=== PATIENT | female | born 1955 | race Caucasian/White ===

== ENCOUNTER 2025-06-22 15:24 | Inpatient (IN) | payer MEDICARE, SELFPAY ==
[2025-06-22] VITALS (75 sets, daily range): BP systolic 60–175; BP diastolic 22–70; PULSE 0–70; RESP 9–24; TEMP 36.1–37; O2SAT 84–100; BMI 29.2
--- NOTE | 2025-06-22 15:41 | EKG_ITS ---
[facility] Test Date: 2025-06-22 Pat Name: RY RICHARDSON Department: Room: - Gender: Female Automatic Print Developer: RICKY : 1955 Requested By: ED Temporary Provider Order Number: [id number] Reading MD: ED Temporary Provider Measurements Intervals [place] Rate: 41 P: NM: QRS: -3 QRSD: 99 T: 120 QT: 452 QTc: 376 Interpretive Statements SUPRAVENTRICULAR BRADYCARDIA ST DEVIATION AND MODERATE T-WAVE ABNORMALITY, CONSIDER ANTEROLATERAL ISCHEMIA No previous ECG available for comparison /[id number]/[email or web address]/[id number]
--- NOTE | 2025-06-22 15:47 | EDNOTE_ITS ---
ED Arrhythmia Palp. RME/HPI General Chief Complaint: Arrhythmia/Palpitations Stated Complaint: BRADYCARDIA Time Seen by Provider: 06/22/25 15:53 Arrival date/time: 06/22/25 15:24 RME / HPI RME / HPI narrative: 69 year old female presents to the ED BIBA from home for evaluation of symptomatic bradycardia today. Per medics, the patient on scene reported feeling dizzy while in the shower and laid herself on the bathroom floor. Medics state on scene the patient was pale, GCS of 14, bradycardic rate 30-40s, blood pressure 102/52, saturating low 90s on room air and placed on 6L nasal cannula with improvement to 95%. State en route patients heart rate dropped to low 20s and given a total of 1mg Atropine with minimal change. In the ED, patient reports she does have an appointment scheduled with allergy and immunology chief for the first time in 1 week. Denies any blood in stool. Per medics, on scene reported patients current medications include Amiodarone, Sertraline, Levothyroxine. Patient denies use of blood thinners. Related Data Home Medications ?Medication ?Instructions ?Recorded ?Confirmed levothyroxine 100 mcg tablet 100 mcg PO DAILY 06/22/25 06/22/25 sertraline 50 mg tablet 50 mg PO Q24H 06/22/2506/22 Previous Rx's ?Medication ?Instructions ?Recorded ferrous sulfate 300 mg (60 mg 150 mg (2.5 mL) PO Q OTH ER DAY 06/30/25 iron)/5 mL oral liquid #500 mL furosemide 20 mg tablet (Lasix) 20 mg PO QDAY PRN Shor tness or 06/30/25 breath or Rapid weight gain #30 tabs midodrine 5 mg tablet 5 mg PO Q4H 30 days #180 tab s 06/30/25 pantoprazole 40 mg tablet,delayed 40 mg PO BID 30 days #60 tabs 06/30/25 release vitamin B complex-vitamin C-folic 1 tab PO QDAY 30 day s #30 tabs 06/30/25 acid 0.8 mg tablet (Nephro-Ange) Allergies Allergy/AdvReac Type Severity Reaction Status Date / Time No Known Allergies Allergy Verified 06/27/25 15:03 Review of Systems Review of Systems Systems Reviewed: All systems reviewed, normal except as documented Past Medical History Past Medical History CARDIAC: Positive Cardiac Disorders (does not remeber what problem) and Hypotension Surgical History SURGICAL: Negative Abdominal Surgery, Nephrectomy, Joint Replacement, Brain Shunt or Lumpectomy Social History SMOKING STATUS: Smoker, status unknown ED Exam Narrative Physical exam: GENERAL APPEARANCE: alert and oriented x 4 though slow to respond, well- developed, well-nourished, pale, skin is cool to touch HEENT: Normocephalic, atraumatic; pupils equal, round, reactive to light; EOMI; mucous membranes pink, moist; oropharynx clear NECK: Supple LUNGS: CTABL; no wheezes, no rales, no rhonchi HEART: Bradycardic rate low 20s; normal S1, S2; no murmurs ABDOMEN: non distended; normal BS; soft, no tenderness, no guarding, no rebound; no masses, no organomegaly, no hernia BACK: no CVA tenderness EXTREMITIES: atraumatic; no edema NEUROLOGIC: awake; alert and oriented x4 though slow to respond PSYCHIATRIC: appropriate mood and affect SKIN: cool, dry, pale; no rashes Course Course Course Narrative: Patient externally paced at 130mA, rate 70s. BS 218. 1528p: HR mid 20s, patient given 1mg Atropine. 1545p: I spoke with allergy and immunology chief Dr. Travis, states he will be making calls to the crown and bridge dental lab technician for pacemaker placement. 1710p: Blood pressure 106/43, rate 70. Patient states she does not recall why she is on the Amiodarone and was started on the medication years ago. 1716p: I spoke with jigman Dr. Marie. Discussed patients PMHx, HPI, ED course, exam findings, labs, and radiology results. She accepts the patient for admission to ICU. Quality Measures none Orders Category Date Time Status EKG (ED ONLY) *Do not use* NOW Care 06/22/25 15:41 Active EKG (ED Only) Stat Exams 06/22/25 15:41 Ordered BNP [B-Type Natriuretic Peptide] Stat Lab 06/22/25 15:41 Ordered CBC Stat Lab 06/22/25 15:40 Ordered CMP [Comprehensive Metabolic Panel] Stat Lab 06/22/25 15:40 Ordered Magnesium Stat Lab 06/22/25 15:40 Ordered Troponin I Stat Lab 06/22/25 15:40 Ordered Arrhythmia/Palpitations MDM Narrative MDM Narrative:: I, Esther Diana, am scribing for and in the presence of Dr. Farooq. Patient data External records reviewed:: EMS form Clinical information provided by:: patient, EMS and spouse Social determinants that could affect healthcare access:: none Patient has the following chronic illnesses:: See HPI How is presenting disease/condition affected by chronic disease/condition?: exacerbated by Evaluation data The following diagnostics were reviewed and interpreted by me:: lab results Lab and/or radiology exams considered but not ordered:: None Interpretation Summary: junctional rhythm, rate 41, occasional PVC, ST depression lead II, TWI lead II Medications / Prescriptions Medications or Prescriptions considered but not ordered:: None Medication administrations:: See above Consultations Consultation(s) initiated? (list below): Yes Consultation #1 (Physician, Specialty, Details): See course Diagnosis Most likely diagnosis given after review of the tests above:: Junctional bradycardia Symptomatic bradycardia Symptomatic anemia Admission Indicated Admission indicated?: indicated Admission Request Was there a request for admission?: Yes Admission Attestation Admission request attestation: Discussed case with [] from Hospitalist service regarding admission. Discussed patients ED course, exam findings, labs, and radiology results. The Hospitalist [agrees,declines] to accept the patient for admission. Disposition Plan Disposition Plan: Admit Critical Care Time Critical Care Time Critical Care Time: Yes Total Critical Care Time (min.): 50 Attestation: The high probability of sudden, clinically significant deterioration in the patient's condition required the highest level of my preparedness to intervene urgently. The services I provided to this patient were to treat and/or prevent clinically significant deterioration. Services included the following: chart data review, reviewing nursing notes and/or old charts, documentation time, real estate consultant collaboration regarding findings and treatment options, medication orders and management, direct patient care, vital sign assessments and ordering, interpreting and reviewing diagnostic studies and lab tests. Aggregate critical care time includes only time during which I was engaged in work directly related to the patient's care, as described above, whether at bedside or elsewhere in the Emergency Department. It did not include time spent performing other reported procedures or the services of residents, students, nurses or physician assistants. Discharge Plan Plan Patient Disposition: Admit Acute Care w/in Hospital Discharge Disposition comment: ICU- Dr. Marie Patient condition on transfer: Stable Problem List Clinical Impression: Junctional bradycardia, Symptomatic bradycardia, Symptomatic anemia
--- NOTE | 2025-06-22 15:47 | PC.NURSE ---
PT TALYA FROM HOME, WAS TAKING A SHOWER WHEN SHE BEGAN FEELING DIZZY, GOT OUT OF SHOWER AND LAID HERSELF ON THE GROUND, CALLED AMBULANCE, WHEN EMS ARRIVED PTS HR WAS IN THE 20S, THEY ADMINISTERED 1 ATROPINE. HERE PT ABLE TO ANSWER QUESTIONS, CURRENTLY BE PACED.
[2025-06-22 16:39] LABS: Alanine Aminotransferase 40 U/L (10-49); Albumin, Serum 3.6 gm/dL (3.4-4.8); Albumin/Globulin Ratio 1.8 (1.2-2.2); Alkaline Phosphatase 49 U/L (46-116); Anion Gap 15 (7-16); Aspartate Amino Transferase 57 U/L (0-34); BUN/Creatinine Ratio 11 Ratio (12-20); Bilirubin,Total 3.5 mg/dL (0.3-1.2); Blood Urea Nitrogen 22 mg/dL (9-23); C-Reactive Protein < 0.5 mg/dL (0.0-0.9); Calcium 8.6 mg/dL (8.3-10.6); Calcium (Corrected) 8.9 mg/dL (8.5-10.1); Carbon Dioxide 17.4 mMol/L (20.0-31.0); Chloride 102 mMol/L (98-107); Creatinine (Component) 2.0 mg/dL (0.6-1.3); Free T4 (Free Thyroxine) 1.64 ng/dL (0.89-1.76); Globulin 2.0 gm/dL (2.3-3.5); Glucose 224 mg/dL (74-106); Magnesium 2.3 mg/dL (1.6-2.6); Osmolality,Calculated 278 (275-295); Potassium 5.1 mMol/L (3.4-5.1); Sodium 134 mMol/L (136-145); Thyroid Stimulating Hormone 3.32 uIU/mL (0.55-4.78); Total Protein 5.6 gm/dL (5.7-8.2); Troponin I 0.022 ng/mL (0.0-0.045); eGFR 27 See Note
--- NOTE | 2025-06-22 16:53 | PC.NURSE ---
cardiiologist at bedside SHERRI Travis
--- NOTE | 2025-06-22 17:07 | PC.NURSE ---
md attempted to turn down the pacer and patient started to doze off
[2025-06-22] MEDS: DOPamine/D5w 400 MG IVPB 400 MG/250 ML BAG 16.361 MG IV ×2 (17:45→20:31)
[2025-06-22 17:46] LABS: Basophils # (Auto) 0.0 Thou/mm3 (0.0-0.2); Basophils % (Auto) 0 % (0-2.5); Eosinophils # (Auto) 0.0 Thou/mm3 (0.0-0.5); Eosinophils % (Auto) 0 % (0-10); Immature Granulocytes Auto 0.12 Thou/mm3 (0.00-0.00); Lymphocytes # (Auto) 2.0 Thou/mm3 (1.0-4.8); Lymphocytes % (Auto) 25 % (10-50); Mean Corpuscular HGB Conc 34.6 g/dl (31.0-37.0); Mean Corpuscular Hemoglobin 47.0 pg (25.0-35.0); Mean Corpuscular Volume 136 fL (80-100); Monocytes # (Auto) 0.4 Thou/mm3 (0.0-0.8); Monocytes % (Auto) 6 % (0-12); Neutrophils # (Auto) 5.3 Thou/mm3 (1.8-7.7); Neutrophils % (Auto) 68 % (37-80); Nucleated Red Blood Cell # 0.13 Thou/mm3 (0.00-0.00); Nucleated Red Blood Cell % 2 /100 WBC (0); RDW Standard Deviation 91.5 fL (36.4-46.3); Red Blood Count 1.00 Miln/mm3 (4.00-5.20); White Blood Count 7.8 Thou/mm3 (3.6-11.0)
[2025-06-22 17:54] LABS: Hematocrit 13.6 % (36.0-46.0); Hemoglobin 4.7 g/dL (12.0-16.0); Platelet Count 66 Thou/mm3 (140-440)
[2025-06-22 17:59] LABS: Sed Rate (ESR) < 1 mm/hr (0-30)
[2025-06-22 18:16] LABS: B-Type Natriuretic Peptide 476 pg/mL (0-100)
[2025-06-22 18:20] LABS: Slide Review Platelets confirmed
[2025-06-22 18:21] LABS: Path Review Blood Smear Sent to Pathologist
--- NOTE | 2025-06-22 18:56 | PC.NURSE ---
wast at bedside at 1745 and wants PRBS to be pushed due to patients hgb 4.7 at this time, phone call recieved from lab that hgb was 4.7, hct 13.6 , and platelets 66 md was notified at this time, and ordered it to be pushed fast, patient was able to tolerated 1srt unit, and 2nd unit was initated, patient heart rate had dropped to 36 due to md changing the setting on the pacer, patient was also started on a dopamine drip ,patient was then taken to icu for further treatment at this time,
--- NOTE | 2025-06-22 19:17 | PD.RESCONSUL ---
HPI Data of Consult Requesting Physician: Dr. Farooq Admitting Provider: Coral Marie MD Attending Provider: Coral Marie MD Primary Care Provider: Monica Hitchcock MD Consult Narrative History of present illness: Patient is a 69-year-old female with past medical history of arrhythmia, hypothyroidism, GERD, depression who presents on 06/22 for syncope. Patient's was present at bedside. Patient reports that she was trying to take a shower when she suddenly felt lightheaded, was caught by and placed on the ground. Denies any head or bodily trauma. Denies loss of consciousness. reports that he took her blood pressure, found systolics to be 90s and heart rate in 20s. Called 911. Per , she had been more progressively pale for the past 2 weeks. Patient endorses she had darker stools but attributed to the fact that she was started on Bactrim and Z-Girish about 2 weeks ago for upper respiratory symptoms, prescribed by PCP. Denies any diarrhea, fever, chills. Denies any chest pain, shortness of breath, and palpitations. Patient reports that she previously saw jewelry repairer Dr. Meyer however has not seen him for more than a year at least. Was prescribed amiodarone, digoxin, nadolol for arrhythmia . Patient is not on anticoagulation. Patient was supposed to see Dr. Perdomo for initial visit next week, as her also follows with him regularly. Upon arrival to the ED, heart rate was in 30s. Was given atropine x 1 in transit. Was being paced transcutaneously. Upon arrival, patient was very pale, Hgb 4.7, in process of receiving 1 unit of blood and dopamine drip 10 mcg/kg/min. Patient did not tolerate discontinuation, HR 36 off pacer. First unit of blood bolused, another unit of blood was transfused. Patient was transferred to ICU for possible temporary pacemaker placement. Past Medical History: As above Family History: Extensive family history of diabetes. Denied any family cardiac history. Surgical History: Denies any surgeries Social History: Denies history of smoking, denies current alcohol use, denies recreational drug use Current Medications: Amiodarone 200 mg daily, nadolol 40 mg daily, digoxin to 50 mg daily except for Sundays, levothyroxine 100 mcg daily, sertraline 50 mg daily, Bactrim started on 06/16/2025 (Source: Medication bottles brought by family) Allergies: No known drug allergies cc:: cc: Coral Marie MD Exam Vital Signs Temp Pulse Resp BP Pulse Ox O2 Del Method O2 Flow Rate 97.6 F 36 L 18 131/59 H 95 Nasal Cannula 5 06/22/25 18:15 06/22/25 18:28 06/22/25 18:28 06/22/25 18:28 06/22/25 18:28 06/22/25 17:14 06/22/25 18:28 Narrative Exam Physical Exam General: Awake and in mild distress on transcutaneous pacing. Conversational. Very pale. HEENT: Normocephalic, atraumatic, mucous membranes dry. Heart: Bradycardic. Regular rate and rhythm, normal S1 and S2, no murmurs appreciated. Lungs: Diffuse crackles. Abdomen: Soft, nondistended, nontender, positive bowel sounds. No guarding or rebound tenderness. Neurologic: Alert and oriented x3, no gross neurological deficit, and patient able to move all 4 extremities. Extremities: No edema. Skin: No rash or ecchymoses. Results Labs 06/22/25 20:34 06/22/25 20:34 Labs: Short CBC 06/22/25 Range/Units 17:21 WBC 7.8 (3.6-11.0) Thou/mm3 Hgb 4.7 L* (12.0-16.0) g/dL Hct 13.6 L* (36.0-46.0) % Plt Count 66 L (140-440) Thou/mm3 BMP 06/22/25 15:40 Sodium 134 L Potassium 5.1 Chloride 102 Carbon Dioxide 17.4 L BUN 22 Creatinine 2.0 H Glucose 224 H Calcium 8.6 Cardiac Enzymes 06/22/25 Range/Units 15:40 Troponin I 0.022 (0.0-0.045) ng/mL Liver Function 06/22/25 Range/Units 15:40 Total Bilirubin 3.5 H (0.3-1.2) mg/dL AST 57 H (0-34) U/L ALT 40 (10-49) U/L Alkaline Phosphatase 49 (46-116) U/L Albumin 3.6 (3.4-4.8) gm/dL Quality Measures Quality Measures none Advance care planning discussed with:: patient Medications Home Medications and Allergies Home Medications ?Medication ?Instructions ?Recorded ?Confirmed ?Type amiodarone 200 mg tablet 200 mg PO Q24H 06/22/25 06/22/25 History digoxin 250 mcg (0.25 mg) tablet 250 mcg PO .COMPLEX 06/22/25 06/22/25 History levothyroxine 100 mcg tablet 100 mcg PO DAILY 06/22/25 06/22/25 History nadolol 40 mg tablet 40 mg PO DAILY 06/22/25 06/22/25 History sertraline 50 mg tablet 50 mg PO Q24H 06/22/25 06/22/25 History sulfamethoxazole 400 1 tab PO Q12H 06/22/25 06/22/25 History mg-trimethoprim 80 mg tablet Allergies Allergy/AdvReac Type Severity Reaction Status Date / Time No Known Allergies Allergy Verified 06/22/25 15:39 Visit Medications Acetaminophen (Acetaminophen 325 Mg Tablet) 650 mg PO Q6H PRN PRN Reason: Fever >101.5 Stop: 07/22/25 17:54 Acetaminophen (Acetaminophen 325 Mg Tablet) 650 mg PO Q6H PRN PRN Reason: PAIN SCALE 1-3 (mild Stop: 07/22/25 17:54 Dextrose (Dextrose 50%-Water Inj 50 Ml Syringe) 25 ml IV Q15MIN PRN PRN Reason: BG 50-70 responsive npo pt Stop: 07/22/25 17:59 Dextrose (Dextrose 50%-Water Inj 50 Ml Syringe) 50 ml IV Q15MIN PRN PRN Reason: BG <50 OR BG <70 & pt unresponsive Stop: 07/22/25 17:59 Glucagon (Glucagon Inj 1 Mg Vial) 1 mg IM Q15MIN PRN PRN Reason: BG <70, and no IV access Dopamine HCl/Dextrose (Intropin In D5w Ivpb) 400 mg in 250 mls @ 16.361 mls/hr IV .[id number] JOANN; Protocol Stop: 07/22/25 17:17 Last Titration: 06/22/25 17:54 Dose: 10 mcg/kg/min, 32.723 mls/hr Insulin Human Lispro (Insulin Lispro (Admelog) 1 Unit/0.01 Ml Unit) 0 unit SC Q6HR JOANN; Protocol Stop: 07/22/25 17:59 Ondansetron HCl (Ondansetron Inj 2 Mg/Ml Inj 2 Ml) 4 mg IVP Q6H PRN; Protocol PRN Reason: NAUSEA OR VOMITING Stop: 07/22/25 17:54 Pantoprazole Sodium (Pantoprazole Inj 40 Mg Vial) 40 mg IVP BID JOANN Stop: 07/22/25 20:59 Sennosides (Senna Tablet) 1 tab PO QDAY PRN; Protocol PRN Reason: constipation Stop: 07/22/25 17:54 Assessment & Plan Plan Patient is a 69-year-old female with past medical history of arrhythmia, hypothyroidism, GERD, depression who presents to the [facility] ED on 06/22/25 for pre-syncope, found to be in bradycardia HR low 30s requiring transcutaneous pacing, admitted to ICU for the severe bradycardia with need for ventricular junctional rhythm requiring transcutaneous pacing and possible temporary pacemaker placement. #Severe anemia #Thrombocytopenia #? GI bleed Presented with paleness, has been progressive for the past 2 weeks. Reports also starting 2 weeks ago, patient has had decreased appetite and dark stools. Around this time she was also started on Bactrim and Z-Girish for upper respiratory virus by PCP. Patient thought that dark stools was a side effect of the medications. Never had a colonoscopy. On admission, WBC 7.8, hemoglobin 4.7, platelet 66. BNP ? S/p 2 units of hemoglobin ? Repeat CBC post transfusion ? Patient perfusing well now and mentation normal. Able to move all extremities, no focal deficits, able to answer questions appropriately. #Bradycardia #Supraventricular junctional rhythm with narrow QRS with occasional PVC`s # ? Atrial fibrillation / tachyarrhythmia Was found to have heart rate of 20s at home after presyncopal episode. Upon arrival heart rate improved to 30s, status post atropine x 1. Patient is not on anticoagulation. Previously seeing Dr. Meyer. Was told that she has an arrhythmia however is not on anticoagulation. Takes amiodarone 200 mg daily, nadolol 40 mg daily, digoxin 250 mg daily except for Sunday. Last took all of these medications this morning prior to arrival, likely reason why patient's heart rate did not increase despite anemia. Patient was transcutaneously paced at HR 60 upon arrival to ED, was later discontinued after HR stabilized to upper 30s after receiving dopamine and blood. SBP in 130s. Patient was conversational. EKG showed supraventricular junctional rhythm with narrow QRS with occasional PVCs. Heart rate 41. Bedside echo was performed showed normal LV and RV function. no pericardial effusion clear. ?Hold amiodarone, atenolol, digoxin ?Check digoxin level ?BP stable btwn 130-160 mmHg. Patient HR stable in 30s. Patient is hemodynamically stable for now and will hold off on trancutaneous and transvenous pacing. May restart transcutaneous pacing as needed if pt becomes hemodynamically unstable and will insert temporary transvenous pacemaker. ?Correct anemia and keep Hgb btwn 9-10. Transfuse as needed. ?Give IV Lasix 20 x1 if pt appears overloaded between transfusions ?Keep potassium between 4-5, keep magnesium greater than 2 at all times. ? Continue telemetry - ? Order official TTE for further evaluation #CAN versus acute on chronic kidney disease Reports decreased appetite for the past 2 weeks. Creatinine 2.0, previously 1.3 in 2020. Possibly secondary to decreased oral intake for the past 3 weeks. ?IV Lasix okay as needed for now as patient is receiving aggressive volume resuscitation ?CTM creatinine ?Avoid overdiuresis or other nephrotoxic agents #Hypothyroidism #Depression ?Resume home meds once stable Thank you for your consultation, please do not hesitate to reach out if you have any question or concern Patient plan of care was discussed with the attending physician, Dr. Perdomo . Surekha Horn, PGY-1 Attending Provider Attestation/Addendum I have personally seen and examined the patient separately on the above date of service and discussed the plan of care with the resident. I reviewed the resident Dr. Surekha Horn consultation progress note and agree with the resident findings and plan in the note above and have also edited the documentation to reflect my findings and plan. A 69-year-old female with a past medical history of atrial arrhythmia on amiodarone, digoxin as well as nadolol, hypothyroidism, GERD, depression presented to the emergency department after a presyncope. Patient apparently was taking a shower and felt lightheaded and caught her and laid her down on the ground. Patient apparently did not lose any consciousness. Patient checked vitals at home and heart rate was in the 20s along with blood pressure in the 90s and EMS was called. Patient apparently has not been doing well for the past 2 weeks and has been progressively.. Patient also had some dark stools over the past few weeks. Has been on antibiotics with Bactrim and Z-Girish for upper respiratory tract symptoms. Patient just to follow-up with Dr. Meek for atrial arrhythmia but was not on anticoagulation and was not following with him recently. is my patient for the past couple of years to be seen by me next week. In the emergency department initial heart rate was in the 20s and the patient was given atropine x 2 without any significant response. Cardiology was consulted for further evaluation. Patient was started on transcutaneous pacing. Initial hemoglobin was down to 4.7 and stat blood transfusion was ordered for 2 units. Patient was also started on dopamine drip at 10 mcg/kg/min and admitted to the ICU. Rest of the labs showed platelets of 66, WBC of 7.8, sodium of 135, potassium of 5.1, BUN of 22 creatinine of 2.0 glucose of 224. Calcium was 8.6. Troponin was negative at 0.02. LFT shows AST of 57 and total bili was 3.5. 1. Severe bradycardia requiring transcutaneous pacing initially with unclear etiology for now 2. Severe anemia with a hemoglobin of 4.7 with an Etiology 3. Acute kidney injury versus acute on chronic kidney disease with a creatinine of 2.0 4. Mild hyperkalemia 5. History of atrial arrhythmia amiodarone, digoxin as well as 6. Severe thrombocytopenia with a platelets of 66 7. Abnormal LFTs with elevated T. bili at 3.5 or hyperbilirubinemia 8. Hypothyroidism 9. Depression 10. Significant right hip pain Patient presented with presyncopal episode with an heart rate in the 20s as well as and severe hypotension of 90 mmHg. As noted above patient was initially placed on transcutaneous pacing as she did have altered mental status secondary to poor perfusion was completely pale on initial examination. Was unresponsive to atropine x2 in the emergency department. Initial hemoglobin was 4.0 and repeat showed around the same at 4.5. Stat PRBC transfusion was ordered and patient was recommended to transfuse 2 units. Dopamine drip was started and was increased to 10 mcg/kg/min. Patient then was hemodynamically stable after the first transfusion and systolic blood pressure was greater than 150 to 170 mmHg. Decreased dopamine drip to 5 mcg/kg/min. Second unit of transfusion was started. An EKG was performed at that point of time showed junctional rhythm with a narrow QRS complexes and occasional PVCs with a heart rate of 41 bpm. Telemetry showed patient's heart rate was stable in the 30s. Hemodynamically stable and patient mentation was normal and answered all the questions appropriately, no focal neurological deficits on examination. Performed bedside echo which showed normal LV function and RV function and there was no clear pericardial effusion. There was no evidence of any severe aortic stenosis. Transcutaneous pacing was stopped as well as the patient was admitted to the ICU and she continued to be hemodynamically stable. Will plan for a temporary transvenous pacer if patient is hemodynamically unstable and can restart transcutaneous pacing if needed until the placement of the temporary transvenous pacemaker. Recommend to hold the amiodarone digoxin as well as nadolol for now. No digoxin level was checked since admission and will recommend to check digoxin level immediately. Recommend to keep potassium between 4 and 5 and deviation greater than 2 at all times. Continue close monitoring in the ICU. Complete echocardiogram was ordered for further evaluation of the LV function RV function and ruling out any valvular disease or any regional wall motion abnormalities. Recommend to continue to transfer the patient for a total of 3 units of PRBC to keep the hemoglobin between 9 and 10. Check CBC and CMP again after the second transfusion. Lasix 20 mg IV in between transfusions. Unclear reason for the anemia at the present point of time but she did have dark stools recently. Complete workup of anemia as per the primary team. Please send the initial labs for anemia from the first blood sample as patient did receive blood transfusions and the later samples would alter the results. Patient also has significant thrombocytopenia at 66 and could be from the blood loss but will need to rule out other causes. Primary to workup for the same. Also patient has hyperbilirubinemia at 3.5 without any clear etiology and will need to rule out hemolysis as well as any liver disease but the liver enzymes are only mildly elevated. Acute versus acute on chronic kidney disease-creatinine is 2.0 with a BUN is only 22. Previous creatinine was 1.3 in 202. Could be secondary to poor oral intake as well as hypovolemia secondary to the significant anemia. Further workup of CAN as per the primary team. Mild hyperkalemia noted at 5.1. Recommend to repeat CMP and continue hyperkalemia treatment if potassium level continues to rise. There is a high probability of sudden, clinically significant or life threatening deterioration in the patient condition which required the highest level of physician preparedness to intervene urgently. I have personally spent 65 minutes of critical care time, exclusive of time spent on any procedures, in evaluation and management of this critically ill patient. Management of rest of the medical conditions as per primary team and other consultants. Thank you for the consult and allowing me to participate in the care of the patient. Cardiology will continue to follow. Juan Perdomo M.D. Interventional Cardiology
--- NOTE | 2025-06-22 19:19 | ESHP_ITS ---
<Statement entered by Richard Connor MD - 06/22/25 20:49> This patient is a 69-year-old female with past medical history of atrial fibrillation on amiodarone, digoxin, hypothyroidism, anxiety and depression presented with chief complaint of feeling dizzy during shower and passed a loose bowel movement unintentionally during this time. She laid in the bathroom and EMS was called. Patient was found pale with GCS of 14 bradycardic in the 20s and blood pressure 102/52. She was placed on nasal cannula and was brought to the ED. She received 1 mg of atropine with minimal improvement in the heart rate. She was seen Dr Meyer as outpatient and was planning to transition to another physical therapist technician, . Patient also reported to have a black stool last week and was taking TMP-SMX since April. In the ED, patient's heart rate was 30s was placed on pacer pads with low blood pressure initially at 4 L nasal cannula. Labs showed critical hemoglobin of 4.7, thrombocytopenia platelet count 66, sodium 134. Bicarb 17.4. Creatinine 2.0. T. bili 3.5. EKG showed junctional rhythm with PVCs. Patient was started on 2 units PRBC and dopamine drip at the rate of 10 mcg/kg/min. Cardiac pacemaker was continued. Cardiology was consulted and initial plan was to place a transvenous pacemaker however since patient was able to maintain heart rate without symptoms cardiology plan to assess the patient tomorrow and keep hold off on her medications which she took this morning including amiodarone, nadolol although med rec is pending. Blood pressure has been stable. Will continue with dopamine at 5 mcg/min and will decrease the dose if heart rate is above 45 bpm. Follow-up with CBC and CMP post 2 units PRBC transfusion. Follow-up with lactic acid. Will likely consider GI consult if patient's hemoglobin continues to drop. Acute blood loss anemia could be related due to GI bleed? Or Eliquis [per patient, she is not on this medication]. EKG every 6 hourly. Will continue dopamine drip and transfuse blood at the following CBC results. Bedside echo showed good pumping function of heart/LV. Cardiology will follow the case closely. Med rec pending. All labs and orders were reviewed. I discussed and supervised with the public relations intern physician who took care of this patient. I personally saw and examined the patient. I agree with most of the assessment and plan. Disclaimer: Despite multiple revisions, due to the dictation software being used, the document bellow may not be free of grammatical errors including phonetic/typographic errors. However, this does not deter from our commitment to providing health care in the patient's best interest in mind. Plan of care discussed with attending Physician Dr. Frank Connor MD PGY-3 Documentation for date of: 06/22/25 HPI History of Present Illness History of present illness: Patient is a 69-year-old female with past medical history of atrial fibrillation, hypothyroidism, anxiety, depression presenting to the ED from ambulance after initially feeling dizzy and weak in the shower earlier today, passed a brown/loose bowel movement unintentionally during this time. Patient states she then laid down on the bathroom floor and called EMS. Per EMS she was pale onsite with a GCS of 14, bradycardic to the 20s blood pressure 102/52 which was taken at home. Was given 6 L nasal cannula when EMS picked her up. During transfer to ED, patient was also given 1 mg atropine with minimal improvement in heart rate. Patient states she never lost consciousness and never hit her head today. Per family, she has been pale and has been falling/tripping without loss of consciousness multiple times in the last 2 weeks without head trauma. Per Motion Study Analyst Dr. Perdomo, says he sees her and was planning to see the patient in the clinic relatively soon. Per family, states that patient was taking a TMP-SMX since May 16 and has been having dark loose stools in the last week. Past Medical History: Above Family History: Father had stroke Surgical History: None Social History: Denies history of smoking, denies current alcohol use, denies recreational drug use Current Medications: Nadolol, Amiodarone, Sertraline, Levothyroxine, Digoxin, Tylenol Allergies: No known drug allergies ED Course: In the ED her vitals were initially temperature of 98.6, 27 bpm regular heart rate, 18 respiratory blood pressure of 60/22, 98% oxygen 4 L nasal cannula. Labs were significant for hemoglobin of 4.7 hematocrit 13.6, MCV 136, RDW's deviation 91.5, platelet count 66, sodium 134, carbon dioxide 17.4, creatinine 2.0, GFR 27, glucose 224, T. bili 3.5, AST 57, BNP 476 Imaging included EKG which showed junctional rhythm with PVC In the ED patient was given 1 unit of PRBCs and was started on a second. Patient was also given dopamine drip starting at a rate of 10 mcg per kg per minute. Patient was also started on cardiac pacing in the ED. Patient was admitted for symptomatic junctional bradycardia Review of Systems Review of systems otherwise negative except what is mentioned above. Exam Vital Signs Temp Pulse Resp BP Pulse Ox O2 Del Method O2 Flow Rate 97.6 F 36 L 18 131/59 H 95 Nasal Cannula 5 06/22/25 18:15 06/22/25 18:28 06/22/25 18:28 06/22/25 18:28 06/22/25 18:28 06/22/25 17:14 06/22/25 18:28 Narrative Exam General: No acute distress; A&Ox3, lethargic, pale Skin: Warm, dry, intact, no obvious rash. HENT: NCAT, EOMI, not icteric. External ears normal. No rhinorrhea. Dry mucous membranes Cardiovascular: Bradycardic, regular rhythm, no murmur, +S1/S2. Respiratory: Bilateral Crackles GI: Soft, nontender, non-distended. No guarding or rebound tenderness. : No suprapubic tenderness, no flank tenderness Extremities: no edema, no cyanosis, no clubbing. Extremity pulses present Neuro: No focal deficits observed. Lightly conversant, moving all extremities. No overt cerebellar signs/incoordination. Psychiatric: Cooperative, appropriate affect. Results: Labs 06/22/25 17:21 06/22/25 15:40 Labs: Short CBC 06/22/25 Range/Units 17:21 WBC 7.8 (3.6-11.0) Thou/mm3 Hgb 4.7 L* (12.0-16.0) g/dL Hct 13.6 L* (36.0-46.0) % Plt Count 66 L (140-440) Thou/mm3 BMP 06/22/25 15:40 Sodium 134 L Potassium 5.1 Chloride 102 Carbon Dioxide 17.4 L BUN 22 Creatinine 2.0 H Glucose 224 H Calcium 8.6 Cardiac Enzymes 06/22/25 Range/Units 15:40 Troponin I 0.022 (0.0-0.045) ng/mL Liver Function 06/22/25 Range/Units 15:40 Total Bilirubin 3.5 H (0.3-1.2) mg/dL AST 57 H (0-34) U/L ALT 40 (10-49) U/L Alkaline Phosphatase 49 (46-116) U/L Albumin 3.6 (3.4-4.8) gm/dL Quality Measures Quality Measures VTE prophylaxis (SCDs) Advance care planning discussed with:: patient Medications Home Medications and Allergies Home Medications ?Medication ?Instructions ?Recorded ?Confirmed ?Type amiodarone 200 mg tablet 200 mg PO Q24H 06/22/2503/11 History digoxin 250 mcg (0.25 mg) tablet 250 mcg PO .COMPLEX 1 06/22/25 History levothyroxine 100 mcg tablet 100 mcg PO DAILY 06/22/25 06/22/25 History nadolol 40 mg tablet 40 mg PO DAILY 06/22/2503/11 History sertraline 50 mg tablet 50 mg PO Q24H 06/22/2506/22 History sulfamethoxazole 400 1 tab PO Q12H 06/22/2506/22 History mg-trimethoprim 80 mg tablet Allergies Allergy/AdvReac Type Severity Reaction Status Date / Time No Known Allergies Allergy Verified 06/22/25 15:39 Visit Medications Acetaminophen (Acetaminophen 325 Mg Tablet) 650 mg PO Q6H PRN PRN Reason: Fever >101.5 Stop: 07/22/25 17:54 Acetaminophen (Acetaminophen 325 Mg Tablet) 650 mg PO Q6H PRN PRN Reason: PAIN SCALE 1-3 (mild Stop: 07/22/25 17:54 Dextrose (Dextrose 50%-Water Inj 50 Ml Syringe) 25 ml IV Q15MIN PRN PRN Reason: BG 50-70 responsive npo pt Stop: 07/22/25 17:59 Dextrose (Dextrose 50%-Water Inj 50 Ml Syringe) 50 ml IV Q15MIN PRN PRN Reason: BG <50 OR BG <70 & pt unresponsive Stop: 07/22/25 17:59 Glucagon (Glucagon Inj 1 Mg Vial) 1 mg IM Q15MIN PRN PRN Reason: BG <70, and no IV access Dopamine HCl/Dextrose (Intropin In D5w Ivpb) 400 mg in 250 mls @ 16.361 mls/hr IV .[id number] [facility]; Protocol Stop: 07/22/25 17:17 Last Titration: 06/22/25 17:54 Dose: 10 mcg/kg/min, 32.723 mls/hr Insulin Human Lispro (Insulin Lispro (Admelog) 1 Unit/0.01 Ml Unit) 0 unit SC Q6HR [facility]; Protocol Stop: 07/22/25 17:59 Ondansetron HCl (Ondansetron Inj 2 Mg/Ml Inj 2 Ml) 4 mg IVP Q6H PRN; Protocol PRN Reason: NAUSEA OR VOMITING Stop: 07/22/25 17:54 Pantoprazole Sodium (Pantoprazole Inj 40 Mg Vial) 40 mg IVP BID JOANN Stop: 07/22/25 20:59 Sennosides (Senna Tablet) 1 tab PO QDAY PRN; Protocol PRN Reason: constipation Stop: 07/22/25 17:54 Assessment & Plan Plan Patient is a 69-year-old female with past medical history of atrial fibrillation, hypothyroidism, anxiety, depression presenting to the ED from ambulance after initially feeling dizzy, weak; found to have severe anemia. Patient was admitted for symptomatic junctional bradycardia. Neurology No acute problem Cardiovascular #Junctional Bradycardia Likely due to multiple medications including nadolol, amiodarone and digoxin Patient was being cardiac paced initially, no longer being paced. Dx: -EKG showed junctional bradycardia with PVC -Ordered Digoxin levels -Will consider formal echo tomorrow Rx: -Given Dopamine Drip initially 10 mcg/kg/min -> 5 mcg/kg/min RRx EKG every 6 hourly Decrease the rate of dopamine if heart rate above 40-45 bpm #BNP elevation Likely due to acute anemia with increased stress on myocardium Dx: -CXR ordered Rx: - Given 2 units pRBC's with 1 unit ready - Consider lasix 20 mg if needed RRX: -follow up CXR Respiratory # Acute hypoxic respiratory failure Likely due to hypovolemia due to suspected bleed with low hgb Patient was hypoxic to upper 80s on room air Saturating 96 on 4 L Oxy mask currently Rx: -Given Ipratropium/Levalbuterol x1 -Given supplemental O2 nasal cannula RRx: -Will continue to monitor O2, respiratory status GI and F/E/N #Stress Ulcer Prophylaxis Suspicion of GI bleed present Rx: -Started Protonix 40 mg IV BID - Will likely consider consulting GI to search for GI bleed #Elevated T. bili Dx: -T. bili 3.5. Patient denied any right upper quadrant tenderness. Rx - Follow-up with CT abdomen pelvis without con Renal #CAN Likely pre-renal due to hypovolemia Diagnostic Test: -Cr 2.0 with baseline appearing ~1.2/1.3 Treatment Plan: -Given 2 units pRBC's -Strict I/O's Treatment Review: -Follow up renal labs #hyponatremia Suspecting due to increased ADH release in attempt to fix hypovolemia Dx: -Na 134 -CMP ordered RRx: -Will continue to monitor electrolyes Heme #Acute blood loss anemia DDx: -Suspecting bleed, unsure of source. Per patient, has had dark stools the last week while taking TMP-SMX Dx: -Hgb 4.7 Rx: -Given 2 units pRBC with 1 unit ready -Plan to consult GI to investigate possible GI bleed as source. - Consider lasix 20 mg if needed (due to multiple units pRBC's given) RRx: -Will follow cbc, monitor for signs/symptoms of bleeding #Thrombocytopenia Suspecting due to platelet usage for suspected bleed Dx: -PLT 66 on admission -CBC ordered RRx: -Follow up CBC Endo #Hypothyroidism Patient takes home levothyroxine 100 mcg q day Dx: -TSH, Free T4 within normal limits Tx: -Will restart levothyroxine #Hyperglycemia Patient does not take any home diabetes medications, suspecting due to acute stress response Dx: -Glucose 224 on CMP on admission -Ordered A1c Tx: -Started Lispro sliding scale q6hr -Hypoglycemic protocol in place -glucose checks q6hr ID No acute problems DVT prophylaxis: SCD's GI prophylaxis: Protonix 40 mg IV BID Diet: NPO [place]o: no Lines: Peripherals Drips: Dopamine @ 5 mcg/kg/min Vent: no CODE STATUS: FULL CODE Reason of hospitalization: Symptomatic Junctional Bradycardia Patient plan of care was discussed with the attending physician, Dr. Marie & senior resident Dr. Geeta Stubbs MD PGY-1
--- NOTE | 2025-06-22 19:53 | XR_ITS ---
Examination: AP chest single view Technique: Sitting portable AP chest single view Date and time: June [id number] hrs. Indications: Bradycardia today. Findings: Mild prominence cardiac contour Prominent opacity in the lung szymanski with vascular congestion Moderate osteopenia Impression: Extensive diffuse bilateral pneumonia Consider associated heart failure, clinical correlation advised
[2025-06-22] MEDS: LEVALBUTEROL RT 0.63 MG/3 ML NEBU INH (20:36)
[2025-06-22] MEDS: IPRATROPIUM RT 0.5 MG/ 2.5 ML NEBU INH (20:37)
[2025-06-22] MEDS: LIDOCAINE 5% 1 PATCH TOP (20:48)
[2025-06-22] MEDS: ACETAMINOPHEN 325 MG TABLET 1000 MG PO (20:54)
[2025-06-22 21:08] LABS: Lactate (Lactic Acid) 2.8 mMol/L (0.4-2.0)
[2025-06-22 21:11] LABS: Basophils # (Auto) 0.0 Thou/mm3 (0.0-0.2); Basophils % (Auto) 0 % (0-2.5); Eosinophils # (Auto) 0.0 Thou/mm3 (0.0-0.5); Eosinophils % (Auto) 0 % (0-10); Hematocrit 22.2 % (36.0-46.0); Immature Granulocytes Auto 0.15 Thou/mm3 (0.00-0.00); Lymphocytes # (Auto) 1.6 Thou/mm3 (1.0-4.8); Lymphocytes % (Auto) 19 % (10-50); Mean Corpuscular HGB Conc 35.1 g/dl (31.0-37.0); Mean Corpuscular Hemoglobin 40.2 pg (25.0-35.0); Mean Corpuscular Volume 114 fL (80-100); Monocytes # (Auto) 0.5 Thou/mm3 (0.0-0.8); Monocytes % (Auto) 6 % (0-12); Neutrophils # (Auto) 6.3 Thou/mm3 (1.8-7.7); Neutrophils % (Auto) 73 % (37-80); Nucleated Red Blood Cell # 0.09 Thou/mm3 (0.00-0.00); Nucleated Red Blood Cell % 1 /100 WBC (0); Platelet Count 74 Thou/mm3 (140-440); Red Blood Count 1.94 Miln/mm3 (4.00-5.20); White Blood Count 8.5 Thou/mm3 (3.6-11.0)
[2025-06-22 21:16] LABS: Hemoglobin 7.8 g/dL (12.0-16.0)
[2025-06-22 21:33] LABS: Alanine Aminotransferase 45 U/L (10-49); Albumin, Serum 3.9 gm/dL (3.4-4.8); Albumin/Globulin Ratio 1.8 (1.2-2.2); Alkaline Phosphatase 53 U/L (46-116); Anion Gap 11 (7-16); Aspartate Amino Transferase 67 U/L (0-34); BUN/Creatinine Ratio 13 Ratio (12-20); Blood Urea Nitrogen 25 mg/dL (9-23); Calcium 8.7 mg/dL (8.3-10.6); Calcium (Corrected) 8.8 mg/dL (8.5-10.1); Carbon Dioxide 21.7 mMol/L (20.0-31.0); Chloride 102 mMol/L (98-107); Creatinine (Component) 2.0 mg/dL (0.6-1.3); Estimated Creatinine Clearance 31.1 mL/min (>60); Globulin 2.2 gm/dL (2.3-3.5); Glucose 182 mg/dL (74-106); Magnesium 2.1 mg/dL (1.6-2.6); Osmolality,Calculated 279 (275-295); Potassium 5.1 mMol/L (3.4-5.1); Sodium 135 mMol/L (136-145); Total Protein 6.1 gm/dL (5.7-8.2); eGFR 27 See Note
[2025-06-22 21:36] LABS: Bilirubin,Total 4.1 mg/dL (0.3-1.2)
[2025-06-22 21:38] LABS: Digoxin > 5.0 ng/mL (0.8-2.0)
[2025-06-22] MEDS: FOLIC ACID INJ 1 MG/0.2 ML IVP (21:46)
[2025-06-22 22:12] LABS: Immature Reticulocyte Fraction 20.9 % (3.0-15.9); Reticulocyte % (Auto) 2.9 % (0.5-1.5); Reticulocyte Absolute Auto 57.7 Biln/L (25.0-75.0); Reticulocyte Hgb Content 43.0 pg (28.0-35.0)
[2025-06-22 22:27] LABS: Ferritin 322 ng/mL (7.3-270.7); Iron 238 mcg/dL (50-170); Percent Iron Saturation 87 % (20-55); Total Iron Binding Capacity 273 mcg/dL (250-425); Unsaturated Iron Binding 35 (225-295)
--- NOTE | 2025-06-22 22:31 | EVENTNT_ITS ---
Documentation for date of: 06/22/25 Event Note Event Note: 22:30 Patient complaining of significant pain in her back and B/L hips, chronic issues. Unresponsive to Lidocaine patch + Tylenol 1g Ordered Diclofenac topical for pain relief. Will continue to avoid oral NSAIDs, patient will likely need GI work up given significant anemia Hb 4 --> improved to 7.3 after 2U PRBC Patient is currently receiving the third unit of PRBC. Cardiology requested diuresis. CXR remarkable for diffuse pulmonary congestion. Will give IV Lasix 20mg x1 as SBP >170 at this time. - Jamaal Macario M.D. PGY3 Disclaimer: Minor errors in wrapper and preserver may be present as this note was dic tated using voice recognition software.
[2025-06-22 22:34] LABS: Slide Review Platelets confirmed
[2025-06-22] MEDS: FUROSEMIDE INJ 10 MG/ML VIAL 2 ML 20 MG IVP (22:47)
[2025-06-23] VITALS (162 sets, daily range): BP systolic 88–167; BP diastolic 41–125; PULSE 0–71; RESP 9–27; TEMP 35.8–36.2; O2SAT 74–100; BMI 29.2
[2025-06-23 00:05] LABS: Reflex Lactate? Y
[2025-06-23 00:52] LABS: Lactate (Lactic Acid) 2.0 mMol/L (0.4-2.0)
[2025-06-23] MEDS: DOPamine/D5w 400 MG IVPB 400 MG/250 ML BAG 32.723 MG IV ×3 (01:07→17:49)
[2025-06-23 01:14] LABS: Albumin, Serum 3.8 gm/dL (3.4-4.8); Anion Gap 14 (7-16); BUN/Creatinine Ratio 15 Ratio (12-20); Blood Urea Nitrogen 32 mg/dL (9-23); Calcium 8.5 mg/dL (8.3-10.6); Calcium (Corrected) 8.7 mg/dL (8.5-10.1); Carbon Dioxide 18.3 mMol/L (20.0-31.0); Chloride 103 mMol/L (98-107); Creatinine (Component) 2.2 mg/dL (0.6-1.3); Estimated Creatinine Clearance 28.3 mL/min (>60); Glucose 160 mg/dL (74-106); Osmolality,Calculated 280 (275-295); Phosphorous 5.0 mg/dL (2.4-5.1); Potassium 5.5 mMol/L (3.4-5.1); Sodium 135 mMol/L (136-145); eGFR 24 See Note
[2025-06-23 01:17] LABS: Basophils # (Auto) 0.0 Thou/mm3 (0.0-0.2); Basophils % (Auto) 0 % (0-2.5); Eosinophils # (Auto) 0.0 Thou/mm3 (0.0-0.5); Eosinophils % (Auto) 0 % (0-10); Hematocrit 25.0 % (36.0-46.0); Immature Granulocytes Auto 0.09 Thou/mm3 (0.00-0.00); Lymphocytes # (Auto) 1.9 Thou/mm3 (1.0-4.8); Lymphocytes % (Auto) 20 % (10-50); Mean Corpuscular HGB Conc 35.2 g/dl (31.0-37.0); Mean Corpuscular Hemoglobin 37.0 pg (25.0-35.0); Mean Corpuscular Volume 105 fL (80-100); Monocytes # (Auto) 0.7 Thou/mm3 (0.0-0.8); Monocytes % (Auto) 7 % (0-12); Neutrophils # (Auto) 6.5 Thou/mm3 (1.8-7.7); Neutrophils % (Auto) 71 % (37-80); Nucleated Red Blood Cell # 0.06 Thou/mm3 (0.00-0.00); Nucleated Red Blood Cell % 1 /100 WBC (0); Platelet Count 76 Thou/mm3 (140-440); Red Blood Count 2.38 Miln/mm3 (4.00-5.20); White Blood Count 9.1 Thou/mm3 (3.6-11.0)
[2025-06-23 01:22] LABS: Hemoglobin 8.8 g/dL (12.0-16.0)
[2025-06-23] MEDS: ACETAMINOPHEN IVPB 1,000 MG/100 ML VIAL 250 MG IV (01:35)
[2025-06-23] MEDS: SOD POLYSTYRENE SULFON SUSP 15 GM/60 ML BTL 30 GM PO (01:35)
[2025-06-23] MEDS: DEXTROSE 50%-WATER INJ 50 ML SYRINGE 25 ML IVP (01:45)
[2025-06-23] MEDS: INSULIN HUM REGULAR 1 UNIT/0.01 ML (PER UNIT) 5 UNIT IV (01:51)
[2025-06-23 02:09] LABS: Slide Review Platelets confirmed
[2025-06-23] MEDS: ALBUTEROL/IPRATROPIUM (Duoneb) RT SOL 3 ML NEBU INH (03:16)
--- NOTE | 2025-06-23 03:22 | PC.NURSE ---
Addendum entered by Chaya Leon RN 06/23/25 03:25: MD Macario made aware. Original Note: Received call back from poison control. Per Mike, recommendations are to give 3 vials of digibind, due to antidote, digoxin lab levels will be fasle. If available, check free digoxin. If not available, check digoxin 12 hours post antidote. Supportive care.
[2025-06-23 03:29] LABS: Base Excess -6 (-3-3); HCO3 20 mEq/L (20-26); Inspired Oxygen, FIO2 15 %; O2 Saturation 94 % (91-98); PCO2 40 mmHg (32.0-48.0); PO2 69 mmHg (83-108); pH, Arterial 7.31 (7.35-7.45)
[2025-06-23 03:30] LABS: Inspired O2, VO2 Liters 15 L/min; Puncture Site Right Radial
[2025-06-23 03:31] LABS: Allen Test Performed/OK
[2025-06-23 05:21] LABS: Basophils # (Auto) 0.0 Thou/mm3 (0.0-0.2); Basophils % (Auto) 0 % (0-2.5); Eosinophils # (Auto) 0.0 Thou/mm3 (0.0-0.5); Eosinophils % (Auto) 0 % (0-10); Hematocrit 26.2 % (36.0-46.0); Hemoglobin 9.2 g/dL (12.0-16.0); Immature Granulocytes Auto 0.12 Thou/mm3 (0.00-0.00); Lymphocytes # (Auto) 2.0 Thou/mm3 (1.0-4.8); Lymphocytes % (Auto) 21 % (10-50); Mean Corpuscular HGB Conc 35.1 g/dl (31.0-37.0); Mean Corpuscular Hemoglobin 37.1 pg (25.0-35.0); Mean Corpuscular Volume 106 fL (80-100); Monocytes # (Auto) 0.8 Thou/mm3 (0.0-0.8); Monocytes % (Auto) 8 % (0-12); Neutrophils # (Auto) 6.7 Thou/mm3 (1.8-7.7); Neutrophils % (Auto) 70 % (37-80); Nucleated Red Blood Cell # 0.11 Thou/mm3 (0.00-0.00); Nucleated Red Blood Cell % 1 /100 WBC (0); Platelet Count 70 Thou/mm3 (140-440); Red Blood Count 2.48 Miln/mm3 (4.00-5.20); White Blood Count 9.6 Thou/mm3 (3.6-11.0)
[2025-06-23 05:39] LABS: INR 1.3 (0.9-1.3); Partial Thromboplastin Time 23.1 Seconds (22.0-36.0); Prothrombin Time 13.3 Seconds (9.0-12.2)
[2025-06-23 06:16] LABS: Alanine Aminotransferase 45 U/L (10-49); Albumin, Serum 4.0 gm/dL (3.4-4.8); Albumin/Globulin Ratio 1.8 (1.2-2.2); Alkaline Phosphatase 52 U/L (46-116); Anion Gap 13 (7-16); Aspartate Amino Transferase 67 U/L (0-34); BUN/Creatinine Ratio 11 Ratio (12-20); Bilirubin,Total 3.7 mg/dL (0.3-1.2); Blood Urea Nitrogen 26 mg/dL (9-23); Calcium 8.7 mg/dL (8.3-10.6); Calcium (Corrected) 8.7 mg/dL (8.5-10.1); Carbon Dioxide 20.1 mMol/L (20.0-31.0); Chloride 101 mMol/L (98-107); Creatinine (Component) 2.4 mg/dL (0.6-1.3); Estimated Creatinine Clearance 25.9 mL/min (>60); Globulin 2.2 gm/dL (2.3-3.5); Glucose 145 mg/dL (74-106); Magnesium 2.2 mg/dL (1.6-2.6); Osmolality,Calculated 275 (275-295); Phosphorous 5.5 mg/dL (2.4-5.1); Potassium 4.8 mMol/L (3.4-5.1); Procalcitonin 0.67 ng/ml (0.0-0.49); Sodium 134 mMol/L (136-145); Thyroid Stimulating Hormone 0.81 uIU/mL (0.55-4.78); Total Protein 6.2 gm/dL (5.7-8.2); eGFR 21 See Note
[2025-06-23 06:19] LABS: Glucose Estimated Average 103 mg/dL (80-131); Hemoglobin A1C 5.2 % Hgb (4.8-6.0)
[2025-06-23 06:24] LABS: Hepatitis A Antibody IgM Non Reactive (Non React); Hepatitis B Core Antibody IgM Non Reactive (Non React); Hepatitis B Surface Antigen Non Reactive (Non React); Hepatitis C Antibody Non Reactive (Non React)
--- NOTE | 2025-06-23 07:01 | PD.RESEVENT ---
Documentation for date of: 06/23/25 Event Note Event Note: Digitoxin level >5 Chronic dig toxicity, worsened over time. Spoke to Poison Control overnight, who recommended Digifine TID WIll pass on to Day Team for further eval and management. Overnight, patient's HR dropped to 19-24 bpm around 1am, with 4-[address] Perdomo was informed and Dopamine gtt increased 5mcg -> 10mcg. HR improved to 28-34bpm. Follow up CMP showed Cr 2.2 (post Lasix 20mg) and K 5.5 ! Patient was given 5U insulin regular IV x1 + Dextrose 20mL + Kayexalate 30mL K in the am at 4.8 Recommend continuing close monitoring of K levels while in Dig toxicity Cardio advises to keep K < 4.8 at all times to prevent pauses and owrsening bradycradia. - Jamaal Macario M.D. PGY3 Disclaimer: Minor errors in hospital chief financial officer may be present as this note was dictated using voice recognition software.
--- NOTE | 2025-06-23 07:41 | EKG_ITS ---
[facility] Test Date: 2025-06-23 Pat Name: SOLIS RICHARDSON [facility] Owner/Operator: AR GRAYSONB: 1955 Requested By: Coral Correia Order Number: [id number] Reading MD: Coral Correia Measurements Intervals Ewen Rate: 33 P: UT: QRS: 2 QRSD: 102 T: -74 QT: 526 QTc: 390 Interpretive Statements SUPRAVENTRICULAR BRADYCARDIA LOW QRS VOLTAGE IN PRECORDIAL LEADS POSSIBLE ANTERIOR MYOCARDIAL INFARCTION , PROBABLY OLD MODERATE T-WAVE ABNORMALITY, CONSIDER INFERIOR ISCHEMIA Compared to ECG 06/22/2025 18:38:38 Low QRS voltage now present Myocardial infarct finding now present T-wave abnormality still present Possible ischemia still present /store/S0/[id number]/ecg/[id number].pdf
[2025-06-23] MEDS: FOLIC ACID INJ 1 MG/0.2 ML IVP (08:29)
[2025-06-23] MEDS: VIT B12/Vit C/FA (Nephrovite) TABLET 1 TAB PO (08:30)
--- NOTE | 2025-06-23 09:00 | ECHO_ITS ---
Transthoracic Echo Report Ht (in): 68 Wt (lb): 192 Exam Location: Echo Lab Status: Inpatient Top Trimmer: Lisa Diaz Indications: Procedure Performed: BP: 149 / 49 HR: 38 Rhythm: Other Technical Quality: Poor MEASUREMENTS (Male / Female) Normal Values 2D ECHO LV Diastolic Diameter PLAX 5.3 cm 4.2 - 5.9 / 3.9 - 5.3 cm LV Systolic Diameter PLAX 3.9 cm IVS Diastolic Thickness 0.9 cm 0.6 - 1.0 / 0.6 - 0.9 cm LVPW Diastolic Thickness 0.9 cm 0.6 - 1.0 / 0.6 - 0.9 cm LV Relative Wall Thickness 0.3 LVOT Diameter 1.9 cm Aortic Root Diameter 2.6 cm LA Systolic Diameter LX 3.6 cm 3.0 - 4.0 / 2.7 - 3.8 cm LV Ejection Fraction MOD BP 61.2 % >= 55 % LV Cardiac Index MOD BP 1508.1 cm?/min?m? LV Ejection Fraction MOD 4C 71.6 % LV Cardiac Index MOD 4C 1778.4 cm?/min?m? LV Ejection Fraction 4C AL 72.2 % LV Cardiac Index 4C AL 1865.5 cm?/min?m? LV Ejection Fraction MOD 2C 48.5 % LV Cardiac Index MOD 2C 1169.7 cm?/min?m? LV Ejection Fraction 2C AL 48.0 % LV Cardiac Index 2C AL 1155.5 cm?/min?m? LA Volume Index 40.9 cm?/m? 16 - 28 cm?/m? M-MODE Aortic Root Diameter MM 2.0 cm LA Systolic Diameter MM 4.8 cm LA Ao Ratio MM 2.4 AV Cusp Separation MM 1.7 cm DOPPLER AV Peak Velocity 196.0 cm/s AV Peak Gradient 15.4 mmHg AV Mean Gradient 7.0 mmHg AV Velocity Time Integral 43.6 cm LVOT Peak Velocity 112.0 cm/s LVOT Peak Gradient 5.0 mmHg LVOT Velocity Time Integral 27.2 cm LVOT Cardiac Index 1418.3 cm?/min?m? AV Area Cont Eq vti 1.8 cm? AV Area Cont Eq pk 1.6 cm? MV Area PHT 3.5 cm? MR Peak Velocity 571.5 cm/s MR Peak Gradient 130.6 mmHg Mitral E Point Velocity 84.4 cm/s Mitral A Point Velocity 54.8 cm/s Mitral E to A Ratio 1.5 LV E' Lateral Velocity 11.9 cm/s Mitral E to LV E' Lateral Ratio 7.1 LV E' Septal Velocity 6.5 cm/s Mitral E to LV E' Septal Ratio 12.9 TR Peak Velocity 348.5 cm/s TR Peak Gradient 48.6 mmHg PV Peak Velocity 92.3 cm/s PV Peak Gradient 3.4 mmHg FINDINGS Left Ventricle Normal left ventricular size, wall thickness, systolic function with no obvious regional wall motion abnormalities.The ejection fraction is visually estimated at 55-60 %. Unable to evaluate diastolic function. Right Ventricle Moderatley dilated RV with normal systolic function. The estimated right ventricular systolic pressure, 85 mmHg. RAP 15. Left Atrium Severely increased left atrial volume 40.9 mL/m?. Right Atrium The right atrium is normal by two-dimensional imaging, color flow and Doppler imaging with no structural abnormalities, no thrombus formation present. Atrial Septum The interatrial septum appears normal with no evidence of a shunt. Aorta The aorta is normal by two-dimensional, color flow and Doppler interrogation. Mitral Valve The mitral valve is normal by two-dimensional, color flow and Doppler interrogation. Moderate mitral regurgitation. Aortic Valve Bicuspid aortic valve. Mild aortic valve regurgitation. Tricuspid Valve The tricuspid valve is normal by two-dimensional, color flow and Doppler interrogation. Moderate tricuspid valve regurgitation. Pulmonic Valve The pulmonic valve is not well visualized. There is no significant pulmonic valve regurgitation. Vessels Less than 50% respiratory change in dimension of the inferior vena cava abnormal. Pericardium The pericardium is normal by two-dimensional imaging. There is no significant pericardial effusion. Pleural effusion noted. CONCLUSIONS Indication: Junctional bradycardia Normal LV size and wall thickness. Normal LV function with an EF of 55 to 60%. Indeterminate diastolic function. Moderately dilated RV. Normal RV function. Severely elevated RVSP at 85 mmHg with RAP of 15 mmHg. Flat septum in both systole and diastole with D-shaped LV indicating both pressure and volume overload. Moderate TR. Mild to moderate MR possible bicuspid aortic valve. Mild AR. IVC dilated and less than 50% collapse with inspiration. Left-sided pleural effusion noted. No pericardial effusion. Juan Napierumanigor (Electronically Signed) Final Date: 24 June 2025 08:55
[2025-06-23] MEDS: SODIUM CHLORIDE IV (09:11)
[2025-06-23] MEDS: STERILE WATER IV (09:11)
[2025-06-23] MEDS: DIGOXIN IMMUNE FAB IV (09:11)
--- NOTE | 2025-06-23 09:22 | PD.RESPRO ---
Documentation for date of: 06/23/25 Subjective Subjective Interval history: Patient was seen and evaluated at bedside. Overnight, digoxin level >5, was given digiFab this morning by ICU team per poison control recommendations. Was also given insulin, dextrose and kayexalate overnight for potassium of 5.6. Continues to be on 10 mcg dopamine IV, HR continue to be around 35-37, but drop to upper 20s when asleep. Continues to be in supraventricular bradycardia but continues to be stable off pacer pads, no transvenous pacemaker required at this point. BP elevated with systolic in 150-160s, secondary to dopamine drip. Hemoglobin was stable at 9.2. HR continued to improve, will wean dopamine drip as tolerated. Bilirubin improved. Exam Vital Signs Temp Pulse Resp BP Pulse Ox O2 Del Method O2 Flow Rate 97.0 F 35 L 15 149/61 H 96 Nasal Cannula 10 06/23/25 06:00 06/23/25 07:35 06/23/25 07:35 06/23/25 07:32 06/23/25 07:35 06/22/25 17:14 06/23/25 03:34 Narrative Exam Physical Exam General: Awake and in mild distress on transcutaneous pacing. Conversational. Very pale. HEENT: Normocephalic, atraumatic, mucous membranes dry. Heart: Bradycardic. Regular rate and rhythm, normal S1 and S2, no murmurs appreciated. Lungs: Diffuse crackles. Abdomen: Soft, nondistended, nontender, positive bowel sounds. No guarding or rebound tenderness. Neurologic: Alert and oriented x3, no gross neurological deficit, and patient able to move all 4 extremities. Extremities: No edema. Skin: No rash or ecchymoses. Objective Labs 06/24/25 03:00 06/24/25 03:00 Labs: Laboratory Results - last 24 hr 06/22/25 06/22/25 06/22/25 15:40 17:21 20:34 WBC 7.8 8.5 RBC 1.00 L* 1.94 L* Hgb 4.7 L* 7.8 L D Hct 13.6 L* 22.2 L MCV 136 H 114 H MCH 47.0 H 40.2 H MCHC 34.6 35.1 RDW Std Deviation 91.5 H Not Performed. Plt Count 66 L 74 L Neut % (Auto) 68 73 Lymph % (Auto) [address] [place] % (Auto) 6 6 Eos % (Auto) 0 0 Baso % (Auto) 0 0 Neut # (Auto) 5.3 6.3 Lymph # (Auto) 2.[address] [place] # (Auto) 0.4 0.5 Eos # (Auto) 0.0 0.0 Baso # (Auto) 0.0 0.0 Immature Gran # (Auto) 0.12 H 0.15 H Absolute Nucleated RBC 0.13 H 0.09 H Immature Gran % 2 H 2 H Nucleated RBC % 2 H 1 H Smear Path Review Sent to Pathologist TNP ESR < 1 Retic Count (auto) 2.9 H Absolute Retic 57.7 Immature Retic Fraction 20.9 H Retic Hgb Content CHr 43.0 H PT INR APTT Puncture Site ABG pH ABG pCO2 ABG pO2 ABG HCO3 ABG O2 Saturation ABG Base Excess Oxygen Liter Flow FiO2 Sodium 134 L 135 L Potassium 5.1 5.1 Chloride 102 102 Carbon Dioxide 17.4 L 21.7 Anion Gap 15 11 BUN 22 25 H Creatinine 2.0 H 2.0 H Estim Creat Clear Calc Not Performed. 31.1 L eGFR 27 L 27 L BUN/Creatinine Ratio 11 L 13 Glucose [address] Glu mg/dL Hemoglobin A1c Calculated Osmolality 278 279 Lactic Acid 2.8 H Calcium 8.6 8.7 Corrected Calcium 8.9 8.8 Phosphorus Magnesium 2.3 2.1 Iron 238 H TIBC 273 Iron Saturation 87 H Unsat Iron Binding 35 L Ferritin 322 H Total Bilirubin 3.5 H 4.1 H D AST 57 H 67 H ALT 40 45 Alkaline Phosphatase 49 53 Troponin I 0.022 C-Reactive Prot, Quant < 0.5 B-Natriuretic Peptide 476 H* Total Protein 5.6 L 6.1 Albumin 3.6 3.9 Globulin 2.0 L 2.2 L Albumin/Globulin Ratio 1.8 1.8 Procalcitonin TSH 3.32 Free T4 1.64 Digoxin > 5.0 H* Hepatitis A IgM Ab Hep Bs Antigen Hep B Core IgM Ab Hepatitis C Antibody Misc Test Result Platelets confirmed Platelets confirmed Blood Type O Positive Antibody Screen NEGATIVE Crossmatch See Detail Blood Bank Wristband ID Yes 06/23/25 06/23/25 06/23/25 00:35 01:05 03:22 WBC 9.1 RBC 2.38 L Hgb 8.8 L Hct 25.0 L MCV 105 H MCH 37.0 H MCHC 35.2 RDW Std Deviation Not Performed. Plt Count 76 L Neut % (Auto) 71 Lymph % (Auto) 20 [place] % (Auto) 7 Eos % (Auto) 0 Baso % (Auto) 0 Neut # (Auto) 6.5 Lymph # (Auto) 1.9 [place] # (Auto) 0.7 Eos # (Auto) 0.0 Baso # (Auto) 0.0 Immature Gran # (Auto) 0.09 H Absolute Nucleated RBC 0.06 H Immature Gran % 1 H Nucleated RBC % 1 H Smear Path Review ESR Retic Count (auto) Absolute Retic Immature Retic Fraction Retic Hgb Content CHr PT INR APTT Puncture Site Right Radial ABG pH 7.31 L ABG pCO2 40 ABG pO2 69 L ABG HCO3 20 ABG O2 Saturation 94 ABG Base Excess -6 L Oxygen Liter Flow 15 FiO2 15 Sodium 135 L Potassium 5.5 H Chloride 103 Carbon Dioxide 18.3 L Anion Gap 14 BUN 32 H Creatinine 2.2 H Estim Creat Clear Calc 28.3 L eGFR 24 L BUN/Creatinine Ratio 15 Glucose [address] Glu mg/dL Hemoglobin A1c Calculated Osmolality 280 Lactic Acid 2.0 Calcium 8.5 Corrected Calcium 8.7 Phosphorus 5.0 Magnesium Iron TIBC Iron Saturation Unsat Iron Binding Ferritin Total Bilirubin AST ALT Alkaline Phosphatase Troponin I C-Reactive Prot, Quant B-Natriuretic Peptide Total Protein Albumin 3.8 Globulin Albumin/Globulin Ratio Procalcitonin TSH Free T4 Digoxin Hepatitis A IgM Ab Hep Bs Antigen Hep B Core IgM Ab Hepatitis C Antibody Misc Test Result Platelets confirmed Blood Type Antibody Screen Crossmatch Blood Bank Wristband ID 06/23/25 04:21 WBC 9.6 RBC 2.48 L Hgb 9.2 L Hct 26.2 L MCV 106 H MCH 37.1 H MCHC 35.1 RDW Std Deviation Not Performed. Plt Count 70 L Neut % (Auto) 70 Lymph % (Auto) 21 [place] % (Auto) 8 Eos % (Auto) 0 Baso % (Auto) 0 Neut # (Auto) 6.7 Lymph # (Auto) 2.0 [place] # (Auto) 0.8 Eos # (Auto) 0.0 Baso # (Auto) 0.0 Immature Gran # (Auto) 0.12 H Absolute Nucleated RBC 0.11 H Immature Gran % 1 H Nucleated RBC % 1 H Smear Path Review ESR Retic Count (auto) Absolute Retic Immature Retic Fraction Retic Hgb Content CHr PT 13.3 H INR 1.3 APTT 23.1 Puncture Site ABG pH ABG pCO2 ABG pO2 ABG HCO3 ABG O2 Saturation ABG Base Excess Oxygen Liter Flow FiO2 Sodium 134 L Potassium 4.8 D Chloride 101 Carbon Dioxide 20.1 Anion Gap 13 BUN 26 H Creatinine 2.4 H Estim Creat Clear Calc 25.9 L eGFR 21 L BUN/Creatinine Ratio 11 L Glucose [address] Glu mg/dL 103 Hemoglobin A1c 5.2 Calculated Osmolality 275 Lactic Acid Calcium 8.7 Corrected Calcium 8.7 Phosphorus 5.5 H Magnesium 2.2 Iron TIBC Iron Saturation Unsat Iron Binding Ferritin Total Bilirubin 3.7 H AST 67 H ALT 45 Alkaline Phosphatase 52 Troponin I C-Reactive Prot, Quant B-Natriuretic Peptide Total Protein 6.2 Albumin 4.0 Globulin 2.2 L Albumin/Globulin Ratio 1.8 Procalcitonin 0.67 H TSH 0.81 D Free T4 Digoxin Hepatitis A IgM Ab Non Reactive Hep Bs Antigen Non Reactive Hep B Core IgM Ab Non Reactive Hepatitis C Antibody Non Reactive Misc Test Result Blood Type Antibody Screen Crossmatch Blood Bank Wristband ID ABG Interpretation ABG results: 06/23/25 03:22 ABG pH 7.31 L ABG pCO2 40 ABG pO2 69 L ABG HCO3 20 ABG O2 Saturation 94 ABG Base Excess -6 L Quality Measures Quality Measures VTE prophylaxis (SCDs) Advance care planning discussed with:: patient Assessment & Plan Assessment Current Active Medications: Generic Name Dose Route Start Last Admin Trade Name Freq PRN Reason Stop Dose Admin Dextrose 25 ml 06/22/25 18:00 Dextrose 50%-Water Inj 50 Ml Syringe IV 07/22/25 17:59 Q15MIN PRN BG 50-70 responsive npo pt Dextrose 50 ml 06/22/25 18:00 Dextrose 50%-Water Inj 50 Ml Syringe IV 07/22/25 17:59 Q15MIN PRN BG <50 OR BG <70 & pt unresponsive Diclofenac Sodium 2 gm 06/23/25 09:00 Diclofenac 1% Top Gel 100 Gm Tube TOP 07/23/25 08:59 BID JOANN Folic Acid 1 mg 06/22/25 21:35 06/23/25 08:29 Folic Acid Inj 1 Mg/0.2 Ml IVP 07/22/25 21:34 1 mg QDAY JOANN Administration Glucagon 1 mg 06/22/25 18:00 Glucagon Inj 1 Mg Vial IM Q15MIN PRN BG <70, and no IV access Dopamine HCl/Dextrose 400 mg in 250 mls @ 16.361 mls/hr 06/23/25 01:07 06/23/25 05:00 Intropin In D5w Ivpb IV 07/22/25 17:17 10 mcg/kg/min .[id number] JOANN 32.723 mls/hr Protocol Titration 5 MCG/KG/MIN Acetaminophen 1,000 mg in 100 mls @ 250 mls/hr 06/23/25 01:15 06/23/25 08:04 Ofirmev Inj IV 06/26/25 01:14 Not Given Q6H JOANN Insulin Human Lispro 0 unit 06/22/25 18:00 06/23/25 06:06 Insulin Lispro (Admelog) 1 Unit/0.01 Ml Unit SC 07/22/25 17:59 Not Given Q6HR JOANN Protocol Ondansetron HCl 4 mg 06/22/25 17:55 Ondansetron Inj 2 Mg/Ml Inj 2 Ml IVP 07/22/25 17:54 Q6H PRN NAUSEA OR VOMITING Protocol Pantoprazole Sodium 40 mg 06/22/25 21:00 06/23/25 08:29 Pantoprazole Inj 40 Mg Vial IVP 07/22/25 20:59 40 mg BID JOANN Administration Sennosides 1 tab 06/22/25 17:55 Senna Tablet PO 07/22/25 17:54 QDAY PRN constipation Protocol Vitamin B Complex/Vit C/Folic Acid 1 tab 06/23/25 09:00 06/23/25 08:30 Vit B12/Vit C/Fa (Nephrovite) Tablet PO 07/23/25 08:59 1 tab QDAY JOANN Administration Plan Patient is a 69-year-old female with past medical history of arrhythmia, hypothyroidism, GERD, depression who presents to the [facility] [place] ED on 06/22/25 for pre-syncope, found to be in bradycardia HR low 30s requiring transcutaneous pacing, admitted to ICU for the severe bradycardia with need for ventricular junctional rhythm requiring transcutaneous pacing and possible temporary pacemaker placement. #Severe anemia #Thrombocytopenia #? GI bleed Presented with paleness, has been progressive for the past 2 weeks. Reports also starting 2 weeks ago, patient has had decreased appetite and dark stools. Around this time she was also started on Bactrim and Z-Girish for upper respiratory virus by PCP. Patient thought that dark stools was a side effect of the medications. Never had a colonoscopy. On admission, WBC 7.8, hemoglobin 4.7. Platelet 66, possibly secondary to severe blood loss but will need to rule out other causes. BNP. 06/23/25: Hgb improved to 8.8 s/p second unit, 9.2 after 3rd bag. ? S/p 3 units of hemoglobin. - Keep the hemoglobin between 9 and 10. ? Patient perfusing well now and mentation normal. Able to move all extremities, no focal deficits, able to answer questions appropriately. - Complete workup of anemia. Please send the initial labs for anemia from the first blood sample as patient did receive blood transfusions and the later samples would alter the results. #Bradycardia #Supraventricular junctional rhythm with narrow QRS with occasional PVC`s # ? Atrial fibrillation / tachyarrhythmia Was found to have heart rate of 20s at home after presyncopal episode. Upon arrival heart rate improved to 30s, status post atropine x 1. Patient is not on anticoagulation. Previously seeing Dr. Meyer. Was told that she has an arrhythmia however is not on anticoagulation. Takes amiodarone 200 mg daily, nadolol 40 mg daily, digoxin 250 mg daily except for Sunday. Last took all of these medications this morning prior to arrival, likely reason why patient's heart rate did not increase despite anemia. Patient was transcutaneously paced at HR 60 upon arrival to ED, was later discontinued after HR stabilized to upper 30s after receiving dopamine and blood. SBP in 130s. Patient was conversational. EKG showed supraventricular junctional rhythm with narrow QRS with occasional PVCs. Heart rate 41. Bedside echo was performed showed normal LV and RV function. no pericardial effusion clear. ?Hold amiodarone, atenolol, digoxin - Currently at dopamine drip 10 mcg/kg/min, decrease as tolerated - S/p digifab 3 vials per poison control. Instructed to give another dose of digiFab again after 30 minutes from check. If QRS >120, recommend lidocaine 7.5 mg/kg ?Keep Hgb btwn 9-10. Transfuse as needed. ?Acceptable to give IV Lasix 40 x1 if pt appears overloaded. ?Recommend to keep potassium between 4 and 5 and deviation greater than 2 at all times. - Keep magnesium greater than 2 at all times. ? Continue telemetry ? Pending official read of TTE #CAN versus acute on chronic kidney disease Reports decreased appetite for the past 2 weeks. Creatinine 2.0, previously 1.3 in 2020. Possibly secondary to decreased oral intake for the past 3 weeks. ?IV Lasix okay as needed for now as patient may become overloaded ?CTM creatinine ?Avoid overdiuresis or other nephrotoxic agents #Hypothyroidism #Depression ?Resume home meds once stable Thank you for your consultation, please do not hesitate to reach out if you have any question or concern Patient plan of care was discussed with the attending physician, Dr. Perdomo . Surekha Horn, PGY-1 Attending Provider Attestation/Addendum I have personally seen and examined the patient separately on the above date of service and discussed the plan of care with the resident. I reviewed the resident Dr. Surekha Horn consultation progress note and agree with the resident findings and plan in the note above and have also edited the documentation to reflect my findings and plan. Patient doing much better today and heart rate is around 40s and 50s and telemetry, EKG showing sinus bradycardia. Patient is awake alert oriented x 3 but appears to be still slightly lethargic. Still continues to be on dopamine drip. 6-10 mcg/kg/min. Blood pressure is stable and mentation is intact. Overnight the digoxin level came up to 5.0 or greater. Poison control was called and patient was given DigiFab 1 dose this morning. Echocardiogram still not completed patient chest x-ray showed mild vascular congestion and did receive Lasix 20 mg IV x 1 yesterday. Creatinine is 2.3 this morning from yesterday's creatinine of 2.0. Overall presentation looks like patient appears to be in fluid overloaded which could be secondary to the severe bradycardia on presentation which would decrease the overall cardiac output causing heart failure or fluid overload. Will recheck the BNP at the present point of time and will try to uptitrate and give additional Lasix as the patient is only 400 mL of urine output today. Recommend to start diet now as the patient is doing much better. Will ensure that echocardiogram is completed today. Recommend GI consult for further evaluation of the anemia, elevated LFTs as well as elevated bilirubin. Juan Perdomo M.D. Interventional Cardiology
[2025-06-23 09:53] LABS: Bilirubin,Direct 1.5 mg/dL (0.0-0.3)
[2025-06-23 10:05] LABS: Folate 23.10 ng/mL (>5.38); Vitamin B12 92 pg/mL (211-911)
--- NOTE | 2025-06-23 10:40 | PD.RESEVENT ---
Documentation for date of: 06/23/25 Event Note Event Note: After a comprehensive review of the patient's clinical condition, it has been determined that the primary management for this patient will transition to the cardiology team. The patient has been under ICU care since being transferred from ED the previous night. Following consultations and discussion with the multidisciplinary team, cardiology is now the primary service managing the patient's care, as their condition necessitates specialized cardiovascular expertise. The decision was made to ensure optimal management and to guide further therapeutic interventions. Patient plan of care was discussed with the attending physician, Dr. Marie & senior resident Dr. Geeta Stubbs MD PGY-1 Attending note: This is a 69yo F who presented to the ER yesterday for symptomatic bradycardia. Initially per ER she was externally paced briefly however there was difficulty with capture and she was started on a dopamine gtt. Cardiology and the ICU were consulted for further management. I saw and examined the pt at 730am today and labs were noted. Pt was found to have dig toxicity and poison control was called for assistance with dose of digibind. Pharmacy was contacted for dosing as well. I d/w resident team this management. I was then contacted by cardiology and they would like to assume care as primary at this time. She has a junctional rhythm and has been on amio, dig and a BB at home. pt care transferred to the cardiology service per their request and ICU has signed off. Please dont hesitate to call with any questions or concerns.
[2025-06-23] MEDS: SERTRALINE HCL 25 MG TABLET 50 MG PO (11:54)
[2025-06-23] MEDS: INSULIN LISPRO (AdmeLOG) 1 UNIT/0.01 ML UNIT SC ×2 (11:54→17:49)
--- NOTE | 2025-06-23 12:13 | PC.NURSE ---
as of 12 pm pt has yet to urinate she is NPO but okay with Ice chips for dry mouth, bladder scanned pt only 171 in bladder. is aware
--- NOTE | 2025-06-23 15:53 | PC.SS ---
SALESPERSON JEWELRY conducted bedside contact with the patient to conduct initial assessment and to discuss discharge planning.? At bedside with patient was spouse, Bruce Cooper .? Information obtained from patient?s spouse.? Patient resides at home with spouse.? Patient does not utilize any form of DME to assist with ambulation.? Patient does not utilize home oxygen.? Patient currently on 8L of oxygen.? Patient describes the ability to complete ADL?s independently.? Patient?s medical surrogate decision maker is spouse, Bruce Cooper.? Patient?s PCP is Dr. Hitchcock.? Patient does not participate with dialysis.? Patient?s sheet ironworker is Dr. Perdomo.? Patient utilizes [facility] for medication services.? Plan is for the patient to return home at the time of discharge.? Family will provide transportation on behalf of the patient.? If oxygen required at the time of discharge, no preferred vendor identified.? No further discharge needs identified by the patient.? No further intervention required at this time, socially responsible investment adviser will be available to address any further concerns.? Next of Kin: Bruce Cooper D/C Plan: Home
[2025-06-23] MEDS: DICLOFENAC 1% TOP GEL 100 GM TUBE TOP (20:21)
[2025-06-23 21:25] LABS: Albumin, Serum 4.0 gm/dL (3.4-4.8); Anion Gap 13 (7-16); BUN/Creatinine Ratio 8 Ratio (12-20); Blood Urea Nitrogen 20 mg/dL (9-23); Calcium 8.9 mg/dL (8.3-10.6); Calcium (Corrected) 8.9 mg/dL (8.5-10.1); Carbon Dioxide 18.2 mMol/L (20.0-31.0); Chloride 100 mMol/L (98-107); Creatinine (Component) 2.5 mg/dL (0.6-1.3); Digoxin 1.9 ng/mL (0.8-2.0); Estimated Creatinine Clearance 24.9 mL/min (>60); Glucose 137 mg/dL (74-106); Osmolality,Calculated 267 (275-295); Phosphorous 7.0 mg/dL (2.4-5.1); Potassium 5.0 mMol/L (3.4-5.1); Sodium 131 mMol/L (136-145); eGFR 20 See Note
[2025-06-23] MEDS: SODIUM CHLORIDE 0.9% 500 ML 500 ML 999 ML IV (21:52)
--- NOTE | 2025-06-23 23:38 | PC.NURSE ---
Addendum entered by Lena Dorsey RN 06/24/25 00:00: PER DR. Bren FAN, DOPAMINE CAN GO TO A MAX OF 7.5 MC/KG/MIN IF REQUIRED. Original Note: DR. FRANCE MADE AWARE OF BP OF 91/42, MAP OF 58. HR 43. CLARIFIED IF SHE WOULD LIKE ME TO SPEAK WITH DR. Bren FAN, STATES THAT SHE WOULD LIKE TO CALL HIM IN REGARDS TO THE BP. DR. Bren FAN NOTIFIED OF ABOVE BP, MAP, HR. OK TO INCREASE DOPAMINE DRIP TO 6 MCG/KG/MIN . BUT DOES NOT WANT TO BE CALLED IN THE MIDDLE OF THE NIGHT. WILL DELAY CARE TO DR. FRANCE UNTIL AM
--- NOTE | 2025-06-23 23:40 | XR_ITS ---
EXAMINATION: AP chest single view TECHNIQUE: AP portable semiupright chest single view Date and time: June 23, 2025, 11:51 p.m., comparison June 22, 2025 INDICATIONS: Difficulty breathing this week, extensive pneumonia on film yesterday FINDINGS: Again noted extensive bilateral lung opacity Associated mild enlargement cardiac contour with prominent vascular congestion Mild enlargement cardiac contour Moderate osteopenia IMPRESSION: Again noted bilateral pneumonia, extensive with mild heart failure Mild to moderate bilateral pleural effusions
[2025-06-24] VITALS (102 sets, daily range): BP systolic 73–159; BP diastolic 34–69; PULSE 43–56; RESP 13–27; TEMP 36.6–37.2; O2SAT 86–100
--- NOTE | 2025-06-24 | XR_ITS ---
Examination: CT chest with intravenous contrast CT abdomen with intravenous contrast 2-D coronal and sagittal reconstructions Time of exam: June 24, 2025, 1607 hours INDICATIONS: Shortness of breath this week, pulmonary edema on chest imaging, elevated total bilirubin laboratory examination this week CTDI: vol (mGy) : 11 DLP: (mGycm): 599 Technique: Multiple axial images of the chest, abdomen with intravenous contrast, 3.0 mm slice thickness. Images obtained without intravenous contrast 2-D sagittal and coronal reconstructions. Low dose protocols were performed. One or more of the following dose reduction techniques were used; automated exposure control, adjustment of the mA and/or KV according to patient size, use of iterative reconstruction technique. Findings: No thoracic aortic aneurysm dilatation Pulmonary artery segments do not demonstrate significant enlargement Moderate enlargement cardiac contour, prominent vascular congestion with diffuse pulmonary edema throughout the lungs and mild to moderate bilateral pleural effusions Consider superimposed pneumonia at the lung bases Cirrhosis, liver is lobular in contour, mild ascites No gallstones No splenic or pancreatic lesion No adrenal mass Posterior 7.5 cm right renal cyst Anasarca No bowel obstruction Abdominal aorta is intact Normal appendix No diverticulitis Significant osteopenia IMPRESSION: Moderate CHF Superimposed pneumonia at the lung bases. Mild to moderate bilateral pleural effusions. Cirrhosis Mild ascites 7.5 cm right renal cyst. Normal appendix. No bowel obstruction
[2025-06-24 01:14] LABS: B-Type Natriuretic Peptide 1165 pg/mL (0-100)
[2025-06-24 01:29] LABS: Collection Type, Urine Clean Catch
[2025-06-24 01:43] LABS: Amphetamine/Methamp Scrn,U Negative (Negative); Barbiturate Screen,Urine Negative (Negative); Benzodiazepines Screen,Urine Negative (Negative); Benzoylecgonine Screen, Ur Negative (Negative); Fentanyl Screen,Urine Negative (Negative); Opiate Screen,Urine Negative (Negative); THC Screen,Urine Negative (Negative)
[2025-06-24 01:48] LABS: Bilirubin,Urine Negative (Negative); Blood,Urine 1+ (Negative); Clarity,Urine Turbid (Clear/Hazy); Color,Urine Yellow (Lt Yel-Yel); Glucose, Urine Negative (Negative); Hyaline Casts,Urine 1 /hpf (0-1); Ketones,Urine Negative (Negative); Leukocyte Esterase,Urine Negative (Negative); Nitrite,Urine Negative (Negative); PH,Urine 5.5 (5.0-7.0); Protein,Urine 2+ (Neg - Trace); RBC,Urine 1 /hpf (0-3); Specific Gravity,Urine 1.016 (1.001-1.035); Squamous Epithelial Cell,Urine 1 /hpf (0-5); Urobilinogen,Urine Negative mg/dL (0.0-1.0); WBC,Urine 1 /hpf (0-5)
[2025-06-24] MEDS: FUROSEMIDE INJ 10 MG/ML 4ML VIAL 40 MG IVP ×2 (02:02→22:09)
[2025-06-24 03:35] LABS: Basophils # (Auto) 0.0 Thou/mm3 (0.0-0.2); Basophils % (Auto) 0 % (0-2.5); Eosinophils # (Auto) 0.0 Thou/mm3 (0.0-0.5); Eosinophils % (Auto) 0 % (0-10); Hematocrit 28.3 % (36.0-46.0); Hemoglobin 9.9 g/dL (12.0-16.0); Immature Granulocytes Auto 0.06 Thou/mm3 (0.00-0.00); Lymphocytes # (Auto) 1.7 Thou/mm3 (1.0-4.8); Lymphocytes % (Auto) 19 % (10-50); Mean Corpuscular HGB Conc 35.0 g/dl (31.0-37.0); Mean Corpuscular Hemoglobin 36.8 pg (25.0-35.0); Mean Corpuscular Volume 105 fL (80-100); Monocytes # (Auto) 0.8 Thou/mm3 (0.0-0.8); Monocytes % (Auto) 9 % (0-12); Neutrophils # (Auto) 6.6 Thou/mm3 (1.8-7.7); Neutrophils % (Auto) 72 % (37-80); Nucleated Red Blood Cell # 0.03 Thou/mm3 (0.00-0.00); Nucleated Red Blood Cell % 0 /100 WBC (0); Red Blood Count 2.69 Miln/mm3 (4.00-5.20); White Blood Count 9.3 Thou/mm3 (3.6-11.0)
[2025-06-24 03:48] LABS: Platelet Count 30 Thou/mm3 (140-440)
[2025-06-24 03:51] LABS: Alanine Aminotransferase 46 U/L (10-49); Albumin, Serum 3.9 gm/dL (3.4-4.8); Albumin/Globulin Ratio 1.7 (1.2-2.2); Alkaline Phosphatase 53 U/L (46-116); Anion Gap 14 (7-16); Aspartate Amino Transferase 58 U/L (0-34); BUN/Creatinine Ratio 11 Ratio (12-20); Bilirubin,Total 3.7 mg/dL (0.3-1.2); Blood Urea Nitrogen 26 mg/dL (9-23); Calcium 9.0 mg/dL (8.3-10.6); Calcium (Corrected) 9.1 mg/dL (8.5-10.1); Carbon Dioxide 20.6 mMol/L (20.0-31.0); Chloride 100 mMol/L (98-107); Creatinine (Component) 2.4 mg/dL (0.6-1.3); Estimated Creatinine Clearance 25.9 mL/min (>60); Free T4 (Free Thyroxine) 1.57 ng/dL (0.89-1.76); Globulin 2.3 gm/dL (2.3-3.5); Glucose 131 mg/dL (74-106); Magnesium 2.4 mg/dL (1.6-2.6); Osmolality,Calculated 276 (275-295); Phosphorous 6.9 mg/dL (2.4-5.1); Potassium 4.4 mMol/L (3.4-5.1); Sodium 135 mMol/L (136-145); Total Protein 6.2 gm/dL (5.7-8.2); eGFR 21 See Note
[2025-06-24 03:58] LABS: B-Type Natriuretic Peptide 1285 pg/mL (0-100)
[2025-06-24 05:18] LABS: Slide Review Platelets confirmed
[2025-06-24] MEDS: DOPamine/D5w 400 MG IVPB 400 MG/250 ML BAG 19.634 MG IV ×2 (05:51→07:00)
[2025-06-24] MEDS: SEVELAMER CARBONATE 800 MG TABLET 400 MG PO (05:52)
--- NOTE | 2025-06-24 06:46 | EKG_ITS ---
[facility] Test Date: 2025-06-24 Pat Name: SOLIS RICHARDSON Department: Room: [facility] [[email or web address] Gender: Female [employer]: MERT : [id number] Requested By: Jamaal Macario Order Number: [id number] Reading MD: Jamaal Macario Measurements Intervals [place] Rate: 48 P: 20 CA: 219 QRS: -23 QRSD: 130 T: 26 QT: 493 QTc: 444 Interpretive Statements SINUS BRADYCARDIA WITH FIRST DEGREE AV BLOCK LEFT VENTRICULAR HYPERTROPHY AND ST-T CHANGE Compared to ECG 06/23/2025 08:00:04 First degree AV block now present Left ventricular hypertrophy now present ST (T wave) deviation now present Myocardial infarct finding no longer present T-wave abnormality no longer present Possible ischemia no longer present /store/S0/[id number].pdf
--- NOTE | 2025-06-24 08:16 | PC.NURSE ---
attempted to call Dr Bren Travis x2, unable to reach MD, Dr barrios Cardio resident called, Per dr barrios, keep dopamine gtt at current rate until Dr Travis aware, called to clarify dopamine gtt and notify MD of pt current HR and BP
[2025-06-24] MEDS: DICLOFENAC 1% TOP GEL 100 GM TUBE TOP ×2 (08:38→20:18)
[2025-06-24] MEDS: VIT B12/Vit C/FA (Nephrovite) TABLET 1 TAB PO (08:39)
--- NOTE | 2025-06-24 10:22 | ESPR_ITS ---
Documentation for date of: 06/24/25 Subjective Subjective Interval history: Patient seen and assessed at bedside. Appears to be doing much better, decreased pallor. Heart rate increased to 47 to 50s. Blood pressure on the softer side, 108/45 this morning. Keep MAP above 65. Currently on dopamine 6 mcg/kg/min, decrease as tolerated. Patient appears to be in sinus rhythm, no arrhythmia noted on telemetry. Output of 1.6 L status post Lasix. Hemoglobin improved to 9.9. Potassium 4.4, magnesium 2.4. Exam Vital Signs Temp Pulse Resp BP Pulse Ox O2 Del Method O2 Flow Rate 98.5 F 45 L 15 119/44 L 100 Nasal Cannula 2 06/24/25 08:00 06/24/25 08:00 06/24/25 08:00 06/24/25 08:00 06/24/25 08:00 06/24/25 08:00 06/24/25 08:00 Narrative Exam Physical Exam General: Awake and in mild distress on transcutaneous pacing. Conversational. Very pale. HEENT: Normocephalic, atraumatic, mucous membranes dry. Heart: Bradycardic. Regular rate and rhythm, normal S1 and S2, no murmurs appreciated. Lungs: Diffuse crackles. Abdomen: Soft, nondistended, nontender, positive bowel sounds. No guarding or rebound tenderness. Neurologic: Alert and oriented x3, no gross neurological deficit, and patient able to move all 4 extremities. Extremities: No edema. Skin: No rash or ecchymoses. Objective Labs 06/25/25 06:25 06/26/25 00:28 Labs: Laboratory Results - last 24 hr 06/23/25 06/23/25 06/23/25 00:24 04:21 20:39 WBC RBC Hgb Hct MCV MCH MCHC RDW Std Deviation Plt Count Neut % (Auto) Lymph % (Auto) [place] % (Auto) Eos % (Auto) Baso % (Auto) Neut # (Auto) Lymph # (Auto) [place] # (Auto) Eos # (Auto) Baso # (Auto) Immature Gran # (Auto) Absolute Nucleated RBC Immature Gran % Nucleated RBC % Sodium 131 L Potassium 5.0 Chloride 100 Carbon Dioxide 18.2 L Anion Gap 13 BUN 20 Creatinine 2.5 H Estim Creat Clear Calc 24.9 L eGFR 20 L BUN/Creatinine Ratio 8 L Glucose 137 H Calculated Osmolality 267 L Calcium 8.9 Corrected Calcium 8.9 Phosphorus 7.0 H Magnesium Total Bilirubin AST ALT Alkaline Phosphatase B-Natriuretic Peptide 1165 H* Total Protein Albumin 4.0 Globulin Albumin/Globulin Ratio Free T4 Ur Collection Type Urine Color Urine Clarity Urine pH Ur Specific [place] Urine Protein Urine Glucose (UA) Urine Ketones Urine Blood Urine Nitrite Urine Bilirubin Urine Urobilinogen (Auto) Ur Leukocyte Esterase Urine RBC Urine WBC Ur Squamous Epith Cells Urine Bacteria Hyaline Casts Digoxin 1.9 D Urine Opiates Screen Urine Fentanyl Screen Ur Barbiturates Screen U Amphetamin/Meth Scrn U Benzodiazepines Scrn U Cocaine Metab Screen U Marijuana (THC) Screen Misc Test Result See comment 06/24/25 06/24/25 01:04 03:00 WBC 9.3 RBC 2.69 L Hgb 9.9 L Hct 28.3 L MCV 105 H MCH 36.8 H MCHC 35.0 RDW Std Deviation Not Performed. Plt Count 30 L D Neut % (Auto) 72 Lymph % (Auto) 19 [place] % (Auto) 9 Eos % (Auto) 0 Baso % (Auto) 0 Neut # (Auto) 6.6 Lymph # (Auto) 1.7 [place] # (Auto) 0.8 Eos # (Auto) 0.0 Baso # (Auto) 0.0 Immature Gran # (Auto) 0.06 H Absolute Nucleated RBC 0.03 H Immature Gran % 1 H Nucleated RBC % 0 Sodium 135 L Potassium 4.4 D Chloride 100 Carbon Dioxide 20.6 Anion Gap 14 BUN 26 H Creatinine 2.4 H Estim Creat Clear Calc 25.9 L eGFR 21 L BUN/Creatinine Ratio 11 L Glucose 131 H Calculated Osmolality 276 Calcium 9.0 Corrected Calcium 9.1 Phosphorus 6.9 H Magnesium 2.4 Total Bilirubin 3.7 H AST 58 H ALT 46 Alkaline Phosphatase 53 B-Natriuretic Peptide 1285 H* Total Protein 6.2 Albumin 3.9 Globulin 2.3 Albumin/Globulin Ratio 1.7 Free T4 1.57 Ur Collection Type Clean Catch Urine Color Yellow Urine Clarity Turbid A Urine pH 5.5 Ur Specific [place] 1.016 Urine Protein 2+ A Urine Glucose (UA) Negative Urine Ketones Negative Urine Blood 1+ A Urine Nitrite Negative Urine Bilirubin Negative Urine Urobilinogen (Auto) Negative Ur Leukocyte Esterase Negative Urine RBC 1 Urine WBC 1 Ur Squamous Epith Cells 1 Urine Bacteria None Hyaline Casts 1 Digoxin Urine Opiates Screen Negative Urine Fentanyl Screen Negative Ur Barbiturates Screen Negative U Amphetamin/Meth Scrn Negative U Benzodiazepines Scrn Negative U Cocaine Metab Screen Negative U Marijuana (THC) Screen Negative Misc Test Result Platelets confirmed ABG Interpretation ABG results: 06/23/25 03:22 ABG pH 7.31 L ABG pCO2 40 ABG pO2 69 L ABG HCO3 20 ABG O2 Saturation 94 ABG Base Excess -6 L Quality Measures Quality Measures VTE prophylaxis (SCDs) Advance care planning discussed with:: patient Assessment & Plan Assessment Current Active Medications: Generic Name Dose Route Start Last Admin Trade Name Freq PRN Reason Stop Dose Admin Acetaminophen 1,000 mg 06/23/25 20:13 Acetaminophen 500 Mg Tablet PO 07/23/25 20:12 Q6HR PRN fever >99.9 Cyanocobalamin 1,000 mcg 06/24/25 07:00 06/24/25 05:51 Cyanocobalamin Inj 1,000 Mcg/Ml Vial IM 06/29/25 06:59 1,000 mcg DAILY JOANN Administration Dextrose 25 ml 06/22/25 18:00 Dextrose 50%-Water Inj 50 Ml Syringe IV 07/22/25 17:59 Q15MIN PRN BG 50-70 responsive npo pt Dextrose 50 ml 06/22/25 18:00 Dextrose 50%-Water Inj 50 Ml Syringe IV 07/22/25 17:59 Q15MIN PRN BG <50 OR BG <70 & pt unresponsive Diclofenac Sodium 2 gm 06/23/25 09:00 06/24/25 08:38 Diclofenac 1% Top Gel 100 Gm Tube TOP 07/23/25 08:59 2 gm BID JOANN Administration Glucagon 1 mg 06/22/25 18:00 Glucagon Inj 1 Mg Vial IM Q15MIN PRN BG <70, and no IV access Dopamine HCl/Dextrose 400 mg in 250 mls @ 16.361 mls/hr 06/24/25 09:56 Intropin In D5w Ivpb IV 07/22/25 17:17 .[id number] JOANN Protocol 5 MCG/KG/MIN Insulin Human Lispro 0 unit 06/22/25 18:00 06/24/25 05:31 Insulin Lispro (Admelog) 1 Unit/0.01 Ml Unit SC 07/22/25 17:59 Not Given Q6HR JOANN Protocol Ondansetron HCl 4 mg 06/22/25 17:55 Ondansetron Inj 2 Mg/Ml Inj 2 Ml IVP 07/22/25 17:54 Q6H PRN NAUSEA OR VOMITING Protocol Pantoprazole Sodium 40 mg 06/22/25 21:00 06/24/25 08:39 Pantoprazole Inj 40 Mg Vial IVP 07/22/25 20:59 40 mg BID JOANN Administration Sennosides 1 tab 06/22/25 17:55 Senna Tablet PO 07/22/25 17:54 QDAY PRN constipation Protocol Vitamin B Complex/Vit C/Folic Acid 1 tab 06/23/25 09:00 06/24/25 08:39 Vit B12/Vit C/Fa (Nephrovite) Tablet PO 07/23/25 08:59 1 tab QDAY JOANN Administration Plan Patient is a 69-year-old female with past medical history of arrhythmia, hypothyroidism, GERD, depression who presents to the [facility] ED on 06/22/25 for pre- syncope, found to be in bradycardia HR low 30s requiring transcutaneous pacing, admitted to ICU for the severe bradycardia with need for ventricular junctional rhythm requiring transcutaneous pacing and possible temporary pacemaker placement. #Bradycardia, improving #Supraventricular junctional rhythm with narrow QRS with occasional PVC`s # ? Atrial fibrillation / tachyarrhythmia # HFpEF (EF 55-60%) (06/23/25) Was found to have heart rate of 20s at home after presyncopal episode. Upon arrival heart rate improved to 30s, status post atropine x 1. Patient is not on anticoagulation. Previously seeing Dr. Meyer. Was told that she has an arrhythmia however is not on anticoagulation. Takes amiodarone 200 mg daily, nadolol 40 mg daily, digoxin 250 mg daily except for Sunday. Last took all of these medications this morning prior to arrival, likely reason why patient's heart rate did not increase despite anemia. Patient was transcutaneously paced at HR 60 upon arrival to ED, was later discontinued after HR stabilized to upper 30s after receiving dopamine and blood. SBP in 130s. Patient was conversational. EKG showed supraventricular junctional rhythm with narrow QRS with occasional PVCs. Heart rate 41. TTE 06/23/25 showed normal LV size and wall thickness. Normal LV function with an EF of 55 to 60%. Indeterminate diastolic function. Moderately dilated RV. Normal RV function. Severely elevated RVSP at 85 mmHg with RAP of 15 mmHg. Flat septum in both systole and diastole with D-shaped LV indicating both pressure and volume overload. Moderate TR. Mild to moderate MR possible bicuspid aortic valve. Mild AR. IVC dilated and less than 50% collapse with inspiration. Left- sided pleural effusion noted. No pericardial effusion. ? Hold amiodarone, atenolol, digoxin - S/p digifab 3 vials per poison control. Instructed to give another dose of digiFab again after 30 minutes from check. If QRS >120, recommend lidocaine 7.5 mg/kg - Currently at dopamine drip 6 mcg/kg/min, decrease as tolerated ?Keep Hgb btwn 9-10. Transfuse as needed. ?Recommend to keep potassium between 4 and 5 and deviation greater than 2 at all times. - Keep magnesium greater than 2 at all times. ? Continue telemetry #Severe anemia #Thrombocytopenia #? GI bleed Presented with paleness, has been progressive for the past 2 weeks. Reports also starting 2 weeks ago, patient has had decreased appetite and dark stools. Around this time she was also started on Bactrim and Z-Girish for upper respiratory virus by PCP. Patient thought that dark stools was a side effect of the medications. Never had a colonoscopy. On admission, WBC 7.8, hemoglobin 4.7. Platelet 66, possibly secondary to severe blood loss but will need to rule out other causes. BNP 1285 Iron panel 06/22/25: Elevated iron, iron saturation, unsaturated iron binding, ferritin. Reticulocyte count elevated 2.9. Vitamin B12 was low at 92. Folate was within normal limits. Peripheral smear in December 2018 showed macrocytic RBCs with anisocytosis and no significant polkilocytosis. 06/23/25: Hgb improved to 8.8 s/p second unit, 9.2 after 3rd bag. 06/24/2025: Hemoglobin 9.9, improving. Platelets dropped to 30 from 70 yesterday. - Keep the hemoglobin between 9 and 10. - Iron panel shows likely falsely we elevated levels, possible that sample was drawn after first unit of PRBC was given. - Vitamin B12 1000 mcg daily - Will consult GI for possible GI bleed #CAN versus acute on chronic kidney disease Reports decreased appetite for the past 2 weeks. Creatinine 2.0, previously 1.3 in 2020. Possibly secondary to decreased oral intake for the past 3 weeks. ?IV Lasix okay as needed for now as patient may become overloaded ?CTM creatinine ?Avoid overdiuresis or other nephrotoxic agents #Hypothyroidism #Depression ?Resume home meds once stable Thank you for your consultation, please do not hesitate to reach out if you have any question or concern Patient plan of care was discussed with the attending physician, Dr. Perdomo . Surekha Horn, PGY-1 Attending Provider Attestation/Addendum I have personally seen and examined the patient separately on the above date of service and discussed the plan of care with the resident. I reviewed the resident Dr. Surekha Horn consultation progress note and agree with the resident findings and plan in the note above and have also edited the documentation to reflect my findings and plan. A 69-year-old female with a past medical history of atrial arrhythmia on amiodarone, digoxin as well as nadolol, hypothyroidism, GERD, depression presented to the emergency department after a presyncope. Patient apparently was taking a shower and felt lightheaded and caught her and laid her down on the ground. Patient apparently did not lose any consciousness. Patient checked vitals at home and heart rate was in the 20s along with blood pressure in the 90s and EMS was called. Patient apparently has not been doing well for the past 2 weeks and has been progressively.. Patient also had some dark stools over the past few weeks. Has been on antibiotics with Bactrim and Z-Girish for upper respiratory tract symptoms. Patient just to follow- up with Dr. Meek for atrial arrhythmia but was not on anticoagulation and was not following with him recently. is my patient for the past couple of years to be seen by me next week. In the emergency department initial heart rate was in the 20s and the patient was given atropine x 2 without any significant response. Cardiology was consulted for further evaluation. Patient was started on transcutaneous pacing. Initial hemoglobin was down to 4.7 and stat blood transfusion was ordered for 2 units. Patient was also started on dopamine drip at 10 mcg/kg/min and admitted to the ICU. Rest of the labs showed platelets of 66, WBC of 7.8, sodium of 135, potassium of 5.1, BUN of 22 creatinine of 2.0 glucose of 224. Calcium was 8.6. Troponin was negative at 0.02. LFT shows AST of 57 and total bili was 3.5. 1. Severe bradycardia requiring transcutaneous pacing initially and now on dopamine drip. Back in NSR. possible digoxin toxicity s/p digifab 2. Severe anemia with a hemoglobin of 4.7 with unclear etiology for now 3. Acute kidney injury versus acute on chronic kidney disease with a creatinine of 2.0 _ mostly cardiorenal syndrome 4. Mild hyperkalemia - resolved 5. History of atrial arrhythmia amiodarone, digoxin as well as nadolol by previous cardilogist 6. Severe thrombocytopenia with a platelets of 66 7. Abnormal LFTs with elevated T. bili at 3.5 or hyperbilirubinemia 8. Hypothyroidism 9. Depression 10. Significant right hip pain 11. New diagnosis of pulmonary hypertension appears to be at least moderate to severe pulmonary hypertension-unclear etiology for now 12. Possible bicuspid aortic valve Patient presented with presyncopal episode with an heart rate in the 20s as well as and severe hypotension of 90 mmHg. As noted above patient was initially placed on transcutaneous pacing as she did have altered mental status secondary to poor perfusion was completely pale on initial examination. Was unresponsive to atropine x2 in the emergency department. later started on dopamine drip. Initial hemoglobin was 4.0 and repeat showed around the same at 4.5. Patient heart rate improved after PRBC transfusions. An EKG was performed at that point of time showed junctional rhythm with a narrow QRS complexes and occasional PVCs with a heart rate of 41 bpm. Telemetry showed patient's heart rate was stable in the 30s. Hemodynamically stable and patient mentation was normal and answered all the questions appropriately, no focal neurological deficits on examination. Performed bedside echo which showed normal LV function and RV function and there was no clear pericardial effusion. There was no evidence of any severe aortic stenosis. Transcutaneous pacing was stopped as well as the patient was admitted to the ICU and she continued to be hemodynamically stable. Decision was made to do the temporary transvenous pacemaker only if the patient was hemodynamically unstable and she did not require it. Recommend to hold the amiodarone digoxin as well as nadolol for now. Recommend to keep potassium between 4 and 5 and deviation greater than 2 at all times. Continue close monitoring in the ICU. No digoxin level was checked since admission and will recommend to check digoxin level immediately. Digoxin level came back rate greater than 5.0. Patient was given DigiFab this morning after contacting the poison control and the repeat digoxin level was at 1.9. Patient did have hyperkalemia which was treated aggressively with insulin as well as glucose IV and Kayexalate. Recommend to keep potassium between 4 and 5 as hyperkalemia and hypokalemia would be significantly detrimental with the patient with elevated digoxin levels. Patient now in sinus bradycardia with heart rate in the 40s and 50s. Systolic blood pressure around 100 mmHg. Still continues to be on dopamine drip and will continue to tartrate at slowly as the digoxin effect.. Continue to hold all chayito blockers for now. Echocardiogram completed on 06/23/25 showed normal LV size and wall thickness. Normal LV function with an EF of 55 to 60%. Indeterminate diastolic function. Moderately dilated RV. Normal RV function. Severely elevated RVSP at 85 mmHg with RAP of 15 mmHg. Flat septum in both systole and diastole with D-shaped LV indicating both pressure and volume overload. Moderate TR. Mild to moderate MR possible bicuspid aortic valve. Mild AR. IVC dilated and less than 50% collapse with inspiration. Left-sided pleural effusion noted. No pericardial effusion. Patient with at least moderate to severe pulmonary hypertension as noted above with flat septum in both systole and diastole along with D-shaped LV indicating both pressure and volume overload. Also has moderate TR. Unclear etiology of the pulmonary hypertension and will need workup for the same. At present patient appears to be fluid overloaded with possible cardiorenal syndrome secondary to pulmonary hypertension and recommend to start IV diuresis for the patient. Lasix 40 mg IV twice daily Strict input output, daily weights and 2 g sodium diet. Severe anemia on admission along with low platelets. Patient was given 3 units of PRBC transfusion and now hemoglobin stable around 9. Unclear reason for the anemia at the present point of time but she did have dark stools recently. Complete workup of anemia was was recommended-please send the initial labs for anemia from the first blood sample as patient did receive blood transfusions and the later samples would alter the results. Unfortunately it appears that the anemia workup was performed while the patient was receiving the transfusions. Will need to repeat the anemia workup. B12 level was very low and agree with B12 replacement. Patient also has significant thrombocytopenia at 66 and could be from the blood loss but will need to rule out other causes. Also patient has hyperbilirubinemia at 3.5 without any clear etiology and will need to rule out hemolysis as well as any liver disease but the liver enzymes are only mildly elevated. Recommended GI consult also for further evaluation given the anemia. Also has hyperbilirubinemia as well as the elevated liver enzymes which could be secondary to the hepatic congestion also but would request GI input also on the same. Acute versus acute on chronic kidney disease-creatinine is 2.0 with a BUN is only 22. Previous creatinine was 1.3 in 2020. As noted above patient mostly is cardiorenal syndrome from fluid overload state in the setting of pulmonary hypertension. Recommend aggressive diuresis with Lasix 40 mg IV twice daily. Continue to monitor renal function closely. There is a high probability of sudden, clinically significant or life threatening deterioration in the patient condition which required the highest level of physician preparedness to intervene urgently. I have personally spent 65 minutes of critical care time, exclusive of time spent on any procedures, in evaluation and management of this critically ill patient. Management of rest of the medical conditions as per primary team and other consultants. Thank you for the consult and allowing me to participate in the care of the patient. Cardiology will continue to follow. Juan Perdomo M.D. Interventional Cardiology
--- NOTE | 2025-06-24 16:00 | PC.SS ---
Update: Patient on 2L nasal cannula. P.O. feeds. Afebrile. Patient receiving pressor support. Cardiology is consulting.
[2025-06-24] MEDS: DOPamine/D5w 400 MG IVPB 400 MG/250 ML BAG 13.089 MG IV (17:23)
[2025-06-24] MEDS: SEVELAMER CARBONATE 800 MG TABLET PO (17:26)
--- NOTE | 2025-06-24 18:06 | PC.NURSE ---
at 1227, spoke yasmine Downey at poison control, update given on pt, no new orders received
--- NOTE | 2025-06-24 18:40 | ESPR_ITS ---
Documentation for date of: 06/24/25 Subjective Subjective Interval history: Patient is a 69-year-old female with past medical history of atrial fibrillation, hypothyroidism, anxiety, depression presenting to the ED from ambulance after initially feeling dizzy and weak in the shower earlier today, passed a brown/loose bowel movement unintentionally during this time. Patient states she then laid down on the bathroom floor and called EMS. Per EMS she was pale onsite with a GCS of 14, bradycardic to the 20s blood pressure 102/52 which was taken at home. Was given 6 L nasal cannula when EMS picked her up. During transfer to ED, patient was also given 1 mg atropine with minimal improvement in heart rate. Patient states she never lost consciousness and never hit her head today. Per family, she has been pale and has been falling/tripping without loss of consciousness multiple times in the last 2 weeks without head trauma. Per Machine Sand Mixer Dr. Perdomo, says he sees her and was planning to see the patient in the clinic relatively soon. Per family, states that patient was taking a TMP-SMX since May 16 and has been having dark loose stools in the last week. Past Medical History: Above Family History: Father had stroke Surgical History: None Social History: Denies history of smoking, denies current alcohol use, denies recreational drug use Current Medications: Nadolol, Amiodarone, Sertraline, Levothyroxine, Digoxin, Tylenol Allergies: No known drug allergies ED Course: In the ED her vitals were initially temperature of 98.6, 27 bpm regular heart rate, 18 respiratory blood pressure of 60/22, 98% oxygen 4 L nasal cannula. Labs were significant for hemoglobin of 4.7 hematocrit 13.6, MCV 136, RDW's deviation 91.5, platelet count 66, sodium 134, carbon dioxide 17.4, creatinine 2.0, GFR 27, glucose 224, T. bili 3.5, AST 57, BNP 476 Imaging included EKG which showed junctional rhythm with PVC In the ED patient was given 1 unit of PRBCs and was started on a second. Patient was also given dopamine drip starting at a rate of 10 mcg per kg per minute. Patient was also started on cardiac pacing in the ED. Patient was admitted for symptomatic junctional bradycardia Interval: 06/23/2025: Patient digoxin level found to be greater than 5, 120 mg DigiFab given. Patient closely monitored for adverse reaction. Repeat digoxin level scheduled for 12 hours post DigiFab administration. Overnight, patient's potassium was 5.5, given insulin, dextrose, Kayexalate. Repeat potassium 4.8. Patient continues to require dopamine, attempting to wean off. BP improved throughout the day after administration of DigiFab. Patient does not require pacing, symptoms have improved as heart rate has increased. Exam Vital Signs Temp Pulse Resp BP Pulse Ox O2 Del Method O2 Flow Rate 98.1 F 49 L 19 90/37 L 100 Nasal Cannula 2 06/24/25 16:00 06/24/25 18:00 06/24/25 18:00 06/24/25 18:00 06/24/25 18:00 06/24/25 16:00 06/24/25 16:00 Narrative Exam Physical Exam General: Awake and in mild distress on transcutaneous pacing. Conversational. Very pale. HEENT: Normocephalic, atraumatic, mucous membranes dry. Heart: Bradycardic. Regular rate and rhythm, normal S1 and S2, no murmurs appreciated. Lungs: Diffuse crackles. Abdomen: Soft, nondistended, nontender, positive bowel sounds. No guarding or rebound tenderness. Neurologic: Alert and oriented x3, no gross neurological deficit, and patient able to move all 4 extremities. Extremities: No edema. Skin: No rash or ecchymoses. Objective Labs 06/25/25 06:25 06/26/25 00:28 Labs: Laboratory Results - last 24 hr 06/23/25 06/23/25 06/24/25 00:24 20:39 01:04 WBC RBC Hgb Hct MCV MCH MCHC RDW Std Deviation Plt Count Neut % (Auto) Lymph % (Auto) [place] % (Auto) Eos % (Auto) Baso % (Auto) Neut # (Auto) Lymph # (Auto) [place] # (Auto) Eos # (Auto) Baso # (Auto) Immature Gran # (Auto) Absolute Nucleated RBC Immature Gran % Nucleated RBC % Sodium 131 L Potassium 5.0 Chloride 100 Carbon Dioxide 18.2 L Anion Gap 13 BUN 20 Creatinine 2.5 H Estim Creat Clear Calc 24.9 L eGFR 20 L BUN/Creatinine Ratio 8 L Glucose 137 H Calculated Osmolality 267 L Calcium 8.9 Corrected Calcium 8.9 Phosphorus 7.0 H Magnesium Total Bilirubin AST ALT Alkaline Phosphatase B-Natriuretic Peptide 1165 H* Total Protein Albumin 4.0 Globulin Albumin/Globulin Ratio Free T4 Ur Collection Type Clean Catch Urine Color Yellow Urine Clarity Turbid A Urine pH 5.5 Ur Specific [place] 1.016 Urine Protein 2+ A Urine Glucose (UA) Negative Urine Ketones Negative Urine Blood 1+ A Urine Nitrite Negative Urine Bilirubin Negative Urine Urobilinogen (Auto) Negative Ur Leukocyte Esterase Negative Urine RBC 1 Urine WBC 1 Ur Squamous Epith Cells 1 Urine Bacteria None Hyaline Casts 1 Digoxin 1.9 D Urine Opiates Screen Negative Urine Fentanyl Screen Negative Ur Barbiturates Screen Negative U Amphetamin/Meth Scrn Negative U Benzodiazepines Scrn Negative U Cocaine Metab Screen Negative U Marijuana (THC) Screen Negative Misc Test Result 06/24/25 03:00 WBC 9.3 RBC 2.69 L Hgb 9.9 L Hct 28.3 L MCV 105 H MCH 36.8 H MCHC 35.0 RDW Std Deviation Not Performed. Plt Count 30 L D Neut % (Auto) 72 Lymph % (Auto) 19 [place] % (Auto) 9 Eos % (Auto) 0 Baso % (Auto) 0 Neut # (Auto) 6.6 Lymph # (Auto) 1.7 [place] # (Auto) 0.8 Eos # (Auto) 0.0 Baso # (Auto) 0.0 Immature Gran # (Auto) 0.06 H Absolute Nucleated RBC 0.03 H Immature Gran % 1 H Nucleated RBC % 0 Sodium 135 L Potassium 4.4 D Chloride 100 Carbon Dioxide 20.6 Anion Gap 14 BUN 26 H Creatinine 2.4 H Estim Creat Clear Calc 25.9 L eGFR 21 L BUN/Creatinine Ratio 11 L Glucose 131 H Calculated Osmolality 276 Calcium 9.0 Corrected Calcium 9.1 Phosphorus 6.9 H Magnesium 2.4 Total Bilirubin 3.7 H AST 58 H ALT 46 Alkaline Phosphatase 53 B-Natriuretic Peptide 1285 H* Total Protein 6.2 Albumin 3.9 Globulin 2.3 Albumin/Globulin Ratio 1.7 Free T4 1.57 Ur Collection Type Urine Color Urine Clarity Urine pH Ur Specific [place] Urine Protein Urine Glucose (UA) Urine Ketones Urine Blood Urine Nitrite Urine Bilirubin Urine Urobilinogen (Auto) Ur Leukocyte Esterase Urine RBC Urine WBC Ur Squamous Epith Cells Urine Bacteria Hyaline Casts Digoxin Urine Opiates Screen Urine Fentanyl Screen Ur Barbiturates Screen U Amphetamin/Meth Scrn U Benzodiazepines Scrn U Cocaine Metab Screen U Marijuana (THC) Screen Misc Test Result Platelets confirmed ABG Interpretation ABG results: 06/23/25 03:22 ABG pH 7.31 L ABG pCO2 40 ABG pO2 69 L ABG HCO3 20 ABG O2 Saturation 94 ABG Base Excess -6 L Quality Measures Quality Measures VTE prophylaxis (SCDs) Advance care planning discussed with:: patient and spouse Assessment & Plan Assessment Current Active Medications: Generic Name Dose Route Start Last Admin Trade Name Freq PRN Reason Stop Dose Admin Acetaminophen 1,000 mg 06/23/25 20:13 Acetaminophen 500 Mg Tablet PO 07/23/25 20:12 Q6HR PRN fever >99.9 Cyanocobalamin 1,000 mcg 06/24/25 07:00 06/24/25 05:51 Cyanocobalamin Inj 1,000 Mcg/Ml Vial IM 06/29/25 06:59 1,000 mcg DAILY JOANN Administration Dextrose 25 ml 06/22/25 18:00 Dextrose 50%-Water Inj 50 Ml Syringe IV 07/22/25 17:59 Q15MIN PRN BG 50-70 responsive npo pt Dextrose 50 ml 06/22/25 18:00 Dextrose 50%-Water Inj 50 Ml Syringe IV 07/22/25 17:59 Q15MIN PRN BG <50 OR BG <70 & pt unresponsive Diclofenac Sodium 2 gm 06/23/25 09:00 06/24/25 08:38 Diclofenac 1% Top Gel 100 Gm Tube TOP 07/23/25 08:59 2 gm BID JOANN Administration Furosemide 40 mg 06/25/25 09:00 Furosemide 40 Mg Tablet PO 07/25/25 08:59 QDAY JOANN Glucagon 1 mg 06/22/25 18:00 Glucagon Inj 1 Mg Vial IM Q15MIN PRN BG <70, and no IV access Dopamine HCl/Dextrose 400 mg in 250 mls @ 16.361 mls/hr 06/24/25 10:30 06/24/25 18:00 Intropin In D5w Ivpb IV 07/24/25 10:29 4 mcg/kg/min .[id number] JOANN 13.089 mls/hr Protocol Titration 5 MCG/KG/MIN Insulin Human Lispro 0 unit 06/24/25 12:00 06/24/25 17:16 Insulin Lispro (Admelog) 1 Unit/0.01 Ml Unit SC 07/24/25 11:59 Not Given ACHS JOANN Protocol Ondansetron HCl 4 mg 06/22/25 17:55 Ondansetron Inj 2 Mg/Ml Inj 2 Ml IVP 07/22/25 17:54 Q6H PRN NAUSEA OR VOMITING Protocol Pantoprazole Sodium 40 mg 06/22/25 21:00 06/24/25 08:39 Pantoprazole Inj 40 Mg Vial IVP 07/22/25 20:59 40 mg BID JOANN Administration Sennosides 1 tab 06/22/25 17:55 Senna Tablet PO 07/22/25 17:54 QDAY PRN constipation Protocol Sevelamer Carbonate 800 mg 06/24/25 17:30 06/24/25 17:26 Sevelamer Carbonate 800 Mg Tablet PO 07/24/25 17:29 800 mg TIDWM JOANN Administration Vitamin B Complex/Vit C/Folic Acid 1 tab 06/23/25 09:00 06/24/25 08:39 Vit B12/Vit C/Fa (Nephrovite) Tablet PO 07/23/25 08:59 1 tab QDAY JOANN Administration Plan Patient is a 69-year-old female with past medical history of arrhythmia, hypothyroidism, GERD, depression who presents to the [facility] ED on 06/22/25 for pre- syncope, found to be in bradycardia HR low 30s requiring transcutaneous pacing, admitted to ICU for the severe bradycardia with need for ventricular junctional rhythm requiring transcutaneous pacing and possible temporary pacemaker placement. Neuro: #Acute encephalopathy (resolved) Suspect due to hypotension, bradycardia. Patient received transcutaneous pacing to heart rate at 60, with improvement in mentation. Patient transition to dopamine drip to maintain heart rate greater than 30s, transcutaneous pacing discontinued. - Continue dopamine drip to maintain heart rate - Treat bradycardia as below CVS: #Bradycardia, improving #Supraventricular junctional rhythm with narrow QRS with occasional PVC`s #? Atrial fibrillation / tachyarrhythmia #HFpEF (EF 55-60%) (06/23/25) Was found to have heart rate of 20s at home after presyncopal episode. Upon arrival heart rate improved to 30s, status post atropine x 1. Patient is not on anticoagulation. Previously seeing Dr. Meyer. Was told that she has an arrhythmia however is not on anticoagulation. Takes amiodarone 200 mg daily, nadolol 40 mg daily, digoxin 250 mg daily except for Sunday. Last took all of these medications this morning prior to arrival, likely reason why patient's heart rate did not increase despite anemia. Patient was transcutaneously paced at HR 60 upon arrival to ED, was later discontinued after HR stabilized to upper 30s after receiving dopamine and blood. SBP in 130s. Patient was conversational. EKG showed supraventricular junctional rhythm with narrow QRS with occasional PVCs. Heart rate 41. TTE 06/23/25 showed normal LV size and wall thickness. Normal LV function with an EF of 55 to 60%. Indeterminate diastolic function. Moderately dilated RV. Normal RV function. Severely elevated RVSP at 85 mmHg with RAP of 15 mmHg. Flat septum in both systole and diastole with D-shaped LV indicating both pressure and volume overload. Moderate TR. Mild to moderate MR possible bicuspid aortic valve. Mild AR. IVC dilated and less than 50% collapse with inspiration. Left- sided pleural effusion noted. No pericardial effusion. ? Hold amiodarone, atenolol, digoxin - S/p digifab 3 vials per poison control. Instructed to give another dose of digiFab again after 30 minutes from check. If QRS >120, recommend lidocaine 7.5 mg/kg - Currently at dopamine drip 6 mcg/kg/min, decrease as tolerated ?Keep Hgb btwn 9-10. Transfuse as needed. ?Recommend to keep potassium between 4 and 5 and deviation greater than 2 at all times. - Keep magnesium greater than 2 at all times. ? Continue telemetry Pulmonary: No active issues. GI: # Concern for GI bleed Presented with paleness, has been progressive for the past 2 weeks. Reports also starting 2 weeks ago, patient has had decreased appetite and dark stools. Around this time she was also started on Bactrim and Z-Girish for upper respiratory virus by PCP. Patient thought that dark stools was a side effect of the medications. Never had a colonoscopy. - Keep the hemoglobin between 9 and 10. - Consider GI consult - Anemia treatment as below Renal: #CAN versus acute on chronic kidney disease Reports decreased appetite for the past 2 weeks. Creatinine 2.0, previously 1.3 in 2020. Possibly secondary to decreased oral intake for the past 3 weeks. ?IV Lasix okay as needed for now as patient may become overloaded ?CTM creatinine ?Avoid overdiuresis or other nephrotoxic agents Endo: #Hypothyroidism #Depression ?Resume home meds once stable Heme/Onc: #Symptomatic anemia #Thrombocytopenia On admission, WBC 7.8, hemoglobin 4.7. Platelet 66, possibly secondary to severe blood loss but will need to rule out other causes. BNP. 06/23/25: Hgb improved to 8.8 s/p second unit, 9.2 after 3rd bag. ? S/p 3 units of hemoglobin. - Keep the hemoglobin between 9 and 10. ? Patient perfusing well now and mentation normal. Able to move all extremities, no focal deficits, able to answer questions appropriately. - Complete workup of anemia. Plan of care discussed with top polisher Dr. Perdomo. Hal Pulido MD PGY?2 Attending Provider Attestation/Addendum I have personally seen and examined the patient separately on the above date of service and discussed the plan of care with the resident. I reviewed the resident Dr. Surekha Horn consultation progress note and agree with the resident findings and plan in the note above and have also edited the documentation to reflect my findings and plan. A 69-year-old female with a past medical history of atrial arrhythmia on amiodarone, digoxin as well as nadolol, hypothyroidism, GERD, depression presented to the emergency department after a presyncope. Patient apparently was taking a shower and felt lightheaded and caught her and laid her down on the ground. Patient apparently did not lose any consciousness. Patient checked vitals at home and heart rate was in the 20s along with blood pressure in the 90s and EMS was called. Patient apparently has not been doing well for the past 2 weeks and has been progressively.. Patient also had some dark stools over the past few weeks. Has been on antibiotics with Bactrim and Z-Girish for upper respiratory tract symptoms. Patient just to follow- up with Dr. Meek for atrial arrhythmia but was not on anticoagulation and was not following with him recently. is my patient for the past couple of years to be seen by me next week. In the emergency department initial heart rate was in the 20s and the patient was given atropine x 2 without any significant response. Cardiology was consulted for further evaluation. Patient was started on transcutaneous pacing. Initial hemoglobin was down to 4.7 and stat blood transfusion was ordered for 2 units. Patient was also started on dopamine drip at 10 mcg/kg/min and admitted to the ICU. Rest of the labs showed platelets of 66, WBC of 7.8, sodium of 135, potassium of 5.1, BUN of 22 creatinine of 2.0 glucose of 224. Calcium was 8.6. Troponin was negative at 0.02. LFT shows AST of 57 and total bili was 3.5. 1. Severe bradycardia requiring transcutaneous pacing initially and now on dopamine drip. Back in NSR. possible digoxin toxicity s/p digifab 2. Severe anemia with a hemoglobin of 4.7 with unclear etiology for now 3. Acute kidney injury versus acute on chronic kidney disease with a creatinine of 2.0 _ mostly cardiorenal syndrome 4. Mild hyperkalemia - resolved 5. History of atrial arrhythmia amiodarone, digoxin as well as nadolol by previous cardilogist 6. Severe thrombocytopenia with a platelets of 66 7. Abnormal LFTs with elevated T. bili at 3.5 or hyperbilirubinemia 8. Hypothyroidism 9. Depression 10. Significant right hip pain 11. New diagnosis of pulmonary hypertension appears to be at least moderate to severe pulmonary hypertension-unclear etiology for now 12. Possible bicuspid aortic valve Patient presented with presyncopal episode with an heart rate in the 20s as well as and severe hypotension of 90 mmHg. As noted above patient was initially placed on transcutaneous pacing as she did have altered mental status secondary to poor perfusion was completely pale on initial examination. Was unresponsive to atropine x2 in the emergency department. later started on dopamine drip. Initial hemoglobin was 4.0 and repeat showed around the same at 4.5. Patient heart rate improved after PRBC transfusions. An EKG was performed at that point of time showed junctional rhythm with a narrow QRS complexes and occasional PVCs with a heart rate of 41 bpm. Telemetry showed patient's heart rate was stable in the 30s. Hemodynamically stable and patient mentation was normal and answered all the questions appropriately, no focal neurological deficits on examination. Performed bedside echo which showed normal LV function and RV function and there was no clear pericardial effusion. There was no evidence of any severe aortic stenosis. Transcutaneous pacing was stopped as well as the patient was admitted to the ICU and she continued to be hemodynamically stable. Decision was made to do the temporary transvenous pacemaker only if the patient was hemodynamically unstable and she did not require it. Recommend to hold the amiodarone digoxin as well as nadolol for now. Recommend to keep potassium between 4 and 5 and deviation greater than 2 at all times. Continue close monitoring in the ICU. No digoxin level was checked since admission and will recommend to check digoxin level immediately. Digoxin level came back rate greater than 5.0. Patient was given DigiFab this morning after contacting the poison control and the repeat digoxin level was at 1.9. Patient did have hyperkalemia which was treated aggressively with insulin as well as glucose IV and Kayexalate. Recommend to keep potassium between 4 and 5 as hyperkalemia and hypokalemia would be significantly detrimental with the patient with elevated digoxin levels. Patient now in sinus bradycardia with heart rate in the 40s and 50s. Systolic blood pressure around 100 mmHg. Still continues to be on dopamine drip and will continue to tartrate at slowly as the digoxin effect.. Continue to hold all chayito blockers for now. Echocardiogram completed on 06/23/25 showed normal LV size and wall thickness. Normal LV function with an EF of 55 to 60%. Indeterminate diastolic function. Moderately dilated RV. Normal RV function. Severely elevated RVSP at 85 mmHg with RAP of 15 mmHg. Flat septum in both systole and diastole with D-shaped LV indicating both pressure and volume overload. Moderate TR. Mild to moderate MR possible bicuspid aortic valve. Mild AR. IVC dilated and less than 50% collapse with inspiration. Left-sided pleural effusion noted. No pericardial effusion. Patient with at least moderate to severe pulmonary hypertension as noted above with flat septum in both systole and diastole along with D-shaped LV indicating both pressure and volume overload. Also has moderate TR. Unclear etiology of the pulmonary hypertension and will need workup for the same. At present patient appears to be fluid overloaded with possible cardiorenal syndrome secondary to pulmonary hypertension and recommend to start IV diuresis for the patient. Lasix 40 mg IV twice daily Strict input output, daily weights and 2 g sodium diet. Severe anemia on admission along with low platelets. Patient was given 3 units of PRBC transfusion and now hemoglobin stable around 9. Unclear reason for the anemia at the present point of time but she did have dark stools recently. Complete workup of anemia was was recommended-please send the initial labs for anemia from the first blood sample as patient did receive blood transfusions and the later samples would alter the results. Unfortunately it appears that the anemia workup was performed while the patient was receiving the transfusions. Will need to repeat the anemia workup. B12 level was very low and agree with B12 replacement. Patient also has significant thrombocytopenia at 66 and could be from the blood loss but will need to rule out other causes. Also patient has hyperbilirubinemia at 3.5 without any clear etiology and will need to rule out hemolysis as well as any liver disease but the liver enzymes are only mildly elevated. Recommended GI consult also for further evaluation given the anemia. Also has hyperbilirubinemia as well as the elevated liver enzymes which could be secondary to the hepatic congestion also but would request GI input also on the same. Acute versus acute on chronic kidney disease-creatinine is 2.0 with a BUN is only 22. Previous creatinine was 1.3 in 2020. As noted above patient mostly is cardiorenal syndrome from fluid overload state in the setting of pulmonary hypertension. Recommend aggressive diuresis with Lasix 40 mg IV twice daily. Continue to monitor renal function closely. There is a high probability of sudden, clinically significant or life threatening deterioration in the patient condition which required the highest level of physician preparedness to intervene urgently. I have personally spent 65 minutes of critical care time, exclusive of time spent on any procedures, in evaluation and management of this critically ill patient. Management of rest of the medical conditions as per primary team and other consultants. Thank you for the consult and allowing me to participate in the care of the patient. Cardiology will continue to follow. Juan Perdomo M.D. Interventional Cardiology
--- NOTE | 2025-06-24 20:14 | ESPR_ITS ---
Documentation for date of: 06/24/25 Subjective Subjective Interval history: Patient is a 69-year-old female with past medical history of atrial fibrillation, hypothyroidism, anxiety, depression presenting to the ED from ambulance after initially feeling dizzy and weak in the shower earlier today, passed a brown/loose bowel movement unintentionally during this time. Patient states she then laid down on the bathroom floor and called EMS. Per EMS she was pale onsite with a GCS of 14, bradycardic to the 20s blood pressure 102/52 which was taken at home. Was given 6 L nasal cannula when EMS picked her up. During transfer to ED, patient was also given 1 mg atropine with minimal improvement in heart rate. Patient states she never lost consciousness and never hit her head today. Per family, she has been pale and has been falling/tripping without loss of consciousness multiple times in the last 2 weeks without head trauma. Per Telephone Appointment Clerk Dr. Perdomo, says he sees her and was planning to see the patient in the clinic relatively soon. Per family, states that patient was taking a TMP-SMX since May 16 and has been having dark loose stools in the last week. Past Medical History: Above Family History: Father had stroke Surgical History: None Social History: Denies history of smoking, denies current alcohol use, denies recreational drug use Current Medications: Nadolol, Amiodarone, Sertraline, Levothyroxine, Digoxin, Tylenol Allergies: No known drug allergies ED Course: In the ED her vitals were initially temperature of 98.6, 27 bpm regular heart rate, 18 respiratory blood pressure of 60/22, 98% oxygen 4 L nasal cannula. Labs were significant for hemoglobin of 4.7 hematocrit 13.6, MCV 136, RDW's deviation 91.5, platelet count 66, sodium 134, carbon dioxide 17.4, creatinine 2.0, GFR 27, glucose 224, T. bili 3.5, AST 57, BNP 476 Imaging included EKG which showed junctional rhythm with PVC In the ED patient was given 1 unit of PRBCs and was started on a second. Patient was also given dopamine drip starting at a rate of 10 mcg per kg per minute. Patient was also started on cardiac pacing in the ED. Patient was admitted for symptomatic junctional bradycardia Interval: 06/23/2025: Patient digoxin level found to be greater than 5, 120 mg DigiFab given. Patient closely monitored for adverse reaction. Repeat digoxin level scheduled for 12 hours post DigiFab administration. Overnight, patient's potassium was 5.5, given insulin, dextrose, Kayexalate. Repeat potassium 4.8. Patient continues to require dopamine, attempting to wean off. BP improved throughout the day after administration of DigiFab. Patient does not require pacing, symptoms have improved as heart rate has increased. 06/24/2025: Patient appears to be doing symptomatically better. Patient more alert, conversational, interactive. Overall less lethargic. Heart rate remains mildly bradycardic, high 40s. Appears to be in sinus rhythm on telemetry monitoring. Remains on dopamine drip. Maintain good urine output, received Lasix IV x 1. Will schedule. Attempting to wean off dopamine. Repeat digoxin level 1.9. Hemoglobin remained stable today, T bilirubin remains elevated. Exam Vital Signs Temp Pulse Resp BP Pulse Ox O2 Del Method O2 Flow Rate 98.1 F 52 L 19 110/48 L 99 Nasal Cannula 3 06/24/25 19:00 06/24/25 20:00 06/24/25 20:00 06/24/25 20:00 06/24/25 20:00 06/24/25 16:00 06/24/25 19:56 Narrative Exam Physical Exam General: Awake, calm, interactive. HEENT: Normocephalic, atraumatic, mucous membranes dry. Heart: Bradycardic. Regular rate and rhythm, normal S1 and S2, no murmurs appreciated. Lungs: Diffuse crackles. Abdomen: Soft, nondistended, nontender, positive bowel sounds. No guarding or rebound tenderness. Neurologic: Alert and oriented x3, no gross neurological deficit, and patient able to move all 4 extremities. Extremities: No edema. Skin: No rash or ecchymoses. Objective Labs 06/25/25 06:25 06/26/25 00:28 Labs: Laboratory Results - last 24 hr 06/23/25 06/23/25 06/24/25 00:24 20:39 01:04 WBC RBC Hgb Hct MCV MCH MCHC RDW Std Deviation Plt Count Neut % (Auto) Lymph % (Auto) [place] % (Auto) Eos % (Auto) Baso % (Auto) Neut # (Auto) Lymph # (Auto) [place] # (Auto) Eos # (Auto) Baso # (Auto) Immature Gran # (Auto) Absolute Nucleated RBC Immature Gran % Nucleated RBC % Sodium 131 L Potassium 5.0 Chloride 100 Carbon Dioxide 18.2 L Anion Gap 13 BUN 20 Creatinine 2.5 H Estim Creat Clear Calc 24.9 L eGFR 20 L BUN/Creatinine Ratio 8 L Glucose 137 H Calculated Osmolality 267 L Calcium 8.9 Corrected Calcium 8.9 Phosphorus 7.0 H Magnesium Total Bilirubin AST ALT Alkaline Phosphatase B-Natriuretic Peptide 1165 H* Total Protein Albumin 4.0 Globulin Albumin/Globulin Ratio Free T4 Ur Collection Type Clean Catch Urine Color Yellow Urine Clarity Turbid A Urine pH 5.5 Ur Specific [place] 1.016 Urine Protein 2+ A Urine Glucose (UA) Negative Urine Ketones Negative Urine Blood 1+ A Urine Nitrite Negative Urine Bilirubin Negative Urine Urobilinogen (Auto) Negative Ur Leukocyte Esterase Negative Urine RBC 1 Urine WBC 1 Ur Squamous Epith Cells 1 Urine Bacteria None Hyaline Casts 1 Digoxin 1.9 D Urine Opiates Screen Negative Urine Fentanyl Screen Negative Ur Barbiturates Screen Negative U Amphetamin/Meth Scrn Negative U Benzodiazepines Scrn Negative U Cocaine Metab Screen Negative U Marijuana (THC) Screen Negative Misc Test Result 06/24/25 03:00 WBC 9.3 RBC 2.69 L Hgb 9.9 L Hct 28.3 L MCV 105 H MCH 36.8 H MCHC 35.0 RDW Std Deviation Not Performed. Plt Count 30 L D Neut % (Auto) 72 Lymph % (Auto) 19 [place] % (Auto) 9 Eos % (Auto) 0 Baso % (Auto) 0 Neut # (Auto) 6.6 Lymph # (Auto) 1.7 [place] # (Auto) 0.8 Eos # (Auto) 0.0 Baso # (Auto) 0.0 Immature Gran # (Auto) 0.06 H Absolute Nucleated RBC 0.03 H Immature Gran % 1 H Nucleated RBC % 0 Sodium 135 L Potassium 4.4 D Chloride 100 Carbon Dioxide 20.6 Anion Gap 14 BUN 26 H Creatinine 2.4 H Estim Creat Clear Calc 25.9 L eGFR 21 L BUN/Creatinine Ratio 11 L Glucose 131 H Calculated Osmolality 276 Calcium 9.0 Corrected Calcium 9.1 Phosphorus 6.9 H Magnesium 2.4 Total Bilirubin 3.7 H AST 58 H ALT 46 Alkaline Phosphatase 53 B-Natriuretic Peptide 1285 H* Total Protein 6.2 Albumin 3.9 Globulin 2.3 Albumin/Globulin Ratio 1.7 Free T4 1.57 Ur Collection Type Urine Color Urine Clarity Urine pH Ur Specific [place] Urine Protein Urine Glucose (UA) Urine Ketones Urine Blood Urine Nitrite Urine Bilirubin Urine Urobilinogen (Auto) Ur Leukocyte Esterase Urine RBC Urine WBC Ur Squamous Epith Cells Urine Bacteria Hyaline Casts Digoxin Urine Opiates Screen Urine Fentanyl Screen Ur Barbiturates Screen U Amphetamin/Meth Scrn U Benzodiazepines Scrn U Cocaine Metab Screen U Marijuana (THC) Screen Misc Test Result Platelets confirmed ABG Interpretation ABG results: 06/23/25 03:22 ABG pH 7.31 L ABG pCO2 40 ABG pO2 69 L ABG HCO3 20 ABG O2 Saturation 94 ABG Base Excess -6 L Quality Measures Quality Measures VTE prophylaxis (SCDs) Advance care planning discussed with:: patient and spouse Assessment & Plan Assessment Current Active Medications: Generic Name Dose Route Start Last Admin Trade Name Freq PRN Reason Stop Dose Admin Acetaminophen 1,000 mg 06/23/25 20:13 Acetaminophen 500 Mg Tablet PO 07/23/25 20:12 Q6HR PRN fever >99.9 Cyanocobalamin 1,000 mcg 06/24/25 07:00 06/24/25 05:51 Cyanocobalamin Inj 1,000 Mcg/Ml Vial IM 06/29/25 06:59 1,000 mcg DAILY JOANN Administration Dextrose 25 ml 06/22/25 18:00 Dextrose 50%-Water Inj 50 Ml Syringe IV 07/22/25 17:59 Q15MIN PRN BG 50-70 responsive npo pt Dextrose 50 ml 06/22/25 18:00 Dextrose 50%-Water Inj 50 Ml Syringe IV 07/22/25 17:59 Q15MIN PRN BG <50 OR BG <70 & pt unresponsive Diclofenac Sodium 2 gm 06/23/25 09:00 06/24/25 08:38 Diclofenac 1% Top Gel 100 Gm Tube TOP 07/23/25 08:59 2 gm BID JOANN Administration Furosemide 40 mg 06/25/25 09:00 Furosemide 40 Mg Tablet PO 07/25/25 08:59 QDAY JOANN Glucagon 1 mg 06/22/25 18:00 Glucagon Inj 1 Mg Vial IM Q15MIN PRN BG <70, and no IV access Dopamine HCl/Dextrose 400 mg in 250 mls @ 16.361 mls/hr 06/24/25 10:30 06/24/25 18:50 Intropin In D5w Ivpb IV 07/24/25 10:29 6 mcg/kg/min .[id number] JOANN 19.634 mls/hr Protocol Titration 5 MCG/KG/MIN Insulin Human Lispro 0 unit 06/24/25 12:00 06/24/25 17:16 Insulin Lispro (Admelog) 1 Unit/0.01 Ml Unit SC 07/24/25 11:59 Not Given ACHS JOANN Protocol Ondansetron HCl 4 mg 06/22/25 17:55 Ondansetron Inj 2 Mg/Ml Inj 2 Ml IVP 07/22/25 17:54 Q6H PRN NAUSEA OR VOMITING Protocol Pantoprazole Sodium 40 mg 06/22/25 21:00 06/24/25 08:39 Pantoprazole Inj 40 Mg Vial IVP 07/22/25 20:59 40 mg BID JOANN Administration Sennosides 1 tab 06/22/25 17:55 Senna Tablet PO 07/22/25 17:54 QDAY PRN constipation Protocol Sevelamer Carbonate 800 mg 06/24/25 17:30 06/24/25 17:26 Sevelamer Carbonate 800 Mg Tablet PO 07/24/25 17:29 800 mg TIDWM JOANN Administration Vitamin B Complex/Vit C/Folic Acid 1 tab 06/23/25 09:00 06/24/25 08:39 Vit B12/Vit C/Fa (Nephrovite) Tablet PO 07/23/25 08:59 1 tab QDAY JOANN Administration Plan Patient is a 69-year-old female with past medical history of arrhythmia, hypothyroidism, GERD, depression who presents to the [facility] ED on 06/22/25 for pre- syncope, found to be in bradycardia HR low 30s requiring transcutaneous pacing, admitted to ICU for the severe bradycardia with need for ventricular junctional rhythm requiring transcutaneous pacing and possible temporary pacemaker placement. Neuro: #Acute encephalopathy (resolved) Suspect due to hypotension, bradycardia. Patient received transcutaneous pacing to heart rate at 60, with improvement in mentation. Patient transition to dopamine drip to maintain heart rate greater than 30s, transcutaneous pacing discontinued. - Continue dopamine drip to maintain heart rate - Treat bradycardia as below CVS: #Bradycardia, improving #Supraventricular junctional rhythm with narrow QRS with occasional PVC`s #? Atrial fibrillation / tachyarrhythmia #HFpEF (EF 55-60%) (06/23/25) Was found to have heart rate of 20s at home after presyncopal episode. Upon arrival heart rate improved to 30s, status post atropine x 1. Patient is not on anticoagulation. Previously seeing Dr. Meyer. Was told that she has an arrhythmia however is not on anticoagulation. Takes amiodarone 200 mg daily, nadolol 40 mg daily, digoxin 250 mg daily except for Sunday. Last took all of these medications this morning prior to arrival, likely reason why patient's heart rate did not increase despite anemia. Patient was transcutaneously paced at HR 60 upon arrival to ED, was later discontinued after HR stabilized to upper 30s after receiving dopamine and blood. SBP in 130s. Patient was conversational. EKG showed supraventricular junctional rhythm with narrow QRS with occasional PVCs. Heart rate 41. Bedside echo was performed showed normal LV and RV function. no pericardial effusion clear. ? Hold amiodarone, atenolol, digoxin - S/p digifab 3 vials per poison control. Repeat digoxin 1.9. - Decrease dopamine as tolerated, goal to wean off ?Keep Hgb btwn 9-10. Transfuse as needed. ?Recommend to keep potassium between 4 and 5 and deviation greater than 2 at all times. - Keep magnesium greater than 2 at all times. ? Continue telemetry - IV Lasix 40 mg daily Pulmonary: No active issues. GI: # Concern for GI bleed Presented with paleness, has been progressive for the past 2 weeks. Reports also starting 2 weeks ago, patient has had decreased appetite and dark stools. Around this time she was also started on Bactrim and Z-Girish for upper respiratory virus by PCP. Patient thought that dark stools was a side effect of the medications. Never had a colonoscopy.\ Hemoglobin stable, however total bilirubin remains elevated 3.7, direct bilirubin 1.5. - Keep the hemoglobin between 9 and 10. - GI consulted, appreciate recommendations - Anemia treatment as below Renal: #CAN versus acute on chronic kidney disease Reports decreased appetite for the past 2 weeks. Creatinine 2.0, previously 1.3 in 2020. Possibly secondary to decreased oral intake for the past 3 weeks. ?IV Lasix okay as needed for now as patient may become overloaded ?CTM creatinine ?Avoid overdiuresis or other nephrotoxic agents Endo: #Hypothyroidism #Depression ?Resume home meds once stable Heme/Onc: #Symptomatic anemia #Thrombocytopenia On admission, WBC 7.8, hemoglobin 4.7. Platelet 66, possibly secondary to severe blood loss but will need to rule out other causes. BNP. 06/23/25: Hgb improved to 8.8 s/p second unit, 9.2 after 3rd bag. Hemoglobin stable. Iron panel elevated, not accurate due to being taken after receiving PRBC. Initial CBC showed macrocytosis, B12 level 92. ? S/p 3 units of hemoglobin. - Keep the hemoglobin between 9 and 10. ? Patient perfusing well now and mentation normal. Able to move all extremities, no focal deficits, able to answer questions appropriately. - B12 1000 mcg daily - GI consult as above Plan of care discussed with cryptographer Dr. Perdomo. Hal Park MD PGY?2 Attending Provider Attestation/Addendum I have personally seen and examined the patient separately on the above date of service and discussed the plan of care with the resident. I reviewed the resident Dr. Hal Park consultation progress note and agree with the resident findings and plan in the note above and have also edited the documentation to reflect my findings and plan. A 69-year-old female with a past medical history of atrial arrhythmia on amiodarone, digoxin as well as nadolol, hypothyroidism, GERD, depression presented to the emergency department after a presyncope. Patient apparently was taking a shower and felt lightheaded and caught her and laid her down on the ground. Patient apparently did not lose any consciousness. Patient checked vitals at home and heart rate was in the 20s along with blood pressure in the 90s and EMS was called. Patient apparently has not been doing well for the past 2 weeks and has been progressively.. Patient also had some dark stools over the past few weeks. Has been on antibiotics with Bactrim and Z-Girish for upper respiratory tract symptoms. Patient just to follow- up with Dr. Meek for atrial arrhythmia but was not on anticoagulation and was not following with him recently. is my patient for the past couple of years to be seen by me next week. In the emergency department initial heart rate was in the 20s and the patient was given atropine x 2 without any significant response. Cardiology was consulted for further evaluation. Patient was started on transcutaneous pacing. Initial hemoglobin was down to 4.7 and stat blood transfusion was ordered for 2 units. Patient was also started on dopamine drip at 10 mcg/kg/min and admitted to the ICU. Rest of the labs showed platelets of 66, WBC of 7.8, sodium of 135, potassium of 5.1, BUN of 22 creatinine of 2.0 glucose of 224. Calcium was 8.6. Troponin was negative at 0.02. LFT shows AST of 57 and total bili was 3.5. 1. Severe bradycardia requiring transcutaneous pacing initially and now on dopamine drip. Back in NSR. possible digoxin toxicity s/p digifab 2. Severe anemia with a hemoglobin of 4.7 with unclear etiology for now 3. Acute kidney injury versus acute on chronic kidney disease with a creatinine of 2.0 _ mostly cardiorenal syndrome 4. Mild hyperkalemia - resolved 5. History of atrial arrhythmia amiodarone, digoxin as well as nadolol by previous cardilogist 6. Severe thrombocytopenia with a platelets of 66 7. Abnormal LFTs with elevated T. bili at 3.5 or hyperbilirubinemia 8. Hypothyroidism 9. Depression 10. Significant right hip pain 11. New diagnosis of pulmonary hypertension appears to be at least moderate to severe pulmonary hypertension-unclear etiology for now 12. Possible bicuspid aortic valve Patient presented with presyncopal episode with an heart rate in the 20s as well as and severe hypotension of 90 mmHg. As noted above patient was initially placed on transcutaneous pacing as she did have altered mental status secondary to poor perfusion was completely pale on initial examination. Was unresponsive to atropine x2 in the emergency department. later started on dopamine drip. Initial hemoglobin was 4.0 and repeat showed around the same at 4.5. Patient heart rate improved after PRBC transfusions. An EKG was performed at that point of time showed junctional rhythm with a narrow QRS complexes and occasional PVCs with a heart rate of 41 bpm. Telemetry showed patient's heart rate was stable in the 30s. Hemodynamically stable and patient mentation was normal and answered all the questions appropriately, no focal neurological deficits on examination. Performed bedside echo which showed normal LV function and RV function and there was no clear pericardial effusion. There was no evidence of any severe aortic stenosis. Transcutaneous pacing was stopped as well as the patient was admitted to the ICU and she continued to be hemodynamically stable. Decision was made to do the temporary transvenous pacemaker only if the patient was hemodynamically unstable and she did not require it. Recommend to hold the amiodarone digoxin as well as nadolol for now. Recommend to keep potassium between 4 and 5 and deviation greater than 2 at all times. Continue close monitoring in the ICU. No digoxin level was checked since admission and will recommend to check digoxin level immediately. Digoxin level came back rate greater than 5.0. Patient was given DigiFab this morning after contacting the poison control and the repeat digoxin level was at 1.9. Patient did have hyperkalemia which was treated aggressively with insulin as well as glucose IV and Kayexalate. Recommend to keep potassium between 4 and 5 as hyperkalemia and hypokalemia would be significantly detrimental with the patient with elevated digoxin levels. Patient now in sinus bradycardia with heart rate in the 40s and 50s. Systolic blood pressure around 100 mmHg. Still continues to be on dopamine drip and will continue to tartrate at slowly as the digoxin effect.. Continue to hold all chayito blockers for now. Echocardiogram completed on 06/23/25 showed normal LV size and wall thickness. Normal LV function with an EF of 55 to 60%. Indeterminate diastolic function. Moderately dilated RV. Normal RV function. Severely elevated RVSP at 85 mmHg with RAP of 15 mmHg. Flat septum in both systole and diastole with D-shaped LV indicating both pressure and volume overload. Moderate TR. Mild to moderate MR possible bicuspid aortic valve. Mild AR. IVC dilated and less than 50% collapse with inspiration. Left-sided pleural effusion noted. No pericardial effusion. Patient with at least moderate to severe pulmonary hypertension as noted above with flat septum in both systole and diastole along with D-shaped LV indicating both pressure and volume overload. Also has moderate TR. Unclear etiology of the pulmonary hypertension and will need workup for the same. At present patient appears to be fluid overloaded with possible cardiorenal syndrome secondary to pulmonary hypertension and recommend to start IV diuresis for the patient. Lasix 40 mg IV twice daily Strict input output, daily weights and 2 g sodium diet. Severe anemia on admission along with low platelets. Patient was given 3 units of PRBC transfusion and now hemoglobin stable around 9. Unclear reason for the anemia at the present point of time but she did have dark stools recently. Complete workup of anemia was was recommended-please send the initial labs for anemia from the first blood sample as patient did receive blood transfusions and the later samples would alter the results. Unfortunately it appears that the anemia workup was performed while the patient was receiving the transfusions. Will need to repeat the anemia workup. B12 level was very low and agree with B12 replacement. Patient also has significant thrombocytopenia at 66 and could be from the blood loss but will need to rule out other causes. Also patient has hyperbilirubinemia at 3.5 without any clear etiology and will need to rule out hemolysis as well as any liver disease but the liver enzymes are only mildly elevated. Recommended GI consult also for further evaluation given the anemia. Also has hyperbilirubinemia as well as the elevated liver enzymes which could be secondary to the hepatic congestion also but would request GI input also on the same. Acute versus acute on chronic kidney disease-creatinine is 2.0 with a BUN is only 22. Previous creatinine was 1.3 in 2020. As noted above patient mostly is cardiorenal syndrome from fluid overload state in the setting of pulmonary hypertension. Recommend aggressive diuresis with Lasix 40 mg IV twice daily. Continue to monitor renal function closely. There is a high probability of sudden, clinically significant or life threatening deterioration in the patient condition which required the highest level of physician preparedness to intervene urgently. I have personally spent 65 minutes of critical care time, exclusive of time spent on any procedures, in evaluation and management of this critically ill patient. Management of rest of the medical conditions as per primary team and other consultants. Thank you for the consult and allowing me to participate in the care of the patient. Cardiology will continue to follow. Juan Perdomo M.D. Interventional Cardiology
--- NOTE | 2025-06-24 21:29 | PD.IMCONS ---
HPI Data of Consult Requesting Physician: Coral Marie MD Primary Care Provider: Monica Hitchcock MD Consult Narrative Reason for consult: Hemoglobin 4.7, melena, platelet count 30K History of present illness: 69 years old female admitted to the ICU after initial bowel done by the ambulance to pick the patient from home She was taking a shower and felt weak and laid on the floor heart rate was in the 20s on the ambulance reach there was given 1 dose of atropine heart rate came into the 30s she was hypotensive in the emergency room and was given dopamine for a while given 2 units of PRBC and subsequently admitted to the ICU Patient does have a history of cardiac arrhythmias has been taking amiodarone and a beta-melanie at home Cardiology is already on board CT scan of the abdomen pelvis without contrast showed moderate CHF superimposed pneumonia bilateral basal pneumonia cirrhosis ascites and a 7.5 cm right renal cyst cc:: cc: Coral Marie MD Review of Systems Review of Systems Systems Reviewed: All systems reviewed, normal except as documented Past Medical History Surgical History OTHER SURGICAL HX: As in the history of present illness Meds Home Medications and Allergies Home Medications ?Medication ?Instructions ?Recorded ?Confirmed ?Type amiodarone 200 mg tablet 200 mg PO Q24H 06/22/25 06/22/25 History digoxin 250 mcg (0.25 mg) tablet 250 mcg PO .COMPLEX 06/22/25 06/22/25 History levothyroxine 100 mcg tablet 100 mcg PO DAILY 06/22/25 06/22/25 History nadolol 40 mg tablet 40 mg PO DAILY 06/22/25 06/22/25 History sertraline 50 mg tablet 50 mg PO Q24H 06/22/25 06/22/25 History sulfamethoxazole 400 1 tab PO Q12H 06/22/25 06/22/25 History mg-trimethoprim 80 mg tablet Allergies Allergy/AdvReac Type Severity Reaction Status Date / Time No Known Allergies Allergy Verified 06/22/25 15:39 Exam Vital Signs Temp Pulse Resp BP Pulse Ox O2 Del Method O2 Flow Rate 98.1 F 53 L 14 123/54 L 100 Nasal Cannula 3 06/24/25 19:00 06/24/25 21:15 06/24/25 21:15 06/24/25 21:15 06/24/25 21:15 06/24/25 16:00 06/24/25 19:56 Constitutional Comments: Chronically ill-appearing Routine Respiratory Exam Comments: Scattered rhonchi decreased breath sounds at the bases Routine Abdominal Exam Comments: Soft nontender Results Labs 06/24/25 03:00 06/24/25 03:00 Labs: Short CBC 06/24/25 Range/Units 03:00 WBC 9.3 (3.6-11.0) Thou/mm3 Hgb 9.9 L (12.0-16.0) g/dL Hct 28.3 L (36.0-46.0) % Plt Count 30 L D (140-440) Thou/mm3 BMP 06/24/25 03:00 Sodium 135 L Potassium 4.4 D Chloride 100 Carbon Dioxide 20.6 BUN 26 H Creatinine 2.4 H Glucose 131 H Calcium 9.0 Liver Function 06/24/25 Range/Units 03:00 Total Bilirubin 3.7 H (0.3-1.2) mg/dL AST 58 H (0-34) U/L ALT 46 (10-49) U/L Alkaline Phosphatase 53 (46-116) U/L Albumin 3.9 (3.4-4.8) gm/dL Urine 06/24/25 Range/Units 01:04 Urine Color Yellow (Lt Yel-Yel) Urine Clarity Turbid A (Clear/Hazy) Urine pH 5.5 (5.0-7.0) Ur Specific [place] 1.016 (1.001-1.035) Urine Protein 2+ A (Neg - Trace) Urine Glucose (UA) Negative (Negative) ABG Interpretation ABG results: 06/23/25 03:22 ABG pH 7.31 L ABG pCO2 40 ABG pO2 69 L ABG HCO3 20 ABG O2 Saturation 94 ABG Base Excess -6 L Assessment and Plan Additional Assessment & Plan Additional Plan: #chronic liver disease with thrombocytopenia etiology uncertain complete workup ordered for the chronic active hepatitis # Anemia of blood loss presenting hemoglobin 4.7 requiring blood transfusion Clear liquid diet in the morning till 11 AM then n.p.o. Consent will be obtained for fiberoptic esophagogastroduodenoscopy with possible biopsy possible therapeutic intervention under intravenous moderate sedation if the heart rate cannot hold up for the procedure I will make the decision tomorrow after talking to the director of reservations Other medical problems include Symptomatic bradycardia most likely will need a permanent cardiac pacemaker Hypothyroidism Gastroesophageal disease Depression Thank you very much for the opportunity to participate in the care of this patient
[2025-06-25] VITALS (102 sets, daily range): BP systolic 80–146; BP diastolic 39–70; PULSE 44–60; RESP 11–22; TEMP 36.4–36.6; O2SAT 88–100; BMI 27.4; BMI 27.3
[2025-06-25 01:28] LABS: Albumin, Serum 3.6 gm/dL (3.4-4.8); Anion Gap 14 (7-16); BUN/Creatinine Ratio 18 Ratio (12-20); Blood Urea Nitrogen 36 mg/dL (9-23); Calcium 8.5 mg/dL (8.3-10.6); Calcium (Corrected) 8.8 mg/dL (8.5-10.1); Carbon Dioxide 26.5 mMol/L (20.0-31.0); Chloride 101 mMol/L (98-107); Creatinine (Component) 2.0 mg/dL (0.6-1.3); Estimated Creatinine Clearance 30.2 mL/min (>60); Glucose 138 mg/dL (74-106); Osmolality,Calculated 291 (275-295); Phosphorous 5.4 mg/dL (2.4-5.1); Potassium 3.2 mMol/L (3.4-5.1); Sodium 141 mMol/L (136-145); eGFR 27 See Note
--- NOTE | 2025-06-25 04:49 | EVENTNT_ITS ---
Documentation for date of: 06/25/25 Event Note Event Note: Restarted home Levothyroxine. 80% IV x1 given overnight. Please continue PO daily dose from AM, order is in. Lasix 40mg x1 ordered overnight. Patient has good urine output - ~900mL and continuing Dopamine gtt titrated down 6 -> 4mcg overnight, day team should be able to titrate down further as HR trending >45 and BP 120/70s Appreciate GI recommendation, would be ideal if Dopamine gtt can be turned off or atleast titrated down to the lowest prior to EGD to ensure patient can tolerate sedation if needed. Continue B12 shots as remarkable difference in neuropathic/bone pain - Jamaal Macario M.D. 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
[2025-06-25] MEDS: LEVOTHYROXINE SODIUM 100 MCG TABLET PO (05:10)
[2025-06-25] MEDS: POTASSIUM CHLORIDE 10% 20 MEQ/15 ML UDC 40 MEQ PO (05:10)
[2025-06-25] MEDS: SEVELAMER CARBONATE 800 MG TABLET 400 MG PO (05:10)
[2025-06-25] MEDS: DOPamine/D5w 400 MG IVPB 400 MG/250 ML BAG 13.089 MG IV (05:45)
[2025-06-25 06:37] LABS: Alanine Aminotransferase 38 U/L (10-49); Albumin, Serum 3.7 gm/dL (3.4-4.8); Albumin/Globulin Ratio 1.9 (1.2-2.2); Alkaline Phosphatase 55 U/L (46-116); Anion Gap 14 (7-16); Aspartate Amino Transferase 46 U/L (0-34); BUN/Creatinine Ratio 24 Ratio (12-20); Bilirubin,Total 3.4 mg/dL (0.3-1.2); Blood Urea Nitrogen 44 mg/dL (9-23); Calcium 8.8 mg/dL (8.3-10.6); Calcium (Corrected) 9.0 mg/dL (8.5-10.1); Carbon Dioxide 28.0 mMol/L (20.0-31.0); Chloride 100 mMol/L (98-107); Creatinine (Component) 1.8 mg/dL (0.6-1.3); Estimated Creatinine Clearance 33.6 mL/min (>60); Globulin 2.0 gm/dL (2.3-3.5); Glucose 120 mg/dL (74-106); Magnesium 2.0 mg/dL (1.6-2.6); Osmolality,Calculated 295 (275-295); Phosphorous 5.4 mg/dL (2.4-5.1); Potassium 3.4 mMol/L (3.4-5.1); Sodium 142 mMol/L (136-145); Total Protein 5.7 gm/dL (5.7-8.2); eGFR 30 See Note
[2025-06-25 06:44] LABS: Basophils # (Auto) 0.0 Thou/mm3 (0.0-0.2); Basophils % (Auto) 0 % (0-2.5); Eosinophils # (Auto) 0.0 Thou/mm3 (0.0-0.5); Eosinophils % (Auto) 0 % (0-10); Hematocrit 24.0 % (36.0-46.0); Immature Granulocytes Auto 0.04 Thou/mm3 (0.00-0.00); Lymphocytes # (Auto) 1.6 Thou/mm3 (1.0-4.8); Lymphocytes % (Auto) 23 % (10-50); Mean Corpuscular HGB Conc 35.4 g/dl (31.0-37.0); Mean Corpuscular Hemoglobin 37.0 pg (25.0-35.0); Mean Corpuscular Volume 104 fL (80-100); Monocytes # (Auto) 0.8 Thou/mm3 (0.0-0.8); Monocytes % (Auto) 12 % (0-12); Neutrophils # (Auto) 4.3 Thou/mm3 (1.8-7.7); Neutrophils % (Auto) 64 % (37-80); Nucleated Red Blood Cell # 0.00 Thou/mm3 (0.00-0.00); Nucleated Red Blood Cell % 0 /100 WBC (0); Red Blood Count 2.30 Miln/mm3 (4.00-5.20); White Blood Count 6.8 Thou/mm3 (3.6-11.0)
[2025-06-25 06:54] LABS: Iron 19 mcg/dL (50-170); Percent Iron Saturation 8 % (20-55); Total Iron Binding Capacity 230 mcg/dL (250-425); Unsaturated Iron Binding 211 (225-295)
[2025-06-25 07:48] LABS: AFP Non-Pregnant < 1.30 ng/mL (<8.10); Hepatitis A Antibody IgM Non Reactive (Non React); Hepatitis B Core Antibody IgM Non Reactive (Non React); Hepatitis B Surface Antigen Non Reactive (Non React); Hepatitis C Antibody Non Reactive (Non React)
[2025-06-25] MEDS: SEVELAMER CARBONATE 800 MG TABLET PO ×3 (07:48→17:24)
[2025-06-25 08:52] LABS: Hemoglobin 8.5 g/dL (12.0-16.0); Platelet Count 26 Thou/mm3 (140-440)
[2025-06-25] MEDS: MEGESTROL ACET SUSP 400 MG/10 ML UDC PO (08:58)
[2025-06-25] MEDS: DICLOFENAC 1% TOP GEL 100 GM TUBE TOP ×2 (08:59→21:01)
[2025-06-25] MEDS: VIT B12/Vit C/FA (Nephrovite) TABLET 1 TAB PO (08:59)
--- NOTE | 2025-06-25 10:40 | ESPR_ITS ---
Documentation for date of: 06/25/25 Subjective Subjective Interval history: Patient was seen and assessed at bedside. Overnight, attempted to decrease dopamine to 4 mcg/kg/min however patient started to experience shortness of breath, was given IV Lasix 40 x 1 around 11 PM and dobutamine drip was increased back to 6 mcg/kg/min. Has no new complaints, denies chest pain, shortness of breath, palpitations at this time. On telemetry, patient continues to be in sinus bradycardia, heart rate improving to upper 40s to low 50s. Documented 2.7 L urine output. Creatinine 1.8 (from 2.0). Scheduled for Lasix 40 p.o. daily by ICU team. Additional IV Lasix 40 mg nightly as needed based on fluid status. Will continue to decrease dopamine as tolerated, 1 mcg each time. Hemoglobin dropped to 8.5 from 9.9 yesterday. Plan for upper endoscopy to evaluate GI bleed once stable off dopamine drip. Patient is very anxious this morning about endoscopy, explained procedure and reassured her that adequate sedation would be provided. Potassium 3.4, magnesium 2.0, replete accordingly. Phosphorus 5.4, started on sevelamer 800 mg 3 times daily. Exam Vital Signs Temp Pulse Resp BP Pulse Ox O2 Del Method O2 Flow Rate 97.9 F 50 L 19 120/55 L 96 Nasal Cannula 1 06/25/25 08:01 06/25/25 10:37 06/25/25 10:37 06/25/25 10:15 06/25/25 10:37 06/24/25 16:00 06/25/25 10:37 Narrative Exam Physical Exam General: Awake and in mild distress on transcutaneous pacing. Conversational. Very pale. HEENT: Normocephalic, atraumatic, mucous membranes dry. Heart: Bradycardic. Regular rate and rhythm, normal S1 and S2, no murmurs appreciated. Lungs: Diffuse crackles. Abdomen: Soft, nondistended, nontender, positive bowel sounds. No guarding or rebound tenderness. Neurologic: Alert and oriented x3, no gross neurological deficit, and patient able to move all 4 extremities. Extremities: No edema. Skin: No rash or ecchymoses. Objective Labs 06/25/25 06:25 06/26/25 00:28 Labs: Laboratory Results - last 24 hr 06/25/25 06/25/25 06/25/25 01:00 04:20 06:25 WBC 6.8 RBC 2.30 L Hgb 8.5 L Hct 24.0 L MCV 104 H MCH 37.0 H MCHC 35.4 RDW Std Deviation Not Performed. Plt Count 26 L* Neut % (Auto) 64 Lymph % (Auto) 23 [place] % (Auto) 12 Eos % (Auto) 0 Baso % (Auto) 0 Neut # (Auto) 4.3 Lymph # (Auto) 1.6 [place] # (Auto) 0.8 Eos # (Auto) 0.0 Baso # (Auto) 0.0 Immature Gran # (Auto) 0.04 H Absolute Nucleated RBC 0.00 Immature Gran % 1 H Nucleated RBC % 0 Sodium 141 142 Potassium 3.2 L D 3.4 Chloride 101 100 Carbon Dioxide 26.5 28.0 Anion Gap 14 14 BUN 36 H 44 H Creatinine 2.0 H 1.8 H Estim Creat Clear Calc 30.2 L 33.6 L eGFR 27 L 30 L BUN/Creatinine Ratio 18 24 H Glucose 138 H 120 H Calculated Osmolality 291 295 Calcium 8.5 8.8 Corrected Calcium 8.8 9.0 Phosphorus 5.4 H 5.4 H Magnesium 2.0 Iron 19 L TIBC 230 L Iron Saturation 8 L Unsat Iron Binding 211 L Total Bilirubin 3.4 H AST 46 H ALT 38 Alkaline Phosphatase 55 Total Protein 5.7 Albumin 3.6 3.7 Globulin 2.0 L Albumin/Globulin Ratio 1.9 Tumor Marker AFP < 1.30 Hepatitis A IgM Ab Non Reactive Hep Bs Antigen Non Reactive Hep B Core IgM Ab Non Reactive Hepatitis C Antibody Non Reactive ABG Interpretation ABG results: 06/23/25 03:22 ABG pH 7.31 L ABG pCO2 40 ABG pO2 69 L ABG HCO3 20 ABG O2 Saturation 94 ABG Base Excess -6 L Quality Measures Quality Measures VTE prophylaxis (SCDs) Advance care planning discussed with:: patient Assessment & Plan Assessment Current Active Medications: Generic Name Dose Route Start Last Admin Trade Name Freq PRN Reason Stop Dose Admin Acetaminophen 1,000 mg 06/23/25 20:13 Acetaminophen 500 Mg Tablet PO 07/23/25 20:12 Q6HR PRN fever >99.9 Cyanocobalamin 1,000 mcg 06/24/25 07:00 06/25/25 08:58 Cyanocobalamin Inj 1,000 Mcg/Ml Vial IM 06/29/25 06:59 1,000 mcg DAILY JOANN Administration Dextrose 25 ml 06/22/25 18:00 Dextrose 50%-Water Inj 50 Ml Syringe IV 07/22/25 17:59 Q15MIN PRN BG 50-70 responsive npo pt Dextrose 50 ml 06/22/25 18:00 Dextrose 50%-Water Inj 50 Ml Syringe IV 07/22/25 17:59 Q15MIN PRN BG <50 OR BG <70 & pt unresponsive Diclofenac Sodium 2 gm 06/23/25 09:00 06/25/25 08:59 Diclofenac 1% Top Gel 100 Gm Tube TOP 07/23/25 08:59 2 gm BID JOANN Administration Furosemide 40 mg 06/25/25 09:00 06/25/25 08:58 Furosemide 40 Mg Tablet PO 07/25/25 08:59 40 mg QDAY JOANN Administration Glucagon 1 mg 06/22/25 18:00 Glucagon Inj 1 Mg Vial IM Q15MIN PRN BG <70, and no IV access Dopamine HCl/Dextrose 400 mg in 250 mls @ 16.361 mls/hr 06/24/25 10:30 06/25/25 07:33 Intropin In D5w Ivpb IV 07/24/25 10:29 6 mcg/kg/min .[id number] JOANN 19.634 mls/hr Protocol Titration 5 MCG/KG/MIN Insulin Human Lispro 0 unit 06/24/25 12:00 06/25/25 07:44 Insulin Lispro (Admelog) 1 Unit/0.01 Ml Unit SC 07/24/25 11:59 Not Given ACHS JOANN Protocol Levothyroxine Sodium 100 mcg 06/25/25 06:00 06/25/25 05:10 Levothyroxine Sodium 100 Mcg Tablet PO 07/25/25 05:59 100 mcg ACBR JOANN Administration Megestrol Acetate 400 mg 06/25/25 09:00 06/25/25 08:58 Megestrol Acet Susp 400 Mg/10 Ml Udc PO 07/25/25 08:59 400 mg QDAY JOANN Administration Ondansetron HCl 4 mg 06/22/25 17:55 Ondansetron Inj 2 Mg/Ml Inj 2 Ml IVP 07/22/25 17:54 Q6H PRN NAUSEA OR VOMITING Protocol Pantoprazole Sodium 40 mg 10/06/25 21:00 06/25/25 08:58 Pantoprazole Inj 40 Mg Vial IVP 07/22/25 20:59 40 mg BID JOANN Administration Sennosides 1 tab 06/22/25 17:55 Senna Tablet PO 07/22/25 17:54 QDAY PRN constipation Protocol Sevelamer Carbonate 800 mg 06/24/25 17:30 06/25/25 07:48 Sevelamer Carbonate 800 Mg Tablet PO 07/24/25 17:29 800 mg TIDWM JOANN Administration Vitamin B Complex/Vit C/Folic Acid 1 tab 06/23/25 09:00 06/25/25 08:59 Vit B12/Vit C/Fa (Nephrovite) Tablet PO 07/23/25 08:59 1 tab QDAY JOANN Administration Plan Patient is a 69-year-old female with past medical history of arrhythmia, hypothyroidism, GERD, depression who presents [facility]/25 for pre- syncope, found to be in bradycardia HR low 30s requiring transcutaneous pacing, admitted to ICU for the severe bradycardia with need for ventricular junctional rhythm requiring transcutaneous pacing and possible temporary pacemaker placement. Is now stable off pacer pads with daily improvement in heart rate after digifab. #Bradycardia, improving #Supraventricular junctional rhythm with narrow QRS with occasional PVC`s # ? Atrial fibrillation / tachyarrhythmia # HFpEF (EF 55-60%) (06/23/25) #Bilateral pleural effusions Was found to have heart rate of 20s at home after presyncopal episode. Upon arrival heart rate improved to 30s, status post atropine x 1. Patient is not on anticoagulation. Previously seeing Dr. Meyer. Was told that she has an arrhythmia however is not on anticoagulation. Takes amiodarone 200 mg daily, nadolol 40 mg daily, digoxin 250 mg daily except for Sunday. Last took all of these medications this morning prior to arrival, likely reason why patient's heart rate did not increase despite anemia. Patient was transcutaneously paced at HR 60 upon arrival to ED, was later discontinued after HR stabilized to upper 30s after receiving dopamine and blood. SBP in 130s. Patient was conversational. EKG showed supraventricular junctional rhythm with narrow QRS with occasional PVCs. Heart rate 41. TTE 06/23/25 showed normal LV size and wall thickness. Normal LV function with an EF of 55 to 60%. Indeterminate diastolic function. Moderately dilated RV. Normal RV function. Severely elevated RVSP at 85 mmHg with RAP of 15 mmHg. Flat septum in both systole and diastole with D-shaped LV indicating both pressure and volume overload. Moderate TR. Mild to moderate MR possible bicuspid aortic valve. Mild AR. IVC dilated and less than 50% collapse with inspiration. Left- sided pleural effusion noted. No pericardial effusion. CT A/P 06/25/25: Moderate CHF with superimposed pneumonia in the lung bases. Mild to moderate bilateral pleural effusions. Cirrhosis. Mild ascites. 7.5 cm renal cyst. ? Hold amiodarone, atenolol, digoxin - S/p digifab 3 vials per poison control. Digoxin level decreased to 1.9. - Currently dopamine drip 6 mcg/kg/min, decrease as tolerated ?Started on Lasix 40 mg oral daily. Supplement with IV Lasix 40 mg nightly per bedside exam and daily urine output. ?Keep Hgb btwn 9-10. Transfuse as needed. ?Recommend to keep potassium between 4 and 5 and deviation greater than 2 at all times. - Keep magnesium greater than 2 at all times. ? Continue telemetry ?Strict I's and O's ?Daily weights ?Cardiac diet #Severe anemia #Thrombocytopenia #? GI bleed Presented with paleness, has been progressive for the past 2 weeks. Reports also starting 2 weeks ago, patient has had decreased appetite and dark stools. Around this time she was also started on Bactrim and Z-Girish for upper respiratory virus by PCP. Patient thought that dark stools was a side effect of the medications. Never had a colonoscopy. On admission, WBC 7.8, hemoglobin 4.7. Platelet 66, possibly secondary to severe blood loss but will need to rule out other causes. BNP 1285 Iron panel 06/22/25: Elevated iron, iron saturation, unsaturated iron binding, ferritin. Reticulocyte count elevated 2.9. Vitamin B12 was low at 92. Folate was within normal limits. Peripheral smear in December 2018 showed macrocytic RBCs with anisocytosis and no significant polkilocytosis. 06/23/25: Hgb improved to 8.8 s/p second unit, 9.2 after 3rd bag. 06/24/2025: Hemoglobin 9.9, improving. Platelets dropped to 30 from 70 yesterday. 06/25/25: Hgb dropped to 8.5. - Keep the hemoglobin between 9 and 10. - Iron panel shows likely falsely we elevated levels, possible that sample was drawn after first unit of PRBC was given. - Vitamin B12 1000 mcg daily - GI consulted, plan for upper endoscopy once stable off dopamine drip #CAN versus acute on chronic kidney disease Reports decreased appetite for the past 2 weeks. Creatinine 2.0, previously 1.3 in 2020. Possibly secondary to decreased oral intake for the past 3 weeks. ?Lasix as above ?CTM creatinine ?Avoid overdiuresis or other nephrotoxic agents #Hypothyroidism #Depression ?Resume home meds once stable Thank you for your consultation, please do not hesitate to reach out if you have any question or concern Patient plan of care was discussed with the attending physician, Dr. Perdomo . Surekha Horn, PGY-1 Attending Provider Attestation/Addendum I have personally seen and examined the patient separately on the above date of service and discussed the plan of care with the resident. I reviewed the resident Dr. Surekha Horn consultation progress note and agree with the resident findings and plan in the note above and have also edited the documentation to reflect my findings and plan. A 69-year-old female with a past medical history of atrial arrhythmia on amiodarone, digoxin as well as nadolol, hypothyroidism, GERD, depression presented to the emergency department after a presyncope. Patient apparently was taking a shower and felt lightheaded and caught her and laid her down on the ground. Patient apparently did not lose any consciousness. Patient checked vitals at home and heart rate was in the 20s along with blood pressure in the 90s and EMS was called. Patient apparently has not been doing well for the past 2 weeks and has been progressively.. Patient also had some dark stools over the past few weeks. Has been on antibiotics with Bactrim and Z-Girish for upper respiratory tract symptoms. Patient just to follow- up with Dr. Meek for atrial arrhythmia but was not on anticoagulation and was not following with him recently. is my patient for the past couple of years to be seen by me next week. In the emergency department initial heart rate was in the 20s and the patient was given atropine x 2 without any significant response. Cardiology was consulted for further evaluation. Patient was started on transcutaneous pacing. Initial hemoglobin was down to 4.7 and stat blood transfusion was ordered for 2 units. Patient was also started on dopamine drip at 10 mcg/kg/min and admitted to the ICU. Rest of the labs showed platelets of 66, WBC of 7.8, sodium of 135, potassium of 5.1, BUN of 22 creatinine of 2.0 glucose of 224. Calcium was 8.6. Troponin was negative at 0.02. LFT shows AST of 57 and total bili was 3.5. 1. Severe bradycardia requiring transcutaneous pacing initially and now on dopamine drip. Back in NSR. possible digoxin toxicity s/p digifab 2. Severe anemia with a hemoglobin of 4.7 with unclear etiology for now 3. Acute kidney injury versus acute on chronic kidney disease with a creatinine of 2.0 _ mostly cardiorenal syndrome 4. Mild hyperkalemia - resolved 5. History of atrial arrhythmia amiodarone, digoxin as well as nadolol by previous cardilogist 6. Severe thrombocytopenia with a platelets of 66 7. Abnormal LFTs with elevated T. bili at 3.5 or hyperbilirubinemia 8. Hypothyroidism 9. Depression 10. Significant right hip pain 11. New diagnosis of pulmonary hypertension appears to be at least moderate to severe pulmonary hypertension-unclear etiology for now 12. Possible bicuspid aortic valve Patient presented with presyncopal episode with an heart rate in the 20s as well as and severe hypotension of 90 mmHg. As noted above patient was initially placed on transcutaneous pacing as she did have altered mental status secondary to poor perfusion was completely pale on initial examination. Was unresponsive to atropine x2 in the emergency department. later started on dopamine drip. Initial hemoglobin was 4.0 and repeat showed around the same at 4.5. Patient heart rate improved after PRBC transfusions. An EKG was performed at that point of time showed junctional rhythm with a narrow QRS complexes and occasional PVCs with a heart rate of 41 bpm. Telemetry showed patient's heart rate was stable in the 30s. Hemodynamically stable and patient mentation was normal and answered all the questions appropriately, no focal neurological deficits on examination. Performed bedside echo which showed normal LV function and RV function and there was no clear pericardial effusion. There was no evidence of any severe aortic stenosis. Transcutaneous pacing was stopped as well as the patient was admitted to the ICU and she continued to be hemodynamically stable. Decision was made to do the temporary transvenous pacemaker only if the patient was hemodynamically unstable and she did not require it. Recommend to hold the amiodarone digoxin as well as nadolol for now. Recommend to keep potassium between 4 and 5 and deviation greater than 2 at all times. Continue close monitoring in the ICU. No digoxin level was checked since admission and will recommend to check digoxin level immediately. Digoxin level came back rate greater than 5.0. Patient was given DigiFab this morning after contacting the poison control and the repeat digoxin level was at 1.9. Patient did have hyperkalemia which was treated aggressively with insulin as well as glucose IV and Kayexalate. Recommend to keep potassium between 4 and 5 as hyperkalemia and hypokalemia would be significantly detrimental with the patient with elevated digoxin levels. Patient now in sinus bradycardia with heart rate in the 40s and 50s. Systolic blood pressure around 100 mmHg. Still continues to be on dopamine drip and will continue to tartrate at slowly as the digoxin effect.. Continue to hold all chayito blockers for now. Echocardiogram completed on 06/23/25 showed normal LV size and wall thickness. Normal LV function with an EF of 55 to 60%. Indeterminate diastolic function. Moderately dilated RV. Normal RV function. Severely elevated RVSP at 85 mmHg with RAP of 15 mmHg. Flat septum in both systole and diastole with D-shaped LV indicating both pressure and volume overload. Moderate TR. Mild to moderate MR possible bicuspid aortic valve. Mild AR. IVC dilated and less than 50% collapse with inspiration. Left-sided pleural effusion noted. No pericardial effusion. Patient with at least moderate to severe pulmonary hypertension as noted above with flat septum in both systole and diastole along with D-shaped LV indicating both pressure and volume overload. Also has moderate TR. Unclear etiology of the pulmonary hypertension and will need workup for the same. At present patient appears to be fluid overloaded with possible cardiorenal syndrome secondary to pulmonary hypertension and recommend to start IV diuresis for the patient. Lasix 40 mg IV twice daily Strict input output, daily weights and 2 g sodium diet. Kidney function continues to improve with the diuresis and recommend to continue IV Lasix 40 mg twice daily. Creatinine is 1.8 today. Hyperkalemia resolved. Severe anemia on admission with hemoglobin of along with significant thrombocytopenia of 66. Unclear etiology for both. Patient was given 3 units of PRBC transfusion and now hemoglobin stable around 8-9. Platelets continue to decrease at 30 Unclear reason for the anemia at the present point of time but she did have dark stools recently. Complete workup of anemia was was recommended-please send the initial labs for anemia from the first blood sample as patient did receive blood transfusions and the later samples would alter the results. Unfortunately it appears that the anemia workup was performed while the patient was receiving the transfusions. Will need to repeat the anemia workup. B12 level was very low and agree with B12 replacement. Also patient has hyperbilirubinemia at 3.5 without any clear etiology and will need to rule out hemolysis as well as any liver disease but the liver enzymes are only mildly elevated. Recommended GI consult also for further evaluation given the anemia but not a candidate for endoscopy at the present point of time given that the patient is hypotensive and bradycardic and is requiring dopamine drip. Also has hyperbilirubinemia as well as the elevated liver enzymes which could be secondary to the hepatic congestion also but would request GI input also on the same. Acute versus acute on chronic kidney disease-creatinine is 2.0 with a BUN is only 22. worsened to 2.5. Previous creatinine was 1.3 in 2020. As noted above patient mostly is cardiorenal syndrome from fluid overload state in the setting of pulmonary hypertension. Recommend aggressive diuresis with Lasix 40 mg IV twice daily. Renal function continues to improve and creatinine is 1.8. Continue to monitor renal function closely. There is a high probability of sudden, clinically significant or life threatening deterioration in the patient condition which required the highest level of physician preparedness to intervene urgently. I have personally spent 65 minutes of critical care time, exclusive of time spent on any procedures, in evaluation and management of this critically ill patient. Management of rest of the medical conditions as per primary team and other consultants. Thank you for the consult and allowing me to participate in the care of the patient. Cardiology will continue to follow. Juan Perdomo M.D. Interventional Cardiology
[2025-06-25 10:49] LABS: Slide Review Platelets confirmed
--- NOTE | 2025-06-25 12:52 | PD.RESPRO ---
Documentation for date of: 06/25/25 Subjective Subjective Interval history: Patient is a 69-year-old female with past medical history of atrial fibrillation, hypothyroidism, anxiety, depression presenting to the ED from ambulance after initially feeling dizzy and weak in the shower earlier today, passed a brown/loose bowel movement unintentionally during this time. Patient states she then laid down on the bathroom floor and called EMS. Per EMS she was pale onsite with a GCS of 14, bradycardic to the 20s blood pressure 102/52 which was taken at home. Was given 6 L nasal cannula when EMS picked her up. During transfer to ED, patient was also given 1 mg atropine with minimal improvement in heart rate. Patient states she never lost consciousness and never hit her head today. Per family, she has been pale and has been falling/tripping without loss of consciousness multiple times in the last 2 weeks without head trauma. Per Senior Windows Systems Engineer Dr. Perdomo, says he sees her and was planning to see the patient in the clinic relatively soon. Per family, states that patient was taking a TMP-SMX since May 16 and has been having dark loose stools in the last week. Past Medical History: Above Family History: Father had stroke Surgical History: None Social History: Denies history of smoking, denies current alcohol use, denies recreational drug use Current Medications: Nadolol, Amiodarone, Sertraline, Levothyroxine, Digoxin, Tylenol Allergies: No known drug allergies ED Course: In the ED her vitals were initially temperature of 98.6, 27 bpm regular heart rate, 18 respiratory blood pressure of 60/22, 98% oxygen 4 L nasal cannula. Labs were significant for hemoglobin of 4.7 hematocrit 13.6, MCV 136, RDW's deviation 91.5, platelet count 66, sodium 134, carbon dioxide 17.4, creatinine 2.0, GFR 27, glucose 224, T. bili 3.5, AST 57, BNP 476 Imaging included EKG which showed junctional rhythm with PVC In the ED patient was given 1 unit of PRBCs and was started on a second. Patient was also given dopamine drip starting at a rate of 10 mcg per kg per minute. Patient was also started on cardiac pacing in the ED. Patient was admitted for symptomatic junctional bradycardia Interval: 06/23/2025: Patient digoxin level found to be greater than 5, 120 mg DigiFab given. Patient closely monitored for adverse reaction. Repeat digoxin level scheduled for 12 hours post DigiFab administration. Overnight, patient's potassium was 5.5, given insulin, dextrose, Kayexalate. Repeat potassium 4.8. Patient continues to require dopamine, attempting to wean off. BP improved throughout the day after administration of DigiFab. Patient does not require pacing, symptoms have improved as heart rate has increased. 06/24/2025: Patient appears to be doing symptomatically better. Patient more alert, conversational, interactive. Overall less lethargic. Heart rate remains mildly bradycardic, high 40s. Appears to be in sinus rhythm on telemetry monitoring. Remains on dopamine drip. Maintain good urine output, received Lasix IV x 1. Will schedule. Attempting to wean off dopamine. Repeat digoxin level 1.9. Hemoglobin remained stable today, T bilirubin remains elevated. 06/25/2025: Patient continues to appear clinically improved. Heart remains mildly bradycardic in the high 40s. Dopamine drip titrated down as tolerated, MAP tends to decrease at 2. Patient to receive scheduled morning Lasix. In the afternoon, patient hemodynamics evaluated with NICOM, showed improvement in cardiac output index and stroke-volume index with passive leg raise. 500 mL bolus lactated Ringer's x 1 ordered. Will continue to closely monitor patient's overall status. PT eval ordered in setting of dizziness on standing prior to admission. Patient expressed anxiety about EGD, reassurance provided. Sevelamer initiated due to high phosphorus. Patient digoxin levels increased to 2.2, 40 mg DigiFab ordered. If patient's MAP continues to be low, plan to initiate Levophed and wean off dopamine. Exam Vital Signs Temp Pulse Resp BP Pulse Ox O2 Del Method O2 Flow Rate 97.5 F 51 L 14 103/46 L 90 L Nasal Cannula 1 06/25/25 12:00 06/25/25 12:15 06/25/25 12:15 06/25/25 12:15 06/25/25 12:15 06/24/25 16:00 06/25/25 10:37 Narrative Exam Physical Exam General: Awake, calm, interactive. HEENT: Normocephalic, atraumatic, mucous membranes moist. Heart: Bradycardic. Regular rate and rhythm, normal S1 and S2, no murmurs appreciated. Lungs: Clear to auscultation bilaterally. Abdomen: Soft, nondistended, nontender, positive bowel sounds. No guarding or rebound tenderness. Neurologic: Alert and oriented x3, no gross neurological deficit, and patient able to move all 4 extremities. Extremities: No edema. Skin: No rash or ecchymoses. Objective Labs 06/30/25 05:04 06/30/25 05:04 Labs: Laboratory Results - last 24 hr 06/25/25 06/25/25 06/25/25 01:00 04:20 06:25 WBC 6.8 RBC 2.30 L Hgb 8.5 L Hct 24.0 L MCV 104 H MCH 37.0 H MCHC 35.4 RDW Std Deviation Not Performed. Plt Count 26 L* Neut % (Auto) 64 Lymph % (Auto) 23 [place] % (Auto) 12 Eos % (Auto) 0 Baso % (Auto) 0 Neut # (Auto) 4.3 Lymph # (Auto) 1.6 [place] # (Auto) 0.8 Eos # (Auto) 0.0 Baso # (Auto) 0.0 Immature Gran # (Auto) 0.04 H Absolute Nucleated RBC 0.00 Immature Gran % 1 H Nucleated RBC % 0 Sodium 141 142 Potassium 3.2 L D 3.4 Chloride 101 100 Carbon Dioxide 26.5 28.0 Anion Gap 14 14 BUN 36 H 44 H Creatinine 2.0 H 1.8 H Estim Creat Clear Calc 30.2 L 33.6 L eGFR 27 L 30 L BUN/Creatinine Ratio 18 24 H Glucose 138 H 120 H Calculated Osmolality 291 295 Calcium 8.5 8.8 Corrected Calcium 8.8 9.0 Phosphorus 5.4 H 5.4 H Magnesium 2.0 Iron 19 L TIBC 230 L Iron Saturation 8 L Unsat Iron Binding 211 L Total Bilirubin 3.4 H AST 46 H ALT 38 Alkaline Phosphatase 55 Total Protein 5.7 Albumin 3.6 3.7 Globulin 2.0 L Albumin/Globulin Ratio 1.9 Tumor Marker AFP < 1.30 Hepatitis A IgM Ab Non Reactive Hep Bs Antigen Non Reactive Hep B Core IgM Ab Non Reactive Hepatitis C Antibody Non Reactive Misc Test Result Platelets confirmed ABG Interpretation ABG results: 06/23/25 03:22 ABG pH 7.31 L ABG pCO2 40 ABG pO2 69 L ABG HCO3 20 ABG O2 Saturation 94 ABG Base Excess -6 L Quality Measures Quality Measures VTE prophylaxis (SCDs) Advance care planning discussed with:: patient and spouse Assessment & Plan Assessment Current Active Medications: Generic Name Dose Route Start Last Admin Trade Name Freq PRN Reason Stop Dose Admin Acetaminophen 1,000 mg 06/23/25 20:13 Acetaminophen 500 Mg Tablet PO 07/23/25 20:12 Q6HR PRN fever >99.9 Cyanocobalamin 1,000 mcg 06/24/25 07:00 06/25/25 08:58 Cyanocobalamin Inj 1,000 Mcg/Ml Vial IM 06/29/25 06:59 1,000 mcg DAILY JOANN Administration Dextrose 25 ml 06/22/25 18:00 Dextrose 50%-Water Inj 50 Ml Syringe IV 07/22/25 17:59 Q15MIN PRN BG 50-70 responsive npo pt Dextrose 50 ml 06/22/25 18:00 Dextrose 50%-Water Inj 50 Ml Syringe IV 07/22/25 17:59 Q15MIN PRN BG <50 OR BG <70 & pt unresponsive Diclofenac Sodium 2 gm 06/23/25 09:00 06/25/25 08:59 Diclofenac 1% Top Gel 100 Gm Tube TOP 07/23/25 08:59 2 gm BID JOANN Administration Furosemide 40 mg 06/25/25 20:00 Furosemide Inj 10 Mg/Ml 4ml Vial IVP 06/25/25 20:01 X1 ONE Furosemide 40 mg 06/26/25 09:00 Furosemide Inj 10 Mg/Ml 4ml Vial IVP 07/26/25 08:59 QDAY JOANN Glucagon 1 mg 06/22/25 18:00 Glucagon Inj 1 Mg Vial IM Q15MIN PRN BG <70, and no IV access Dopamine HCl/Dextrose 400 mg in 250 mls @ 16.361 mls/hr 06/24/25 10:30 06/25/25 11:16 Intropin In D5w Ivpb IV 07/24/25 10:29 4 mcg/kg/min .[id number] JOANN 13.089 mls/hr Protocol Titration 5 MCG/KG/MIN Insulin Human Lispro 0 unit 06/24/25 12:00 06/25/25 12:08 Insulin Lispro (Admelog) 1 Unit/0.01 Ml Unit SC 07/24/25 11:59 Not Given A[facility]S [facility] Protocol Levothyroxine Sodium 100 mcg 06/25/25 06:00 06/25/25 05:10 Levothyroxine Sodium 100 Mcg Tablet PO 07/25/25 05:59 100 mcg ACBR JOANN Administration Megestrol Acetate 400 mg 06/25/25 09:00 06/25/25 08:58 Megestrol Acet Susp 400 Mg/10 Ml Udc PO 07/25/25 08:59 400 mg QDAY JOANN Administration Ondansetron HCl 4 mg 06/22/25 17:55 Ondansetron Inj 2 Mg/Ml Inj 2 Ml IVP 07/22/25 17:54 Q6H PRN NAUSEA OR VOMITING Protocol Pantoprazole Sodium 40 mg 06/22/25 21:00 06/25/25 08:58 Pantoprazole Inj 40 Mg Vial IVP 07/22/25 20:59 40 mg BID JOANN Administration Sennosides 1 tab 06/22/25 17:55 Senna Tablet PO 07/22/25 17:54 QDAY PRN constipation Protocol Sevelamer Carbonate 800 mg 06/24/25 17:30 06/25/25 12:06 Sevelamer Carbonate 800 Mg Tablet PO 07/24/25 17:29 800 mg TIDWM JOANN Administration Vitamin B Complex/Vit C/Folic Acid 1 tab 06/23/25 09:00 06/25/25 08:59 Vit B12/Vit C/Fa (Nephrovite) Tablet PO 07/23/25 08:59 1 tab QDAY JOANN Administration Plan Patient is a 69-year-old female with past medical history of arrhythmia, hypothyroidism, GERD, depression who presents to the [facility] ED on 06/22/25 for pre-syncope, found to be in bradycardia HR low 30s requiring transcutaneous pacing, admitted to ICU for the severe bradycardia with need for ventricular junctional rhythm requiring transcutaneous pacing and possible temporary pacemaker placement. Neuro: #Acute encephalopathy (resolved) Suspect due to hypotension, bradycardia. Patient received transcutaneous pacing to heart rate at 60, with improvement in mentation. Patient transition to dopamine drip to maintain heart rate greater than 30s, transcutaneous pacing discontinued. - Continue dopamine drip to maintain heart rate - Treat bradycardia as below CVS: #Bradycardia, improving #Supraventricular junctional rhythm with narrow QRS with occasional PVC`s #? Atrial fibrillation / tachyarrhythmia #HFpEF (EF 55-60%) (06/23/25) Was found to have heart rate of 20s at home after presyncopal episode. Upon arrival heart rate improved to 30s, status post atropine x 1. Patient is not on anticoagulation. Previously seeing Dr. Meyer. Was told that she has an arrhythmia however is not on anticoagulation. Takes amiodarone 200 mg daily, nadolol 40 mg daily, digoxin 250 mg daily except for Sunday. Last took all of these medications this morning prior to arrival, likely reason why patient's heart rate did not increase despite anemia. Patient was transcutaneously paced at HR 60 upon arrival to ED, was later discontinued after HR stabilized to upper 30s after receiving dopamine and blood. SBP in 130s. Patient was conversational. EKG showed supraventricular junctional rhythm with narrow QRS with occasional PVCs. Heart rate 41. Bedside echo was performed showed normal LV and RV function. no pericardial effusion clear. HALI M showed fluid responsiveness, small bolus 500 mL x 1 given. Lactated Ringer's ? Hold amiodarone, atenolol, digoxin - S/p digifab 3 vials per poison control. Repeat digoxin 1.9. - Decrease dopamine as tolerated, goal to wean off ?Keep Hgb btwn 9-10. Transfuse as needed. ?Recommend to keep potassium between 4 and 5 and deviation greater than 2 at all times. - Keep magnesium greater than 2 at all times. ? Continue telemetry - IV Lasix 40 mg daily, additional doses as needed based on fluid status - Additional DigiFab 1 vial per poison control, Digoxin level 2.2. - If MAP continues to be low, transition from dopamine to Levophed. Pulmonary: No active issues. GI: # Concern for GI bleed Presented with paleness, has been progressive for the past 2 weeks. Reports also starting 2 weeks ago, patient has had decreased appetite and dark stools. Around this time she was also started on Bactrim and Z-Girish for upper respiratory virus by PCP. Patient thought that dark stools was a side effect of the medications. Never had a colonoscopy. Hemoglobin stable, however total bilirubin remains elevated 3.7, direct bilirubin 1.5. - Keep the hemoglobin between 9 and 10. - GI consulted, appreciate recommendations - Anemia treatment as below Renal: #CAN versus acute on chronic kidney disease Reports decreased appetite for the past 2 weeks. Creatinine 2.0, previously 1.3 in 2020. Possibly secondary to decreased oral intake for the past 3 weeks. ?IV Lasix okay as needed for now as patient may become overloaded ?CTM creatinine ?Avoid overdiuresis or other nephrotoxic agents #Hyperphosphatemia Patient has consistent elevated phosphorus, greater than 5, improved with sevelamer - sevelamer 800 mg p.o. 3 times daily [facility] Endo: #Hypothyroidism #Depression ?Resume home meds once stable Heme/Onc: #Symptomatic anemia #Thrombocytopenia On admission, WBC 7.8, hemoglobin 4.7. Platelet 66, continue to monitor/evaluate. BNP. 06/23/25: Hgb improved to 8.8 s/p second unit, 9.2 after 3rd bag. Hemoglobin stable. Iron panel elevated, not accurate due to being taken after receiving PRBC. Initial CBC showed macrocytosis, B12 level 92. ? S/p 3 units of hemoglobin. ? Patient perfusing well now and mentation normal. Able to move all extremities, no focal deficits, able to answer questions appropriately. - B12 1000 mcg daily - GI consult as above Plan of care discussed with tele tech Dr. Perdomo. Hal Pulido MD PGY?2 Attending Provider Attestation/Addendum I have personally seen and examined the patient separately on the above date of service and discussed the plan of care with the resident. I reviewed the resident Dr. Surekha Horn consultation progress note and agree with the resident findings and plan in the note above and have also edited the documentation to reflect my findings and plan. Juan Perdomo M.D. Interventional Cardiology
[2025-06-25] MEDS: MIDODRINE 5 MG TABLET 10 MG PO ×2 (15:42→20:51)
[2025-06-25 17:20] LABS: Digoxin 2.2 ng/mL (0.8-2.0)
[2025-06-25] MEDS: RINGERS LACTATED 500 ML 500 ML 999 ML IV (18:07)
[2025-06-25] MEDS: STERILE WATER IV (18:44)
[2025-06-25] MEDS: SODIUM CHLORIDE IV (18:44)
[2025-06-25] MEDS: DIGOXIN IMMUNE FAB IV (18:44)
--- NOTE | 2025-06-25 19:45 | PD.IMPROG ---
Documentation for date of: 06/25/25 Subjective Subjective Interval history: Will hold off any invasive GI workup today as per cardiology recommendation. Drop in hemoglobin downtrending to 8.5 and 24.0 Exam Vital Signs Temp Pulse Resp BP Pulse Ox O2 Del Method O2 Flow Rate 97.5 F 49 L 21 H 91/47 L 94 L Nasal Cannula 1 06/25/25 12:00 06/25/25 18:16 06/25/25 18:16 06/25/25 18:16 06/25/25 18:16 06/24/25 16:00 06/25/25 10:37 Objective Labs 06/25/25 06:25 06/25/25 04:20 Labs: Laboratory Results - last 24 hr 06/25/25 06/25/25 06/25/25 01:00 04:20 06:25 WBC 6.8 RBC 2.30 L Hgb 8.5 L Hct 24.0 L MCV 104 H MCH 37.0 H MCHC 35.4 RDW Std Deviation Not Performed. Plt Count 26 L* Neut % (Auto) 64 Lymph % (Auto) 23 [place] % (Auto) 12 Eos % (Auto) 0 Baso % (Auto) 0 Neut # (Auto) 4.3 Lymph # (Auto) 1.6 [place] # (Auto) 0.8 Eos # (Auto) 0.0 Baso # (Auto) 0.0 Immature Gran # (Auto) 0.04 H Absolute Nucleated RBC 0.00 Immature Gran % 1 H Nucleated RBC % 0 Sodium 141 142 Potassium 3.2 L D 3.4 Chloride 101 100 Carbon Dioxide 26.5 28.0 Anion Gap 14 14 BUN 36 H 44 H Creatinine 2.0 H 1.8 H Estim Creat Clear Calc 30.2 L 33.6 L eGFR 27 L 30 L BUN/Creatinine Ratio 18 24 H Glucose 138 H 120 H Calculated Osmolality 291 295 Calcium 8.5 8.8 Corrected Calcium 8.8 9.0 Phosphorus 5.4 H 5.4 H Magnesium 2.0 Iron 19 L TIBC 230 L Iron Saturation 8 L Unsat Iron Binding 211 L Total Bilirubin 3.4 H AST 46 H ALT 38 Alkaline Phosphatase 55 Total Protein 5.7 Albumin 3.6 3.7 Globulin 2.0 L Albumin/Globulin Ratio 1.9 Tumor Marker AFP < 1.30 Digoxin Hepatitis A IgM Ab Non Reactive Hep Bs Antigen Non Reactive Hep B Core IgM Ab Non Reactive Hepatitis C Antibody Non Reactive Misc Test Result Platelets confirmed 06/25/25 10:32 WBC RBC Hgb Hct MCV MCH MCHC RDW Std Deviation Plt Count Neut % (Auto) Lymph % (Auto) [place] % (Auto) Eos % (Auto) Baso % (Auto) Neut # (Auto) Lymph # (Auto) [place] # (Auto) Eos # (Auto) Baso # (Auto) Immature Gran # (Auto) Absolute Nucleated RBC Immature Gran % Nucleated RBC % Sodium Potassium Chloride Carbon Dioxide Anion Gap BUN Creatinine Estim Creat Clear Calc eGFR BUN/Creatinine Ratio Glucose Calculated Osmolality Calcium Corrected Calcium Phosphorus Magnesium Iron TIBC Iron Saturation Unsat Iron Binding Total Bilirubin AST ALT Alkaline Phosphatase Total Protein Albumin Globulin Albumin/Globulin Ratio Tumor Marker AFP Digoxin 2.2 H Hepatitis A IgM Ab Hep Bs Antigen Hep B Core IgM Ab Hepatitis C Antibody Misc Test Result Impressions Impression: Anemia blood loss bradycardia arrhythmias Hypotension plan no endoscopy today N.p.o. midnight tonight for the possible endoscopy tomorrow ABG Interpretation ABG results: 06/23/25 03:22 ABG pH 7.31 L ABG pCO2 40 ABG pO2 69 L ABG HCO3 20 ABG O2 Saturation 94 ABG Base Excess -6 L Assessment & Plan A&P Narrative #chronic liver disease with thrombocytopenia etiology uncertain complete workup ordered for the chronic active hepatitis # Anemia of blood loss presenting hemoglobin 4.7 requiring blood transfusion Clear liquid diet in the morning till 11 AM then n.p.o. Consent will be obtained for fiberoptic esophagogastroduodenoscopy with possible biopsy possible therapeutic intervention under intravenous moderate sedation if the heart rate cannot hold up for the procedure I will make the decision tomorrow after talking to the routing clerk Other medical problems include Symptomatic bradycardia most likely will need a permanent cardiac pacemaker Hypothyroidism Gastroesophageal disease Depression Thank you very much for the opportunity to participate in the care of this patient Time Spent With Patient Time: Total time spent is greater than 50% in coordination of care (as documented) at patient's floor/unit and/or counseling patient:
--- NOTE | 2025-06-25 20:15 | PD.RESEVENT ---
Documentation for date of: 06/25/25 Event Note Event Note: 2015 Per Cardiology recommendations, Lasix 40mg IV x1 ordered. DO NOT give anymore fluids please, will relay instructions to day shift. Repeat Iron Panel shows low sats 8% and low Iron 19. Disregard previous Iron panel as sample was collected during PRBC transfusion. Started on Venofer infusion 200mg x5 days for iron repletion. Anticipate improvement in appetite and energy levels with Iv iron. Day team started JOANN Midodrine 10mg TID Will aim to titrate off of Dopamine gtt overnight of BP holds, currently @ 4mcg/h. Day team repleted potassium 40mEq x1 ; Will give additional 4g Mg sulfate for optimization. Ordered follow up renal panel for 00:00 - Jamaal Macario M.D. PGY3 Disclaimer: Minor errors in graphic art sales representative may be present as this note was dictated using voice recognition software.
[2025-06-25 20:33] LABS: Parathyroid Hormone Intact 83.8 pg/ml (18.5-88.0)
[2025-06-25] MEDS: Magnesium Sulfate 4 GM Ivpb 4 GM/50 ML BAG IV (20:52)
[2025-06-26] VITALS (68 sets, daily range): BP systolic 87–124; BP diastolic 37–82; PULSE 21–68; RESP 11–22; TEMP 36.2–37.3; O2SAT 91–98
--- NOTE | 2025-06-26 00:25 | EVENTNT_ITS ---
Documentation for date of: 06/26/25 Event Note Event Note: 00:25 MAP continues to trend 62-65 when Dopamine gtt titrated down 4 -> 2mcg/h Will change Dopamine gtt order to goal MAP >60 and titrate by 1mcg instead Midodrine 10mg TID JOANN -> 5mg q4H JOANN, maintaining max dose of 30mg in 24 hours Smaller, more frequent doses may reduce BP troughs and improve tolerance. Active metabolite desglymidodrine gets excreted in ~4 hours so this frequency should be safe. Continue to watch out for risk of supine HTN, may skip dose if within 4 hours of bedtime, if SBP >95 or MAP 65 or more. - Jamaal Macario M.D. PGY3 Disclaimer: Minor errors in power driven brush maker may be present as this note was dictated using voice recognition software.
[2025-06-26] MEDS: MIDODRINE 5 MG TABLET PO ×6 (00:34→21:42)
[2025-06-26 01:12] LABS: Albumin, Serum 3.1 gm/dL (3.4-4.8); Anion Gap 9 (7-16); BUN/Creatinine Ratio 23 Ratio (12-20); Blood Urea Nitrogen 37 mg/dL (9-23); Calcium 8.1 mg/dL (8.3-10.6); Calcium (Corrected) 8.8 mg/dL (8.5-10.1); Carbon Dioxide 28.8 mMol/L (20.0-31.0); Chloride 107 mMol/L (98-107); Creatinine (Component) 1.6 mg/dL (0.6-1.3); Estimated Creatinine Clearance 37.8 mL/min (>60); Glucose 129 mg/dL (74-106); Osmolality,Calculated 299 (275-295); Phosphorous 2.8 mg/dL (2.4-5.1); Potassium 3.8 mMol/L (3.4-5.1); Sodium 145 mMol/L (136-145); eGFR 35 See Note
[2025-06-26] MEDS: ALBUMIN HUMAN-KJDA 25% IVPB 25 GM/100 ML BTL IV (01:53)
[2025-06-26] MEDS: LEVOTHYROXINE SODIUM 100 MCG TABLET PO (05:03)
[2025-06-26] MEDS: IRON SUCROSE CPLX INJ 20 MG/ML VIAL 5 ML 200 MG IVP (05:04)
[2025-06-26 05:12] LABS: Basophils # (Auto) 0.0 Thou/mm3 (0.0-0.2); Basophils % (Auto) 0 % (0-2.5); Eosinophils # (Auto) 0.0 Thou/mm3 (0.0-0.5); Eosinophils % (Auto) 0 % (0-10); Lymphocytes # (Auto) 1.4 Thou/mm3 (1.0-4.8); Monocytes # (Auto) 0.5 Thou/mm3 (0.0-0.8); Nucleated Red Blood Cell # 0.00 Thou/mm3 (0.00-0.00); Nucleated Red Blood Cell % 0 /100 WBC (0)
[2025-06-26 05:38] LABS: Alanine Aminotransferase 21 U/L (10-49); Albumin, Serum 3.2 gm/dL (3.4-4.8); Albumin/Globulin Ratio 1.9 (1.2-2.2); Alkaline Phosphatase 43 U/L (46-116); Anion Gap 10 (7-16); Aspartate Amino Transferase 22 U/L (0-34); BUN/Creatinine Ratio 21 Ratio (12-20); Bilirubin,Total 2.0 mg/dL (0.3-1.2); Blood Urea Nitrogen 29 mg/dL (9-23); Calcium 8.2 mg/dL (8.3-10.6); Calcium (Corrected) 8.8 mg/dL (8.5-10.1); Carbon Dioxide 28.3 mMol/L (20.0-31.0); Chloride 108 mMol/L (98-107); Creatinine (Component) 1.4 mg/dL (0.6-1.3); Digoxin 1.9 ng/mL (0.8-2.0); Estimated Creatinine Clearance 43.2 mL/min (>60); Globulin 1.7 gm/dL (2.3-3.5); Glucose 107 mg/dL (74-106); Magnesium 2.8 mg/dL (1.6-2.6); Osmolality,Calculated 296 (275-295); Phosphorous 2.6 mg/dL (2.4-5.1); Potassium 4.0 mMol/L (3.4-5.1); Sodium 146 mMol/L (136-145); Total Protein 4.9 gm/dL (5.7-8.2); eGFR 41 See Note
--- NOTE | 2025-06-26 06:27 | PD.RESEVENT ---
Documentation for date of: 06/26/25 Event Note Event Note: 0600 Patient has been off of Dopamine gtt since 5 am on 06/26/2025 - MAP maintaining around 65 Please continue midodrine as scheduled. Follow up with Cardiology recs Keep K and Mg in goal range. Received call from lab re: Hb <7 this am. Requested re-draw Please follow up CBC / H&H and inform Cards of any changes. - Jamaal Macario M.D. PGY3 Disclaimer: Minor errors in battery wrecker operator may be present as this note was dictated using voice recognition software.
[2025-06-26 07:54] LABS: Immature Granulocytes Auto 0.03 Thou/mm3 (0.00-0.00); Lymphocytes % (Auto) 24 % (10-50); Mean Corpuscular HGB Conc 34.9 g/dl (31.0-37.0); Mean Corpuscular Hemoglobin 36.4 pg (25.0-35.0); Mean Corpuscular Volume 104 fL (80-100); Monocytes % (Auto) 9 % (0-12); Neutrophils # (Auto) 3.7 Thou/mm3 (1.8-7.7); Neutrophils % (Auto) 67 % (37-80); Red Blood Count 1.84 Miln/mm3 (4.00-5.20); White Blood Count 5.6 Thou/mm3 (3.6-11.0)
--- NOTE | 2025-06-26 08:20 | ESPR_ITS ---
<Statement entered by Hal Pulido MD - 06/26/25 12:12> Patient seen and examined at bedside. I discussed and supervised with the application development intern physician who took care of this patient. I personally saw and examined the patient. I agree with most of the assessment and plan. Patient successfully weaned off of dopamine drip overnight. Blood pressure heart rate remained stable if low. Received additional Lasix per cardiology recommendations. Patient reports overall subjective improvement, increased energy. Patient had drop in hemoglobin this morning to 6.8, 1 unit PRBC ordered. Patient had bowel movements overnight, no melena. Repeat digoxin level this morning after 40 mg DigiFab was 1.9. PTH ordered due to persistent hyperphosphatemia, PTH WNL. Hyperphosphatemia resolved with p.o. sevelamer, will continue. After discussing case with cardiology, patient stable for downgrade to telemetry for further management. Plan of care discussed with attending Dr. Marie. Hal Pulido MD PGY-2 Documentation for date of: 06/26/25 Subjective Subjective Interval history: Patient is a 69-year-old female with past medical history of atrial fibrillation, hypothyroidism, anxiety, depression presenting to the ED from ambulance after initially feeling dizzy and weak in the shower earlier today, passed a brown/loose bowel movement unintentionally during this time. Patient states she then laid down on the bathroom floor and called EMS. Per EMS she was pale onsite with a GCS of 14, bradycardic to the 20s blood pressure 102/52 which was taken at home. Was given 6 L nasal cannula when EMS picked her up. During transfer to ED, patient was also given 1 mg atropine with minimal improvement in heart rate. Patient states she never lost consciousness and never hit her head today. Per family, she has been pale and has been falling/tripping without loss of consciousness multiple times in the last 2 weeks without head trauma. Per [employer] Dr. Perdomo, says he sees her and was planning to see the patient in the clinic relatively soon. Per family, states that patient was taking a TMP-SMX since May 16 and has been having dark loose stools in the last week. Past Medical History: Above Family History: Father had stroke Surgical History: None Social History: Denies history of smoking, denies current alcohol use, denies recreational drug use Current Medications: Nadolol, Amiodarone, Sertraline, Levothyroxine, Digoxin, Tylenol Allergies: No known drug allergies ED Course: In the ED her vitals were initially temperature of 98.6, 27 bpm regular heart rate, 18 respiratory blood pressure of 60/22, 98% oxygen 4 L nasal cannula. Labs were significant for hemoglobin of 4.7 hematocrit 13.6, MCV 136, RDW's deviation 91.5, platelet count 66, sodium 134, carbon dioxide 17.4, creatinine 2.0, GFR 27, glucose 224, T. bili 3.5, AST 57, BNP 476 Imaging included EKG which showed junctional rhythm with PVC In the ED patient was given 1 unit of PRBCs and was started on a second. Patient was also given dopamine drip starting at a rate of 10 mcg per kg per minute. Patient was also started on cardiac pacing in the ED. Patient was admitted for symptomatic junctional bradycardia Interval: 06/23/2025: Patient digoxin level found to be greater than 5, 120 mg DigiFab given. Patient closely monitored for adverse reaction. Repeat digoxin level scheduled for 12 hours post DigiFab administration. Overnight, patient's potassium was 5.5, given insulin, dextrose, Kayexalate. Repeat potassium 4.8. Patient continues to require dopamine, attempting to wean off. BP improved throughout the day after administration of DigiFab. Patient does not require pacing, symptoms have improved as heart rate has increased. 06/24/2025: Patient appears to be doing symptomatically better. Patient more alert, conversational, interactive. Overall less lethargic. Heart rate remains mildly bradycardic, high 40s. Appears to be in sinus rhythm on telemetry monitoring. Remains on dopamine drip. Maintain good urine output, received Lasix IV x 1. Will schedule. Attempting to wean off dopamine. Repeat digoxin level 1.9. Hemoglobin remained stable today, T bilirubin remains elevated. 06/25/2025: Patient continues to appear clinically improved. Heart remains mildly bradycardic in the high 40s. Dopamine drip titrated down as tolerated, MAP tends to decrease at 2. Patient to receive scheduled morning Lasix. In the afternoon, patient hemodynamics evaluated with NICOM, showed improvement in cardiac output index and stroke-volume index with passive leg raise. 500 mL bolus lactated Ringer's x 1 ordered. Will continue to closely monitor patient's overall status. PT eval ordered in setting of dizziness on standing prior to admission. Patient expressed anxiety about EGD, reassurance provided. Sevelamer initiated due to high phosphorus. Patient digoxin levels increased to 2.2, 40 mg DigiFab ordered. If patient's MAP continues to be low, plan to initiate Levophed and wean off dopamine. 06/26/2025: Overnight patient was weaned off of dpamine, MAP staying above 60. Critical value of hgb 6.8 was called for and was repeated at 6.7; 1 unit pRBC was ordered. Cardiology and GI were informed of this update. Patient has not had any hematemesis or hematochezia/melena throughout hospitalization. Patient had her midodrine lowered to 5 mg q4hr from the 10 mg. She was given digifab 40 mg x1 overnight (poison control recommendations). Digoxin levels continue to trend down 1.9 (2.2 previous day). Patient is resting, no acute distress. Denies having any chest pain, shortness of breath, dizziness, weakness. States she is hungry. Patient's vital signs are stable with HR in the 50s. Patient made 500 cc's urine overnight, 2 brown BM's last 24 hours and a brown/light karma colored BM this morning. Patient is stable clinically and hemodynamically, planning to downgrade to telemetry pending cardiology. Exam Vital Signs Temp Pulse Resp BP Pulse Ox O2 Del Method O2 Flow Rate 97.8 F 54 L 14 110/52 L 96 Nasal Cannula 2 06/26/25 05:00 06/26/25 07:15 06/26/25 07:15 06/26/25 07:15 06/26/25 07:15 06/26/25 06:15 06/26/25 06:25 Narrative Exam General: No acute distress; A&Ox3 Skin: Upper extremity bruising bilaterally; warm, dry, no obvious rash. Facial color continues to be greatly improved compared to admission being pale. HENT: NCAT, EOMI, not icteric. External ears normal. No rhinorrhea. Moist mucous membranes. No mucous bleeding noted. Cardiovascular: Regular rate and rhythm, no murmur, +S1/S2. Respiratory: Lungs CTAB GI: Soft, nontender, non-distended. No guarding or rebound tenderness. : No suprapubic tenderness. No flank tenderness bilaterally. Extremities: no edema, no cyanosis, no clubbing. Extremity pulses present Neuro: Grossly nonfocal. Alert and oriented, moving all 4 extremities. CN not formally tested but appear grossly intact. Psychiatric: Cooperative, appropriate affect. Objective Labs 06/26/25 08:58 06/26/25 04:20 Labs: Laboratory Results - last 24 hr 06/25/25 06/25/25 06/26/25 06:25 10:32 00:28 WBC 6.8 RBC 2.30 L Hgb 8.5 L Hct 24.0 L MCV 104 H MCH 37.0 H MCHC 35.4 RDW Std Deviation Not Performed. Plt Count 26 L* Neut % (Auto) 64 Lymph % (Auto) 23 [place] % (Auto) 12 Eos % (Auto) 0 Baso % (Auto) 0 Neut # (Auto) 4.3 Lymph # (Auto) 1.6 [place] # (Auto) 0.8 Eos # (Auto) 0.0 Baso # (Auto) 0.0 Immature Gran # (Auto) 0.04 H Absolute Nucleated RBC 0.00 Immature Gran % 1 H Nucleated RBC % 0 Sodium 145 Potassium 3.8 Chloride 107 Carbon Dioxide 28.8 Anion Gap 9 BUN 37 H Creatinine 1.6 H Estim Creat Clear Calc 37.8 L eGFR 35 L BUN/Creatinine Ratio 23 H Glucose 129 H Calculated Osmolality 299 H Calcium 8.1 L Corrected Calcium 8.8 Phosphorus 2.8 Magnesium Total Bilirubin AST ALT Alkaline Phosphatase Total Protein Albumin 3.1 L D Globulin Albumin/Globulin Ratio PTH Intact 83.8 Digoxin 2.2 H Misc Test Result Platelets confirmed 06/26/25 04:20 WBC RBC Hgb Hct MCV MCH MCHC RDW Std Deviation Not Performed. Plt Count Neut % (Auto) Cancelled Lymph % (Auto) Cancelled [place]ug[place] % (Auto) Cancelled Eos % (Auto) Cancelled Baso % (Auto) Cancelled Neut # (Auto) Cancelled Lymph # (Auto) Cancelled Refug[place] # (Auto) Cancelled Eos # (Auto) Cancelled Baso # (Auto) Cancelled Immature Gran # (Auto) Cancelled Absolute Nucleated RBC Immature Gran % Cancelled Nucleated RBC % Sodium 146 H Potassium 4.0 Chloride 108 H Carbon Dioxide 28.3 Anion Gap 10 BUN 29 H Creatinine 1.4 H Estim Creat Clear Calc 43.2 L eGFR 41 L BUN/Creatinine Ratio 21 H Glucose 107 H Calculated Osmolality 296 H Calcium 8.2 L Corrected Calcium 8.8 Phosphorus 2.6 Magnesium 2.8 H Total Bilirubin 2.0 H D AST 22 ALT 21 Alkaline Phosphatase 43 L D Total Protein 4.9 L Albumin 3.2 L Globulin 1.7 L Albumin/Globulin Ratio 1.9 PTH Intact Digoxin 1.9 Misc Test Result ABG Interpretation ABG results: 06/23/25 03:22 ABG pH 7.31 L ABG pCO2 40 ABG pO2 69 L ABG HCO3 20 ABG O2 Saturation 94 ABG Base Excess -6 L Quality Measures Quality Measures VTE prophylaxis (SCDs) Advance care planning discussed with:: patient and spouse Assessment & Plan Assessment Current Active Medications: Generic Name Dose Route Start Last Admin Trade Name Freq PRN Reason Stop Dose Admin Acetaminophen 1,000 mg 06/23/25 20:13 Acetaminophen 500 Mg Tablet PO 07/23/25 20:12 Q6HR PRN fever >99.9 Cyanocobalamin 1,000 mcg 06/24/25 07:00 06/25/25 08:58 Cyanocobalamin Inj 1,000 Mcg/Ml Vial IM 06/29/25 06:59 1,000 mcg DAILY JOANN Administration Dextrose 25 ml 06/22/25 18:00 Dextrose 50%-Water Inj 50 Ml Syringe IV 07/22/25 17:59 Q15MIN PRN BG 50-70 responsive npo pt Dextrose 50 ml 06/22/25 18:00 Dextrose 50%-Water Inj 50 Ml Syringe IV 07/22/25 17:59 Q15MIN PRN BG <50 OR BG <70 & pt unresponsive Diclofenac Sodium 2 gm 06/23/25 09:00 06/25/25 21:01 Diclofenac 1% Top Gel 100 Gm Tube TOP 07/23/25 08:59 2 gm BID JOANN Administration Furosemide 40 mg 06/26/25 07:45 Furosemide Inj 10 Mg/Ml 4ml Vial IVP 07/26/25 07:44 BIDD JOANN Glucagon 1 mg 06/22/25 18:00 Glucagon Inj 1 Mg Vial IM Q15MIN PRN BG <70, and no IV access Dopamine HCl/Dextrose 400 mg in 250 mls @ 16.361 mls/hr 06/26/25 00:19 Intropin In D5w Ivpb IV 07/24/25 10:29 .[id number] JOANN Protocol 5 MCG/KG/MIN Insulin Human Lispro 0 unit 06/24/25 12:00 06/26/25 07:26 Insulin Lispro (Admelog) 1 Unit/0.01 Ml Unit SC 07/24/25 11:59 Not Given ACHS JOANN Protocol Iron Sucrose 200 mg 06/26/25 05:00 06/26/25 05:04 Iron Sucrose Cplx Inj 20 Mg/Ml Vial 5 Ml IVP 06/30/25 05:00 200 mg DAILY JOANN Administration Levothyroxine Sodium 100 mcg 06/25/25 06:00 06/26/25 05:03 Levothyroxine Sodium 100 Mcg Tablet PO 07/25/25 05:59 100 mcg ACBR JOANN Administration Megestrol Acetate 400 mg 06/25/25 09:00 06/25/25 08:58 Megestrol Acet Susp 400 Mg/10 Ml Udc PO 07/25/25 08:59 400 mg QDAY JOANN Administration Midodrine 5 mg 06/26/25 00:30 06/26/25 05:03 Midodrine 5 Mg Tablet PO 07/26/25 00:29 5 mg Q4H JOANN Administration Ondansetron HCl 4 mg 06/22/25 17:55 Ondansetron Inj 2 Mg/Ml Inj 2 Ml IVP 07/22/25 17:54 Q6H PRN NAUSEA OR VOMITING Protocol Pantoprazole Sodium 40 mg 06/22/25 21:00 06/25/25 20:51 Pantoprazole Inj 40 Mg Vial IVP 07/22/25 20:59 40 mg BID JOANN Administration Sennosides 1 tab 06/22/25 17:55 Senna Tablet PO 07/22/25 17:54 QDAY PRN constipation Protocol Sevelamer Carbonate 800 mg 06/24/25 17:30 06/25/25 17:24 Sevelamer Carbonate 800 Mg Tablet PO 07/24/25 17:29 800 mg TIDWM JOANN Administration Vitamin B Complex/Vit C/Folic Acid 1 tab 06/23/25 09:00 06/25/25 08:59 Vit B12/Vit C/Fa (Nephrovite) Tablet PO 07/23/25 08:59 1 tab QDAY JOANN Administration Plan Patient is a 69-year-old female with past medical history of arrhythmia, hypothyroidism, GERD, depression who presents to the [facility] ED on 06/22/25 for pre- syncope, found to be in bradycardia HR low 30s requiring transcutaneous pacing, admitted to ICU for the severe symptomatic bradycardia with need for ventricular junctional rhythm requiring transcutaneous pacing and possible temporary pacemaker placement. Neuro: #Acute encephalopathy (resolved) Suspect due to hypotension, bradycardia. Patient received transcutaneous pacing to heart rate at 60, with improvement in mentation. Patient transition to dopamine drip to maintain heart rate greater than 30s, transcutaneous pacing discontinued. - Continue dopamine drip to maintain heart rate - Treat bradycardia as below CVS: #Bradycardia, improving #Supraventricular junctional rhythm with narrow QRS with occasional PVC`s #? Atrial fibrillation / tachyarrhythmia #HFpEF (EF 55-60%) (06/23/25) Was found to have heart rate of 20s at home after presyncopal episode. Upon arrival heart rate improved to 30s, status post atropine x 1. Patient is not on anticoagulation. Previously seeing Dr. Meyer. Was told that she has an arrhythmia however is not on anticoagulation. Takes amiodarone 200 mg daily, nadolol 40 mg daily, digoxin 250 mg daily except for Sunday. Last took all of these medications this morning prior to arrival, likely reason why patient's heart rate did not increase despite anemia. Patient was transcutaneously paced at HR 60 upon arrival to ED, was later discontinued after HR stabilized to upper 30s after receiving dopamine and blood. SBP in 130s. Patient was conversational. EKG showed supraventricular junctional rhythm with narrow QRS with occasional PVCs. Heart rate 41. Bedside echo was performed showed normal LV and RV function. no pericardial effusion clear. HALI M showed fluid responsiveness, small bolus 500 mL x 1 given. - S/p digifab 3 vials per poison control. Repeat digoxin 1.9. - Additional DigiFab 1 vial per poison control, Digoxin elevated to 2.2 -> Rx: ? Hold amiodarone, atenolol, digoxin ?Keep Hgb btwn 9-10. Transfuse as needed. ?Recommend to keep potassium between 4 and 5 and deviation greater than 2 at all times. - Keep magnesium greater than 2 at all times. ? Continue telemetry - IV Lasix 40 mg daily, additional doses as needed based on fluid status RRx: -Weaned off dopamine 10 AM; MAP continues to be > 60. Pulmonary: No active issues. GI: #Decreasing concern for GI bleed Presented with paleness, has been progressive for the past 2 weeks. Reports also starting 2 weeks ago, patient has had decreased appetite and dark stools. Around this time she was also started on Bactrim and Z-Girish for upper respiratory virus by PCP. Patient thought that dark stools was a side effect of the medications. Never had a colonoscopy. 06/26 patient continues to not have any melena, hematochezia, hematemesis; however had an acute drop of hgb this am to 6.7. Total bilirubin continues to downtrend, making GI bleed less likely. - Keep the hemoglobin between 9 and 10. - GI consulted, appreciate recommendations - Anemia treatment as below Renal: #CAN versus acute on chronic kidney disease, improved Reports decreased appetite for the past 2 weeks. Creatinine 2.0, previously 1.3 in 2020. Possibly secondary to decreased oral intake for the past 3 weeks. ?Lasix 40 mg IV BID ?CTM creatinine ?Avoid overdiuresis or other nephrotoxic agents #Hyperphosphatemia, resolved Patient initially had elevated phosphorus, greater than 5, improved with sevelamer 06/26 Phos 2.6. - sevelamer 800 mg p.o. 3 times daily WM Endo: #Hypothyroidism #Depression ?Resume home meds once stable Heme/Onc: #Asymptomatic anemia #Thrombocytopenia DDx: Initially suspecting due to possible GI blood loss, patient endorses having dark stools before admission. Patient has not had hematemesis, melena or hematochezia during admission. Patient's clinical and hemodynamic status has improved since admission. Other causes possibly due to hemolysis, no schistocytes seen on blood smear though. Bone marrow dysfunction possible, but reticulocyte count elevated. HIT less concerned due to no heparin being given. ITP, drug induced possiblilty. Dx: -On admission, WBC 7.8, hemoglobin 4.7. Platelet 66, possibly secondary to severe blood loss but will need to rule out other causes. Initial CBC showed macrocytosis, B12 level 92. -06/23/25: Hgb improved to 8.8 s/p second unit, 9.2 after 3rd bag Iron panel elevated, not accurate due to being taken after receiving PRBC. -06/26: Hgb 6.7 on repeat after initial critical call of 6.8. Patient perfusing well and mentation normal. Able to move all extremities, no focal deficits, able to answer questions appropriately. Rx: - Will need heme workup for anemia/thrombocytopenia - Ordered 1 unit prbc 06/26 with post transfusion H&H. - B12 1000 mcg daily - GI consulted, appreciate recs Disposition: ICU tentatively planned to downgrade to telemetry pending Cardiology DVT prophylaxis: SCD's GI prophylaxis: Protonix 40 mg IV BID Diet: Cardiac Aguayo: no Lines: Peripherals Drips: no (DC'd dopamine 06/26 AM) Vent: no CODE STATUS: Full Code Reason of hospitalization Symptomatic Junctional Bradycardia Patient plan of care was discussed with the attending physician, Dr. Marie & senior resident Dr. Nir LAW PGY-1 Attending Provider Attestation/Addendum Patient seen and examined resident team. Agree with above. In brief this is 61-year-old female admitted to the ICU for severe bradycardia and hypotension. On arrival she was also found to be significantly anemic. She was started on a dopamine drip for her symptomatic bradycardia and diagnosis of cardiogenic shock. She was found to have digoxin toxicity and was given DigiFab. She is currently off of her dopamine drip. Her heart rate is maintaining in the 50s. She had been on amiodarone, digoxin and nadolol at home. All his medications are stopped. She is followed primarily by cardiology. Today she feels well. She has had a drop in her hemoglobin once more. She is also noted to be thrombocytopenic. It is unclear the etiology of patient's anemia and thrombocytopenia. She currently does not have any dark stools though she does have some iron deficiency. However a GI bleed should not cause significant thrombocytopenia. Workup is underway and a hematology consult has been requested. She is noted to have cirrhosis on CT. She was also noted to have severe pulmonary hypertension on echocardiogram. Today she is finally off of dopamine drip and has been started on p.o. midodrine. She is doing well and feels well. Will obtain a PT eval for mobilization. She currently seems hemodynamically stable to downgrade to telemetry. Case discussed with ICU team Labs, imaging records reviewed Approximately 40 minutes required for evaluation, exam, review, intervention, discussion and formulation of plan of care
[2025-06-26] MEDS: FUROSEMIDE INJ 10 MG/ML 4ML VIAL 40 MG IVP ×2 (08:21→18:10)
[2025-06-26] MEDS: SEVELAMER CARBONATE 800 MG TABLET PO ×3 (08:22→18:11)
[2025-06-26 08:32] LABS: Hematocrit 19.2 % (36.0-46.0); Hemoglobin 6.7 g/dL (12.0-16.0)
[2025-06-26 08:33] LABS: Platelet Count 26 Thou/mm3 (140-440)
[2025-06-26] MEDS: VIT B12/Vit C/FA (Nephrovite) TABLET 1 TAB PO (08:40)
[2025-06-26] MEDS: MEGESTROL ACET SUSP 400 MG/10 ML UDC PO (08:40)
[2025-06-26 09:23] LABS: Slide Review Platelets confirmed
--- NOTE | 2025-06-26 09:46 | PD.RESPRO ---
Documentation for date of: 06/26/25 Subjective Subjective Interval history: Patient was seen and assessed at bedside. Started on Venofer 200 overnight. No new complaints, denies any chest pain, shortness of breath, palpitations. Denies any black stools, reports has had little stool output since admission. Has history of constipation. Blood pressure stable, BP 110/52 this morning. Heart rate stable in the mid upper 50s. Urine output 1520, net +518. Hemoglobin 6.7, s/p 1 unit PRBC ICU team, repeat hemoglobin 7.5. WBCs remain stable at 5.6. Platelets have been at 26 for the past 2 days. Ordered LDH, FOBT, haptoglobin. Currently, unknown etiology of acute bleed. GI consulted, consider consulting supervisor safety deposit for thrombocytopenia workup. Patient denies any personal or family history of autoimmune disease or blood disorders. Of note patient has received 4 units PRBC since admission and was previously on [id number]-[id number] prior to admission for respiratory illness. Potassium 4.0, magnesium 2.8, creatinine 1.4 (from 1.6). Patient was weaned off of dopamine around 5 AM, stable on midodrine 5 mg 3 times daily. Will be downgraded from ICU. Exam Vital Signs Temp Pulse Resp BP Pulse Ox O2 Del Method O2 Flow Rate 97.8 F 54 L 14 103/52 L 96 Nasal Cannula 2 06/26/25 05:00 06/26/25 08:22 06/26/25 07:15 06/26/25 08:22 06/26/25 07:15 06/26/25 06:15 06/26/25 06:25 Narrative Exam Physical Exam General: Awake and in no acute distress. Conversational and non-toxic appearing. HEENT: Normocephalic, atraumatic, mucous membranes moist. Heart: Regular rate and rhythm, normal S1 and S2, no murmurs appreciated. Lungs: Clear to auscultation with no wheezing or crackles. Abdomen: Soft, nondistended, nontender, positive bowel sounds. No guarding or rebound tenderness. Neurologic: Alert and oriented x3, no gross neurological deficit, and patient able to move all 4 extremities. Extremities: No edema. Skin: Patch of purpura on right arm near IV site. Another small patch on right leg above ankle. No rash observed. Objective Labs 06/26/25 20:52 06/26/25 04:20 Labs: Laboratory Results - last 24 hr 06/25/25 06/25/25 06/26/25 06:25 10:32 00:28 WBC RBC Hgb Hct MCV MCH MCHC RDW Std Deviation Plt Count Neut % (Auto) Lymph % (Auto) [place] % (Auto) Eos % (Auto) Baso % (Auto) Neut # (Auto) Lymph # (Auto) [place] # (Auto) Eos # (Auto) Baso # (Auto) Immature Gran # (Auto) Absolute Nucleated RBC Immature Gran % Nucleated RBC % Sodium 145 Potassium 3.8 Chloride 107 Carbon Dioxide 28.8 Anion Gap 9 BUN 37 H Creatinine 1.6 H Estim Creat Clear Calc 37.8 L eGFR 35 L BUN/Creatinine Ratio 23 H Glucose 129 H Calculated Osmolality 299 H Calcium 8.1 L Corrected Calcium 8.8 Phosphorus 2.8 Magnesium Total Bilirubin AST ALT Alkaline Phosphatase Total Protein Albumin 3.1 L D Globulin Albumin/Globulin Ratio PTH Intact 83.8 Digoxin 2.2 H Misc Test Result Platelets confirmed Crossmatch Blood Bank Wristband ID 06/26/25 06/26/25 06/26/25 04:20 07:41 08:58 WBC 5.6 RBC 1.84 L* Hgb 6.7 L* D Hct 19.2 L* MCV 104 H MCH 36.4 H MCHC 34.9 RDW Std Deviation Not Performed. Plt Count 26 L* Neut % (Auto) 67 Lymph % (Auto) 24 [place] % (Auto) 9 Eos % (Auto) 0 Baso % (Auto) 0 Neut # (Auto) 3.7 Lymph # (Auto) 1.4 [place] # (Auto) 0.5 Eos # (Auto) 0.0 Baso # (Auto) 0.0 Immature Gran # (Auto) 0.03 H Absolute Nucleated RBC 0.00 Immature Gran % 1 H Nucleated RBC % 0 Sodium 146 H Potassium 4.0 Chloride 108 H Carbon Dioxide 28.3 Anion Gap 10 BUN 29 H Creatinine 1.4 H Estim Creat Clear Calc 43.2 L eGFR 41 L BUN/Creatinine Ratio 21 H Glucose 107 H Calculated Osmolality 296 H Calcium 8.2 L Corrected Calcium 8.8 Phosphorus 2.6 Magnesium 2.8 H Total Bilirubin 2.0 H D AST 22 ALT 21 Alkaline Phosphatase 43 L D Total Protein 4.9 L Albumin 3.2 L Globulin 1.7 L Albumin/Globulin Ratio 1.9 PTH Intact Digoxin 1.9 Misc Test Result Platelets confirmed Crossmatch See Detail Blood Bank Wristband ID Yes ABG Interpretation ABG results: 06/23/25 03:22 ABG pH 7.31 L ABG pCO2 40 ABG pO2 69 L ABG HCO3 20 ABG O2 Saturation 94 ABG Base Excess -6 L Quality Measures Quality Measures VTE prophylaxis (SCDs) Advance care planning discussed with:: patient Assessment & Plan Assessment Current Active Medications: Generic Name Dose Route Start Last Admin Trade Name Freq PRN Reason Stop Dose Admin Acetaminophen 1,000 mg 06/23/25 20:13 Acetaminophen 500 Mg Tablet PO 07/23/25 20:12 Q6HR PRN fever >99.9 Cyanocobalamin 1,000 mcg 06/24/25 07:00 06/26/25 08:41 Cyanocobalamin Inj 1,000 Mcg/Ml Vial IM 06/29/25 06:59 1,000 mcg DAILY JOANN Administration Dextrose 25 ml 06/22/25 18:00 Dextrose 50%-Water Inj 50 Ml Syringe IV 07/22/25 17:59 Q15MIN PRN BG 50-70 responsive npo pt Dextrose 50 ml 06/22/25 18:00 Dextrose 50%-Water Inj 50 Ml Syringe IV 07/22/25 17:59 Q15MIN PRN BG <50 OR BG <70 & pt unresponsive Diclofenac Sodium 2 gm 06/23/25 09:00 06/26/25 08:40 Diclofenac 1% Top Gel 100 Gm Tube TOP 07/23/25 08:59 Not Given BID JOANN Furosemide 40 mg 06/26/25 07:45 06/26/25 08:21 Furosemide Inj 10 Mg/Ml 4ml Vial IVP 07/26/25 07:44 40 mg BIDD JOANN Administration Glucagon 1 mg 06/22/25 18:00 Glucagon Inj 1 Mg Vial IM Q15MIN PRN BG <70, and no IV access Dopamine HCl/Dextrose 400 mg in 250 mls @ 16.361 mls/hr 06/26/25 00:19 Intropin In D5w Ivpb IV 07/24/25 10:29 .[id number] JOANN Protocol 5 MCG/KG/MIN Insulin Human Lispro 0 unit 06/24/25 12:00 06/26/25 07:26 Insulin Lispro (Admelog) 1 Unit/0.01 Ml Unit SC 07/24/25 11:59 Not Given ACHS JOANN Protocol Iron Sucrose 200 mg 06/26/25 05:00 06/26/25 05:04 Iron Sucrose Cplx Inj 20 Mg/Ml Vial 5 Ml IVP 06/30/25 05:00 200 mg DAILY JOANN Administration Levothyroxine Sodium 100 mcg 06/25/25 06:00 06/26/25 05:03 Levothyroxine Sodium 100 Mcg Tablet PO 07/25/25 05:59 100 mcg ACBR JOANN Administration Megestrol Acetate 400 mg 06/25/25 09:00 06/26/25 08:40 Megestrol Acet Susp 400 Mg/10 Ml Udc PO 07/25/25 08:59 400 mg QDAY JOANN Administration Midodrine 5 mg 06/26/25 00:30 06/26/25 08:22 Midodrine 5 Mg Tablet PO 07/26/25 00:29 5 mg Q4H JOANN Administration Ondansetron HCl 4 mg 06/22/25 17:55 Ondansetron Inj 2 Mg/Ml Inj 2 Ml IVP 07/22/25 17:54 Q6H PRN NAUSEA OR VOMITING Protocol Pantoprazole Sodium 40 mg 06/22/25 21:00 06/26/25 08:39 Pantoprazole Inj 40 Mg Vial IVP 07/22/25 20:59 40 mg BID JOANN Administration Sennosides 1 tab 06/22/25 17:55 Senna Tablet PO 07/22/25 17:54 QDAY PRN constipation Protocol Sevelamer Carbonate 800 mg 06/24/25 17:30 06/26/25 08:22 Sevelamer Carbonate 800 Mg Tablet PO 07/24/25 17:29 800 mg TIDWM JOANN Administration Vitamin B Complex/Vit C/Folic Acid 1 tab 06/23/25 09:00 06/26/25 08:40 Vit B12/Vit C/Fa (Nephrovite) Tablet PO 07/23/25 08:59 1 tab QDAY JOANN Administration Plan Patient is a 69-year-old female with past medical history of arrhythmia, hypothyroidism, GERD, depression who presents to the [facility] ED on 06/22/25 for pre-syncope, found to be in bradycardia HR low 30s requiring transcutaneous pacing, admitted to ICU for the severe bradycardia with need for ventricular junctional rhythm requiring transcutaneous pacing and possible temporary pacemaker placement. Is now stable off pacer pads with daily improvement in heart rate after digifab. #Bradycardia likely secondary to digoxin toxicity s/p DigiFab, improving #Supraventricular junctional rhythm with narrow QRS with occasional PVC`s # ? Atrial fibrillation / tachyarrhythmia #Acute hyperkalemia, resolved # HFpEF (EF 55-60%) (06/23/25) #Bilateral pleural effusions #Pulmonary hypertension, moderate to severe Was found to have heart rate of 20s at home after presyncopal episode. Upon arrival heart rate improved to 30s, status post atropine x 1. Patient is not on anticoagulation. Previously seeing Dr. Meyer. Was told that she has an arrhythmia however is not on anticoagulation. Takes amiodarone 200 mg daily, nadolol 40 mg daily, digoxin 250 mg daily except for Sunday. Last took all of these medications this morning prior to arrival, likely reason why patient's heart rate did not increase despite anemia. Patient was transcutaneously paced at HR 60 upon arrival to ED, was later discontinued after HR stabilized to upper 30s after receiving dopamine and blood. Temporary transvenous pacemaker never done as patient was hemodynamically stable did not require it. EKG showed supraventricular junctional rhythm with narrow QRS with occasional PVCs. Heart rate 41. Patient did have hyperkalemia which was treated aggressively with insulin as well as glucose IV and Kayexalate. TTE 06/23/25 showed normal LV size and wall thickness. Normal LV function with an EF of 55 to 60%. Indeterminate diastolic function. Moderately dilated RV. Normal RV function. Severely elevated RVSP at 85 mmHg with RAP of 15 mmHg. Flat septum in both systole and diastole with D-shaped LV indicating both pressure and volume overload. Moderate TR. Mild to moderate MR possible bicuspid aortic valve. Mild AR. IVC dilated and less than 50% collapse with inspiration. Left-sided pleural effusion noted. No pericardial effusion. CT A/P 06/25/25: Moderate CHF with superimposed pneumonia in the lung bases. Mild to moderate bilateral pleural effusions. Cirrhosis. Mild ascites. 7.5 cm renal cyst. Plan: ? Hold amiodarone, atenolol, digoxin - S/p digifab 3 vials per poison control. Digoxin level decreased to 1.9. Repeat digoxin level increased to 2.1, ICU team gave another reduced dose of DigiFab. - Previously started on dopamine drip, now completely weaned off. Started on midodrine 5 mg 3 times daily due to borderline low MAPs. Heart rate stable in low 50s. ? IV Lasix 40 mg twice daily for stress moderate to severe pulmonary hypertension noted on echo. ?Keep Hgb btwn 9-10. Transfuse as needed. ?Recommend to keep potassium between 4 and 5 and deviation greater than 2 at all times. - Keep magnesium greater than 2 at all times. ? Continue telemetry ?Strict I's and O's ?Daily weights ?Cardiac diet, 2 g sodium #Severe anemia #Chronic macrocytic anemia #Thrombocytopenia #? GI bleed Presented with paleness, has been progressive for the past 2 weeks. Reports also starting 2 weeks ago, patient has had decreased appetite and dark stools. Around this time she was also started on Bactrim and Z-Girish for upper respiratory virus by PCP. Patient thought that dark stools was a side effect of the medications. Never had a colonoscopy. On admission, WBC 7.8, hemoglobin 4.7. Platelet 66, possibly secondary to severe blood loss but will need to rule out other causes. BNP 1285 Iron panel 06/22/25: Elevated iron, iron saturation, unsaturated iron binding, ferritin. Reticulocyte count elevated 2.9. Vitamin B12 was low at 92. Folate was within normal limits. Peripheral smear in December 2018 showed macrocytic RBCs with anisocytosis and no significant polkilocytosis. 06/23/25: Hgb improved to 8.8 s/p second unit, 9.2 after 3rd bag. 06/24/2025: Hemoglobin 9.9, improving. Platelets dropped to 30 from 70 yesterday. 06/25/25: Hgb dropped to 8.5. 06/26/25: Hemoglobin dropped to 6.7, platelets 26. S/p 1 unit PRBC, hemoglobin improved to 7.5. - Keep the hemoglobin between 9 and 10. - First iron panel shows likely falsely we elevated levels, possible that sample was drawn after first unit of PRBC was given. Repeat iron level shows low iron, recommend to start on IV iron. - Vitamin B12 1000 mcg daily - GI consulted, plan for upper endoscopy once stable off dopamine drip - Defer to primary team for thrombocytopenia workup. Consider supervisor safety deposit consult. #Acute kidney injury versus acute on chronic kidney disease, most likely cardiorenal syndrome, improving Creatinine 2.0, previously 1.3 in 2020. Likely cardiorenal syndrome from fluid overload state in the setting of pulmonary hypertension. Continues to improve with diuresis. ?Lasix as above ?CTM creatinine ?Avoid overdiuresis or other nephrotoxic agents #Hypothyroidism #Depression ?Resume home meds once stable Thank you for your consultation, please do not hesitate to reach out if you have any question or concern Patient plan of care was discussed with the attending physician, Dr. Perdomo . Surekha Horn, PGY-1 Attending Provider Attestation/Addendum I have personally seen and examined the patient separately on the above date of service and discussed the plan of care with the resident. I reviewed the resident Dr. Surekha Horn consultation progress note and agree with the resident findings and plan in the note above and have also edited the documentation to reflect my findings and plan. Juan Perdomo M.D. Interventional Cardiology
[2025-06-26 10:16] LABS: Hematocrit 21.6 % (36.0-46.0)
[2025-06-26 10:38] LABS: LDH (Lactate Dehydrogenase) 987 U/L (120-246)
[2025-06-26 10:45] LABS: Hemoglobin 7.5 g/dL (12.0-16.0)
--- NOTE | 2025-06-26 12:30 | PC.PT ---
Upon chart review PT noticed patient Hgb was 6.7g/dL. Patient is not safe to work with PT today. RAAD Ruiz confirmed that patient is receiving a blood transfusion today. PT will have patient rest today. Will re-attempt PT eval at another time when patient is stable to work with PT. RN made aware.
--- NOTE | 2025-06-26 13:14 | PC.SS ---
Update: Patient on 2L nasal cannula. Pressor support discontinued today. P.O. feeding. Patient receiving IV antibiotics. Afebrile. Cardiology is consulting.
[2025-06-26 15:53] LABS: Hematocrit 22.5 % (36.0-46.0)
[2025-06-26 16:03] LABS: Hemoglobin 7.7 g/dL (12.0-16.0)
--- NOTE | 2025-06-26 16:50 | PC.NURSE ---
Poison control manufacturers representative noe reached out and notified that poison control will be discharging the patient from their care
--- NOTE | 2025-06-26 17:01 | ESPR_ITS ---
<Statement entered by Gustavo Sepulveda MD - 07/10/25 17:16> I reviewed above note and agree with findings and plans. I have also personally examined the patient with medicine team and went over assessment and plan with medical team including wireless internet installer and resident physician. <Statement entered by Boogie Tello MD - 06/27/25 07:22> I saw and examined patient personally and supervised PGY 1 resident, Dr. Padilla with formulating a management plan. I agree with the documentation with the exceptions as listed below. Patient is a 69-year-old female with past medical history of arrhythmia, hypothyroidism, GERD, and depression who presented to the [facility] ED on 06/22/25 for pre-syncope, found to be in bradycardia HR low 30s, was initially admitted to ICU for severe symptomatic bradycardia requiring transcutaneous pacing (likely 2/2 digoxin toxicity, s/p DigiFab x 3) and now down-graded to floors after being weaned from dopamine gtt this morning. Problem list: 1. Acute blood loss anemia of unclear etiology 2. Macrocytic anemia s/p vitamin B12 supplementation daily 3. Iron deficiency anemia 4. Shock?cardiogenic and hypovolemic in etiology secondary to digoxin toxicity and acute blood loss anemia?resolved 5. Severe thrombocytopenia?plt 26 6. History of atrial fibrillation 7. Pulmonary hypertension 8. Acute kidney injury?improving 9. History of hypothyroidism 10. History of depression 11. Cirrhosis?unclear etiology Patient was initially admitted on 06/22 for chief complaints of dizziness and generalized malaise. Digoxin levels were obtained and were supratherapeutic. Initially patient had junctional bradycardia and transcutaneous pacing was considered. However dopamine infusion was started along with aggressive diuresis with Lasix 40 mg IV twice daily as per cardiology recommendations. Blood pressure slowly improved over the days and dopamine infusion was titrated off at around 4 AM on 06/26. During her hospitalization she received 2 doses of DigiFab on 06/23 and 06/25 of 120 mg IV x 1 and 40 mg IV x 1 respectively. With regards to patient's anemia and thrombocytopenia. Anemia workup revealed macrocytosis and iron deficiency anemia. Patient currently being supplemented with cyanocobalamin and IV iron daily. LDH was elevated at 267 and haptoglobin levels pending. Also aspect of hemolysis. Thrombocytopenia may be due to cirrhosis of which the etiology is unclear at this point. Autoimmune panel including antimitochondrial antibodies pending. At this point no obvious sources of bleeding, although patient has extensive ecchymosis over her upper, lower extremities, chest and back which remain unchanged from the day before. Repeat CBC ordered for 9 PM, if plt <15 or obvious signs of bleeding will transfuse platelets. Interventional cardiology, Dr. Perdomo consulted and closely following the case. Will continue aggressive diuresis with Lasix 40 mg IV twice daily. Plan of care discussed with Attending Dr. Derick Tello MD PGY 2 Disclaimer: This note was dictated by speech recognition. Minor errors in vat washer may be present due to voice recognition software. Documentation for date of: 06/26/25 Subjective Subjective Interval history: Patient is an ICU downgrade who was initially admitted on 06/22/25 for symptomatic junctional bradycardia and weaned off of dopamine gtt since 5 AM today (06/26/25) with MAP staying above 60. Overnight, patient received IV albumin 25 gm x 1 for hypotension and was started on PO midodrine 5 mg q4HR, IV iron sucrose complex 200 mg qD, and PO Megace 400 mg qD. Patient was examined at bedside; she appears A&Ox4 and in NAD. No active bleeding was noted and physical exam was overall benign and unremarkable. Labs today significant for Hgb 6.7 -> 7.7 (s/p pRBC transfusion x 1, MCV 104), plt# 30 -> 26, sodium 141 -> 145, creatinine 2.0 -> 1.6, total bilirubin 3.4 -> 2.0, and LDH 987. Currently, the underlying etiology for patient's asymptomatic anemia and thrombocytopenia is unclear but labs are suggestive of some type of hemolytic process. Of note, patient's anemia is noted to be macrocytic and Vitamin B12 was low at 92 (folate WNL). Patient has not had any melena, hematemesis, or any other evidence of rosette blood loss and has had an elevated reticulocyte count. Per Cardiology, patient's symptomatic junctional bradycardia was likely 2/2 digoxin toxicity and has improved after being given 3 vials of DigiFab. Patient is receiving IV Lasix 40 mg BID to treat the moderate to severe pulmonary HTN noted on echo and PO midodrine 5 mg TID for borderline low MAPs. Plan Updates: -Ordered routine CBC for 21:00 tonight to monitor anemia and thrombocytopenia (will transfuse platelets if platelet count drops below 10 or below 50 with active bleeding or pRBCs if Hgb < 8) Exam Vital Signs Temp Pulse Resp BP Pulse Ox O2 Del Method O2 Flow Rate 98.0 F 54 L 19 118/45 L 94 L Nasal Cannula 2 06/26/25 16:00 06/26/25 16:21 06/26/25 16:00 06/26/25 16:21 06/26/25 16:00 06/26/25 16:00 06/26/25 16:00 Narrative Exam General: No acute distress; A&Ox4 Skin: Upper extremity bruising bilaterally; warm, dry, no obvious rash. Facial color continues to be greatly improved compared to admission being pale. HENT: NCAT, EOMI, not icteric. External ears normal. No rhinorrhea. Moist mucous membranes. No mucous bleeding noted. Cardiovascular: Regular rate and rhythm, no murmur, +S1/S2. Respiratory: Lungs CTAB GI: Soft, nontender, non-distended. No guarding or rebound tenderness. : Suprapubic tenderness (patient endorses needing to go pee). No flank tenderness bilaterally. Extremities: no edema, no cyanosis, no clubbing. Extremity pulses present Neuro: Grossly nonfocal. Alert and oriented, moving all 4 extremities. CN not formally tested but appear grossly intact. Psychiatric: Cooperative, appropriate affect. Objective Labs 06/26/25 15:28 06/26/25 04:20 Labs: Laboratory Results - last 24 hr 06/22/25 06/25/25 06/26/25 15:40 10:32 00:28 WBC RBC Hgb Hct MCV MCH MCHC RDW Std Deviation Plt Count Neut % (Auto) Lymph % (Auto) Edwards % (Auto) Eos % (Auto) Baso % (Auto) Neut # (Auto) Lymph # (Auto) Edwards # (Auto) Eos # (Auto) Baso # (Auto) Immature Gran # (Auto) Absolute Nucleated RBC Immature Gran % Nucleated RBC % Sodium 145 Potassium 3.8 Chloride 107 Carbon Dioxide 28.8 Anion Gap 9 BUN 37 H Creatinine 1.6 H Estim Creat Clear Calc 37.8 L eGFR 35 L BUN/Creatinine Ratio 23 H Glucose 129 H Calculated Osmolality 299 H Calcium 8.1 L Corrected Calcium 8.8 Phosphorus 2.8 Magnesium Total Bilirubin AST ALT Alkaline Phosphatase Lactate Dehydrogenase Total Protein Albumin 3.1 L D Globulin Albumin/Globulin Ratio PTH Intact 83.8 Digoxin 2.2 H Misc Test Result Blood Type Antibody Screen Crossmatch See Detail Blood Bank Wristband ID Blood Bank Comment 06/26/25 06/26/25 06/26/25 04:20 07:41 08:58 WBC 5.6 RBC 1.84 L* Hgb 6.7 L* D 7.5 L Hct 19.2 L* 21.6 L* MCV 104 H MCH 36.4 H MCHC 34.9 RDW Std Deviation Not Performed. Plt Count 26 L* Neut % (Auto) 67 Lymph % (Auto) 24 Edwards % (Auto) 9 Eos % (Auto) 0 Baso % (Auto) 0 Neut # (Auto) 3.7 Lymph # (Auto) 1.4 Edwards # (Auto) 0.5 Eos # (Auto) 0.0 Baso # (Auto) 0.0 Immature Gran # (Auto) 0.03 H Absolute Nucleated RBC 0.00 Immature Gran % 1 H Nucleated RBC % 0 Sodium 146 H Potassium 4.0 Chloride 108 H Carbon Dioxide 28.3 Anion Gap 10 BUN 29 H Creatinine 1.4 H Estim Creat Clear Calc 43.2 L eGFR 41 L BUN/Creatinine Ratio 21 H Glucose 107 H Calculated Osmolality 296 H Calcium 8.2 L Corrected Calcium 8.8 Phosphorus 2.6 Magnesium 2.8 H Total Bilirubin 2.0 H D AST 22 ALT 21 Alkaline Phosphatase 43 L D Lactate Dehydrogenase 987 H Total Protein 4.9 L Albumin 3.2 L Globulin 1.7 L Albumin/Globulin Ratio 1.9 PTH Intact Digoxin 1.9 Misc Test Result Platelets confirmed Blood Type O Positive Antibody Screen NEGATIVE Crossmatch See Detail Blood Bank Wristband ID Yes Blood Bank Comment PLATP Ready 06/26/25 15:28 WBC RBC Hgb 7.7 L Hct 22.5 L MCV MCH MCHC RDW Std Deviation Plt Count Neut % (Auto) Lymph % (Auto) Edwards % (Auto) Eos % (Auto) Baso % (Auto) Neut # (Auto) Lymph # (Auto) Edwards # (Auto) Eos # (Auto) Baso # (Auto) Immature Gran # (Auto) Absolute Nucleated RBC Immature Gran % Nucleated RBC % Sodium Potassium Chloride Carbon Dioxide Anion Gap BUN Creatinine Estim Creat Clear Calc eGFR BUN/Creatinine Ratio Glucose Calculated Osmolality Calcium Corrected Calcium Phosphorus Magnesium Total Bilirubin AST ALT Alkaline Phosphatase Lactate Dehydrogenase Total Protein Albumin Globulin Albumin/Globulin Ratio PTH Intact Digoxin Misc Test Result Blood Type Antibody Screen Crossmatch Blood Bank Wristband ID Blood Bank Comment ABG Interpretation ABG results: 06/23/25 03:22 ABG pH 7.31 L ABG pCO2 40 ABG pO2 69 L ABG HCO3 20 ABG O2 Saturation 94 ABG Base Excess -6 L Quality Measures Quality Measures VTE prophylaxis (SCDs) Advance care planning discussed with:: patient Assessment & Plan Assessment Current Active Medications: Generic Name Dose Route Start Last Admin Trade Name Freq PRN Reason Stop Dose Admin Acetaminophen 1,000 mg 06/23/25 20:13 Acetaminophen 500 Mg Tablet PO 07/23/25 20:12 Q6HR PRN fever >99.9 Cyanocobalamin 1,000 mcg 06/24/25 07:00 06/26/25 08:41 Cyanocobalamin Inj 1,000 Mcg/Ml Vial IM 06/29/25 06:59 1,000 mcg DAILY JOANN Administration Dextrose 25 ml 06/22/25 18:00 Dextrose 50%-Water Inj 50 Ml Syringe IV 07/22/25 17:59 Q15MIN PRN BG 50-70 responsive npo pt Dextrose 50 ml 06/22/25 18:00 Dextrose 50%-Water Inj 50 Ml Syringe IV 07/22/25 17:59 Q15MIN PRN BG <50 OR BG <70 & pt unresponsive Diclofenac Sodium 2 gm 06/23/25 09:00 06/26/25 08:40 Diclofenac 1% Top Gel 100 Gm Tube TOP 07/23/25 08:59 Not Given BID JOANN Furosemide 40 mg 06/26/25 07:45 06/26/25 08:21 Furosemide Inj 10 Mg/Ml 4ml Vial IVP 07/26/25 07:44 40 mg BIDD JOANN Administration Glucagon 1 mg 06/22/25 18:00 Glucagon Inj 1 Mg Vial IM Q15MIN PRN BG <70, and no IV access Insulin Human Lispro 0 unit 06/24/25 12:00 06/26/25 12:12 Insulin Lispro (Admelog) 1 Unit/0.01 Ml Unit SC 07/24/25 11:59 Not Given ACHS JOANN Protocol Iron Sucrose 200 mg 06/26/25 05:00 06/26/25 05:04 Iron Sucrose Cplx Inj 20 Mg/Ml Vial 5 Ml IVP 06/30/25 05:00 200 mg DAILY JOANN Administration Levothyroxine Sodium 100 mcg 06/25/25 06:00 06/26/25 05:03 Levothyroxine Sodium 100 Mcg Tablet PO 07/25/25 05:59 100 mcg ACBR JOANN Administration Megestrol Acetate 400 mg 06/25/25 09:00 06/26/25 08:40 Megestrol Acet Susp 400 Mg/10 Ml Udc PO 07/25/25 08:59 400 mg QDAY JOANN Administration Midodrine 5 mg 06/26/25 00:30 06/26/25 16:21 Midodrine 5 Mg Tablet PO 07/26/25 00:29 5 mg Q4H JOANN Administration Ondansetron HCl 4 mg 06/22/25 17:55 Ondansetron Inj 2 Mg/Ml Inj 2 Ml IVP 07/22/25 17:54 Q6H PRN NAUSEA OR VOMITING Protocol Pantoprazole Sodium 40 mg 06/22/25 21:00 06/26/25 08:39 Pantoprazole Inj 40 Mg Vial IVP 07/22/25 20:59 40 mg BID JOANN Administration Sennosides 1 tab 06/22/25 17:55 Senna Tablet PO 07/22/25 17:54 QDAY PRN constipation Protocol Sevelamer Carbonate 800 mg 06/24/25 17:30 06/26/25 12:13 Sevelamer Carbonate 800 Mg Tablet PO 07/24/25 17:29 800 mg TIDWM JOANN Administration Vitamin B Complex/Vit C/Folic Acid 1 tab 06/23/25 09:00 06/26/25 08:40 Vit B12/Vit C/Fa (Nephrovite) Tablet PO 07/23/25 08:59 1 tab QDAY JOANN Administration Plan Patient is a 69-year-old female with past medical history of arrhythmia, hypothyroidism, GERD, and depression who presented to the [facility] ED on 06/22/25 for pre-syncope, found to be in bradycardia HR low 30s, was initially admitted to ICU for severe symptomatic bradycardia requiring transcutaneous pacing (likely 2/2 digoxin toxicity, s/p DigiFab x 3) and now down-graded to floors after being weaned from dopamine gtt this morning. #Macrocytic anemia, asymptomatic, etiology unclear but possibly multifactorial #Vitamin B12 deficiency #Iron deficiency anemia #??Acute blood loss anemia Upon 06/22 admission, Hgb 4.7 (MCV 136, RDW 91.5), B12 level 92 (low) Initially, Hgb improved to 8-10s after pRBC transfusions, but then on 06/26 Hgb 8.5 -> 6.7 06/22 iron panel suggestive of iron deficiency anemia with possibly a mixed picture of ACD due to slightly low TIBC (230) Among the 3 broad causes of anemia (blood loss, hemolysis, and decreased RBC production), currently suspect it is most likely 2/2 hemolysis in some way A hemolytic etiology is supported by elevated LDH of 987, hyperbilirubinemia (admission TBili 3.5), high reticulocyte count 2.9, haptoglobin pending Acute blood loss anemia thought less likely due to lack of hematemesis, melena, hematochezia, or other overt bleeding noted during this admission (however, patient was noted to have had melena prior to admission and does have bilateral bruising of UE) Anemia 2/2 decreased RBC production also less likely due to reticulocytosis (indicating adequate RBC production) Peripheral blood smear showed severe macrocytic anemia with anisopoikilocytosis and low serum B12 level, consistent with B12 deficiency (no schistocytes noted) Currently s/p pRBC transfusion x 4 DDx: vitamin B12 deficiency 2/2 pernicious anemia, malnutrition, or malabsorptive etiologies like Crohn's disease, hemolysis 2/2 elevated blood homocysteine from B12 deficiency, occult blood loss, drug-induced anemia (patient has recent history of TMP-SMX use, which can cause low RBCs and platelets) Rx: -IV Vitamin B12 1000 mcg qD -PO Vitamin B12 / Vitamin C / Folate tab qD -IV iron sucrose complex 200 mg qD -IV Protonix 40 mg BID -Follow up on haptoglobin -CTM CBC (per Cardiology recommendations, maintain Hgb between 9-10 with pRBC transfusions as necessary) -Consider ordering Heme/Onc consult -GI onboard, appreciate recommendations (endoscopic studies for possible GI bleed likely in near future) #Thrombocytopenia (worsening) #Vitamin B12 deficiency Upon 06/22 admission, platelet count 66 May also be 2/2 vitamin B12 and iron deficiencies Patient is noted to have ecchymoses on BL UE 10 platelet count 26 DDx: drug-induced thrombocytopenia (patient has recent history of TMP-SMX use, which can cause low RBCs and platelets), ITP Rx: -Platelet transfusion if platelet count < 50 with active bleeding or < 10 #Bradycardia, likely 2/2 digoxin toxicity s/p DigiFab x 3, improving #Supraventricular junctional rhythm with narrow QRS with occasional PVC`s #??Atrial fibrillation / tachyarrhythmia #Acute hyperkalemia, resolved #HFpEF (EF 55-60%) (06/23/25) #Bilateral pleural effusions #Pulmonary hypertension, moderate to severe Patient initially presented on 06/22 with presyncopal episode and HR 20 which improved to 30 after atropine x 1. Takes amiodarone 200 mg daily, nadolol 40 mg daily, and digoxin 250 mg daily except for Sunday. Had last taken all of these medications the morning prior to arrival, likely reason why patient's heart rate did not increase despite anemia. Patient was transcutaneously paced at HR 60 upon arrival to ED, was later discontinued after HR stabilized to upper 30s after receiving dopamine and blood. Temporary transvenous pacemaker never done as patient was hemodynamically stable and did not require it. EKG showed supraventricular junctional rhythm with narrow QRS with occasional PVCs and HR 41. Patient did have hyperkalemia which was treated aggressively with insulin as well as glucose IV and Kayexalate. TTE 06/23/25 showed an EF of 55 to 60%, moderately dilated RV w/ severely elevated RVSP at 85 mmHg and RAP of 15 mmHg. Flat septum in both systole and diastole with D-shaped LV indicating both pressure and volume overload. IVC dilated and less than 50% collapse with inspiration. Left-sided pleural effusion noted. No pericardial effusion. CT A/P 06/25/25: Moderate CHF with superimposed pneumonia in the lung bases. Mild to moderate bilateral pleural effusions. Cirrhosis. Mild ascites. 7.5 cm renal cyst. s/p DigiFab x 3 Plan: -PO midodrine 5mg q4HR for borderline low MAPs (HR stable in low 50s) -IV Lasix 40 mg BID for moderate to severe pulmonary HTN seen on echo -Continue holding amiodarone, atenolol, digoxin -Maintain 5 > K > 4 and Mg > 2 -Strict I's and O's -Daily weights -Cardiac diet, 2 g sodium #Acute kidney injury versus acute on chronic kidney disease, most likely cardiorenal syndrome, improving Creatinine 2.0, previously 1.3 in 2020. Likely cardiorenal syndrome from fluid overload state in the setting of pulmonary hypertension. Continues to improve with diuresis Rx: -IV Lasix 40 mg BID -Avoid overdiuresis or other nephrotoxic agents #Hypotension Rx: -Continue PO midodrine 5mg q4HR #Hypothyroidism Rx: -Consider restarting home PO levothyroxine 100 mcg qD #Depression Rx: -Consider restarting home PO sertraline 50 mg q24HR Disposition: downgraded from ICU to floors after being weaned off of dopamine gtt @ 05:00 today DVT prophylaxis: SCD's GI prophylaxis: Protonix 40 mg IV BID Diet: Cardiac Aguayo: None Drips: None (DC'd dopamine 10/10 AM) CODE STATUS: Full Code Reason of hospitalization Symptomatic Junctional Bradycardia Patient plan of care was discussed with the attending physician, Dr. Sepulveda & senior resident Dr. Omer Padilla, DO Internal Medicine, PGY-1
--- NOTE | 2025-06-26 18:19 | PD.IMPROG ---
Documentation for date of: 06/26/25 Subjective Subjective Interval history: Patient evaluated she was scheduled for an upper endoscopy but accidentally got fed at lunchtime She will be n.p.o. midnight tonight and endoscopy tomorrow morning patient does have underlying chronic liver disease with a bilirubin of 2.0 AST ALT 22 and 21 and alk phos of 43 Platelet count is at 26,000 Hepatitis AB and C serologies negative DAREK and AMA is pending I will further order actin IgG antibody iron saturation studies copper level is still low plasmin level and anti-smooth muscle antibody If all the blood tests come back negative might consider doing a liver biopsy At the moment I discussed the case with the internal medicine team she can be fully anticoagulated there is no active bleeding going except Hemoccult positive stool Exam Vital Signs Temp Pulse Resp BP Pulse Ox O2 Del Method O2 Flow Rate 98.0 F 60 19 116/50 L 94 L Nasal Cannula 2 06/26/25 16:00 06/26/25 18:10 06/26/25 16:00 06/26/25 18:10 06/26/25 16:00 06/26/25 16:00 06/26/25 16:00 Objective Labs 06/26/25 15:28 06/26/25 04:20 Labs: Laboratory Results - last 24 hr 06/22/25 06/25/25 06/26/25 15:40 10:32 00:28 WBC RBC Hgb Hct MCV MCH MCHC RDW Std Deviation Plt Count Neut % (Auto) Lymph % (Auto) Adams % (Auto) Eos % (Auto) Baso % (Auto) Neut # (Auto) Lymph # (Auto) Adams # (Auto) Eos # (Auto) Baso # (Auto) Immature Gran # (Auto) Absolute Nucleated RBC Immature Gran % Nucleated RBC % Sodium 145 Potassium 3.8 Chloride 107 Carbon Dioxide 28.8 Anion Gap 9 BUN 37 H Creatinine 1.6 H Estim Creat Clear Calc 37.8 L eGFR 35 L BUN/Creatinine Ratio 23 H Glucose 129 H Calculated Osmolality 299 H Calcium 8.1 L Corrected Calcium 8.8 Phosphorus 2.8 Magnesium Total Bilirubin AST ALT Alkaline Phosphatase Lactate Dehydrogenase Total Protein Albumin 3.1 L D Globulin Albumin/Globulin Ratio PTH Intact 83.8 Digoxin Misc Test Result Blood Type Antibody Screen Crossmatch See Detail Blood Bank Wristband ID Blood Bank Comment 06/26/25 06/26/25 06/26/25 04:20 07:41 08:58 WBC 5.6 RBC 1.84 L* Hgb 6.7 L* D 7.5 L Hct 19.2 L* 21.6 L* MCV 104 H MCH 36.4 H MCHC 34.9 RDW Std Deviation Not Performed. Plt Count 26 L* Neut % (Auto) 67 Lymph % (Auto) 24 Adams % (Auto) 9 Eos % (Auto) 0 Baso % (Auto) 0 Neut # (Auto) 3.7 Lymph # (Auto) 1.4 Adams # (Auto) 0.5 Eos # (Auto) 0.0 Baso # (Auto) 0.0 Immature Gran # (Auto) 0.03 H Absolute Nucleated RBC 0.00 Immature Gran % 1 H Nucleated RBC % 0 Sodium 146 H Potassium 4.0 Chloride 108 H Carbon Dioxide 28.3 Anion Gap 10 BUN 29 H Creatinine 1.4 H Estim Creat Clear Calc 43.2 L eGFR 41 L BUN/Creatinine Ratio 21 H Glucose 107 H Calculated Osmolality 296 H Calcium 8.2 L Corrected Calcium 8.8 Phosphorus 2.6 Magnesium 2.8 H Total Bilirubin 2.0 H D AST 22 ALT 21 Alkaline Phosphatase 43 L D Lactate Dehydrogenase 987 H Total Protein 4.9 L Albumin 3.2 L Globulin 1.7 L Albumin/Globulin Ratio 1.9 PTH Intact Digoxin 1.9 Misc Test Result Platelets confirmed Blood Type O Positive Antibody Screen NEGATIVE Crossmatch See Detail Blood Bank Wristband ID Yes Blood Bank Comment PLATP Ready 06/26/25 15:28 WBC RBC Hgb 7.7 L Hct 22.5 L MCV MCH MCHC RDW Std Deviation Plt Count Neut % (Auto) Lymph % (Auto) Adams % (Auto) Eos % (Auto) Baso % (Auto) Neut # (Auto) Lymph # (Auto) Adams # (Auto) Eos # (Auto) Baso # (Auto) Immature Gran # (Auto) Absolute Nucleated RBC Immature Gran % Nucleated RBC % Sodium Potassium Chloride Carbon Dioxide Anion Gap BUN Creatinine Estim Creat Clear Calc eGFR BUN/Creatinine Ratio Glucose Calculated Osmolality Calcium Corrected Calcium Phosphorus Magnesium Total Bilirubin AST ALT Alkaline Phosphatase Lactate Dehydrogenase Total Protein Albumin Globulin Albumin/Globulin Ratio PTH Intact Digoxin Misc Test Result Blood Type Antibody Screen Crossmatch Blood Bank Wristband ID Blood Bank Comment Impressions Impression: Chronic liver disease of uncertain etiology Complete workup in progress Thrombocytopenia secondary to above Occult GI bleeding requiring blood transfusion Plan N.p.o. midnight tonight Consent is already here for fiberoptic esophagogastroduodenoscopy with possible biopsy possible therapeutic intervention under intravenous moderate ABG Interpretation ABG results: 06/23/25 03:22 ABG pH 7.31 L ABG pCO2 40 ABG pO2 69 L ABG HCO3 20 ABG O2 Saturation 94 ABG Base Excess -6 L Assessment & Plan A&P Narrative #chronic liver disease with thrombocytopenia etiology uncertain complete workup ordered for the chronic active hepatitis # Anemia of blood loss presenting hemoglobin 4.7 requiring blood transfusion Clear liquid diet in the morning till 11 AM then n.p.o. Consent will be obtained for fiberoptic esophagogastroduodenoscopy with possible biopsy possible therapeutic intervention under intravenous moderate sedation if the heart rate cannot hold up for the procedure I will make the decision tomorrow after talking to the hospital tray service worker Other medical problems include Symptomatic bradycardia most likely will need a permanent cardiac pacemaker Hypothyroidism Gastroesophageal disease Depression Thank you very much for the opportunity to participate in the care of this patient Time Spent With Patient Time: Total time spent is greater than 50% in coordination of care (as documented) at patient's floor/unit and/or counseling patient:
[2025-06-26 18:50] LABS: Iron 60 mcg/dL (50-170); Percent Iron Saturation 32 % (20-55); Total Iron Binding Capacity 186 mcg/dL (250-425); Unsaturated Iron Binding 126 (225-295)
[2025-06-26 21:15] LABS: Basophils # (Auto) 0.0 Thou/mm3 (0.0-0.2); Basophils % (Auto) 0 % (0-2.5); Eosinophils # (Auto) 0.0 Thou/mm3 (0.0-0.5); Eosinophils % (Auto) 0 % (0-10); Hematocrit 23.6 % (36.0-46.0); Immature Granulocytes Auto 0.03 Thou/mm3 (0.00-0.00); Lymphocytes # (Auto) 1.4 Thou/mm3 (1.0-4.8); Lymphocytes % (Auto) 26 % (10-50); Mean Corpuscular HGB Conc 34.3 g/dl (31.0-37.0); Mean Corpuscular Hemoglobin 36.2 pg (25.0-35.0); Mean Corpuscular Volume 105 fL (80-100); Monocytes # (Auto) 0.6 Thou/mm3 (0.0-0.8); Monocytes % (Auto) 11 % (0-12); Neutrophils # (Auto) 3.5 Thou/mm3 (1.8-7.7); Neutrophils % (Auto) 63 % (37-80); Nucleated Red Blood Cell # 0.00 Thou/mm3 (0.00-0.00); Nucleated Red Blood Cell % 0 /100 WBC (0); Red Blood Count 2.24 Miln/mm3 (4.00-5.20); White Blood Count 5.5 Thou/mm3 (3.6-11.0)
[2025-06-26 21:17] LABS: Hemoglobin 8.1 g/dL (12.0-16.0); Platelet Count 24 Thou/mm3 (140-440)
[2025-06-26 21:25] LABS: Slide Review Platelets confirmed
[2025-06-27] VITALS (26 sets, daily range): BP systolic 93–167; BP diastolic 41–91; PULSE 50–76; RESP 11–22; TEMP 36.1–36.6; O2SAT 92–98; BMI 15.0
[2025-06-27] MEDS: MIDODRINE 5 MG TABLET PO ×6 (00:54→21:32)
[2025-06-27] MEDS: LEVOTHYROXINE SODIUM 100 MCG TABLET PO (05:20)
[2025-06-27] MEDS: FUROSEMIDE INJ 10 MG/ML 4ML VIAL 40 MG IVP (05:21)
[2025-06-27 05:58] LABS: Basophils # (Auto) 0.0 Thou/mm3 (0.0-0.2); Basophils % (Auto) 0 % (0-2.5); Eosinophils # (Auto) 0.0 Thou/mm3 (0.0-0.5); Eosinophils % (Auto) 0 % (0-10); Hematocrit 23.5 % (36.0-46.0); Immature Granulocytes Auto 0.02 Thou/mm3 (0.00-0.00); Lymphocytes # (Auto) 0.8 Thou/mm3 (1.0-4.8); Lymphocytes % (Auto) 31 % (10-50); Mean Corpuscular HGB Conc 34.0 g/dl (31.0-37.0); Mean Corpuscular Hemoglobin 36.4 pg (25.0-35.0); Mean Corpuscular Volume 107 fL (80-100); Monocytes # (Auto) 0.3 Thou/mm3 (0.0-0.8); Monocytes % (Auto) 11 % (0-12); Neutrophils # (Auto) 1.5 Thou/mm3 (1.8-7.7); Neutrophils % (Auto) 58 % (37-80); Nucleated Red Blood Cell # 0.00 Thou/mm3 (0.00-0.00); Nucleated Red Blood Cell % 0 /100 WBC (0); Red Blood Count 2.20 Miln/mm3 (4.00-5.20); White Blood Count 2.7 Thou/mm3 (3.6-11.0)
[2025-06-27 06:23] LABS: Platelet Count 34 Thou/mm3 (140-440)
[2025-06-27 06:31] LABS: Alanine Aminotransferase 21 U/L (10-49); Albumin, Serum 3.4 gm/dL (3.4-4.8); Albumin/Globulin Ratio 1.8 (1.2-2.2); Alkaline Phosphatase 46 U/L (46-116); Anion Gap 10 (7-16); Aspartate Amino Transferase 31 U/L (0-34); BUN/Creatinine Ratio 22 Ratio (12-20); Bilirubin,Total 1.9 mg/dL (0.3-1.2); Blood Urea Nitrogen 29 mg/dL (9-23); Calcium 8.3 mg/dL (8.3-10.6); Calcium (Corrected) 8.8 mg/dL (8.5-10.1); Carbon Dioxide 30.7 mMol/L (20.0-31.0); Chloride 106 mMol/L (98-107); Creatinine (Component) 1.3 mg/dL (0.6-1.3); Estimated Creatinine Clearance 46.7 mL/min (>60); Globulin 1.9 gm/dL (2.3-3.5); Glucose 99 mg/dL (74-106); Magnesium 2.2 mg/dL (1.6-2.6); Osmolality,Calculated 298 (275-295); Phosphorous 2.3 mg/dL (2.4-5.1); Potassium 4.0 mMol/L (3.4-5.1); Sodium 147 mMol/L (136-145); Total Protein 5.3 gm/dL (5.7-8.2); eGFR 45 See Note
[2025-06-27 08:03] LABS: Slide Review Platelets confirmed
[2025-06-27 08:04] LABS: Hemoglobin 8.0 g/dL (12.0-16.0)
[2025-06-27 08:32] LABS: Cardiac Risk Estimate 4.3 RATIO (3.7-5.6); Cholesterol 82 mg/dL (132-200); HDL Cholesterol 19 mg/dL (40-60); LDL Cholesterol,Calculated 42 mg/dL (0-130); Triglycerides 106 mg/dL (30-150)
[2025-06-27 08:46] LABS: OBS Card Expiration Date 2026-09; OBS Card Lot # 23001; OBS Developer Lot # 750236; OBS Performed By WOOLL1; OBS QC OK? Yes
[2025-06-27] MEDS: PANTOPRAZOLE 40 MG TABLET PO ×2 (08:50→21:32)
[2025-06-27] MEDS: VIT B12/Vit C/FA (Nephrovite) TABLET 1 TAB PO (08:50)
[2025-06-27] MEDS: NAPH,KPH MBDB 1 PACKET (1.5 GM) PO (08:50)
[2025-06-27 08:51] LABS: Occult Blood, Stool Negative (Negative)
[2025-06-27] MEDS: IRON SUCROSE CPLX INJ 20 MG/ML VIAL 5 ML 200 MG IVP (08:51)
[2025-06-27] MEDS: MEGESTROL ACET SUSP 400 MG/10 ML UDC PO (08:51)
[2025-06-27 11:23] LABS: Basophils # (Auto) 0.0 Thou/mm3 (0.0-0.2); Basophils % (Auto) 0 % (0-2.5); Eosinophils # (Auto) 0.0 Thou/mm3 (0.0-0.5); Eosinophils % (Auto) 0 % (0-10); Hematocrit 25.0 % (36.0-46.0); Immature Granulocytes Auto 0.01 Thou/mm3 (0.00-0.00); Lymphocytes # (Auto) 1.6 Thou/mm3 (1.0-4.8); Lymphocytes % (Auto) 27 % (10-50); Mean Corpuscular HGB Conc 34.0 g/dl (31.0-37.0); Mean Corpuscular Hemoglobin 36.0 pg (25.0-35.0); Mean Corpuscular Volume 106 fL (80-100); Monocytes # (Auto) 0.6 Thou/mm3 (0.0-0.8); Monocytes % (Auto) 10 % (0-12); Neutrophils # (Auto) 3.8 Thou/mm3 (1.8-7.7); Neutrophils % (Auto) 63 % (37-80); Nucleated Red Blood Cell # 0.00 Thou/mm3 (0.00-0.00); Nucleated Red Blood Cell % 0 /100 WBC (0); Red Blood Count 2.36 Miln/mm3 (4.00-5.20); White Blood Count 6.0 Thou/mm3 (3.6-11.0)
[2025-06-27 11:58] LABS: Hemoglobin 8.5 g/dL (12.0-16.0); Platelet Count 33 Thou/mm3 (140-440)
[2025-06-27 12:10] LABS: Slide Review Platelets confirmed
--- NOTE | 2025-06-27 12:10 | PC.PT ---
06/27/2025 PT eval performed. Patient awaiting testing today and slight unsteadiness when amb. patient seems appropriate for return home w/ when medically appropriate
--- NOTE | 2025-06-27 12:37 | ESPR_ITS ---
<Statement entered by Gustavo Sepulveda MD - 07/10/25 17:16> I reviewed above note and agree with findings and plans. I have also personally examined the patient with medicine team and went over assessment and plan with medical team including public health internship and resident physician. Documentation for date of: 06/27/25 No overnight events. Patient examined at bedside. Patient denied hematochezia, melena or hematesis. Patient denied history of autoimmune disease. Denied weight loss or history of malignancy. Given acute blood loss anemia, pending EGD. Hgb since transfusion, hgb stable. Pending colonoscopy. Given pancytopenia with previous lab on 06/27/2025, concern for possible malignancy, consult for Dr. Omalley consulted, message left. Auto immune send outs. Pending haptoglobin. CAN, continues to down trend. Electrolytes repleated. - The patient's plan was discussed with attending Dr Derick Mckeon MD PGY2 Internal Medicine Subjective Subjective Interval history: No overnight events. Patient was examined at bedside; she appears A&Ox4 and in NAD. Labs today significant for BP 110/52, HR 53, WBC 5.5 -> 2.7, Hgb 8.0, plt# 24 -> 34, sodium 147, creatinine 1.4 -> 1.3, and TBili 2.0 -> 1.9. On exam, no sites of active bleeding were noted and the remainder of the findings were benign. Patient was asked today whether she was a vegetarian or vegan to which she replied that she eats a lot of fast food which includes products containing meat (and therefore vitamin B12) like [employer]. Patient seems to have pancytopenia whose etiology remains unclear. Plan Updates: -Consulted Heme/Onc (Dr. Omalley), appreciate recommendations -Follow up on results of endoscopic studies scheduled for today -Follow up on studies for anemia work-up Exam Vital Signs Temp Pulse Resp BP Pulse Ox O2 Del Method O2 Flow Rate 97.1 F 51 L 19 98/43 L 97 Room Air 1 06/27/25 08:00 06/27/25 12:31 06/27/25 08:30 06/27/25 12:31 06/27/25 08:30 06/27/25 08:00 06/27/25 08:30 Narrative Exam General: No acute distress; A&Ox4 Skin: Upper extremity bruising bilaterally; warm, dry, no obvious rash. Facial color continues to be greatly improved compared to admission being pale. HENT: NCAT, EOMI, not icteric. External ears normal. No rhinorrhea. Moist mucous membranes. No mucous bleeding noted. Cardiovascular: Systolic murmur that is most easily heard at the pulmonic listening post. Regular rate and rhythm, +S1/S2. Respiratory: Lungs CTAB GI: Soft, nontender, non-distended. No guarding or rebound tenderness. : Suprapubic tenderness (patient endorses needing to go pee). No flank tenderness bilaterally. Extremities: no edema, no cyanosis, no clubbing. Extremity pulses present Neuro: Grossly nonfocal. Alert and oriented, moving all 4 extremities. CN not formally tested but appear grossly intact. Psychiatric: Cooperative, appropriate affect. Objective Labs 06/27/25 11:00 06/27/25 05:35 Labs: Laboratory Results - last 24 hr 06/26/25 06/26/25 06/26/25 08:58 14:00 15:28 WBC RBC Hgb 7.7 L Hct 22.5 L MCV MCH MCHC RDW Std Deviation Plt Count Neut % (Auto) Lymph % (Auto) [place] % (Auto) Eos % (Auto) Baso % (Auto) Neut # (Auto) Lymph # (Auto) [place] # (Auto) Eos # (Auto) Baso # (Auto) Immature Gran # (Auto) Absolute Nucleated RBC Immature Gran % Nucleated RBC % Sodium Potassium Chloride Carbon Dioxide Anion Gap BUN Creatinine Estim Creat Clear Calc eGFR BUN/Creatinine Ratio Glucose Calculated Osmolality Calcium Corrected Calcium Phosphorus Magnesium Iron 60 TIBC 186 L Iron Saturation 32 Unsat Iron Binding 126 L Total Bilirubin AST ALT Alkaline Phosphatase Total Protein Albumin Globulin Albumin/Globulin Ratio Triglycerides Cholesterol LDL Cholesterol, Calc HDL Cholesterol Cholesterol/HDL Ratio Stool Occult Blood Negative Misc Test Result Crossmatch See Detail Blood Bank Comment PLATP Ready 06/26/25 06/27/25 06/27/25 20:52 05:35 11:00 WBC 5.5 2.7 L D 6.0 D RBC 2.24 L 2.20 L 2.36 L Hgb 8.1 L 8.0 L 8.5 L Hct 23.6 L 23.5 L 25.0 L MCV 105 H 107 H 106 H MCH 36.2 H 36.4 H 36.0 H MCHC 34.3 34.0 34.0 RDW Std Deviation Not Performed. Not Performed. Not Performed. Plt Count 24 L* 34 L D 33 L Neut % (Auto) 63 58 63 Lymph % (Auto) 26 31 27 [place] % (Auto) 11 11 10 Eos % (Auto) 0 0 0 Baso % (Auto) 0 0 0 Neut # (Auto) 3.5 1.5 L 3.8 Lymph # (Auto) 1.4 0.8 L 1.6 [place] # (Auto) 0.6 0.3 0.6 Eos # (Auto) 0.0 0.0 0.0 Baso # (Auto) 0.0 0.0 0.0 Immature Gran # (Auto) 0.03 H 0.02 H 0.01 H Absolute Nucleated RBC 0.00 0.00 0.00 Immature Gran % 1 H 1 H 0 Nucleated RBC % 0 0 0 Sodium 147 H Potassium 4.0 Chloride 106 Carbon Dioxide 30.7 Anion Gap 10 BUN 29 H Creatinine 1.3 Estim Creat Clear Calc 46.7 L eGFR 45 L BUN/Creatinine Ratio 22 H Glucose 99 Calculated Osmolality 298 H Calcium 8.3 Corrected Calcium 8.8 Phosphorus 2.3 L Magnesium 2.2 Iron TIBC Iron Saturation Unsat Iron Binding Total Bilirubin 1.9 H AST 31 ALT 21 Alkaline Phosphatase 46 Total Protein 5.3 L Albumin 3.4 Globulin 1.9 L Albumin/Globulin Ratio 1.8 Triglycerides 106 Cholesterol 82 L LDL Cholesterol, Calc 42 HDL Cholesterol 19 L Cholesterol/HDL Ratio 4.3 Stool Occult Blood Misc Test Result Platelets confirmed Platelets confirmed Platelets confirmed Crossmatch Blood Bank Comment ABG Interpretation ABG results: 06/23/25 03:22 ABG pH 7.31 L ABG pCO2 40 ABG pO2 69 L ABG HCO3 20 ABG O2 Saturation 94 ABG Base Excess -6 L Quality Measures Quality Measures VTE prophylaxis (SCDs) Advance care planning discussed with:: patient Assessment & Plan Assessment Current Active Medications: Generic Name Dose Route Start Last Admin Trade Name Freq PRN Reason Stop Dose Admin Acetaminophen 1,000 mg 06/23/25 20:13 Acetaminophen 500 Mg Tablet PO 07/23/25 20:12 Q6HR PRN fever >99.9 Cyanocobalamin 1,000 mcg 06/24/25 07:00 06/27/25 08:51 Cyanocobalamin Inj 1,000 Mcg/Ml Vial IM 06/29/25 06:59 1,000 mcg DAILY JOANN Administration Dextrose 25 ml 06/22/25 18:00 Dextrose 50%-Water Inj 50 Ml Syringe IV 07/22/25 17:59 Q15MIN PRN BG 50-70 responsive npo pt Dextrose 50 ml 06/22/25 18:00 Dextrose 50%-Water Inj 50 Ml Syringe IV 07/22/25 17:59 Q15MIN PRN BG <50 OR BG <70 & pt unresponsive Diclofenac Sodium 2 gm 06/23/25 09:00 06/26/25 21:47 Diclofenac 1% Top Gel 100 Gm Tube TOP 07/23/25 08:59 Not Given On Hold: 06/27/25 07:26 BID JOANN Furosemide 40 mg 06/26/25 07:45 06/27/25 05:21 Furosemide Inj 10 Mg/Ml 4ml Vial IVP 07/26/25 07:44 40 mg BIDD JOANN Administration Glucagon 1 mg 06/22/25 18:00 Glucagon Inj 1 Mg Vial IM Q15MIN PRN BG <70, and no IV access Insulin Human Lispro 0 unit 06/24/25 12:00 06/27/25 12:00 Insulin Lispro (Admelog) 1 Unit/0.01 Ml Unit SC 07/24/25 11:59 Not Given ACHS JOANN Protocol Iron Sucrose 200 mg 06/26/25 05:00 06/27/25 08:51 Iron Sucrose Cplx Inj 20 Mg/Ml Vial 5 Ml IVP 06/30/25 05:00 200 mg DAILY JOANN Administration Levothyroxine Sodium 100 mcg 06/25/25 06:00 06/27/25 05:20 Levothyroxine Sodium 100 Mcg Tablet PO 07/25/25 05:59 100 mcg ACBR JOANN Administration Megestrol Acetate 400 mg 06/25/25 09:00 06/27/25 08:51 Megestrol Acet Susp 400 Mg/10 Ml Udc PO 07/25/25 08:59 400 mg QDAY JOANN Administration Midodrine 5 mg 06/26/25 00:30 06/27/25 12:31 Midodrine 5 Mg Tablet PO 07/26/25 00:29 5 mg Q4H JOANN Administration Ondansetron HCl 4 mg 06/22/25 17:55 Ondansetron Inj 2 Mg/Ml Inj 2 Ml IVP 07/22/25 17:54 Q6H PRN NAUSEA OR VOMITING Protocol Pantoprazole Sodium 40 mg 06/27/25 09:00 06/27/25 08:50 Pantoprazole 40 Mg Tablet PO 07/27/25 08:59 40 mg BID JOANN Administration Sennosides 1 tab 06/22/25 17:55 Senna Tablet PO 07/22/25 17:54 QDAY PRN constipation Protocol Sevelamer Carbonate 800 mg 06/24/25 17:30 06/26/25 18:11 Sevelamer Carbonate 800 Mg Tablet PO 07/24/25 17:29 800 mg On Hold: 06/27/25 07:27 TIDWM JOANN Administration Vitamin B Complex/Vit C/Folic Acid 1 tab 06/23/25 09:00 06/27/25 08:50 Vit B12/Vit C/Fa (Nephrovite) Tablet PO 07/23/25 08:59 1 tab QDAY JOANN Administration Plan Patient is a 69-year-old female with past medical history of arrhythmia, hypothyroidism, GERD, and depression who [place] [facility] [place] for pre-syncope, found to be in bradycardia HR low 30s, was initially admitted to ICU for severe symptomatic bradycardia requiring transcutaneous pacing (likely 2/2 digoxin toxicity, s/p DigiFab x 3) and now down-graded to floors after being weaned from dopamine gtt this morning. #Macrocytic anemia, asymptomatic, etiology unclear but possibly multifactorial #Vitamin B12 deficiency #Iron deficiency anemia #??Acute blood loss anemia Upon 06/22 admission, Hgb 4.7 (MCV 136, RDW 91.5), B12 level 92 (low) Initially, Hgb improved to 8-10s after pRBC transfusions, but then on 06/26 Hgb 8.5 -> 6.7 06/22 iron panel suggestive of iron deficiency anemia with possibly a mixed picture of ACD due to slightly low TIBC (230) Among the 3 broad causes of anemia (blood loss, hemolysis, and decreased RBC production), currently suspect it is most likely 2/2 hemolysis in some way A hemolytic etiology is supported by elevated LDH of 987, hyperbilirubinemia (admission TBili 3.5), high reticulocyte count 2.9, haptoglobin pending Acute blood loss anemia thought less likely due to lack of hematemesis, melena, hematochezia, or other overt bleeding noted during this admission (however, patient was noted to have had melena prior to admission and does have bilateral bruising of UE) Anemia 2/2 decreased RBC production also less likely due to reticulocytosis (indicating adequate RBC production) Peripheral blood smear showed severe macrocytic anemia with anisopoikilocytosis and low serum B12 level, consistent with B12 deficiency (no schistocytes noted) Currently s/p pRBC transfusion x 4 DDx: vitamin B12 deficiency 2/2 pernicious anemia, malnutrition, or malabsorptive etiologies like Crohn's disease, hemolysis 2/2 elevated blood homocysteine from B12 deficiency, occult blood loss, drug-induced anemia (patient has recent history of TMP-SMX use, which can cause low RBCs and platelets) Rx: -Consulted Heme/Onc (Dr. Omalley), appreciate recommendations -Follow up on results of endoscopic studies scheduled for today -Follow up on studies for anemia work-up -IV Vitamin B12 1000 mcg qD -PO Vitamin B12 / Vitamin C / Folate tab qD -IV iron sucrose complex 200 mg qD -IV Protonix 40 mg BID -Follow up on haptoglobin -CTM CBC (per Cardiology recommendations, maintain Hgb between 9-10 with pRBC transfusions as necessary) -GI onboard, appreciate recommendations #Thrombocytopenia (worsening) #Vitamin B12 deficiency Upon 06/22 admission, platelet count 66 May also be 2/2 vitamin B12 and iron deficiencies Patient is noted to have ecchymoses on BL UE 10/10 platelet count 26 DDx: drug-induced thrombocytopenia (patient has recent history of TMP-SMX use, which can cause low RBCs and platelets), ITP Rx: -Consulted Heme/Onc (Dr. Omalley), appreciate recommendations -Follow up on results of endoscopic studies scheduled for today -Follow up on studies for anemia work-up -Platelet transfusion if platelet count < 50 with active bleeding or < 10 #Bradycardia, likely 2/2 digoxin toxicity s/p DigiFab x 3, improving #Supraventricular junctional rhythm with narrow QRS with occasional PVC`s #??Atrial fibrillation / tachyarrhythmia #Acute hyperkalemia, resolved #HFpEF (EF 55-60%) (06/23/25) #Bilateral pleural effusions #Pulmonary hypertension, moderate to severe Patient initially presented on 06/22 with presyncopal episode and HR 20 which improved to 30 after atropine x 1. Takes amiodarone 200 mg daily, nadolol 40 mg daily, and digoxin 250 mg daily except for Sunday. Had last taken all of these medications the morning prior to arrival, likely reason why patient's heart rate did not increase despite anemia. Patient was transcutaneously paced at HR 60 upon arrival to ED, was later discontinued after HR stabilized to upper 30s after receiving dopamine and blood. Temporary transvenous pacemaker never done as patient was hemodynamically stable and did not require it. EKG showed supraventricular junctional rhythm with narrow QRS with occasional PVCs and HR 41. Patient did have hyperkalemia which was treated aggressively with insulin as well as glucose IV and Kayexalate. TTE 06/23/25 showed an EF of 55 to 60%, moderately dilated RV w/ severely elevated RVSP at 85 mmHg and RAP of 15 mmHg. Flat septum in both systole and diastole with D-shaped LV indicating both pressure and volume overload. IVC dilated and less than 50% collapse with inspiration. Left-sided pleural effusion noted. No pericardial effusion. CT A/P 06/25/25: Moderate CHF with superimposed pneumonia in the lung bases. Mild to moderate bilateral pleural effusions. Cirrhosis. Mild ascites. 7.5 cm renal cyst. s/p DigiFab x 3 Plan: -PO midodrine 5mg q4HR for borderline low MAPs (HR stable in low 50s) -IV Lasix 40 mg BID for moderate to severe pulmonary HTN seen on echo -Continue holding amiodarone, atenolol, digoxin -Maintain 5 > K > 4 and Mg > 2 -Strict I's and O's -Daily weights -Cardiac diet, 2 g sodium #Acute kidney injury versus acute on chronic kidney disease, most likely cardiorenal syndrome, improving Creatinine 2.0, previously 1.3 in 2020. Likely cardiorenal syndrome from fluid overload state in the setting of pulmonary hypertension. Continues to improve with diuresis Rx: -IV Lasix 40 mg BID -Avoid overdiuresis or other nephrotoxic agents #Hypotension Rx: -Continue PO midodrine 5mg q4HR #Hypothyroidism Rx: -Consider restarting home PO levothyroxine 100 mcg qD #Depression Rx: -Consider restarting home PO sertraline 50 mg q24HR Disposition: [facility] for work-up and management of macrocytic anemia and thrombocytopenia of unclear etiology DVT prophylaxis: SCD's GI prophylaxis: Protonix 40 mg IV BID Diet: Cardiac [place]: None CODE STATUS: Full Code Reason of hospitalization: Symptomatic Junctional Bradycardia Patient plan of care was discussed with the attending physician, Dr. Sepulveda & senior resident Dr. Mike Padilla, DO Internal Medicine, PGY-1
[2025-06-27] MEDS: RINGERS LACTATED 500 ML 500 ML 999 ML IV (13:14)
--- NOTE | 2025-06-27 14:20 | ESPR_ITS ---
<Statement entered by Anisa Travis MD - 06/28/25 19:10> I personally examined the patient evaluate the patient again patient's quite stable now no further episodes of bradycardia not requiring any vasopressors still on midodrine appears to be quite stable now will keep monitor the patient closely patient developed anemia requiring transfusion as well. No episodes of A-fib clinically quite stable no need for pacemaker implantation currently evaluated patient with resident physician Dr. Aristides MURILLO agree with the treatment plan recommendation as documented. Documentation for date of: 06/27/25 Subjective Subjective Interval history: No acute overnight events. Seen and examined at bedside in telemetry and patient resting comfortably in bed after her endoscopy that she tolerated well. She has now started on GoLytely prep for colonoscopy. She denies any palpitations, lightheadedness, chest discomfort or shortness of breath. BP on softer side at 90/40 and heart rate remains in the 50s but is sinus rhythm as seen on telemetry. Hemoglobin stable at 8.5, slight improvement in her renal function, phosphorus low but repleted. Exam Vital Signs Temp Pulse Resp BP Pulse Ox O2 Del Method O2 Flow Rate 97.3 F 51 L 16 98/43 L 92 L Room Air 1 06/27/25 12:00 06/27/25 12:31 06/27/25 12:00 06/27/25 12:31 06/27/25 12:00 06/27/25 12:00 06/27/25 08:30 Narrative Exam Physical Exam General: Awake and in no acute distress. Conversational and non-toxic appearing. HEENT: Normocephalic, atraumatic, mucous membranes moist. Heart: Regular rate and rhythm, normal S1 and S2, no murmurs appreciated. Lungs: Clear to auscultation with no wheezing or crackles. Abdomen: Soft, nondistended, nontender, positive bowel sounds. No guarding or rebound tenderness. Neurologic: Alert and oriented x3, no gross neurological deficit, and patient able to move all 4 extremities. Extremities: No edema. Skin: Patch of purpura on right arm near IV site. Another small patch on right leg above ankle. No rash observed. Objective Labs 06/27/25 11:00 06/27/25 05:35 Labs: Laboratory Results - last 24 hr 06/26/25 06/26/25 06/26/25 08:58 14:00 15:28 WBC RBC Hgb 7.7 L Hct 22.5 L MCV MCH MCHC RDW Std Deviation Plt Count Neut % (Auto) Lymph % (Auto) [place] % (Auto) Eos % (Auto) Baso % (Auto) Neut # (Auto) Lymph # (Auto) [place] # (Auto) Eos # (Auto) Baso # (Auto) Immature Gran # (Auto) Absolute Nucleated RBC Immature Gran % Nucleated RBC % Sodium Potassium Chloride Carbon Dioxide Anion Gap BUN Creatinine Estim Creat Clear Calc eGFR BUN/Creatinine Ratio Glucose Calculated Osmolality Calcium Corrected Calcium Phosphorus Magnesium Iron 60 TIBC 186 L Iron Saturation 32 Unsat Iron Binding 126 L Total Bilirubin AST ALT Alkaline Phosphatase Total Protein Albumin Globulin Albumin/Globulin Ratio Triglycerides Cholesterol LDL Cholesterol, Calc HDL Cholesterol Cholesterol/HDL Ratio Stool Occult Blood Negative Misc Test Result Crossmatch See Detail Blood Bank Comment PLATP Ready 06/26/25 06/27/25 06/27/25 20:52 05:35 11:00 WBC 5.5 2.7 L D 6.0 D RBC 2.24 L 2.20 L 2.36 L Hgb 8.1 L 8.0 L 8.5 L Hct 23.6 L 23.5 L 25.0 L MCV 105 H 107 H 106 H MCH 36.2 H 36.4 H 36.0 H MCHC 34.3 34.0 34.0 RDW Std Deviation Not Performed. Not Performed. Not Performed. Plt Count 24 L* 34 L D 33 L Neut % (Auto) 63 58 63 Lymph % (Auto) 26 31 27 [place] % (Auto) 11 11 10 Eos % (Auto) 0 0 0 Baso % (Auto) 0 0 0 Neut # (Auto) 3.5 1.5 L 3.8 Lymph # (Auto) 1.4 0.8 L 1.6 [place] # (Auto) 0.6 0.3 0.6 Eos # (Auto) 0.0 0.0 0.0 Baso # (Auto) 0.0 0.0 0.0 Immature Gran # (Auto) 0.03 H 0.02 H 0.01 H Absolute Nucleated RBC 0.00 0.00 0.00 Immature Gran % 1 H 1 H 0 Nucleated RBC % 0 0 0 Sodium 147 H Potassium 4.0 Chloride 106 Carbon Dioxide 30.7 Anion Gap 10 BUN 29 H Creatinine 1.3 Estim Creat Clear Calc 46.7 L eGFR 45 L BUN/Creatinine Ratio 22 H Glucose 99 Calculated Osmolality 298 H Calcium 8.3 Corrected Calcium 8.8 Phosphorus 2.3 L Magnesium 2.2 Iron TIBC Iron Saturation Unsat Iron Binding Total Bilirubin 1.9 H AST 31 ALT 21 Alkaline Phosphatase 46 Total Protein 5.3 L Albumin 3.4 Globulin 1.9 L Albumin/Globulin Ratio 1.8 Triglycerides 106 Cholesterol 82 L LDL Cholesterol, Calc 42 HDL Cholesterol 19 L Cholesterol/HDL Ratio 4.3 Stool Occult Blood Misc Test Result Platelets confirmed Platelets confirmed Platelets confirmed Crossmatch Blood Bank Comment ABG Interpretation ABG results: 06/23/25 03:22 ABG pH 7.31 L ABG pCO2 40 ABG pO2 69 L ABG HCO3 20 ABG O2 Saturation 94 ABG Base Excess -6 L Quality Measures Quality Measures VTE prophylaxis (SCDs) Advance care planning discussed with:: patient and spouse Assessment & Plan Assessment Current Active Medications: Generic Name Dose Route Start Last Admin Trade Name Freq PRN Reason Stop Dose Admin Acetaminophen 1,000 mg 06/23/25 20:13 Acetaminophen 500 Mg Tablet PO 07/23/25 20:12 Q6HR PRN fever >99.9 Cyanocobalamin 1,000 mcg 06/24/25 07:00 06/27/25 08:51 Cyanocobalamin Inj 1,000 Mcg/Ml Vial IM 06/29/25 06:59 1,000 mcg DAILY JOANN Administration Dextrose 25 ml 06/22/25 18:00 Dextrose 50%-Water Inj 50 Ml Syringe IV 07/22/25 17:59 Q15MIN PRN BG 50-70 responsive npo pt Dextrose 50 ml 06/22/25 18:00 Dextrose 50%-Water Inj 50 Ml Syringe IV 07/22/25 17:59 Q15MIN PRN BG <50 OR BG <70 & pt unresponsive Diclofenac Sodium 2 gm 06/23/25 09:00 06/26/25 21:47 Diclofenac 1% Top Gel 100 Gm Tube TOP 07/23/25 08:59 Not Given On Hold: 06/27/25 07:26 BID JOANN Furosemide 40 mg 06/26/25 07:45 06/27/25 05:21 Furosemide Inj 10 Mg/Ml 4ml Vial IVP 07/26/25 07:44 40 mg BIDD JOANN Administration Glucagon 1 mg 06/22/25 18:00 Glucagon Inj 1 Mg Vial IM Q15MIN PRN BG <70, and no IV access Insulin Human Lispro 0 unit 06/24/25 12:00 06/27/25 12:00 Insulin Lispro (Admelog) 1 Unit/0.01 Ml Unit SC 07/24/25 11:59 Not Given ACHS JOANN Protocol Iron Sucrose 200 mg 06/26/25 05:00 06/27/25 08:51 Iron Sucrose Cplx Inj 20 Mg/Ml Vial 5 Ml IVP 06/30/25 05:00 200 mg DAILY JOANN Administration Levothyroxine Sodium 100 mcg 06/25/25 06:00 06/27/25 05:20 Levothyroxine Sodium 100 Mcg Tablet PO 07/25/25 05:59 100 mcg ACBR JOANN Administration Megestrol Acetate 400 mg 06/25/25 09:00 06/27/25 08:51 Megestrol Acet Susp 400 Mg/10 Ml Udc PO 07/25/25 08:59 400 mg QDAY JOANN Administration Midodrine 5 mg 06/26/25 00:30 06/27/25 12:31 Midodrine 5 Mg Tablet PO 07/26/25 00:29 5 mg Q4H JOANN Administration Ondansetron HCl 4 mg 06/22/25 17:55 Ondansetron Inj 2 Mg/Ml Inj 2 Ml IVP 07/22/25 17:54 Q6H PRN NAUSEA OR VOMITING Protocol Pantoprazole Sodium 40 mg 06/27/25 09:00 06/27/25 08:50 Pantoprazole 40 Mg Tablet PO 07/27/25 08:59 40 mg BID JOANN Administration Sennosides 1 tab 06/22/25 17:55 Senna Tablet PO 07/22/25 17:54 QDAY PRN constipation Protocol Sevelamer Carbonate 800 mg 06/24/25 17:30 06/26/25 18:11 Sevelamer Carbonate 800 Mg Tablet PO 07/24/25 17:29 800 mg On Hold: 06/27/25 07:27 TIDWM JOANN Administration Vitamin B Complex/Vit C/Folic Acid 1 tab 06/23/25 09:00 06/27/25 08:50 Vit B12/Vit C/Fa (Nephrovite) Tablet PO 07/23/25 08:59 1 tab QDAY JOANN Administration Plan 69-year-old female with history of arrhythmia, hypothyroidism, GERD, depression who presents to the [facility] ED on 06/22/25 for pre-syncope, found to be in bradycardia HR low 30s requiring transcutaneous pacing. Originally admitted to ICU for the severe bradycardia with need for transcutaneous pacing and possible temporary pacemaker placement but now stable off pacer pads and downgraded to floors. #Bradycardia likely secondary to digoxin toxicity s/p DigiFab, improving #Supraventricular junctional rhythm with narrow QRS with occasional PVC's #? Atrial fibrillation/tachyarrhythmia #Acute hyperkalemia, resolved #HFpEF (EF 55-60%, 06/23) #Bilateral pleural effusions #Pulmonary hypertension, moderate to severe Found to have heart rate of 20s at home after presyncopal episode. Upon arrival, heart rate improved to 30s status post atropine x 1 in setting of hemoglobin of 4.7. Takes amiodarone 200 mg daily, nadolol 40 mg daily, digoxin 250 mg daily except for Sunday. Last took all medications morning prior to arrival, likely reason why patient's heart rate did not increase despite anemia. Started on transcutaneously pacing at 130 mA with rate set at 70 bpm in ED but discontinued after HR stabilized to upper 30s after receiving dopamine and blood. Temporary transvenous pacemaker not indicated as she remained hemodynamically stable. EKG showed supraventricular junctional rhythm with narrow QRS with occasional PVCs with HR at 41. TTE 06/23: Normal LV size and wall thickness, EF 55-60%. Indeterminate diastolic function. Moderately dilated RV. Normal RV function. Severely elevated RVSP at 85 mmHg with RAP of 15 mmHg. Flat septum in both systole and diastole with D-shaped LV indicating both pressure and volume overload. Moderate TR. Mild to moderate MR, possible bicuspid aortic valve. Mild AR. IVC dilated and less than 50% collapse with inspiration. Left-sided pleural effusion noted. No pericardial effusion. CT A/P 06/25: Moderate CHF with superimposed pneumonia in the lung bases. Mild to moderate bilateral pleural effusions. Cirrhosis. Mild ascites. 7.5 cm renal cyst. ? Hold amiodarone, atenolol, and digoxin ? S/p 3 vials of Digifab per poison control and levels decreased to 1.9 but repeat level increased to 2.1 -> another reduced dose of DigiFab. ? S/p dopamine drip and now on midodrine 5 mg p.o. q4h ? Lasix 40 mg IV twice daily for moderate to severe pulmonary hypertension noted on echo ? Keep hemoglobin between 9-10 and transfuse as needed ? Keep K > 4 and Mg > 2 at all times ? Continue monitoring on telemetry ? Strict I's and O's, daily weights, cardiac diet (2 g sodium) #Severe anemia #Chronic macrocytic anemia #Thrombocytopenia #? GI bleed Presented with paleness but progressive for 2 weeks prior to arrival with associated dark stools. Around this time she was started on Bactrim and Z-Girish for upper respiratory virus by PCP. Never had a colonoscopy. On admission, WBC 7.8, hemoglobin 4.7, platelets 66. Suspect severe blood loss but will need to rule out other causes. Iron panel 06/22: Elevated iron, iron saturation, unsaturated iron binding, ferritin. Reticulocyte count elevated 2.9. B12 low at 92. Folate wnl. Peripheral smear 12/2018 showed macrocytic RBCs with anisocytosis and no significant polkilocytosis. Underwent EGD on 06/27 and showed oozing 10 mm superficial gastric ulcer at antrum that was treated with heater probe but does not fully explain initial hemoglobin of 4.7 so started on GoLytely prep for colonoscopy. ? GI consulted, appreciate recommendations ? Keep hemoglobin between 9 and 10 ? Recommend to start on IV iron ? First iron panel likely falsely elevated as it may have been drawn after first unit of pRBC was given and repeat iron level shows low iron ? Vitamin B12 1000 mcg daily ? Defer thrombocytopenia workup to primary team #Acute kidney injury versus acute on chronic kidney disease, most likely cardiorenal syndrome, improving Creatinine 2.0, previously 1.3 in 2020. Likely cardiorenal syndrome from fluid overload state in the setting of pulmonary hypertension. Continues to improve with diuresis. ? Lasix as above ? CTM creatinine ? Avoid overdiuresis or other nephrotoxic agents #Hypothyroidism #Depression ? Resume home meds once stable ----- Plan discussed with attending physician Dr. Thaddeus Murillo MD PGY-2 Internal Medicine
[2025-06-27] MEDS: SODIUM CHLORIDE 0.9% 500 ML 500 ML 20 ML IV (15:00)
[2025-06-27] MEDS: GLUCAGON INJ 1 MG VIAL 0.3 MG IVP ×2 (15:27→15:33)
--- NOTE | 2025-06-27 15:48 | SUR.PHASEI ---
1544 patient is sleepy and arousable, breathing unlabored, s/p EGD by Dr. Suazo, report received from Caroline SHANKAR.
[2025-06-27] MEDS: NA SU/NAHCO3/KC/PEG (Golytely) 4,000 ML BTL 4000 ML PO (16:38)
--- NOTE | 2025-06-27 16:46 | SUR.PHASEI ---
1618 patient is awake, alert, breathing unlabored, report given to Felipe RN, patient transferred back to room [id number] with tele box.
[2025-06-27 18:28] LABS: HIV (1&2) Antibody Rapid Non-Reactive
[2025-06-28] VITALS (34 sets, daily range): BP systolic 86–173; BP diastolic 39–93; PULSE 53–64; RESP 13–99; TEMP 36.1–36.7; O2SAT 91–100
[2025-06-28] MEDS: LEVOTHYROXINE SODIUM 100 MCG TABLET PO (05:15)
[2025-06-28] MEDS: MIDODRINE 5 MG TABLET PO ×5 (05:15→20:24)
[2025-06-28 06:09] LABS: Basophils # (Auto) 0.0 Thou/mm3 (0.0-0.2); Basophils % (Auto) 0 % (0-2.5); Eosinophils # (Auto) 0.0 Thou/mm3 (0.0-0.5); Eosinophils % (Auto) 0 % (0-10); Hematocrit 22.4 % (36.0-46.0); Immature Granulocytes Auto 0.03 Thou/mm3 (0.00-0.00); Lymphocytes # (Auto) 1.5 Thou/mm3 (1.0-4.8); Lymphocytes % (Auto) 33 % (10-50); Mean Corpuscular HGB Conc 33.9 g/dl (31.0-37.0); Mean Corpuscular Hemoglobin 36.2 pg (25.0-35.0); Mean Corpuscular Volume 107 fL (80-100); Monocytes # (Auto) 0.6 Thou/mm3 (0.0-0.8); Monocytes % (Auto) 12 % (0-12); Neutrophils # (Auto) 2.6 Thou/mm3 (1.8-7.7); Neutrophils % (Auto) 55 % (37-80); Nucleated Red Blood Cell # 0.02 Thou/mm3 (0.00-0.00); Nucleated Red Blood Cell % 0 /100 WBC (0); Red Blood Count 2.10 Miln/mm3 (4.00-5.20); White Blood Count 4.7 Thou/mm3 (3.6-11.0)
[2025-06-28] MEDS: FUROSEMIDE INJ 10 MG/ML 4ML VIAL 40 MG IVP ×2 (06:15→17:48)
[2025-06-28 06:29] LABS: Hemoglobin 7.6 g/dL (12.0-16.0); Platelet Count 58 Thou/mm3 (140-440)
[2025-06-28 06:38] LABS: Alanine Aminotransferase 21 U/L (10-49); Albumin, Serum 3.1 gm/dL (3.4-4.8); Albumin/Globulin Ratio 1.7 (1.2-2.2); Alkaline Phosphatase 44 U/L (46-116); Anion Gap 11 (7-16); Aspartate Amino Transferase 37 U/L (0-34); BUN/Creatinine Ratio 18 Ratio (12-20); Bilirubin,Total 1.8 mg/dL (0.3-1.2); Blood Urea Nitrogen 20 mg/dL (9-23); Calcium 8.1 mg/dL (8.3-10.6); Calcium (Corrected) 8.8 mg/dL (8.5-10.1); Carbon Dioxide 30.5 mMol/L (20.0-31.0); Chloride 105 mMol/L (98-107); Creatinine (Component) 1.1 mg/dL (0.6-1.3); Estimated Creatinine Clearance 55.1 mL/min (>60); Globulin 1.8 gm/dL (2.3-3.5); Glucose 81 mg/dL (74-106); Magnesium 2.0 mg/dL (1.6-2.6); Osmolality,Calculated 292 (275-295); Phosphorous 2.2 mg/dL (2.4-5.1); Potassium 3.8 mMol/L (3.4-5.1); Sodium 146 mMol/L (136-145); Total Protein 4.9 gm/dL (5.7-8.2); eGFR 55 See Note
[2025-06-28 07:53] LABS: Slide Review Platelets confirmed
[2025-06-28] MEDS: POTASSIUM CHL 10 mEq IVPB 10 MEQ/100 ML BAG 50 MEQ IV ×2 (08:58→11:54)
[2025-06-28] MEDS: IRON SUCROSE CPLX INJ 20 MG/ML VIAL 5 ML 200 MG IVP (08:59)
[2025-06-28] MEDS: PANTOPRAZOLE 40 MG TABLET PO ×2 (09:00→20:24)
--- NOTE | 2025-06-28 10:22 | ESPR_ITS ---
Documentation for date of: 06/28/25 Subjective Subjective Interval history: Patient seen and assessed at bedside. No new complaints this morning, denies chest pain, palpitations, shortness of breath, dizziness with standing/ambulation. Continues to have good urine output, net -1390 cc overnight. BP 111/60, HR 55-60, still on midodrine 5 mg q4hr. Occasional bigeminy on telemetry but otherwise sinus. Potassium 3.8, Mg 2.0, replete. Hgb dropped to 7.6, from 8.5, recommend to keep Hgb 9-10. Plan for colonoscopy today, pending blood work up for anemia and thrombocytopenia. Exam Vital Signs Temp Pulse Resp BP Pulse Ox O2 Del Method O2 Flow Rate 97.4 F 55 L 23 H 111/60 93 L Room Air 3 06/28/25 08:00 06/28/25 09:00 06/28/25 08:00 06/28/25 09:00 06/28/25 08:00 06/28/25 08:00 06/27/25 15:49 Narrative Exam Physical Exam General: Awake and in no acute distress. Conversational and non-toxic appearing. HEENT: Normocephalic, atraumatic, mucous membranes moist. Heart: Regular rate and rhythm, normal S1 and S2, no murmurs appreciated. Lungs: Clear to auscultation with no wheezing or crackles. Abdomen: Soft, nondistended, nontender, positive bowel sounds. No guarding or rebound tenderness. Neurologic: Alert and oriented x3, no gross neurological deficit, and patient able to move all 4 extremities. Extremities: No edema. Skin: Patch of purpura on right arm near IV site. Another small patch on right leg above ankle. No rash observed. Objective Labs 06/29/25 05:24 06/29/25 05:24 Labs: Laboratory Results - last 24 hr 06/26/25 06/27/25 06/27/25 08:58 05:35 11:00 WBC 6.0 D RBC 2.36 L Hgb 8.5 L Hct 25.0 L MCV 106 H MCH 36.0 H MCHC 34.0 RDW Std Deviation Not Performed. Plt Count 33 L Neut % (Auto) 63 Lymph % (Auto) 27 [place] % (Auto) 10 Eos % (Auto) 0 Baso % (Auto) 0 Neut # (Auto) 3.8 Lymph # (Auto) 1.6 [place] # (Auto) 0.6 Eos # (Auto) 0.0 Baso # (Auto) 0.0 Immature Gran # (Auto) 0.01 H Absolute Nucleated RBC 0.00 Immature Gran % 0 Nucleated RBC % 0 Sodium Potassium Chloride Carbon Dioxide Anion Gap BUN Creatinine Estim Creat Clear Calc eGFR BUN/Creatinine Ratio Glucose Calculated Osmolality Calcium Corrected Calcium Phosphorus Magnesium Total Bilirubin AST ALT Alkaline Phosphatase Total Protein Albumin Globulin Albumin/Globulin Ratio HIV 1&2 Antibody Rapid Non-Reactive Misc Test Result Platelets confirmed Blood Type O Positive Antibody Screen NEGATIVE Crossmatch See Detail Blood Bank Wristband ID Yes Blood Bank Comment PLATP Ready 06/28/25 04:45 WBC 4.7 RBC 2.10 L Hgb 7.6 L Hct 22.4 L MCV 107 H MCH 36.2 H MCHC 33.9 RDW Std Deviation Not Performed. Plt Count 58 L D Neut % (Auto) 55 Lymph % (Auto) 33 [place] % (Auto) 12 Eos % (Auto) 0 Baso % (Auto) 0 Neut # (Auto) 2.6 Lymph # (Auto) 1.5 [place] # (Auto) 0.6 Eos # (Auto) 0.0 Baso # (Auto) 0.0 Immature Gran # (Auto) 0.03 H Absolute Nucleated RBC 0.02 H Immature Gran % 1 H Nucleated RBC % 0 Sodium 146 H Potassium 3.8 Chloride 105 Carbon Dioxide 30.5 Anion Gap 11 BUN 20 Creatinine 1.1 Estim Creat Clear Calc 55.1 L eGFR 55 L BUN/Creatinine Ratio 18 Glucose 81 Calculated Osmolality 292 Calcium 8.1 L Corrected Calcium 8.8 Phosphorus 2.2 L Magnesium 2.0 Total Bilirubin 1.8 H AST 37 H ALT 21 Alkaline Phosphatase 44 L Total Protein 4.9 L Albumin 3.1 L Globulin 1.8 L Albumin/Globulin Ratio 1.7 HIV 1&2 Antibody Rapid Misc Test Result Platelets confirmed Blood Type Antibody Screen Crossmatch Blood Bank Wristband ID Blood Bank Comment ABG Interpretation ABG results: 06/23/25 03:22 ABG pH 7.31 L ABG pCO2 40 ABG pO2 69 L ABG HCO3 20 ABG O2 Saturation 94 ABG Base Excess -6 L Quality Measures Quality Measures VTE prophylaxis (SCDs) Advance care planning discussed with:: patient Assessment & Plan Assessment Current Active Medications: Generic Name Dose Route Start Last Admin Trade Name Noah PRN Reason Stop Dose Admin Acetaminophen 1,000 mg 06/23/25 20:13 Acetaminophen 500 Mg Tablet PO 07/23/25 20:12 Q6HR PRN fever >99.9 Cyanocobalamin 1,000 mcg 06/24/25 07:00 06/28/25 08:59 Cyanocobalamin Inj 1,000 Mcg/Ml Vial IM 06/29/25 06:59 1,000 mcg DAILY JOANN Administration Dextrose 25 ml 06/22/25 18:00 Dextrose 50%-Water Inj 50 Ml Syringe IV 07/22/25 17:59 Q15MIN PRN BG 50-70 responsive npo pt Dextrose 50 ml 06/22/25 18:00 Dextrose 50%-Water Inj 50 Ml Syringe IV 07/22/25 17:59 Q15MIN PRN BG <50 OR BG <70 & pt unresponsive Diclofenac Sodium 2 gm 06/23/25 09:00 06/26/25 21:47 Diclofenac 1% Top Gel 100 Gm Tube TOP 07/23/25 08:59 Not Given On Hold: 06/27/25 07:26 BID JOANN Furosemide 40 mg 06/26/25 07:45 06/28/25 06:15 Furosemide Inj 10 Mg/Ml 4ml Vial IVP 07/26/25 07:44 40 mg BIDD JOANN Administration Glucagon 1 mg 06/22/25 18:00 Glucagon Inj 1 Mg Vial IM Q15MIN PRN BG <70, and no IV access Sodium Chloride 500 mls @ 20 mls/hr 06/27/25 15:00 06/27/25 15:00 Ns IV 06/28/25 14:59 20 mls/hr .Q24H ONE Administration Insulin Human Lispro 0 unit 06/24/25 12:00 06/28/25 08:25 Insulin Lispro (Admelog) 1 Unit/0.01 Ml Unit SC 07/24/25 11:59 Not Given ACHS JOANN Protocol Iron Sucrose 200 mg 06/26/25 05:00 06/28/25 08:59 Iron Sucrose Cplx Inj 20 Mg/Ml Vial 5 Ml IVP 06/30/25 05:00 200 mg DAILY JOANN Administration Levothyroxine Sodium 100 mcg 06/25/25 06:00 06/28/25 05:15 Levothyroxine Sodium 100 Mcg Tablet PO 07/25/25 05:59 100 mcg ACBR JOANN Administration Megestrol Acetate 400 mg 06/25/25 09:00 06/28/25 09:11 Megestrol Acet Susp 400 Mg/10 Ml Udc PO 07/25/25 08:59 Not Given QDAY JOANN Midodrine 5 mg 06/26/25 00:30 06/28/25 09:00 Midodrine 5 Mg Tablet PO 07/26/25 00:29 5 mg Q4H JOANN Administration Ondansetron HCl 4 mg 06/22/25 17:55 Ondansetron Inj 2 Mg/Ml Inj 2 Ml IVP 07/22/25 17:54 Q6H PRN NAUSEA OR VOMITING Protocol Pantoprazole Sodium 40 mg 06/27/25 09:00 06/28/25 09:00 Pantoprazole 40 Mg Tablet PO 07/27/25 08:59 40 mg BID JOANN Administration Sennosides 1 tab 06/22/25 17:55 Senna Tablet PO 07/22/25 17:54 QDAY PRN constipation Protocol Sevelamer Carbonate 800 mg 06/24/25 17:30 06/26/25 18:11 Sevelamer Carbonate 800 Mg Tablet PO 07/24/25 17:29 800 mg On Hold: 06/27/25 07:27 TIDWM JOANN Administration Vitamin B Complex/Vit C/Folic Acid 1 tab 06/23/25 09:00 06/28/25 09:11 Vit B12/Vit C/Fa (Nephrovite) Tablet PO 07/23/25 08:59 Not Given QDAY JOANN Plan Patient is a 69-year-old female with past medical history of arrhythmia, hypothyroidism, GERD, depression who presents to the [facility] ED on 06/22/25 for pre- syncope, found to be in bradycardia HR low 30s requiring transcutaneous pacing, admitted to ICU for the severe bradycardia with need for ventricular junctional rhythm requiring transcutaneous pacing and possible temporary pacemaker placement. Is now stable off pacer pads with daily improvement in heart rate after digifab. #Bradycardia likely secondary to digoxin toxicity s/p DigiFab, improving #Supraventricular junctional rhythm with narrow QRS with occasional PVC`s # ? Atrial fibrillation / tachyarrhythmia #Acute hyperkalemia, resolved # HFpEF (EF 55-60%) (06/23/25) #Bilateral pleural effusions #Pulmonary hypertension, moderate to severe #Hypotension Was found to have heart rate of 20s at home after presyncopal episode. Upon arrival heart rate improved to 30s, status post atropine x 1. Patient is not on anticoagulation. Previously seeing Dr. Meyer. Was told that she has an arrhythmia however is not on anticoagulation. Takes amiodarone 200 mg daily, nadolol 40 mg daily, digoxin 250 mg daily except for Sunday. Last took all of these medications this morning prior to arrival, likely reason why patient's heart rate did not increase despite anemia. Patient was transcutaneously paced at HR 60 upon arrival to ED, was later discontinued after HR stabilized to upper 30s after receiving dopamine and blood. Temporary transvenous pacemaker never done as patient was hemodynamically stable did not require it. EKG showed supraventricular junctional rhythm with narrow QRS with occasional PVCs. Heart rate 41. Patient did have hyperkalemia which was treated aggressively with insulin as well as glucose IV and Kayexalate. TTE 06/23/25 showed normal LV size and wall thickness. Normal LV function with an EF of 55 to 60%. Indeterminate diastolic function. Moderately dilated RV. Normal RV function. Severely elevated RVSP at 85 mmHg with RAP of 15 mmHg. Flat septum in both systole and diastole with D-shaped LV indicating both pressure and volume overload. Moderate TR. Mild to moderate MR possible bicuspid aortic valve. Mild AR. IVC dilated and less than 50% collapse with inspiration. Left- sided pleural effusion noted. No pericardial effusion. CT A/P 06/25/25: Moderate CHF with superimposed pneumonia in the lung bases. Mild to moderate bilateral pleural effusions. Cirrhosis. Mild ascites. 7.5 cm renal cyst. Plan: ? Hold amiodarone, atenolol, digoxin - S/p digifab 3 vials per poison control. Digoxin level decreased to 1.9. Repeat digoxin level increased to 2.1, ICU team gave another reduced dose of DigiFab. - Previously started on dopamine drip, now completely weaned off. Midodrine 5 mg q4hr due to borderline low MAPs, wean as tolerated. Heart rate continues to improve. ? IV Lasix 40 mg twice daily for stress moderate to severe pulmonary hypertension noted on echo. ?Keep Hgb btwn 9-10. Transfuse as needed. ?Recommend to keep potassium between 4 and 5 and deviation greater than 2 at all times. - Keep magnesium greater than 2 at all times. ? Continue telemetry ?Strict I's and O's ?Daily weights ?Cardiac diet, 2 g sodium #Cardiorenal syndrome, improving Creatinine 2.0, previously 1.3 in 2020. Previously unclear if patient had CAN or acute on chronic renal disease as last known baseline was in 2020. Likely cardiorenal syndrome from fluid overload state in the setting of pulmonary hypertension. Creatinine continues to improve with diuresis. ?Lasix as above ?CTM creatinine ?Avoid overdiuresis or other nephrotoxic agents #Severe anemia #Chronic macrocytic anemia #Thrombocytopenia #Hyperbilirubinemia #Mild transaminitis #? GI bleed Presented with paleness, has been progressive for the past 2 weeks. Reports also starting 2 weeks ago, patient has had decreased appetite and dark stools. Around this time she was also started on Bactrim and Z-Girish for upper respiratory virus by PCP. Patient thought that dark stools was a side effect of the medications. Never had a colonoscopy. On admission, WBC 7.8, hemoglobin 4.7. Platelet 66, possibly secondary to severe blood loss but will need to rule out other causes. BNP 1285 Iron panel 06/22/25: Elevated iron, iron saturation, unsaturated iron binding, ferritin. Reticulocyte count elevated 2.9. Vitamin B12 was low at 92. Folate was within normal limits. Peripheral smear in December 2018 showed macrocytic RBCs with anisocytosis and no significant polkilocytosis. 06/23/25: Hgb improved to 8.8 s/p second unit, 9.2 after 3rd bag. 06/24/2025: Hemoglobin 9.9, improving. Platelets dropped to 30 from 70 yesterday. 06/25/25: Hgb dropped to 8.5. 06/26/25: Hemoglobin dropped to 6.7, platelets 26. S/p 1 unit PRBC, hemoglobin improved to 7.5. Hemoccult negative. Endoscopy 06/27/25 showed 10 mm oozing superficial gastric ulcer (Tyrrell class Ib) with oozing hemorrhage, s/p hemostasis. Normal esophagus and duodenum. - Keep the hemoglobin between 9 and 10. - First iron panel shows likely falsely we elevated levels, possible that sample was drawn after first unit of PRBC was given. Continue IV iron as repeat iron level shows low iron. - Vitamin B12 1000 mcg daily - GI consulted: DAREK and AMA is pending, will further order actin IgG antibody iron saturation studies copper level is still low plasmin level and anti-smooth muscle antibody. If workup negative, consider liver biopsy. Plan for colonoscopy. - Defer to primary team for thrombocytopenia workup. Donor Recruitment Manager consulted by primary team. #Hypothyroidism #Depression ?Resume home meds once stable Thank you for your consultation, please do not hesitate to reach out if you have any question or concern Patient plan of care was discussed with the attending physician, Dr. Perdomo . Surekha Horn, PGY-1 Attending Provider Attestation/Addendum I have personally seen and examined the patient separately on the above date of service and discussed the plan of care with the resident. I reviewed the resident Dr. Surekha Horn consultation progress note and agree with the resident findings and plan in the note above and have also edited the documentation to reflect my findings and plan. Juan Perdomo M.D. Interventional Cardiology
--- NOTE | 2025-06-28 11:57 | ESPR_ITS ---
<Statement entered by Gustavo Sepulveda MD - 07/10/25 17:18> I reviewed above note and agree with findings and plans. I have also personally examined the patient with medicine team and went over assessment and plan with medical team including digital marketing intern and resident physician. <Statement entered by Boogie Tello MD - 06/29/25 05:43> I saw and examined patient personally and supervised PGY 1 resident, Dr. Padilla with formulating a management plan. I agree with the documentation with the exceptions as listed below. Patient currently receiving 1 unit PRBC. Scheduled for colonoscopy today. Heme oncologist, Dr. Omalley was consulted pending recommendations. Plan of care discussed with Attending Dr. Derick Tello MD PGY 2 Disclaimer: This note was dictated by speech recognition. Minor errors in denture laboratory technician may be present due to voice recognition software. Documentation for date of: 06/28/25 Subjective Subjective Interval history: No overnight events. Patient was examined at bedside; she appears A&Ox4 and in NAD. Vitals/labs today significant for BP 130/60, HR 55, Hgb 8.5 -> 7.6 (MCV 107), plt# 33 -> 58, creatinine 1.3 -> 1.1, and TBili 1.9 -> 1.8. Upper endoscopy performed yesterday showed an oozing gastric ulcer w/ some hemorrhage (Abner Class IB) that was treated with heater probe. Patient is pending lower endoscopy today. Heme/Onc has been consulted (Dr. Omalley), appreciate recommendations and insight on patient's ongoing anemia. Exam Vital Signs Temp Pulse Resp BP Pulse Ox O2 Del Method O2 Flow Rate 97.1 F 58 L 16 123/57 L 93 L Room Air 3 06/28/25 11:11 06/28/25 11:11 06/28/25 11:11 06/28/25 11:11 06/28/25 11:11 06/28/25 08:00 06/27/25 15:49 Narrative Exam General: No acute distress; A&Ox4 Skin: Upper extremity bruising bilaterally; warm, dry, no obvious rash. Facial color continues to be greatly improved compared to admission being pale. HENT: NCAT, EOMI, not icteric. External ears normal. No rhinorrhea. Moist mucous membranes. No mucous bleeding noted. Cardiovascular: Systolic murmur that is most easily heard at the pulmonic listening post. Bradycardic rate and normal rhythm, +S1/S2. Respiratory: Lungs CTAB GI: Soft, nontender, non-distended. No guarding or rebound tenderness. Extremities: no edema, no cyanosis, no clubbing. Extremity pulses present Neuro: Grossly nonfocal. Alert and oriented, moving all 4 extremities. CN not formally tested but appear grossly intact. Psychiatric: Cooperative, appropriate affect. Objective Labs 06/28/25 04:45 06/28/25 04:45 Labs: Laboratory Results - last 24 hr 06/26/25 06/27/25 06/27/25 08:58 05:35 11:00 WBC 6.0 D RBC 2.36 L Hgb 8.5 L Hct 25.0 L MCV 106 H MCH 36.0 H MCHC 34.0 RDW Std Deviation Not Performed. Plt Count 33 L Neut % (Auto) 63 Lymph % (Auto) 27 [place] % (Auto) 10 Eos % (Auto) 0 Baso % (Auto) 0 Neut # (Auto) 3.8 Lymph # (Auto) 1.6 [place] # (Auto) 0.6 Eos # (Auto) 0.0 Baso # (Auto) 0.0 Immature Gran # (Auto) 0.01 H Absolute Nucleated RBC 0.00 Immature Gran % 0 Nucleated RBC % 0 Sodium Potassium Chloride Carbon Dioxide Anion Gap BUN Creatinine Estim Creat Clear Calc eGFR BUN/Creatinine Ratio Glucose Calculated Osmolality Calcium Corrected Calcium Phosphorus Magnesium Total Bilirubin AST ALT Alkaline Phosphatase Total Protein Albumin Globulin Albumin/Globulin Ratio HIV 1&2 Antibody Rapid Non-Reactive Misc Test Result Platelets confirmed Blood Type O Positive Antibody Screen NEGATIVE Crossmatch See Detail Blood Bank Wristband ID Yes Blood Bank Comment PLATP Ready 06/28/25 04:45 WBC 4.7 RBC 2.10 L Hgb 7.6 L Hct 22.4 L MCV 107 H MCH 36.2 H MCHC 33.9 RDW Std Deviation Not Performed. Plt Count 58 L D Neut % (Auto) 55 Lymph % (Auto) 33 [place] % (Auto) 12 Eos % (Auto) 0 Baso % (Auto) 0 Neut # (Auto) 2.6 Lymph # (Auto) 1.5 [place] # (Auto) 0.6 Eos # (Auto) 0.0 Baso # (Auto) 0.0 Immature Gran # (Auto) 0.03 H Absolute Nucleated RBC 0.02 H Immature Gran % 1 H Nucleated RBC % 0 Sodium 146 H Potassium 3.8 Chloride 105 Carbon Dioxide 30.5 Anion Gap 11 BUN 20 Creatinine 1.1 Estim Creat Clear Calc 55.1 L eGFR 55 L BUN/Creatinine Ratio 18 Glucose 81 Calculated Osmolality 292 Calcium 8.1 L Corrected Calcium 8.8 Phosphorus 2.2 L Magnesium 2.0 Total Bilirubin 1.8 H AST 37 H ALT 21 Alkaline Phosphatase 44 L Total Protein 4.9 L Albumin 3.1 L Globulin 1.8 L Albumin/Globulin Ratio 1.7 HIV 1&2 Antibody Rapid Misc Test Result Platelets confirmed Blood Type Antibody Screen Crossmatch Blood Bank Wristband ID Blood Bank Comment ABG Interpretation ABG results: 06/23/25 03:22 ABG pH 7.31 L ABG pCO2 40 ABG pO2 69 L ABG HCO3 20 ABG O2 Saturation 94 ABG Base Excess -6 L Quality Measures Quality Measures VTE prophylaxis (SCDs) Advance care planning discussed with:: patient Assessment & Plan Assessment Current Active Medications: Generic Name Dose Route Start Last Admin Trade Name Freq PRN Reason Stop Dose Admin Acetaminophen 1,000 mg 06/23/25 20:13 Acetaminophen 500 Mg Tablet PO 07/23/25 20:12 Q6HR PRN fever >99.9 Cyanocobalamin 1,000 mcg 06/24/25 07:00 06/28/25 08:59 Cyanocobalamin Inj 1,000 Mcg/Ml Vial IM 06/29/25 06:59 1,000 mcg DAILY JOANN Administration Dextrose 25 ml 06/22/25 18:00 Dextrose 50%-Water Inj 50 Ml Syringe IV 07/22/25 17:59 Q15MIN PRN BG 50-70 responsive npo pt Dextrose 50 ml 06/22/25 18:00 Dextrose 50%-Water Inj 50 Ml Syringe IV 07/22/25 17:59 Q15MIN PRN BG <50 OR BG <70 & pt unresponsive Diclofenac Sodium 2 gm 06/23/25 09:00 06/26/25 21:47 Diclofenac 1% Top Gel 100 Gm Tube TOP 07/23/25 08:59 Not Given On Hold: 06/27/25 07:26 BID JOANN Furosemide 40 mg 06/26/25 07:45 06/28/25 06:15 Furosemide Inj 10 Mg/Ml 4ml Vial IVP 07/26/25 07:44 40 mg BIDD JOANN Administration Glucagon 1 mg 06/22/25 18:00 Glucagon Inj 1 Mg Vial IM Q15MIN PRN BG <70, and no IV access Sodium Chloride 500 mls @ 20 mls/hr 06/27/25 15:00 06/27/25 15:00 Ns IV 06/28/25 14:59 20 mls/hr .Q24H ONE Administration Insulin Human Lispro 0 unit 06/24/25 12:00 06/28/25 11:56 Insulin Lispro (Admelog) 1 Unit/0.01 Ml Unit SC 07/24/25 11:59 Not Given ACHS JOANN Protocol Iron Sucrose 200 mg 06/26/25 05:00 06/28/25 08:59 Iron Sucrose Cplx Inj 20 Mg/Ml Vial 5 Ml IVP 06/30/25 05:00 200 mg DAILY JOANN Administration Levothyroxine Sodium 100 mcg 06/25/25 06:00 06/28/25 05:15 Levothyroxine Sodium 100 Mcg Tablet PO 07/25/25 05:59 100 mcg ACBR JOANN Administration Megestrol Acetate 400 mg 06/25/25 09:00 06/28/25 09:11 Megestrol Acet Susp 400 Mg/10 Ml Udc PO 07/25/25 08:59 Not Given QDAY JOANN Midodrine 5 mg 06/26/25 00:30 06/28/25 09:00 Midodrine 5 Mg Tablet PO 07/26/25 00:29 5 mg Q4H JOANN Administration Ondansetron HCl 4 mg 06/22/25 17:55 Ondansetron Inj 2 Mg/Ml Inj 2 Ml IVP 07/22/25 17:54 Q6H PRN NAUSEA OR VOMITING Protocol Pantoprazole Sodium 40 mg 06/27/25 09:00 06/28/25 09:00 Pantoprazole 40 Mg Tablet PO 07/27/25 08:59 40 mg BID JOANN Administration Sennosides 1 tab 06/22/25 17:55 Senna Tablet PO 07/22/25 17:54 QDAY PRN constipation Protocol Sevelamer Carbonate 800 mg 06/24/25 17:30 06/26/25 18:11 Sevelamer Carbonate 800 Mg Tablet PO 07/24/25 17:29 800 mg On Hold: 06/27/25 07:27 TIDWM JOANN Administration Vitamin B Complex/Vit C/Folic Acid 1 tab 06/23/25 09:00 06/28/25 09:11 Vit B12/Vit C/Fa (Nephrovite) Tablet PO 07/23/25 08:59 Not Given QDAY JOANN Plan Patient is a 69-year-old female with past medical history of arrhythmia, hypothyroidism, GERD, and depression who presented to the [facility] ED on 06/22/25 for pre-syncope, found to be in bradycardia HR low 30s, was initially admitted to ICU for severe symptomatic bradycardia requiring transcutaneous pacing (likely 2/2 digoxin toxicity, s/p DigiFab x 3) and now down-graded to floors after being weaned from dopamine gtt this morning. #Macrocytic anemia, asymptomatic, etiology unclear but possibly multifactorial #Vitamin B12 deficiency #Iron deficiency anemia #??Acute blood loss anemia Upon 06/22 admission, Hgb 4.7 (MCV 136, RDW 91.5), B12 level 92 (low) Initially, Hgb improved to 8-10s after pRBC transfusions, but then on 06/26 Hgb 8.5 -> 6.7 06/22 iron panel suggestive of iron deficiency anemia with possibly a mixed picture of ACD due to slightly low TIBC (230) Among the 3 broad causes of anemia (blood loss, hemolysis, and decreased RBC production), currently suspect it is most likely 2/2 hemolysis in some way A hemolytic etiology is supported by elevated LDH of 987, hyperbilirubinemia (admission TBili 3.5), high reticulocyte count 2.9, haptoglobin pending Acute blood loss anemia thought less likely due to lack of hematemesis, melena, hematochezia, or other overt bleeding noted during this admission (however, patient was noted to have had melena prior to admission and does have bilateral bruising of UE) Anemia 2/2 decreased RBC production also less likely due to reticulocytosis (indicating adequate RBC production) Peripheral blood smear showed severe macrocytic anemia with anisopoikilocytosis and low serum B12 level, consistent with B12 deficiency (no schistocytes noted) Currently s/p pRBC transfusion x 4 DDx: vitamin B12 deficiency 2/2 pernicious anemia, malnutrition, or malabsorptive etiologies like Crohn's disease, hemolysis 2/2 elevated blood homocysteine from B12 deficiency, occult blood loss, drug-induced anemia (patient has recent history of TMP-SMX use, which can cause low RBCs and platelets) Rx: -Consulted Heme/Onc (Dr. Omalley), appreciate recommendations -Upper endoscopy showed oozing gastric ulcer w/ some hemorrhage (Abner Class IB) that was treated with heater probe. -Follow up on results of lower endoscopy that is scheduled for today -Follow up on studies for anemia work-up -IV Vitamin B12 1000 mcg qD -PO Vitamin B12 / Vitamin C / Folate tab qD -IV iron sucrose complex 200 mg qD -IV Protonix 40 mg BID -Follow up on haptoglobin -CTM CBC (per Cardiology recommendations, maintain Hgb between 9-10 with pRBC transfusions as necessary) -GI onboard, appreciate recommendations #Thrombocytopenia (worsening) #Vitamin B12 deficiency Upon 06/22 admission, platelet count 66 May also be 2/2 vitamin B12 and iron deficiencies Patient is noted to have ecchymoses on BL UE 10/10 platelet count 26 DDx: drug-induced thrombocytopenia (patient has recent history of TMP-SMX use, which can cause low RBCs and platelets), ITP Rx: -Consulted Heme/Onc (Dr. Omalley), appreciate recommendations -Follow up on results of endoscopic studies scheduled for today -Follow up on studies for anemia work-up -Platelet transfusion if platelet count < 50 with active bleeding or < 10 #Bradycardia, likely 2/2 digoxin toxicity s/p DigiFab x 3, improving #Supraventricular junctional rhythm with narrow QRS with occasional PVC`s #??Atrial fibrillation / tachyarrhythmia #Acute hyperkalemia, resolved #HFpEF (EF 55-60%) (06/23/25) #Bilateral pleural effusions #Pulmonary hypertension, moderate to severe Patient initially presented on 06/22 with presyncopal episode and HR 20 which improved to 30 after atropine x 1. Takes amiodarone 200 mg daily, nadolol 40 mg daily, and digoxin 250 mg daily except for Sunday. Had last taken all of these medications the morning prior to arrival, likely reason why patient's heart rate did not increase despite anemia. Patient was transcutaneously paced at HR 60 upon arrival to ED, was later discontinued after HR stabilized to upper 30s after receiving dopamine and blood. Temporary transvenous pacemaker never done as patient was hemodynamically stable and did not require it. EKG showed supraventricular junctional rhythm with narrow QRS with occasional PVCs and HR 41. Patient did have hyperkalemia which was treated aggressively with insulin as well as glucose IV and Kayexalate. TTE 06/23/25 showed an EF of 55 to 60%, moderately dilated RV w/ severely elevated RVSP at 85 mmHg and RAP of 15 mmHg. Flat septum in both systole and diastole with D-shaped LV indicating both pressure and volume overload. IVC dilated and less than 50% collapse with inspiration. Left-sided pleural effusion noted. No pericardial effusion. CT A/P 06/25/25: Moderate CHF with superimposed pneumonia in the lung bases. Mild to moderate bilateral pleural effusions. Cirrhosis. Mild ascites. 7.5 cm renal cyst. s/p DigiFab x 3 Plan: -PO midodrine 5mg q4HR for borderline low MAPs (HR stable in low 50s) -IV Lasix 40 mg BID for moderate to severe pulmonary HTN seen on echo -Continue holding amiodarone, atenolol, digoxin -Maintain 5 > K > 4 and Mg > 2 -Strict I's and O's -Daily weights -Cardiac diet, 2 g sodium #Acute kidney injury versus acute on chronic kidney disease, most likely cardiorenal syndrome, improving Creatinine 2.0, previously 1.3 in 2020. Likely cardiorenal syndrome from fluid overload state in the setting of pulmonary hypertension. Continues to improve with diuresis Rx: -IV Lasix 40 mg BID -Avoid overdiuresis or other nephrotoxic agents #Hypotension Rx: -Continue PO midodrine 5mg q4HR #Hypothyroidism Rx: -Consider restarting home PO levothyroxine 100 mcg qD #Depression Rx: -Consider restarting home PO sertraline 50 mg q24HR Disposition: [facility] for work-up and management of macrocytic anemia and thrombocytopenia of unclear etiology DVT prophylaxis: SCD's GI prophylaxis: Protonix 40 mg IV BID Diet: Cardiac [place]: None CODE STATUS: Full Code Reason of hospitalization: Symptomatic Junctional Bradycardia Patient plan of care was discussed with the attending physician, Dr. Sepulveda & senior resident Dr. Omer Padilla, DO Internal Medicine, PGY-1
[2025-06-28] MEDS: SODIUM CHLORIDE 0.9% 500 ML 500 ML 20 ML IV (16:24)
--- NOTE | 2025-06-28 16:55 | SUR.PHASEI ---
[id number] patient arrived to recovery, report received from Craoline SHANKAR
--- NOTE | 2025-06-28 17:15 | SUR.PHASEI ---
1714 patient eating ice chips; tolerating well
--- NOTE | 2025-06-28 17:30 | ESCONSULT_ITS ---
RE: SOLIS RICHARDSON : 1955 DATE OF CONSULTATION: 06/28/2025 REFERRING PHYSICIAN: Dr. Luis Ernique Padilla. REASON FOR CONSULTATION: Hyperchromic anemia and thrombocytopenia. HISTORY OF PRESENT ILLNESS: Mrs. Richardson is a 69-year-old female with past medical history of atrial fibrillation, hypothyroidism, anxiety, and depression, presented to emergency room from ambulance after initially feeling dizzy and weak in the shower earlier today, passed out, passed a brown/loose bowel movement unintentionally during this time. The patient laid down on the bathroom floor and called EMS. The patient was pale on site with GCS of 14, bradycardic to 20. Blood pressure 102/52, which was taken at home. She was given a nasal oxygen. During transfer, patient was given 1 mg atropine with minimal improvement. The patient never lost consciousness and never hit her head. The patient's family mentioned that she has been pale and been falling/tripping without loss of consciousness multiple times in the last 2 weeks without head trauma. Haunted History Tour Guide, Dr. Moraes, is on the case. The patient mentioned that she was taking TMP/SMX since 05/16/2025 and having a dark stool in the last week because patient's blood work on admission was WBC count was 7.8, hemoglobin was 7.4, and platelet count was 66,000. Her sodium was 134, potassium was 5.1, chloride was 102, BUN was 22, and creatinine was 2. Total bilirubin was 3.5 and AST was 57. The patient did receive a blood transfusion in the emergency room. PAST MEDICAL HISTORY: As mentioned above. PAST SURGICAL HISTORY: None. SOCIAL HISTORY: Nonsmoker and nondrinker. FAMILY HISTORY: Father had a stroke. CURRENT MEDICATIONS: Nadolol, amiodarone, sertraline, levothyroxine, digoxin, and Tylenol. ALLERGIES: NOT KNOWN. PHYSICAL EXAMINATION: GENERAL: She is alert. She is afebrile and vitally stable. HEENT: Pupils are reactive to light and accommodation. Sclerae nonicteric. NECK: Supple. There is no JVD or palpable mass. LUNGS: There is good air entry bilaterally with decreased breath sounds at the bases. HEART: Regular. ABDOMEN: Soft. Bowel sounds are present. EXTREMITIES: There are petechia and ecchymosis on her arm. CENTRAL NERVOUS SYSTEM: The patient able to move her extremities and follow simple command. PLAN AND RECOMMENDATION: Her blood work today are WBC 4.7, hemoglobin is 7.6, hematocrit 22.4, MCV of 107, MCH of 36.2, and platelet count of 58,000. Her CT of the chest and abdomen showed mild CHF, superimposed pneumonia at the lung base, mild to moderate bilateral pleural effusion, cirrhosis, mild ascites, 7.5 cm right renal cyst. No other abnormality was found. As I mentioned on 06/22/2025, hemoglobin was 4.7, hematocrit was 13.6, and platelet count was 66,000 and on 06/28/2025, her hemoglobin 7.6, hematocrit 22.4, MCV of 107, MCH of 36.4, and platelet count is 58,000. The patient did receive blood transfusion. Her BNP on 06/23/2025 was 1165. Vitamin B12 level on 06/23/2025 was 92, which is very low. Her ferritin on 06/22/2025 was 322, serum iron was 238 most probably when she got at the time of the blood transfusion, iron saturation was 87, and unsaturated iron binding was 35. These can be false most probably and her serum iron on 06/26/2025 is 60, which is most probably false too. Agree with your present plan of treatment. I will follow this patient with you and write order regarding the clinical situation. Platelet can be transfused if patient started developing active bleeding, otherwise one can monitor closely. She was found to have GI ulcer, from which she was bleeding and once she recover from this acute situation, hopefully I will be able to find out the cause of macrocytic anemia. If she is truly low on vitamin B12, I will explain that. If not, then one has to look further whether it has other cause. Once I have the results of all studies available, I will make recommendation accordingly. The patient and her did ask a lot of intelligent questions. They were all answered to their satisfaction and after a long discussion, they verbally acknowledge, they understand these and like to proceed with the plan. I will do so and keep you apprised of her overall condition. I thank you, Dr. Padilla, for letting me participate in the care of this interesting patient. If you have any question, please feel free to contact me. DT: 14:05:08 TT: 16:55:00 Ref: [id number] - TID: [id number] MTDD
--- NOTE | 2025-06-28 17:31 | SUR.PHASEI ---
1725 Report given to Aníbal SHANKAR, patient meets discharge criteria from recovery, awake and alert, on oxygen 2L via nasal cannula, breathing unlabored, vital signs stable, denies pain and nausea, ate a jello; tolerated well 1731 Patient transported via gurney to room 266 without incident, patient able to walk from rney to bed with stand-by assist from this television writer, patient in room, patient sitting up in bed with call light in reach when this television writer left patients room
[2025-06-28 18:05] LABS: Hematocrit 28.3 % (36.0-46.0); Hemoglobin 9.7 g/dL (12.0-16.0)
[2025-06-28] MEDS: INSULIN LISPRO (AdmeLOG) 1 UNIT/0.01 ML UNIT SC (20:35)
[2025-06-29] VITALS (15 sets, daily range): BP systolic 99–119; BP diastolic 45–62; PULSE 53–68; RESP 14–94; TEMP 36.1–36.4; O2SAT 90–96
[2025-06-29] MEDS: MIDODRINE 5 MG TABLET PO ×6 (00:18→20:10)
[2025-06-29] MEDS: LEVOTHYROXINE SODIUM 100 MCG TABLET PO (05:13)
[2025-06-29] MEDS: FUROSEMIDE INJ 10 MG/ML 4ML VIAL 40 MG IVP (06:20)
[2025-06-29 06:59] LABS: Basophils # (Auto) 0.0 Thou/mm3 (0.0-0.2); Basophils % (Auto) 0 % (0-2.5); Eosinophils # (Auto) 0.0 Thou/mm3 (0.0-0.5); Eosinophils % (Auto) 0 % (0-10); Hematocrit 26.9 % (36.0-46.0); Hemoglobin 9.0 g/dL (12.0-16.0); Immature Granulocytes Auto 0.02 Thou/mm3 (0.00-0.00); Lymphocytes # (Auto) 1.9 Thou/mm3 (1.0-4.8); Lymphocytes % (Auto) 34 % (10-50); Mean Corpuscular HGB Conc 33.5 g/dl (31.0-37.0); Mean Corpuscular Hemoglobin 35.0 pg (25.0-35.0); Mean Corpuscular Volume 105 fL (80-100); Monocytes # (Auto) 0.6 Thou/mm3 (0.0-0.8); Monocytes % (Auto) 11 % (0-12); Neutrophils # (Auto) 3.0 Thou/mm3 (1.8-7.7); Neutrophils % (Auto) 55 % (37-80); Nucleated Red Blood Cell # 0.02 Thou/mm3 (0.00-0.00); Nucleated Red Blood Cell % 0 /100 WBC (0); Platelet Count 74 Thou/mm3 (140-440); RDW Standard Deviation 103.3 fL (36.4-46.3); Red Blood Count 2.57 Miln/mm3 (4.00-5.20); White Blood Count 5.6 Thou/mm3 (3.6-11.0)
[2025-06-29 07:16] LABS: Alanine Aminotransferase 23 U/L (10-49); Albumin, Serum 3.5 gm/dL (3.4-4.8); Albumin/Globulin Ratio 1.7 (1.2-2.2); Alkaline Phosphatase 51 U/L (46-116); Anion Gap 9 (7-16); Aspartate Amino Transferase 45 U/L (0-34); BUN/Creatinine Ratio 11 Ratio (12-20); Bilirubin,Total 1.9 mg/dL (0.3-1.2); Blood Urea Nitrogen 17 mg/dL (9-23); Calcium 9.0 mg/dL (8.3-10.6); Calcium (Corrected) 9.4 mg/dL (8.5-10.1); Carbon Dioxide 30.6 mMol/L (20.0-31.0); Chloride 104 mMol/L (98-107); Creatinine (Component) 1.5 mg/dL (0.6-1.3); Estimated Creatinine Clearance 39.6 mL/min (>60); Globulin 2.1 gm/dL (2.3-3.5); Glucose 80 mg/dL (74-106); Magnesium 2.0 mg/dL (1.6-2.6); Osmolality,Calculated 287 (275-295); Phosphorous 2.8 mg/dL (2.4-5.1); Potassium 4.3 mMol/L (3.4-5.1); Sodium 144 mMol/L (136-145); Total Protein 5.6 gm/dL (5.7-8.2); eGFR 38 See Note
[2025-06-29 08:12] LABS: Slide Review Platelets confirmed
--- NOTE | 2025-06-29 08:21 | ESPR_ITS ---
Documentation for date of: 06/29/25 Subjective Subjective Interval history: Patient seen and assessed at bedside. No new complaints this morning, denies chest pain, palpitations, shortness of breath, dizziness with standing/ambulation. Patient reports she continues to have good urine output, went twice already this morning. Weight 82.5 kg -> 78.6 kg over the past 3 days. Sinus bradycardia on telemetry. Hemoglobin 9.0 (9.6 yesterday after 1 unit PRBC), platelets 74 (from 58). Concrete Mixer following, pending recommendations. Potassium 4.3, magnesium 2.0. Creatinine 1.5 (from 1.1 yesterday), on IV Lasix 40 mg twice daily for cardiorenal syndrome but will stop due to mild CAN. Colonoscopy showed grade 2 internal hemorrhoids and diverticulosis in the sigmoid and descending colon. Exam Vital Signs Temp Pulse Resp BP Pulse Ox O2 Del Method O2 Flow Rate 96.9 F 53 L 15 116/55 L 90 L Room Air 2 06/29/25 04:00 06/29/25 06:20 06/29/25 04:00 06/29/25 06:20 06/29/25 04:00 06/29/25 04:00 06/28/25 17:25 FiO2 56 06/28/25 22:51 Narrative Exam Physical Exam General: Awake and in no acute distress. Conversational and non-toxic appearing. HEENT: Normocephalic, atraumatic, mucous membranes moist. Heart: Regular rate and rhythm, normal S1 and S2, no murmurs appreciated. Lungs: Clear to auscultation with no wheezing or crackles. Abdomen: Soft, nondistended, nontender, positive bowel sounds. No guarding or rebound tenderness. Neurologic: Alert and oriented x3, no gross neurological deficit, and patient able to move all 4 extremities. Extremities: No edema. Skin: Patch of purpura on right arm near IV site. Another small patch on right leg above ankle and right upper shoulder. No rash observed. Objective Labs 06/29/25 05:24 06/29/25 05:24 Labs: Laboratory Results - last 24 hr 06/26/25 06/28/25 06/29/25 08:58 17:55 05:24 WBC 5.6 RBC 2.57 L Hgb 9.7 L D 9.0 L Hct 28.3 L 26.9 L MCV 105 H MCH 35.0 MCHC 33.5 RDW Std Deviation 103.3 H Plt Count 74 L D Neut % (Auto) 55 Lymph % (Auto) 34 [place] % (Auto) 11 Eos % (Auto) 0 Baso % (Auto) 0 Neut # (Auto) 3.0 Lymph # (Auto) 1.9 [place] # (Auto) 0.6 Eos # (Auto) 0.0 Baso # (Auto) 0.0 Immature Gran # (Auto) 0.02 H Absolute Nucleated RBC 0.02 H Immature Gran % 0 Nucleated RBC % 0 Sodium 144 Potassium 4.3 D Chloride 104 Carbon Dioxide 30.6 Anion Gap 9 BUN 17 Creatinine 1.5 H Estim Creat Clear Calc 39.6 L eGFR 38 L BUN/Creatinine Ratio 11 L Glucose 80 Calculated Osmolality 287 Calcium 9.0 Corrected Calcium 9.4 Phosphorus 2.8 Magnesium 2.0 Total Bilirubin 1.9 H AST 45 H ALT 23 Alkaline Phosphatase 51 Total Protein 5.6 L Albumin 3.5 Globulin 2.1 L Albumin/Globulin Ratio 1.7 Misc Test Result Platelets confirmed Blood Type O Positive Antibody Screen NEGATIVE Crossmatch See Detail Blood Bank Wristband ID Yes Blood Bank Comment PLATP Ready ABG Interpretation ABG results: 06/23/25 03:22 ABG pH 7.31 L ABG pCO2 40 ABG pO2 69 L ABG HCO3 20 ABG O2 Saturation 94 ABG Base Excess -6 L Quality Measures Quality Measures VTE prophylaxis (SCDs) Advance care planning discussed with:: patient Assessment & Plan Assessment Current Active Medications: Generic Name Dose Route Start Last Admin Trade Name Freq PRN Reason Stop Dose Admin Acetaminophen 1,000 mg 06/23/25 20:13 Acetaminophen 500 Mg Tablet PO 07/23/25 20:12 Q6HR PRN fever >99.9 Dextrose 25 ml 06/22/25 18:00 Dextrose 50%-Water Inj 50 Ml Syringe IV 07/22/25 17:59 Q15MIN PRN BG 50-70 responsive npo pt Dextrose 50 ml 06/22/25 18:00 Dextrose 50%-Water Inj 50 Ml Syringe IV 07/22/25 17:59 Q15MIN PRN BG <50 OR BG <70 & pt unresponsive Diclofenac Sodium 2 gm 06/23/25 09:00 06/26/25 21:47 Diclofenac 1% Top Gel 100 Gm Tube TOP 07/23/25 08:59 Not Given On Hold: 06/27/25 07:26 BID JOANN Furosemide 40 mg 06/26/25 07:45 06/29/25 06:20 Furosemide Inj 10 Mg/Ml 4ml Vial IVP 07/26/25 07:44 40 mg BIDD JOANN Administration Glucagon 1 mg 06/22/25 18:00 Glucagon Inj 1 Mg Vial IM Q15MIN PRN BG <70, and no IV access Sodium Chloride 500 mls @ 20 mls/hr 06/28/25 16:19 06/28/25 16:24 Ns IV 06/29/25 16:18 20 mls/hr .Q24H ONE Administration Insulin Human Lispro 0 unit 06/24/25 12:00 06/29/25 07:26 Insulin Lispro (Admelog) 1 Unit/0.01 Ml Unit SC 07/24/25 11:59 Not Given ACHS JOANN Protocol Iron Sucrose 200 mg 06/26/25 05:00 06/28/25 08:59 Iron Sucrose Cplx Inj 20 Mg/Ml Vial 5 Ml IVP 06/30/25 05:00 200 mg DAILY JOANN Administration Levothyroxine Sodium 100 mcg 06/25/25 06:00 06/29/25 05:13 Levothyroxine Sodium 100 Mcg Tablet PO 07/25/25 05:59 100 mcg ACBR JOANN Administration Megestrol Acetate 400 mg 06/25/25 09:00 06/28/25 09:11 Megestrol Acet Susp 400 Mg/10 Ml Udc PO 07/25/25 08:59 Not Given QDAY JOANN Midodrine 5 mg 06/26/25 00:30 06/29/25 05:13 Midodrine 5 Mg Tablet PO 07/26/25 00:29 5 mg Q4H JOANN Administration Ondansetron HCl 4 mg 06/22/25 17:55 Ondansetron Inj 2 Mg/Ml Inj 2 Ml IVP 07/22/25 17:54 Q6H PRN NAUSEA OR VOMITING Protocol Pantoprazole Sodium 40 mg 06/27/25 09:00 06/28/25 20:24 Pantoprazole 40 Mg Tablet PO 07/27/25 08:59 40 mg BID JOANN Administration Sennosides 1 tab 06/22/25 17:55 Senna Tablet PO 07/22/25 17:54 QDAY PRN constipation Protocol Sevelamer Carbonate 800 mg 10/08/25 17:30 06/26/25 18:11 Sevelamer Carbonate 800 Mg Tablet PO 07/24/25 17:29 800 mg On Hold: 06/27/25 07:27 TIDWM JOANN Administration Vitamin B Complex/Vit C/Folic Acid 1 tab 06/23/25 09:00 06/28/25 09:11 Vit B12/Vit C/Fa (Nephrovite) Tablet PO 07/23/25 08:59 Not Given QDAY JOANN Plan Patient is a 69-year-old female with past medical history of arrhythmia, hypothyroidism, GERD, depression who presents to the [facility] ED on 06/22/25 for pre- syncope, found to be in bradycardia HR low 30s requiring transcutaneous pacing, admitted to ICU for the severe bradycardia with need for ventricular junctional rhythm requiring transcutaneous pacing and possible temporary pacemaker placement. Is now stable off pacer pads with daily improvement in heart rate after digifab. #Bradycardia likely secondary to digoxin toxicity s/p DigiFab, improving #Supraventricular junctional rhythm with narrow QRS with occasional PVC`s # ? Atrial fibrillation / tachyarrhythmia #Acute hyperkalemia, resolved # HFpEF (EF 55-60%) (06/23/25) #Bilateral pleural effusions #Pulmonary hypertension, moderate to severe #Hypotension Was found to have heart rate of 20s at home after presyncopal episode. Upon arrival heart rate improved to 30s, status post atropine x 1. Patient is not on anticoagulation. Previously seeing Dr. Meyer. Was told that she has an arrhythmia however is not on anticoagulation. Takes amiodarone 200 mg daily, nadolol 40 mg daily, digoxin 250 mg daily except for Sunday. Last took all of these medications this morning prior to arrival, likely reason why patient's heart rate did not increase despite anemia. Patient was transcutaneously paced at HR 60 upon arrival to ED, was later discontinued after HR stabilized to upper 30s after receiving dopamine and blood. Temporary transvenous pacemaker never done as patient was hemodynamically stable did not require it. EKG showed supraventricular junctional rhythm with narrow QRS with occasional PVCs. Heart rate 41. Patient did have hyperkalemia which was treated aggressively with insulin as well as glucose IV and Kayexalate. TTE 06/23/25 showed normal LV size and wall thickness. Normal LV function with an EF of 55 to 60%. Indeterminate diastolic function. Moderately dilated RV. Normal RV function. Severely elevated RVSP at 85 mmHg with RAP of 15 mmHg. Flat septum in both systole and diastole with D-shaped LV indicating both pressure and volume overload. Moderate TR. Mild to moderate MR possible bicuspid aortic valve. Mild AR. IVC dilated and less than 50% collapse with inspiration. Left- sided pleural effusion noted. No pericardial effusion. CT A/P 06/25/25: Moderate CHF with superimposed pneumonia in the lung bases. Mild to moderate bilateral pleural effusions. Cirrhosis. Mild ascites. 7.5 cm renal cyst. Plan: ? Hold amiodarone, atenolol, digoxin - S/p digifab 3 vials per poison control. Digoxin level decreased to 1.9. Repeat digoxin level increased to 2.1, ICU team gave another reduced dose of DigiFab. - Previously started on dopamine drip, now completely weaned off. Midodrine 5 mg q4hr due to borderline low MAPs, wean as tolerated. Heart rate continues to improve. ? IV Lasix 40 mg twice daily for stress moderate to severe pulmonary hypertension noted on echo. ?Keep Hgb btwn 9-10. Transfuse as needed. ?Recommend to keep potassium between 4 and 5 and deviation greater than 2 at all times. - Keep magnesium greater than 2 at all times. ? Continue telemetry ?Strict I's and O's ?Daily weights ?Cardiac diet, 2 g sodium #Cardiorenal syndrome, improving Creatinine 2.0, previously 1.3 in 2020. Previously unclear if patient had CAN or acute on chronic renal disease as last known baseline was in 2020. Likely cardiorenal syndrome from fluid overload state in the setting of pulmonary hypertension. Creatinine continues to improve with diuresis. ?Lasix as above ?CTM creatinine ?Avoid overdiuresis or other nephrotoxic agents #Severe anemia #Chronic macrocytic anemia #Thrombocytopenia #Hyperbilirubinemia #Mild transaminitis #? GI bleed Presented with paleness, has been progressive for the past 2 weeks. Reports also starting 2 weeks ago, patient has had decreased appetite and dark stools. Around this time she was also started on Bactrim and Z-Girish for upper respiratory virus by PCP. Patient thought that dark stools was a side effect of the medications. Never had a colonoscopy. On admission, WBC 7.8, hemoglobin 4.7. Platelet 66, possibly secondary to severe blood loss but will need to rule out other causes. BNP 1285 Iron panel 06/22/25: Elevated iron, iron saturation, unsaturated iron binding, ferritin. Reticulocyte count elevated 2.9. Vitamin B12 was low at 92. Folate was within normal limits. Peripheral smear in December 2018 showed macrocytic RBCs with anisocytosis and no significant polkilocytosis. 06/23/25: Hgb improved to 8.8 s/p second unit, 9.2 after 3rd bag. 06/24/2025: Hemoglobin 9.9, improving. Platelets dropped to 30 from 70 yesterday. 06/25/25: Hgb dropped to 8.5. 06/26/25: Hemoglobin dropped to 6.7, platelets 26. S/p 1 unit PRBC, hemoglobin improved to 7.5. Hemoccult negative. Endoscopy 06/27/25 showed 10 mm oozing superficial gastric ulcer ([place] class Ib) with oozing hemorrhage, s/p hemostasis. Normal esophagus and duodenum. - Keep the hemoglobin between 9 and 10. - First iron panel shows likely falsely we elevated levels, possible that sample was drawn after first unit of PRBC was given. Continue IV iron as repeat iron level shows low iron. - Vitamin B12 1000 mcg daily - GI consulted: DAREK and AMA is pending, will further order actin IgG antibody iron saturation studies copper level is still low plasmin level and anti-smooth muscle antibody. If workup negative, consider liver biopsy. Plan for colonoscopy. - Defer to primary team for thrombocytopenia workup. Concrete Mixer consulted by primary team. #Hypothyroidism #Depression ?Resume home meds once stable Thank you for your consultation, please do not hesitate to reach out if you have any question or concern Patient plan of care was discussed with the attending physician, Dr. Perdomo . Surekha Horn, PGY-1 Attending Provider Attestation/Addendum I have personally seen and examined the patient separately on the above date of service and discussed the plan of care with the resident. I reviewed the resident Dr. Surekha Horn consultation progress note and agree with the resident findings and plan in the note above and have also edited the documentation to reflect my findings and plan. Juan Perdomo M.D. Interventional Cardiology
[2025-06-29] MEDS: VIT B12/Vit C/FA (Nephrovite) TABLET 1 TAB PO (08:39)
[2025-06-29] MEDS: PANTOPRAZOLE 40 MG TABLET PO ×2 (08:41→20:10)
[2025-06-29] MEDS: IRON SUCROSE CPLX INJ 20 MG/ML VIAL 5 ML 200 MG IVP (08:41)
[2025-06-29 10:35] LABS: Vitamin B12 > 2000 pg/mL (211-911)
--- NOTE | 2025-06-29 11:39 | EKG_ITS ---
[facility] Test Date: 2025-06-29 Pat Name: SOLIS RICHARDSON [facility] Gender: Female Recruit Instructor: FRANCHESCA : 1955 Requested By: Luis Enrique Padilla Order Number: [id number] Reading MD: Luis Enrique Padilla Measurements Intervals Thermal Rate: 59 P: 30 IA: 190 QRS: -21 QRSD: 84 T: -25 QT: 488 QTc: 484 Interpretive Statements SINUS BRADYCARDIA BORDERLINE LEFT AXIS DEVIATION LEFT VENTRICULAR HYPERTROPHY AND ST-T CHANGE Compared to ECG 06/24/2025 07:17:51 First degree AV block no longer present ST (T wave) deviation still present /store/S0/[id number].pdf
--- NOTE | 2025-06-29 13:45 | ESPR_ITS ---
Documentation for date of: 06/29/25 Resident Attestation: I have discussed the case with supervising physician and international marketing manager physician involved in the care of patient. I personally saw and examined patient and discussed the assessment and plan with the entire medical team, including attending. I agree with assessment and plan as documented below. Elaine Mckeon MD PGY-2 Internal Medicine Subjective Subjective Interval history: No overnight events. Patient was examined at bedside; they appear A&Ox4 and in NAD. Vitals/labs today significant for BP 116/55, HR 53, SpO2 90%, Hgb 9.7 -> 9.0 (MCV 103.3, RDW 105), plt# 58 -> 74, creatinine 1.1 -> 1.5, and TBili 1.8 -> 1.9. Of note, patient's 06/29 vitamin B12 level came back greater than 2000. Physical exam was benign and relatively unchanged from prior days. Lower endoscopy yesterday showed internal hemorrhoids and diverticulosis but no active sites of bleeding. Per Heme/Onc (Dr. Omalley), patient's macrocytic anemia could be due to a mix of low initial vitamin B12 and recent sulfa medication use. Plan Updates: -Ordered EKG -Held Lasix due to new CAN -Discontinued all vitamin B12 supplementation Exam Vital Signs Temp Pulse Resp BP Pulse Ox O2 Del Method O2 Flow Rate 97.6 F 68 17 117/62 94 L Room Air 2 06/29/25 12:00 06/29/25 12:13 06/29/25 12:00 06/29/25 12:13 06/29/25 12:00 06/29/25 12:00 06/28/25 17:25 FiO2 56 06/28/25 22:51 Narrative Exam General: No acute distress; A&Ox4 Skin: Upper extremity bruising bilaterally; warm, dry, no obvious rash. Facial color continues to be greatly improved compared to admission being pale. HEENT: NCAT, EOMI, not icteric. External ears normal. No rhinorrhea. Moist mucous membranes. No mucous bleeding noted. Cardiovascular: Systolic murmur that is most easily heard at the pulmonic listening post. Bradycardic rate and normal rhythm, +S1/S2. Respiratory: Lungs CTAB GI: Soft, nontender, non-distended. No guarding or rebound tenderness. Extremities: no edema, no cyanosis, no clubbing. Extremity pulses present Neuro: Grossly nonfocal. Alert and oriented, moving all 4 extremities. CN not formally tested but appear grossly intact. Psychiatric: Cooperative, appropriate affect. Objective Labs 06/30/25 05:04 06/30/25 05:04 Labs: Laboratory Results - last 24 hr 06/26/25 06/28/25 06/29/25 08:58 17:55 05:24 WBC 5.6 RBC 2.57 L Hgb 9.7 L D 9.0 L Hct 28.3 L 26.9 L MCV 105 H MCH 35.0 MCHC 33.5 RDW Std Deviation 103.3 H Plt Count 74 L D Neut % (Auto) 55 Lymph % (Auto) 34 [place] % (Auto) 11 Eos % (Auto) 0 Baso % (Auto) 0 Neut # (Auto) 3.0 Lymph # (Auto) 1.9 [place] # (Auto) 0.6 Eos # (Auto) 0.0 Baso # (Auto) 0.0 Immature Gran # (Auto) 0.02 H Absolute Nucleated RBC 0.02 H Immature Gran % 0 Nucleated RBC % 0 Sodium 144 Potassium 4.3 D Chloride 104 Carbon Dioxide 30.6 Anion Gap 9 BUN 17 Creatinine 1.5 H Estim Creat Clear Calc 39.6 L eGFR 38 L BUN/Creatinine Ratio 11 L Glucose 80 Calculated Osmolality 287 Calcium 9.0 Corrected Calcium 9.4 Phosphorus 2.8 Magnesium 2.0 Total Bilirubin 1.9 H AST 45 H ALT 23 Alkaline Phosphatase 51 Total Protein 5.6 L Albumin 3.5 Globulin 2.1 L Albumin/Globulin Ratio 1.7 Vitamin B12 > 2000 H Misc Test Result Platelets confirmed Crossmatch See Detail ABG Interpretation ABG results: 06/23/25 03:22 ABG pH 7.31 L ABG pCO2 40 ABG pO2 69 L ABG HCO3 20 ABG O2 Saturation 94 ABG Base Excess -6 L Quality Measures Quality Measures VTE prophylaxis (SCDs) Advance care planning discussed with:: patient Assessment & Plan Assessment Current Active Medications: Generic Name Dose Route Start Last Admin Trade Name Freq PRN Reason Stop Dose Admin Acetaminophen 1,000 mg 06/23/25 20:13 Acetaminophen 500 Mg Tablet PO 07/23/25 20:12 Q6HR PRN fever >99.9 Dextrose 25 ml 06/22/25 18:00 Dextrose 50%-Water Inj 50 Ml Syringe IV 07/22/25 17:59 Q15MIN PRN BG 50-70 responsive npo pt Dextrose 50 ml 06/22/25 18:00 Dextrose 50%-Water Inj 50 Ml Syringe IV 07/22/25 17:59 Q15MIN PRN BG <50 OR BG <70 & pt unresponsive Diclofenac Sodium 2 gm 06/23/25 09:00 06/26/25 21:47 Diclofenac 1% Top Gel 100 Gm Tube TOP 07/23/25 08:59 Not Given On Hold: 06/27/25 07:26 BID JOANN Glucagon 1 mg 06/22/25 18:00 Glucagon Inj 1 Mg Vial IM Q15MIN PRN BG <70, and no IV access Sodium Chloride 500 mls @ 20 mls/hr 06/28/25 16:19 06/28/25 16:24 Ns IV 06/29/25 16:18 20 mls/hr .Q24H ONE Administration Insulin Human Lispro 0 unit 06/24/25 12:00 06/29/25 11:27 Insulin Lispro (Admelog) 1 Unit/0.01 Ml Unit SC 07/24/25 11:59 Not Given ACHS JOANN Protocol Iron Sucrose 200 mg 06/26/25 05:00 06/29/25 08:41 Iron Sucrose Cplx Inj 20 Mg/Ml Vial 5 Ml IVP 06/30/25 05:00 200 mg DAILY JOANN Administration Levothyroxine Sodium 100 mcg 06/25/25 06:00 06/29/25 05:13 Levothyroxine Sodium 100 Mcg Tablet PO 07/25/25 05:59 100 mcg ACBR JOANN Administration Megestrol Acetate 400 mg 06/25/25 09:00 06/29/25 08:43 Megestrol Acet Susp 400 Mg/10 Ml Udc PO 07/25/25 08:59 Not Given QDAY JOANN Midodrine 5 mg 06/26/25 00:30 06/29/25 12:13 Midodrine 5 Mg Tablet PO 07/26/25 00:29 5 mg Q4H JOANN Administration Ondansetron HCl 4 mg 06/22/25 17:55 Ondansetron Inj 2 Mg/Ml Inj 2 Ml IVP 07/22/25 17:54 Q6H PRN NAUSEA OR VOMITING Protocol Pantoprazole Sodium 40 mg 06/27/25 09:00 06/29/25 08:41 Pantoprazole 40 Mg Tablet PO 07/27/25 08:59 40 mg BID JOANN Administration Sennosides 1 tab 06/22/25 17:55 Senna Tablet PO 07/22/25 17:54 QDAY PRN constipation Protocol Vitamin B Complex/Vit C/Folic Acid 1 tab 06/23/25 09:00 06/29/25 08:39 Vit B12/Vit C/Fa (Nephrovite) Tablet PO 07/23/25 08:59 1 tab QDAY JOANN Administration Plan Patient is a 69-year-old female with past medical history of arrhythmia, hypothyroidism, GERD, and depression who presented to the [facility] ED on 06/22/25 for pre-syncope, found to be in bradycardia HR low 30s, was initially admitted to ICU for severe symptomatic bradycardia requiring transcutaneous pacing (likely 2/2 digoxin toxicity, s/p DigiFab x 3) and now down-graded to floors after being weaned from dopamine gtt this morning. #CAN Admission creatinine 2.0, previously 1.3 in 2020. Initial CAN was likely 2/2 cardiorenal syndrome from fluid overload state in the setting of pulmonary hypertension. Had been improving with diuresis until 06/29 where creatinine was noted to elevate from 1.1 -> 1.5 Thought likely 2/2 overdiuresis for 2nd instance of CAN Rx: -Held Lasix due to new CAN -Avoid overdiuresis or other nephrotoxic agents #Macrocytic anemia, asymptomatic, etiology unclear but possibly multifactorial #Vitamin B12 deficiency #Iron deficiency anemia #??Acute blood loss anemia Upon 06/22 admission, Hgb 4.7 (MCV 136, RDW 91.5), B12 level 92 (low) Initially, Hgb improved to 8-10s after pRBC transfusions, but then on 06/26 Hgb 8.5 -> 6.7 06/22 iron panel suggestive of iron deficiency anemia with possibly a mixed picture of ACD due to slightly low TIBC (230) Among the 3 broad causes of anemia (blood loss, hemolysis, and decreased RBC production), currently suspect it is most likely 2/2 hemolysis in some way A hemolytic etiology is supported by elevated LDH of 987, hyperbilirubinemia (admission TBili 3.5), high reticulocyte count 2.9, haptoglobin pending Acute blood loss anemia thought less likely due to lack of hematemesis, melena, hematochezia, or other overt bleeding noted during this admission (however, patient was noted to have had melena prior to admission and does have bilateral bruising of UE) Anemia 2/2 decreased RBC production also less likely due to reticulocytosis (indicating adequate RBC production) Peripheral blood smear showed severe macrocytic anemia with anisopoikilocytosis and low serum B12 level, consistent with B12 deficiency (no schistocytes noted) Currently s/p pRBC transfusion x 4 06/29 Vitamin B12 level > 2000 DDx: vitamin B12 deficiency 2/2 pernicious anemia, malnutrition, or malabsorptive etiologies like Crohn's disease, hemolysis 2/2 elevated blood homocysteine from B12 deficiency, occult blood loss, drug-induced anemia (patient has recent history of TMP-SMX use, which can cause low RBCs and platelets) Rx: -Upper endoscopy showed oozing gastric ulcer w/ some hemorrhage (Abner Class IB) that was treated with heater probe. -Lower endoscopy showed internal hemorrhoids and diverticulosis but no active sites of bleeding. -Discontinued IV Vitamin B12 1000 mcg qD -Discontinued PO Vitamin B12 / Vitamin C / Folate tab qD -IV iron sucrose complex 200 mg qD -IV Protonix 40 mg BID -Follow up on haptoglobin -CTM CBC (per Cardiology recommendations, maintain Hgb between 9-10 with pRBC transfusions as necessary) -GI onboard, appreciate recommendations -Consulted Heme/Onc (Dr. Omalley), appreciate recommendations #Thrombocytopenia (worsening) #Vitamin B12 deficiency Upon 06/22 admission, platelet count 66 May also be 2/2 vitamin B12 and iron deficiencies Patient is noted to have ecchymoses on BL UE 06/29 platelet count 76 DDx: drug-induced thrombocytopenia (patient has recent history of TMP-SMX use, which can cause low RBCs and platelets), ITP Rx: -Consulted Heme/Onc (Dr. Omalley), appreciate recommendations -Upper endoscopy showed oozing gastric ulcer w/ some hemorrhage (Abner Class IB) that was treated with heater probe. -Lower endoscopy showed internal hemorrhoids and diverticulosis but no active sites of bleeding. -Platelet transfusion if platelet count < 50 with active bleeding or < 10 #Bradycardia, likely 2/2 digoxin toxicity s/p DigiFab x 3, improving #Supraventricular junctional rhythm with narrow QRS with occasional PVC`s #??Atrial fibrillation / tachyarrhythmia #Acute hyperkalemia, resolved #HFpEF (EF 55-60%) (06/23/25) #Bilateral pleural effusions #Pulmonary hypertension, moderate to severe Patient initially presented on 06/22 with presyncopal episode and HR 20 which improved to 30 after atropine x 1. Takes amiodarone 200 mg daily, nadolol 40 mg daily, and digoxin 250 mg daily except for Sunday. Had last taken all of these medications the morning prior to arrival, likely reason why patient's heart rate did not increase despite anemia. Patient was transcutaneously paced at HR 60 upon arrival to ED, was later discontinued after HR stabilized to upper 30s after receiving dopamine and blood. Temporary transvenous pacemaker never done as patient was hemodynamically stable and did not require it. EKG showed supraventricular junctional rhythm with narrow QRS with occasional PVCs and HR 41. Patient did have hyperkalemia which was treated aggressively with insulin as well as glucose IV and Kayexalate. TTE 06/23/25 showed an EF of 55 to 60%, moderately dilated RV w/ severely elevated RVSP at 85 mmHg and RAP of 15 mmHg. Flat septum in both systole and diastole with D-shaped LV indicating both pressure and volume overload. IVC dilated and less than 50% collapse with inspiration. Left-sided pleural effusion noted. No pericardial effusion. CT A/P 06/25/25: Moderate CHF with superimposed pneumonia in the lung bases. Mild to moderate bilateral pleural effusions. Cirrhosis. Mild ascites. 7.5 cm renal cyst. s/p DigiFab x 3 Plan: -PO midodrine 5mg q4HR for borderline low MAPs (HR stable in low 50s) -Holding Lasix that was being used for treatment of moderate to severe pulmonary HTN seen on echo -Continue holding amiodarone, atenolol, digoxin -Maintain 5 > K > 4 and Mg > 2 -Strict I's and O's -Daily weights -Cardiac diet, 2 g sodium #Hypotension Rx: -Continue PO midodrine 5mg q4HR #Hypothyroidism Rx: -Consider restarting home PO levothyroxine 100 mcg qD #Depression Rx: -Consider restarting home PO sertraline 50 mg q24HR Disposition: [facility] for work-up and management of macrocytic anemia and thrombocytopenia of unclear etiology DVT prophylaxis: SCD's GI prophylaxis: Protonix 40 mg IV BID Diet: Cardiac [place]: None CODE STATUS: Full Code Reason of hospitalization: Symptomatic Junctional Bradycardia Patient plan of care was discussed with the attending physician, Dr. Cui, and Dr. Mike Padilla, DO Internal Medicine, PGY-1 Attending Provider Attestation/Addendum Patient was admitted for digoxin toxicity, bradycardia history of SVT. She was found to have anemia. Endoscopy showed oozing gastric ulcer. She has internal hemorrhoids. Continue current treatment and monitoring. I discussed with and supervised the resident physician who took care of this patient. I agree with the assessment and plan as above.
--- NOTE | 2025-06-29 14:22 | PC.SS ---
Update: CAN patient will discharge home possibly tomorrow.
--- NOTE | 2025-06-29 16:38 | ESPR_ITS ---
RE: SOLIS RICHARDSON : 1955 DATE OF SERVICE: 06/29/2025 Ms. Lawler is a 69-year-old female admitted to the hospital with drug toxicity, anemia, and thrombocytopenia. She has a low vitamin B12 level. She also has hemolysis along with thrombocytopenia. She was taking sulfa medication. She is feeling better. She did receive a blood transfusion. She is feeling better. On physical examination, she is alert with no apparent distress. PHYSICAL EXAMINATION: She is afebrile. Vitals stable. Dictation Ends Here. DT: 16:23:54 TT: 16:37:00 Ref: [id number] - TID: [id number]
--- NOTE | 2025-06-29 18:31 | ESPR_ITS ---
RE: SOLIS RICHARDSON : 1955 DATE OF SERVICE: 06/29/2025 SUBJECTIVE: Mrs. Lawler is a 69-year-old female admitted to the hospital because of drug toxicity. She has a hemolysis along with thrombocytopenia. She was taking a sulfa drug at home. She was also found to have a GI ulcer. PHYSICAL EXAMINATION: General: She is alert today. Vital Signs: She is afebrile. Vitals stable. HEENT: Pupils are reactive to light and accommodation. Sclerae nonicteric. Neck: Supple. There is no JVD or palpable mass. Lungs: Good air entry bilaterally. They are clear to auscultation and percussion. Heart: Regular. Abdomen: Soft. Bowel sounds are present. Extremities: 3+ peripheral pulses. There is no cyanosis or edema. Central Nervous System: The patient able to move her extremities and follows simple commands. PLAN AND RECOMMENDATIONS: Her blood work today, WBC count of 5.6, hemoglobin is 9, hematocrit 26.9. MCV 105, MCH of 35.1 and platelet count of 74,000. The patient had a elevated bilirubin on admission and she also has thrombocytopenia. She could have a class 3 G6PD A minus deficiency which can lead to hemolysis and sulfa is also known to cause thrombocytopenia, but I have no basic blood work report from before so I cannot be 100% but that's a possibility that she did develop hemolysis and thrombocytopenia which was present on admission. We will continue the present plan of treatment and I will be doing workup on an outpatient basis when she is all better because she did receive a blood transfusion already. DT: 16:26:21 TT: 17:10:00 Ref: [id number] - TID: [id number] MTDD
--- NOTE | 2025-06-29 19:11 | ESPR_ITS ---
Documentation for date of: 06/29/25 Subjective Subjective Interval history: Patient evaluated hemoglobin hematocrit 9.0 and 26.9 Hematology on board Colonoscopy showed 2+ internal hemorrhage diverticulosis left colon otherwise normal to cecum Upper endoscopy showed Abner class Ib gastric ulcer requiring bipolar gold heater probe Exam Vital Signs Temp Pulse Resp BP Pulse Ox O2 Del Method O2 Flow Rate 97.4 F 58 L 14 119/53 L 94 L Room Air 2 06/29/25 16:00 06/29/25 17:13 06/29/25 16:00 06/29/25 17:13 06/29/25 16:00 06/29/25 16:00 06/28/25 17:25 FiO2 56 06/28/25 22:51 Objective Labs 06/29/25 05:24 06/29/25 05:24 Labs: Laboratory Results - last 24 hr 06/29/25 05:24 WBC 5.6 RBC 2.57 L Hgb 9.0 L Hct 26.9 L MCV 105 H MCH 35.0 MCHC 33.5 RDW Std Deviation 103.3 H Plt Count 74 L D Neut % (Auto) 55 Lymph % (Auto) 34 [place] % (Auto) 11 Eos % (Auto) 0 Baso % (Auto) 0 Neut # (Auto) 3.0 Lymph # (Auto) 1.9 [place] # (Auto) 0.6 Eos # (Auto) 0.0 Baso # (Auto) 0.0 Immature Gran # (Auto) 0.02 H Absolute Nucleated RBC 0.02 H Immature Gran % 0 Nucleated RBC % 0 Sodium 144 Potassium 4.3 D Chloride 104 Carbon Dioxide 30.6 Anion Gap 9 BUN 17 Creatinine 1.5 H Estim Creat Clear Calc 39.6 L eGFR 38 L BUN/Creatinine Ratio 11 L Glucose 80 Calculated Osmolality 287 Calcium 9.0 Corrected Calcium 9.4 Phosphorus 2.8 Magnesium 2.0 Total Bilirubin 1.9 H AST 45 H ALT 23 Alkaline Phosphatase 51 Total Protein 5.6 L Albumin 3.5 Globulin 2.1 L Albumin/Globulin Ratio 1.7 Vitamin B12 > 2000 H Misc Test Result Platelets confirmed Impressions Impression: Gastric ulcer status post bipolar gold heater probe Diverticulosis colon Internal hemorrhoids Continue current management ABG Interpretation ABG results: 06/23/25 03:22 ABG pH 7.31 L ABG pCO2 40 ABG pO2 69 L ABG HCO3 20 ABG O2 Saturation 94 ABG Base Excess -6 L Assessment & Plan A&P Narrative #chronic liver disease with thrombocytopenia etiology uncertain complete workup ordered for the chronic active hepatitis # Anemia of blood loss presenting hemoglobin 4.7 requiring blood transfusion Clear liquid diet in the morning till 11 AM then n.p.o. Consent will be obtained for fiberoptic esophagogastroduodenoscopy with possible biopsy possible therapeutic intervention under intravenous moderate sedation if the heart rate cannot hold up for the procedure I will make the decision tomorrow after talking to the grocery store clerk Other medical problems include Symptomatic bradycardia most likely will need a permanent cardiac pacemaker Hypothyroidism Gastroesophageal disease Depression Thank you very much for the opportunity to participate in the care of this patient Time Spent With Patient Time: Total time spent is greater than 50% in coordination of care (as documented) at patient's floor/unit and/or counseling patient:
[2025-06-30] VITALS (9 sets, daily range): BP systolic 116–132; BP diastolic 54–73; PULSE 53–66; RESP 16–17; TEMP 36–36.6; O2SAT 93–98; BMI 26.2
[2025-06-30] MEDS: MIDODRINE 5 MG TABLET PO ×3 (00:13→13:26)
[2025-06-30] MEDS: LEVOTHYROXINE SODIUM 100 MCG TABLET PO (05:11)
[2025-06-30 06:14] LABS: Basophils # (Auto) 0.0 Thou/mm3 (0.0-0.2); Basophils % (Auto) 0 % (0-2.5); Eosinophils # (Auto) 0.0 Thou/mm3 (0.0-0.5); Eosinophils % (Auto) 0 % (0-10); Hematocrit 26.5 % (36.0-46.0); Hemoglobin 8.9 g/dL (12.0-16.0); Immature Granulocytes Auto 0.01 Thou/mm3 (0.00-0.00); Lymphocytes # (Auto) 1.7 Thou/mm3 (1.0-4.8); Lymphocytes % (Auto) 35 % (10-50); Mean Corpuscular HGB Conc 33.6 g/dl (31.0-37.0); Mean Corpuscular Hemoglobin 34.8 pg (25.0-35.0); Mean Corpuscular Volume 104 fL (80-100); Monocytes # (Auto) 0.6 Thou/mm3 (0.0-0.8); Monocytes % (Auto) 11 % (0-12); Neutrophils # (Auto) 2.6 Thou/mm3 (1.8-7.7); Neutrophils % (Auto) 53 % (37-80); Nucleated Red Blood Cell # 0.00 Thou/mm3 (0.00-0.00); Nucleated Red Blood Cell % 0 /100 WBC (0); Platelet Count 121 Thou/mm3 (140-440); RDW Standard Deviation 102.1 fL (36.4-46.3); Red Blood Count 2.56 Miln/mm3 (4.00-5.20); White Blood Count 5.0 Thou/mm3 (3.6-11.0)
[2025-06-30 06:27] LABS: Alanine Aminotransferase 13 U/L (10-49); Albumin, Serum 3.4 gm/dL (3.4-4.8); Albumin/Globulin Ratio 1.7 (1.2-2.2); Alkaline Phosphatase 56 U/L (46-116); Anion Gap 10 (7-16); Aspartate Amino Transferase 49 U/L (0-34); BUN/Creatinine Ratio 13 Ratio (12-20); Bilirubin,Total 1.5 mg/dL (0.3-1.2); Blood Urea Nitrogen 19 mg/dL (9-23); Calcium 8.4 mg/dL (8.3-10.6); Calcium (Corrected) 8.9 mg/dL (8.5-10.1); Carbon Dioxide 27.6 mMol/L (20.0-31.0); Chloride 106 mMol/L (98-107); Creatinine (Component) 1.5 mg/dL (0.6-1.3); Estimated Creatinine Clearance 39.6 mL/min (>60); Globulin 2.0 gm/dL (2.3-3.5); Glucose 89 mg/dL (74-106); Magnesium 2.0 mg/dL (1.6-2.6); Osmolality,Calculated 288 (275-295); Phosphorous 2.4 mg/dL (2.4-5.1); Potassium 4.1 mMol/L (3.4-5.1); Sodium 144 mMol/L (136-145); Total Protein 5.4 gm/dL (5.7-8.2); eGFR 38 See Note
[2025-06-30] MEDS: PANTOPRAZOLE 40 MG TABLET PO (08:03)
--- NOTE | 2025-06-30 10:20 | ESDS_ITS ---
<Statement entered by Boogie Tello MD - 06/30/25 17:49> I saw and examined patient personally and supervised PGY 1 resident, Dr. Padilla with formulating a management plan. I agree with the documentation with the exceptions as listed below. Patient was admitted due to shock, etiology multifactorial. Both cardiogenic secondary to digoxin toxicity and hypovolemia secondary to acute blood loss anemia. Patient had a 5-day ICU stay requiring dopamine infusion and also 2 doses of DigiFab. Subsequently patient was downgraded to the floors and started on midodrine 5 mg p.o. every 4 hourly. She was also diuresed aggressively with Lasix 40 mg IV twice daily which was discontinued on 06/29 due to CAN of CR 1.5. The etiology of her anemia was multifactorial as well. Secondary to both vitamin B12 deficiency as well as as hemolytic anemia from recent sulfa. Drug use incidentally on CT abdomen pelvis she was also found to have cirrhosis, etiology of which is unclear at this point but likely due to long-term amiodarone use. Autoimmune hepatitis panel is currently pending. Currently all patient's labs are returning to her baseline with the exception of creatinine. Repeat renal function panel was ordered for 07/02 for which she will follow-up with her laminating machine feeder. Patient is clinically stable and fit for discharge to home. Plan of care discussed with Attending Dr. Ingrid Tello MD PGY 2 Disclaimer: This note was dictated by speech recognition. Minor errors in tree topper may be present due to voice recognition software. Planned Discharge Date 06/30/25 DS: Providers Provider Date of admission: 06/22/25 17:53 Primary care physician: Monica Hitchcock MD Admitting Provider: Coral Marie MD Attending Provider on Admission: Osvaldo Cui MD Consults: 06/22/25 17:59 Consult to Cardiology Stat Comment: Consulting Provider: Juan Perdomo 06/24/25 19:29 Consult to Gastroenterology Routine Comment: Anemai, Bilirubin elevation Consulting Provider: Gretchen Suazo 06/25/25 13:54 Referral Physical Therapy Routine Comment: Physician Instructions: 06/27/25 10:26 Consult to Hematology Routine Comment: Consulting Provider: Presley Omalley Attending Provider on DC: Dexter Quintero MD Discharging Provider: Luis Enrique Padilla MD DS: Diagnosis Problem List Completed Was Problem List Reviewed/Reconciled?: Yes Hospital Course Hospital Course Hospital course: Summary: Patient is a 69-year-old female with past medical history of atrial fibrillation, hypothyroidism, anxiety, depression presenting to the ED from ambulance after initially feeling dizzy and weak in the shower earlier today, passed a brown/loose bowel movement unintentionally during this time, and was eventually admitted to the ICU on 06/22/25 for symptomatic junctional bradycardia. ER: In the ED her vitals were initially temperature of 98.6, 27 bpm regular heart rate, 18 respiratory blood pressure of 60/22, 98% oxygen 4 L nasal cannula. Labs were significant for hemoglobin of 4.7 hematocrit 13.6, MCV 136, RDW's deviation 91.5, platelet count 66, sodium 134, carbon dioxide 17.4, creatinine 2.0, GFR 27, glucose 224, T. bili 3.5, AST 57, BNP 476 Imaging included EKG which showed junctional rhythm with PVC In the ED patient was given 1 unit of PRBCs and was started on a second. Patient was also given dopamine drip starting at a rate of 10 mcg per kg per minute. Patient was also started on cardiac pacing in the ED. Hospital: During patient's hospital course, her severe symptomatic junctional bradycardia (thought 2/2 digoxin toxicity) was treated in the ICU via dopamine gtt, aggressive diuresis with IV Lasix, and DigiFab administration x 3 (did not end up requiring transcutaneous pacing). She was then downgraded to floors on 06/26/25 where she was treated with midodrine for her ongoing hypotension as well as Vitamin B12 supplementation, iron supplementation, IV Protonix, and pRBC transfusions for her macrocytic anemia. She also underwent upper and lower endoscopy to evaluate for active sites of bleeding and she was found to have a Abner Class IB oozing gastric ulcer which was treated with heater probe. By 06/30, patient appeared clinically improved and she was discharged home with PO levothyroxine, PO Lasix prn, and iron supplements. Patient is safe to discharge to home. Further discharge instructions below. ? We have completely stopped all your antiarrhythmic medication, including amiodarone, digoxin and nadolol. If you have any remaining at home dispose of them. ? We have started you on a medication to help keep your blood pressure in a normal range. Midodrine take as directed ? For your anemia we have started you on iron tablets. Take 1 tablet every other day. ? Take your blood pressure every day and keep a log to carry to your primary doctor. ? If you have more than 2-3 pounds weight gain in 1 day or experience shortness of breath you can take a water pill as needed. Do not take more than once a day. ? Continue the rest of your home medication as before - High fiber diet - Follow up with Dr. Suazo, gastroenterology ? Follow-up with Heme oncology, Dr. Omalley Within 1 week of discharge - Do a lab test on before your visit to Dr. Perdmoo on Sunday - Follow up with Cardiology , Dr. Perdomo on Sunday07/03/2025 - Follow up with your primary care physician within 1 week of discharge. If you do not have a primary care physician, please follow up with the [facility] Residents clinic ([phone]) ? If you experience any new, worsening or persistent symptoms either call your primary doctor, or dial 911 or present to the emergency department. #Bradycardia, likely 2/2 digoxin toxicity s/p DigiFab x 3, improving #Supraventricular junctional rhythm with narrow QRS with occasional PVC`s #??Atrial fibrillation / tachyarrhythmia #Acute hypoxic respiratory failure #Macrocytic anemia, asymptomatic, etiology unclear but possibly multifactorial #Vitamin B12 deficiency #Iron deficiency anemia #Acute blood loss anemia #Thrombocytopenia #Vitamin B12 deficiency #Acute hyperkalemia, resolved #HFpEF (EF 55-60%) (06/23/25) #Bilateral pleural effusions #Pulmonary hypertension, moderate to severe #Acute kidney injury versus acute on chronic kidney disease, most likely cardiorenal syndrome, improving #Hypotension #Hypothyroidism #Depression #Hyperglycemia Status at Discharge Cognitive/Behavioral Status at Discharge: stable Functional Status at Discharge: independent ambulation Overall Status at Discharge: patient is back to baseline Patient's care plan was discussed with my attending, Dr. Quintero, and senior resident, Dr. Tello. Luis Enrique Padilla, DO Internal Medicine, PGY-1 Time Spent with Patient Time attestation: Total time spent providing and/or coordinating discharge services: Time spent: Greater than 30 minutes Exam Vital Signs Temp Pulse Resp BP Pulse Ox O2 Del Method O2 Flow Rate 97.8 F 53 L 17 132/72 H 97 Room Air 2 06/30/25 08:00 06/30/25 08:04 06/30/25 08:00 06/30/25 08:04 06/30/25 08:00 06/30/25 08:00 06/28/25 17:25 FiO2 56 06/28/25 22:51 Narrative Exam General: No acute distress; A&Ox4 Skin: Upper extremity bruising bilaterally; warm, dry, no obvious rash. Facial color continues to be greatly improved compared to admission being pale. HEENT: NCAT, EOMI, not icteric. External ears normal. No rhinorrhea. Moist mucous membranes. No mucous bleeding noted. Cardiovascular: Systolic murmur that is most easily heard at the pulmonic listening post. Bradycardic rate and normal rhythm, +S1/S2. Respiratory: Lungs CTAB GI: Soft, nontender, non-distended. No guarding or rebound tenderness. Extremities: no edema, no cyanosis, no clubbing. Extremity pulses present Neuro: Grossly nonfocal. Alert and oriented, moving all 4 extremities. CN not formally tested but appear grossly intact. Psychiatric: Cooperative, appropriate affect. Discharge Plan Plan Patient Disposition: HOME (Self Care) Patient condition on transfer: Stable Care Plan Goals: ? We have completely stopped all your antiarrhythmic medication, including amiodarone, digoxin and nadolol. If you have any remaining at home dispose of them. ? We have started you on a medication to help keep your blood pressure in a normal range. Midodrine take as directed ? For your anemia we have started you on iron tablets. Take 1 tablet every other day. ? Take your blood pressure every day and keep a log to carry to your primary doctor. ? If you have more than 2-3 pounds weight gain in 1 day or experience shortness of breath you can take a water pill as needed. Do not take more than once a day. ? Continue the rest of your home medication as before - High fiber diet - Follow up with Dr. Suazo, gastroenterology ? Follow-up with Heme oncology, Dr. Omalley Within 1 week of discharge - Do a lab test on before your visit to Dr. Perdomo on Sunday - Follow up with Cardiology , Dr. Perdomo on Sunday07/03/2025 - Follow up with your primary care physician within 1 week of discharge. If you do not have a primary care physician, please follow up with the [facility] Residents clinic ([phone]) ? If you experience any new, worsening or persistent symptoms either call your primary doctor, or dial 911 or present to the emergency department. Prescriptions/Referrals Prescriptions/Med Rec: New midodrine 5 mg Tablet 5 mg PO Q4H 30 Days Qty: 180 0RF pantoprazole 40 mg Tablet,Delayed Release (Dr/Ec) 40 mg PO BID 30 Days Qty: 60 0RF Nephro-Ange 0.8 mg Tablet 1 tab PO QDAY 30 Days Qty: 30 0RF ferrous sulfate 300 mg (60 mg iron)/5 mL liquid 150 mg PO Q OTHER DAY Qty: 500 0RF furosemide [Lasix] 20 mg tablet 20 mg PO QDAY PRN (Reason: Shortness or breath or Rapid weight gain) Qty: 30 0RF Continued sertraline 50 mg tablet 50 mg PO Q24H Patient Comments: TAKE 1 TABLET BY MOUTH EVERY DAY levothyroxine 100 mcg tablet 100 mcg PO DAILY Patient Comments: TAKE 1 TABLET BY MOUTH EVERY DAY IN THE MORNING ON EMPTY STOMACH FOR 90 DAYS Discontinued amiodarone 200 mg tablet 200 mg PO Q24H Patient Comments: TAKE 1 TABLET BY MOUTH EVERY DAY digoxin 250 mcg (0.25 mg) tablet 250 mcg PO .COMPLEX Patient Comments: TAKE 1 TABLET BY MOUTH EVERY DAY SUNDAY THROUGH SUNDAY Rx Instructions: 250 mcg orally daily; nadolol 40 mg tablet 40 mg PO DAILY Patient Comments: TAKE 1 TABLET BY MOUTH EVERY DAY sulfamethoxazole-trimethoprim 400-80 mg tablet 1 tab PO Q12H Patient Comments: TAKE 1 TABLET BY MOUTH TWICE A DAY Referrals: Juan Perdomo MD [Physician, Cardiology] Presley Omalley MD [Physician, Oncology] Gretchen Suazo MD [Physician, Gastroenterology] Monica Hitchcock MD [Primary Care Provider, Family Practice] Outpatient Orders (i.e. Home Health, Labs, Imaging): Renal Function Panel (Routine) Timeframe: 2 Days Location: Determined by Patient Ordered By: Boogie Tello Patient/Caregiver Discharge Instructions Education Materials: Vitamin B-12 and Folate, Vitamin B-12, Anemia, Understanding Bradycardia Print Language: Marshallese Stand Alone Forms: Brenda Award Info., Patient Portal Info Letter Discharge Order Discharge Orders: Discharge (Routine); Ordered 06/30/25 Ordered By: Boogie Tello Quality Discharge Quality Measures VTE prophylaxis Attestestation MD Attestation I have examined the patient, reviewed labs and imaging findings, discussed the case with the resident(s), and reviewed entered orders. I agree with the plan of care as outlined in this note. Time Spent: [address] Ingrid MD
--- NOTE | 2025-06-30 10:57 | ESPR_ITS ---
Documentation for date of: 06/30/25 Subjective Subjective Interval history: Patient seen and assessed at bedside. No new complaints, denies any chest pain, shortness of breath palpitations. Hemoglobin stable 8.9 (from 9.0), creatinine continues to be 1.5, hold Lasix upon discharge. Appears euvolemic. Lungs clear on exam, very mild peripheral edema. No afib on telemetry, continues to be in sinus. HR stable. Recommend to follow-up outpatient in my clinic this sunday after discharge with renal panel. Exam Vital Signs Temp Pulse Resp BP Pulse Ox O2 Del Method O2 Flow Rate 97.8 F 61 17 116/59 L 97 Room Air 2 06/30/25 12:00 06/30/25 13:26 06/30/25 12:00 06/30/25 13:26 06/30/25 12:00 06/30/25 12:00 06/28/25 17:25 FiO2 56 06/28/25 22:51 Narrative Exam Physical Exam General: Awake and in no acute distress. Conversational and non-toxic appearing. HEENT: Normocephalic, atraumatic, mucous membranes moist. Heart: Regular rate and rhythm, normal S1 and S2, no murmurs appreciated. Lungs: Clear to auscultation with no wheezing or crackles. Abdomen: Soft, nondistended, nontender, positive bowel sounds. No guarding or rebound tenderness. Neurologic: Alert and oriented x3, no gross neurological deficit, and patient able to move all 4 extremities. Extremities: No edema. Skin: Patch of purpura on right arm near IV site. Another small patch on right leg above ankle and right upper shoulder. No rash observed. Objective Labs 06/30/25 05:04 06/30/25 05:04 Labs: Laboratory Results - last 24 hr 06/30/25 05:04 WBC 5.0 RBC 2.56 L Hgb 8.9 L Hct 26.5 L MCV 104 H MCH 34.8 MCHC 33.6 RDW Std Deviation 102.1 H Plt Count 121 L D Neut % (Auto) 53 Lymph % (Auto) 35 [place] % (Auto) 11 Eos % (Auto) 0 Baso % (Auto) 0 Neut # (Auto) 2.6 Lymph # (Auto) 1.7 [place] # (Auto) 0.6 Eos # (Auto) 0.0 Baso # (Auto) 0.0 Immature Gran # (Auto) 0.01 H Absolute Nucleated RBC 0.00 Immature Gran % 0 Nucleated RBC % 0 Sodium 144 Potassium 4.1 Chloride 106 Carbon Dioxide 27.6 Anion Gap 10 BUN 19 Creatinine 1.5 H Estim Creat Clear Calc 39.6 L eGFR 38 L BUN/Creatinine Ratio 13 Glucose 89 Calculated Osmolality 288 Calcium 8.4 Corrected Calcium 8.9 Phosphorus 2.4 Magnesium 2.0 Total Bilirubin 1.5 H AST 49 H ALT 13 Alkaline Phosphatase 56 Total Protein 5.4 L Albumin 3.4 Globulin 2.0 L Albumin/Globulin Ratio 1.7 ABG Interpretation ABG results: 06/23/25 03:22 ABG pH 7.31 L ABG pCO2 40 ABG pO2 69 L ABG HCO3 20 ABG O2 Saturation 94 ABG Base Excess -6 L Quality Measures Quality Measures VTE prophylaxis Advance care planning discussed with:: patient Assessment & Plan Plan Patient is a 69-year-old female with past medical history of arrhythmia, hypothyroidism, GERD, depression who presents to the [facility] ED on 06/22/25 for pre- syncope, found to be in bradycardia HR low 30s requiring transcutaneous pacing, admitted to ICU for the severe bradycardia with need for ventricular junctional rhythm requiring transcutaneous pacing and possible temporary pacemaker placement. Is now stable off pacer pads with daily improvement in heart rate after digifab. #Bradycardia likely secondary to digoxin toxicity s/p DigiFab, improving #Supraventricular junctional rhythm with narrow QRS with occasional PVC`s # ? Atrial fibrillation / tachyarrhythmia #Acute hyperkalemia, resolved # HFpEF (EF 55-60%) (06/23/25) #Bilateral pleural effusions #Pulmonary hypertension, moderate to severe #Hypotension Was found to have heart rate of 20s at home after presyncopal episode. Upon arrival heart rate improved to 30s, status post atropine x 1. Patient is not on anticoagulation. Previously seeing Dr. Meyer. Was told that she has an arrhythmia however is not on anticoagulation. Takes amiodarone 200 mg daily, nadolol 40 mg daily, digoxin 250 mg daily except for Sunday. Last took all of these medications this morning prior to arrival, likely reason why patient's heart rate did not increase despite anemia. Patient was transcutaneously paced at HR 60 upon arrival to ED, was later discontinued after HR stabilized to upper 30s after receiving dopamine and blood. Temporary transvenous pacemaker never done as patient was hemodynamically stable did not require it. EKG showed supraventricular junctional rhythm with narrow QRS with occasional PVCs. Heart rate 41. Patient did have hyperkalemia which was treated aggressively with insulin as well as glucose IV and Kayexalate. TTE 06/23/25 showed normal LV size and wall thickness. Normal LV function with an EF of 55 to 60%. Indeterminate diastolic function. Moderately dilated RV. Normal RV function. Severely elevated RVSP at 85 mmHg with RAP of 15 mmHg. Flat septum in both systole and diastole with D-shaped LV indicating both pressure and volume overload. Moderate TR. Mild to moderate MR possible bicuspid aortic valve. Mild AR. IVC dilated and less than 50% collapse with inspiration. Left- sided pleural effusion noted. No pericardial effusion. CT A/P 06/25/25: Moderate CHF with superimposed pneumonia in the lung bases. Mild to moderate bilateral pleural effusions. Cirrhosis. Mild ascites. 7.5 cm renal cyst. Plan: ? Hold amiodarone, atenolol, digoxin - S/p digifab 3 vials per poison control. Digoxin level decreased to 1.9. Repeat digoxin level increased to 2.1, ICU team gave another reduced dose of DigiFab. - Previously started on dopamine drip, now completely weaned off. Midodrine 5 mg q4hr due to borderline low MAPs, wean as tolerated. Heart rate continues to improve. ? Hold IV Lasix 40 mg twice daily due to CAN. ?Keep Hgb btwn 9-10. Transfuse as needed. ?Recommend to keep potassium between 4 and 5 and deviation greater than 2 at all times. - Keep magnesium greater than 2 at all times. ?Continue telemetry ?Strict I's and O's ?Daily weights ?Cardiac diet, 2 g sodium -Recommend to follow-up outpatient in my clinic this sunday after discharge with renal panel. #Cardiorenal syndrome, improving Creatinine 2.0, previously 1.3 in 2020. Previously unclear if patient had CAN or acute on chronic renal disease as last known baseline was in 2020. Likely cardiorenal syndrome from fluid overload state in the setting of pulmonary hypertension. Creatinine continues to improve with diuresis. ?Lasix as above ?CTM creatinine ?Avoid overdiuresis or other nephrotoxic agents #Severe anemia #Chronic macrocytic anemia #Thrombocytopenia #Hyperbilirubinemia #Mild transaminitis #? GI bleed Presented with paleness, has been progressive for the past 2 weeks. Reports also starting 2 weeks ago, patient has had decreased appetite and dark stools. Around this time she was also started on Bactrim and Z-Girish for upper respiratory virus by PCP. Patient thought that dark stools was a side effect of the medications. Never had a colonoscopy. On admission, WBC 7.8, hemoglobin 4.7. Platelet 66, possibly secondary to severe blood loss but will need to rule out other causes. BNP 1285 Iron panel 06/22/25: Elevated iron, iron saturation, unsaturated iron binding, ferritin. Reticulocyte count elevated 2.9. Vitamin B12 was low at 92. Folate was within normal limits. Peripheral smear in December 2018 showed macrocytic RBCs with anisocytosis and no significant polkilocytosis. 06/23/25: Hgb improved to 8.8 s/p second unit, 9.2 after 3rd bag. 06/24/2025: Hemoglobin 9.9, improving. Platelets dropped to 30 from 70 yesterday. 06/25/25: Hgb dropped to 8.5. 06/26/25: Hemoglobin dropped to 6.7, platelets 26. S/p 1 unit PRBC, hemoglobin improved to 7.5. Hemoccult negative. Endoscopy 06/27/25 showed 10 mm oozing superficial gastric ulcer (Stearns class Ib) with oozing hemorrhage, s/p hemostasis. Normal esophagus and duodenum. - Keep the hemoglobin between 9 and 10. - First iron panel shows likely falsely we elevated levels, possible that sample was drawn after first unit of PRBC was given. Continue IV iron as repeat iron level shows low iron. - Vitamin B12 1000 mcg daily - GI consulted: DAREK and AMA is pending, will further order actin IgG antibody iron saturation studies copper level is still low plasmin level and anti-smooth muscle antibody. If workup negative, consider liver biopsy. Plan for colonoscopy. - Defer to primary team for thrombocytopenia workup. Duct Layer Helper consulted by primary team. #Hypothyroidism #Depression ?Resume home meds once stable Thank you for your consultation, please do not hesitate to reach out if you have any question or concern Patient plan of care was discussed with the attending physician, Dr. Perdomo . Surekha Horn, PGY-1 Attending Provider Attestation/Addendum I have personally seen and examined the patient separately on the above date of service and discussed the plan of care with the resident. I reviewed the resident Dr. Surekha Horn consultation progress note and agree with the resident findings and plan in the note above and have also edited the documentation to reflect my findings and plan. Juan Perdomo M.D. Interventional Cardiology
--- NOTE | 2025-06-30 20:49 | PD.IMPROG ---
Documentation for date of: 06/30/25 Subjective Subjective Interval history: Late entry for the note case discussed with the internal medicine team Patient has a Abner class Ib gastric ulcer Advised the patient for outpatient follow-up which she will Monitor CBC Needs to be discharged on a PPI Exam Vital Signs Temp Pulse Resp BP Pulse Ox O2 Del Method O2 Flow Rate 96.8 F 58 L 16 119/73 98 Room Air 2 06/30/25 16:00 06/30/25 16:00 06/30/25 16:00 06/30/25 16:00 06/30/25 16:00 06/30/25 16:00 06/28/25 17:25 FiO2 56 06/28/25 22:51 Objective Labs 06/30/25 05:04 06/30/25 05:04 Labs: Laboratory Results - last 24 hr 06/30/25 05:04 WBC 5.0 RBC 2.56 L Hgb 8.9 L Hct 26.5 L MCV 104 H MCH 34.8 MCHC 33.6 RDW Std Deviation 102.1 H Plt Count 121 L D Neut % (Auto) 53 Lymph % (Auto) 35 [place] % (Auto) 11 Eos % (Auto) 0 Baso % (Auto) 0 Neut # (Auto) 2.6 Lymph # (Auto) 1.7 [place] # (Auto) 0.6 Eos # (Auto) 0.0 Baso # (Auto) 0.0 Immature Gran # (Auto) 0.01 H Absolute Nucleated RBC 0.00 Immature Gran % 0 Nucleated RBC % 0 Sodium 144 Potassium 4.1 Chloride 106 Carbon Dioxide 27.6 Anion Gap 10 BUN 19 Creatinine 1.5 H Estim Creat Clear Calc 39.6 L eGFR 38 L BUN/Creatinine Ratio 13 Glucose 89 Calculated Osmolality 288 Calcium 8.4 Corrected Calcium 8.9 Phosphorus 2.4 Magnesium 2.0 Total Bilirubin 1.5 H AST 49 H ALT 13 Alkaline Phosphatase 56 Total Protein 5.4 L Albumin 3.4 Globulin 2.0 L Albumin/Globulin Ratio 1.7 Impressions Impression: Gastric ulcer Abner class Ib requiring endoscopic intervention Diverticulosis colon Posthemorrhagic anemia Outpatient follow-up Patient be discharged on a PPI ABG Interpretation ABG results: 06/23/25 03:22 ABG pH 7.31 L ABG pCO2 40 ABG pO2 69 L ABG HCO3 20 ABG O2 Saturation 94 ABG Base Excess -6 L Assessment & Plan A&P Narrative #chronic liver disease with thrombocytopenia etiology uncertain complete workup ordered for the chronic active hepatitis # Anemia of blood loss presenting hemoglobin 4.7 requiring blood transfusion Clear liquid diet in the morning till 11 AM then n.p.o. Consent will be obtained for fiberoptic esophagogastroduodenoscopy with possible biopsy possible therapeutic intervention under intravenous moderate sedation if the heart rate cannot hold up for the procedure I will make the decision tomorrow after talking to the clipper machine Other medical problems include Symptomatic bradycardia most likely will need a permanent cardiac pacemaker Hypothyroidism Gastroesophageal disease Depression Thank you very much for the opportunity to participate in the care of this patient Time Spent With Patient Time: Total time spent is greater than 50% in coordination of care (as documented) at patient's floor/unit and/or counseling patient:
[2025-07-02 06:39] LABS: ANA Screen, IFA NEGATIVE (NEGATIVE); Alpha-1-Antitrypsin* 212 mg/dL (83-199); Ceruloplasmin* 26 mg/dL (14-48); Copper* 111 mcg/dL (70-175); Mitochondrial Ab NEGATIVE (NEGATIVE)
[2025-07-02 06:39] LABS: Haptoglobin* 49 mg/dL (43-212)
[2025-07-06 06:34] LABS: Actin Antibody (IgG)* <20 U; Ceruloplasmin* 23 mg/dL (14-48); Copper* 96 mcg/dL (70-175)
== END 2025-06-30 15:55 | disposition home or self-care (01) | DRG 308 ==
LOC: SERX 17:37 → SERHOLD 06-23 06:04 → S2SX 06-23 06:05 → S2NX 06-26 17:05
PROVIDERS: Internal Medicine; Specialist; Student in an Organized Health Care Education/Training Program; Admitting Provider Internal Medicine; Emergency Provider Emergency Medicine; PCP Family Medicine; Visit Provider Internal Medicine
PROC: 0W3P8ZZ Control Bleeding in Gastrointestinal Tract, Via Natural or Artificial Opening Endoscopic (ICD-10-PCS; CPT 43239; principal; 2025-06-27 15:45)
PROC: 0DJD8ZZ Inspection of Lower Intestinal Tract, Via Natural or Artificial Opening Endoscopic (ICD-10-PCS; CPT 45378; principal; 2025-06-28 15:30)
DX: R00.1 Bradycardia, unspecified (principal); J18.9 Pneumonia, unspecified organism; J96.01 Acute respiratory failure with hypoxia; R57.0 Cardiogenic shock; K25.4 Chronic or unspecified gastric ulcer with hemorrhage; D62 Acute posthemorrhagic anemia; N17.9 Acute kidney failure, unspecified; E87.1 Hypo-osmolality and hyponatremia; R18.8 Other ascites; I50.32 Chronic diastolic (congestive) heart failure; D61.818 Other pancytopenia; D58.9 Hereditary hemolytic anemia, unspecified; K63.3 Ulcer of intestine; I48.91 Unspecified atrial fibrillation; E03.9 Hypothyroidism, unspecified; F41.9 Anxiety disorder, unspecified; F32.A Depression, unspecified; D69.6 Thrombocytopenia, unspecified; W01.0XXA Fall on same level from slipping, tripping and stumbling without subsequent striking against object, initial encounter; I49.3 Ventricular premature depolarization; R73.9 Hyperglycemia, unspecified; K21.9 Gastro-esophageal reflux disease without esophagitis; K64.1 Second degree hemorrhoids; E87.5 Hyperkalemia; N28.1 Cyst of kidney, acquired; I27.20 Pulmonary hypertension, unspecified; K74.60 Unspecified cirrhosis of liver; K57.30 Diverticulosis of large intestine without perforation or abscess without bleeding; E53.8 Deficiency of other specified B group vitamins; M25.551 Pain in right hip; D69.59 Other secondary thrombocytopenia; E83.39 Other disorders of phosphorus metabolism; T46.0X5A Adverse effect of cardiac-stimulant glycosides and drugs of similar action, initial encounter; Z79.890 Hormone replacement therapy; Z79.899 Other long term (current) drug therapy
CPT/HCPCS: 36415; 36600; 71045; 71250; 74150; 80053; 80061; 80069; 80074; 80162; 80307; 81001; 82103; 82105; 82248; 82270; 82390; 82525; 82607; 82728; 82746; 82803; 83010; 83036; 83540; 83550; 83605; 83615; 83735; 83880; 83970; 84100; 84145; 84439; 84443; 84484; 85014; 85018; 85025; 85046; 85610; 85652; 85730; 86015; 86038; 86140; 86255; 86703; 86850; 86900; 86901; 86923; 86965; 87081; 93005; 93306; 94640; 96365; 96375; 97161; 99285; A4216; A4649; A9270; J0131; J0461; J1162; J1200; J1265; J1611; J1756; J1815; J1938; J2250; J2470; J3010; J3420; J3475; J3480; J3490; J7050; J7120; J7999; P9016; P9047; P0947

== ENCOUNTER → 2025-07-02 | Outpatient (CLI) | payer MEDICARE, SELFPAY ==
[2025-07-02 11:33] LABS: Albumin, Serum 3.7 gm/dL (3.4-4.8); Anion Gap 11 (7-16); BUN/Creatinine Ratio 13 Ratio (12-20); Blood Urea Nitrogen 15 mg/dL (9-23); Calcium 8.6 mg/dL (8.3-10.6); Calcium (Corrected) 8.8 mg/dL (8.5-10.1); Carbon Dioxide 22.4 mMol/L (20.0-31.0); Chloride 109 mMol/L (98-107); Creatinine (Component) 1.2 mg/dL (0.6-1.3); Glucose 231 mg/dL (74-106); Osmolality,Calculated 290 (275-295); Phosphorous 2.2 mg/dL (2.4-5.1); Potassium 4.3 mMol/L (3.4-5.1); Sodium 142 mMol/L (136-145); eGFR 49 See Note
== END | disposition home or self-care (01) ==
LOC: COPL 10:45
PROVIDERS: PCP Family Medicine
DX: R94.4 Abnormal results of kidney function studies (principal)
CPT/HCPCS: 36415; 80069

== ENCOUNTER → 2025-08-10 | Outpatient (CLI) | payer MEDICARE, SELFPAY ==
[2025-08-10 14:53] LABS: Basophils # (Auto) 0.0 Thou/mm3 (0.0-0.2); Basophils % (Auto) 0 % (0-2.5); Eosinophils # (Auto) 0.2 Thou/mm3 (0.0-0.5); Eosinophils % (Auto) 3 % (0-10); Hematocrit 36.1 % (36.0-46.0); Hemoglobin 11.9 g/dL (12.0-16.0); Immature Granulocytes Auto 0.01 Thou/mm3 (0.00-0.00); Immature Reticulocyte Fraction 6.1 % (3.0-15.9); Lymphocytes # (Auto) 1.3 Thou/mm3 (1.0-4.8); Lymphocytes % (Auto) 25 % (10-50); Mean Corpuscular HGB Conc 33.0 g/dl (31.0-37.0); Mean Corpuscular Hemoglobin 32.6 pg (25.0-35.0); Mean Corpuscular Volume 99 fL (80-100); Monocytes # (Auto) 0.4 Thou/mm3 (0.0-0.8); Monocytes % (Auto) 8 % (0-12); Neutrophils # (Auto) 3.2 Thou/mm3 (1.8-7.7); Neutrophils % (Auto) 63 % (37-80); Nucleated Red Blood Cell # 0.00 Thou/mm3 (0.00-0.00); Nucleated Red Blood Cell % 0 /100 WBC (0); Platelet Count 120 Thou/mm3 (140-440); RDW Standard Deviation 53.2 fL (36.4-46.3); Red Blood Count 3.65 Miln/mm3 (4.00-5.20); Reticulocyte % (Auto) 1.4 % (0.5-1.5); Reticulocyte Absolute Auto 49.6 Biln/L (25.0-75.0); Reticulocyte Hgb Content 34.8 pg (28.0-35.0); White Blood Count 5.0 Thou/mm3 (3.6-11.0)
[2025-08-10 15:25] LABS: Ferritin 601 ng/mL (7.3-270.7); Iron 82 mcg/dL (50-170); Percent Iron Saturation 29 % (20-55); Total Iron Binding Capacity 276 mcg/dL (250-425); Unsaturated Iron Binding 194 (225-295)
[2025-08-10 15:29] LABS: Alanine Aminotransferase 42 U/L (10-49); Albumin, Serum 4.1 gm/dL (3.4-4.8); Anion Gap 10 (7-16); Aspartate Amino Transferase 68 U/L (0-34); BUN/Creatinine Ratio 15 Ratio (12-20); Bilirubin,Total 0.6 mg/dL (0.3-1.2); Blood Urea Nitrogen 16 mg/dL (9-23); Calcium 9.1 mg/dL (8.3-10.6); Calcium (Corrected) 9.1 mg/dL (8.5-10.1); Carbon Dioxide 25.4 mMol/L (20.0-31.0); Chloride 108 mMol/L (98-107); Creatinine (Component) 1.1 mg/dL (0.6-1.3); Globulin 2.3 gm/dL (2.3-3.5); Glucose 106 mg/dL (74-106); Osmolality,Calculated 286 (275-295); Potassium 4.3 mMol/L (3.4-5.1); Sodium 143 mMol/L (136-145); Total Protein 6.4 gm/dL (5.7-8.2); Vitamin B12 534 pg/mL (211-911); eGFR 55 See Note
[2025-08-10 15:30] LABS: Albumin/Globulin Ratio 1.8 (1.2-2.2); Alkaline Phosphatase 88 U/L (46-116); Free T4 (Free Thyroxine) 1.39 ng/dL (0.89-1.76); Thyroid Stimulating Hormone 1.46 uIU/mL (0.55-4.78)
== END | disposition home or self-care (01) ==
PROVIDERS: PCP Family Medicine; Referring Provider Physician Assistant; Visit Provider Specialist
DX: D69.6 Thrombocytopenia, unspecified (principal); E03.9 Hypothyroidism, unspecified
CPT/HCPCS: 36415; 80053; 82607; 82728; 83540; 83550; 84439; 84443; 85025; 85046